=== PATIENT | male | born 1950 | race Caucasian/White ===

== ENCOUNTER 2017-01-23 09:40 | Inpatient (IN) | payer MEDICARE ==
[~2017-01-23] VITALS: Ht 182.9 cm; Wt 108.9 kg
--- NOTE | ~2017-01-23 | CN ---
PATIENT NAME:BENJAMIN KNOWLES MEDICAL RECORD: [id number] : 50 LOCATION:D.MS [id number] ADMIT DATE: 01/23/17 ACCOUNT: [id number] CONSULTING PHYSICIAN: SHERLYN PHILLIPS MD REFERRING PHYSICIAN: JONN GALLARDO MD DATE OF CONSULTATION: 01/24/2017 CONSULT REQUESTING PHYSICIAN: Jonn Gallardo MD REASON FOR CONSULTATION: Bilateral pneumonia, acute mental status changes. HISTORY OF PRESENT ILLNESS: Mr. Knowles is a 67-year-old gentleman, who is a lifelong smoker. According to the daughter, he is smoking almost a pack a day. He never gets out of the house because of his anxiety. He is sick for the last few days. He is coughing, wheezing and shortness of breath. He also has some mental status changes. REVIEW OF SYSTEMS: Mainly in the history of present illness. PAST MEDICAL HISTORY: 1. COPD. 2. History of small-bowel obstruction. 3. History of acute renal failure and that has been resolved. PAST SURGICAL HISTORY: Nonsignificant. ALLERGIES: There are no known drug allergies. MEDICATIONS: [employer] is reviewed. PERSONAL AND SOCIAL HISTORY: The patient is and lives with his . He is smoking 1 pack per day. He is a nondrinker. FAMILY HISTORY: Noncontributory. PHYSICAL EXAMINATION: GENERAL: The patient is now lying comfortably in bed. He is in mild distress. The patient is confused. VITAL SIGNS: The blood pressure is 124/78, pulse is 94, respirations 18, temperature 97.9, and SpO2 of 94% on 3 liters nasal cannula. HEENT: Conjunctivae is pink, sclerae nonicteric. NECK: Supple. No JVD. CHEST: The chest excursion is minimal on both sides, prolonged expiration with wheezing. There are crackles. HEART: Rhythm regular, normal sound, no murmur. ABDOMEN: Soft. Bowel sounds present. No hepatosplenomegaly. RECTAL: Deferred. EXTREMITIES: No cyanosis. No clubbing. No pedal edema. SKIN: Warm, normal turgor. CENTRAL NERVOUS SYSTEM: The patient is awake and alert, but the patient is confused. IMAGING: Chest radiograph, there is bilateral infiltrate, left greater than the right. There is a small left pleural effusion. CONSULT REPORT [id number] BENJAMIN KNOWLES OTHER LABORATORY DATA: CBC: WBC is 19.9, hemoglobin is 10.5, hematocrit is 33.5, and the platelet count is 416. Chemistry: Sodium 136, potassium 4.6, BUN is 12, and creatinine 0.9. The ammonia level is 74. The liver enzyme is within normal range. IMPRESSION: 1. Acute hypoxic respiratory failure. 2. Acute exacerbation of chronic obstructive pulmonary disease. 3. Bilateral pneumonia, most likely community-acquired pneumonia, doubt aspiration. 4. Acute mental status changes secondary to metabolic encephalopathy and secondary to hyperammonemia. 5. Tobacco dependence syndrome. RECOMMENDATION: Discontinue Zithromax. Continue Levaquin. I will add Rocephin. Start methylprednisolone IV, albuterol, ipratropium nebulizer, Brovana and budesonide nebulizer. Follow labs and chest radiograph in the morning. Dr. Gallardo, once again, thank you for involving me in the care of Mr. Knowles. TRANSINT:[id number] Voice Confirmation ID: [id number] DOCUMENT ID: [id number] SHERLYN PHILLIPS MD CC: JONN GALLARDO MD [id number] DICTATION DATE: 01/24/178 FLIGHT ATTENDANT RAMP: 01/25/17 0112 ADM IN [facility] [address] [id number]
[2017-01-23 10:59] LABS: BASOPHILS 0.8 % (0-2); EOSINOPHILS 1.7 % (0-7); HEMATOCRIT 33.4 % (42.0-54.0); HEMOGLOBIN 10.8 g/dL (13.5-17.5); IMMATURE GRANULOCYTES 6.6 % (0-5); LYMPHOCYTES 10.1 % (15-50); MCH 28.9 pg (26.0-34.0); MCHC 32.3 g/dL (31.0-37.0); MCV 89.3 fL (80.0-100.0); MEAN PLATELET VOLUME 10.1 fL (7.4-10.4); MONOCYTES 6.8 % (2-11); PLATELET COUNT 413 10x3/uL (130-400); RBC 3.74 10x6/uL (4.20-6.10); RDW 14.1 % (11.5-14.5); WBC 16.8 10x3/uL (4.8-10.8)
[2017-01-23 11:17] LABS: INR 1.17 (0.85-1.17); PROTIME 14.8 SECONDS (11.6-15.0)
[2017-01-23 11:18] LABS: APTT 27.6 SECONDS (22.8-39.4)
[2017-01-23 11:19] LABS: D-DIMER-QUANTITATIVE 3.31 ug/mLFEU (0.20-0.54)
[2017-01-23 11:22] LABS: ALBUMIN 2.4 g/dL (3.4-5.0); ALKALINE PHOSPHATASE 148 U/L (46-116); ALT (SGPT) 23 U/L (10-68); BILIRUBIN - TOTAL 0.43 mg/dL (0.2-1.3); CALC OSMOLALITY 275 mosm/kg (275-300); CALCIUM 8.8 mg/dL (8.5-10.1); CARBON DIOXIDE 32.9 mmol/L (21.0-32.0); CHLORIDE - SERUM 98 mmol/L (98-107); POTASSIUM - SERUM 4.2 mmol/L (3.5-5.1); PROTEIN - SERUM 6.7 g/dL (6.4-8.2); SODIUM 137 mmol/L (136-145); UREA NITROGEN 12 mg/dL (7-18); eGFR NON AFRICAN AMERICAN 79 mL/min (90-120)
[2017-01-23 11:28] LABS: GLUCOSE 142 mg/dL (74-106)
[2017-01-23 11:30] LABS: CREATINE KINASE 191 UL (21-232); PRO BNP 446 pg/mL (0-125); TROPONIN-I < 0.017 ng/mL (0.000-0.060)
--- NOTE | 2017-01-23 15:00 | NUR ---
RECEIVED TO ROOM 2216 VIA STRETCHER FROM ER. A/O X3. FAMILY AT BEDSIDE. PATIENT IS CONFUSED TO TIME AND PLACE. SKIN IS INTACT WITHOUT REDNESS. LUNCH TRAY IN ROOM. DENIES NEEDS. LUNGS HAVE CRACKLES THROUGHOUT LUNG PRESTON AND DIMINISHED SLIGHTLY. FAMILY REPORTS NO HOME MEDS AND THAT PATIENT HAS BEEN OUT ON THE [facility] FOR 15 YEARS AND NOT SEEN A DOCTOR.
[2017-01-23 15:02] VITALS: BP 123/70; BMI 32.6
--- NOTE | 2017-01-23 17:38 | NUR ---
CLEAR LIQUID TRAY SERVED IN ROOM.
--- NOTE | 2017-01-23 18:30 | NUR ---
REFUSED SUPPER TRAY. STATED HE WASN'T HUNGRY. NO CHANGES NOTED. VOIDED USING URINAL WITHOUT DIFFICULTY.
--- NOTE | 2017-01-23 19:35 | NUR ---
RECIEVED SHIFT REPORT. PT IS LYING IN BED. PT IS CONFUSED TO SITUATION AT THIS TIME. IV IS PATENT AND FLUIDS ARE RUNNING PER ORDER. PT IS AMBULATORY WITH ASSISTANCE. PT STATES PAIN IS 3/10. O2 @ 3 PER NASAL CANNULA. NO NEEDS ARE VERBALIZED AT THIS TIME. WILL CONTINUE TO MONITOR. SIDE RAILS ARE UP X 2. BED IS IN LOWEST POSITION. BED ALARM IS ON FOR SAFETY. CALL LIGHT IS WITHIN REACH.
[2017-01-23 20:00] VITALS: BP 124/69
--- NOTE | 2017-01-23 20:34 | NUR ---
SHIFT ASSESSMENT COMPLETED. NIGHT MEDS GIVEN WITH NO PROBLEMS. NO NEEDS ARE VOICED. WILL MONITOR. SIDE RAILS X 2. BED LOW. BED ALARM ON. CALL LIGHT IN REACH.
--- NOTE | 2017-01-24 03:41 | NUR ---
URINE SENT TO LAB AT THIS TIME FOR WARRENTED TESTS.
[2017-01-24 04:00] VITALS: BP 128/75
[2017-01-24 05:22] LABS: APPEARANCE CLEAR (CLEAR); BILIRUBIN NEGATIVE (NEGATIVE); COLOR YELLOW (YELLOW); GLUCOSE NEGATIVE (NEGATIVE); KETONE NEGATIVE (NEGATIVE); LEUKOCYTE ESTERASE NEGATIVE (NEGATIVE); NITRITE NEGATIVE (NEGATIVE); PROTEIN NEGATIVE (NEGATIVE); UROBILINOGEN NORMAL (NORMAL)
[2017-01-24 06:06] LABS: BASOPHILS 0.1 % (0-2); EOSINOPHILS 0 % (0-7); HEMATOCRIT 33.5 % (42.0-54.0); HEMOGLOBIN 10.5 g/dL (13.5-17.5); IMMATURE GRANULOCYTES 4.6 % (0-5); LYMPHOCYTES 6.3 % (15-50); MCH 28.2 pg (26.0-34.0); MCHC 31.3 g/dL (31.0-37.0); MCV 89.8 fL (80.0-100.0); MONOCYTES 2.8 % (2-11); NEUTROPHILS 86.2 % (40-80); PLATELET COUNT 416 10x3/uL (130-400); RBC 3.73 10x6/uL (4.20-6.10); WBC 19.9 10x3/uL (4.8-10.8)
[2017-01-24 06:53] LABS: CALC OSMOLALITY 276 mosm/kg (275-300); CALCIUM 8.8 mg/dL (8.5-10.1); CARBON DIOXIDE 32.7 mmol/L (21.0-32.0); CHLORIDE - SERUM 98 mmol/L (98-107); CREATININE - SERUM 0.9 mg/dL (0.6-1.3); POTASSIUM - SERUM 4.6 mmol/L (3.5-5.1); SODIUM 136 mmol/L (136-145); UREA NITROGEN 12 mg/dL (7-18); eGFR NON AFRICAN AMERICAN 89 mL/min (90-120)
[2017-01-24 06:54] LABS: GLUCOSE 190 mg/dL (74-106)
--- NOTE | 2017-01-24 07:52 | HP ---
PATIENT: BENJAMIN KNOWLES MEDICAL RECORD: [id number] ACCOUNT: [id number] LOCATION:D.MS [id number] : 50 ADMISSION DATE: 01/23/17 HISTORY AND PHYSICAL EXAMINATION REASON FOR ADMISSION: Shortness of breath. HISTORY OF PRESENT ILLNESS: A 67-year-old male with history of COPD with no local physician, presents with family members who stated that he has not been out of bed for 4 days due to cough. The cough has been productive. He denies fever. His family states that he has been confused. They stated he is pretty much a hermit, never gets out of the house. He ____ Proventil inhaler for a few days without improvement. He continues to smoke a pack a day of cigarettes for 50 years despite these symptoms. He also has not had a bowel movement in 4 days. PAST MEDICAL HISTORY: COPD, nicotine addiction, was hospitalized a year ago here by Dr. Peoples for small bowel obstruction and acute renal failure that resolved with hydration. PAST SURGICAL HISTORY: There is a negative surgical history. MEDICATIONS: No current medications except for occasional Proventil HFA inhaler. ALLERGIES: None known. FAMILY HISTORY: The patient does not know the history. SOCIAL HISTORY: One pack a day for 50+ years. No alcohol use. Denies recreational drug use. REVIEW OF SYSTEMS: GENERAL: He has been fatigued and weak and trouble breathing for the last 4 days. Denies fever. HEENT: Has had some pain in his left ear. No hearing difficulty, or visual problems. RESPIRATORY: As above, short of breath at rest and coughing, productive of yellow-green sputum. Denies hemoptysis. CARDIAC: Denies chest pain, palpitations, or edema. GASTROINTESTINAL: He has had no nausea. He has not had a bowel movement, had some vague abdominal discomfort. No bowel movement in 4 days. There is no melena. He has never had a colonoscopy or EGD. GENITOURINARY: Has nocturia once nightly. ENDOCRINE: Denies polyuria, polydipsia, heat or cold intolerance, or weight loss. PSYCHIATRIC: Denies depressed mood. NEUROLOGIC: Denies history of memory loss, although the family says he was not acting himself for last few days. PHYSICAL EXAMINATION: VITAL SIGNS: The patient is afebrile, blood pressure 160/80, sat initially was in the low 80s, has improved on 4 liters to 94%. Heart rate is 80 and regular. HEENT: Normocephalic. Eyes are clear. He is unshaven. He has cerumen in left ear canal, but no erythema. voice. Oropharynx, dry mucous membranes. HISTORY AND PHYSICAL [id number] BENJAMIN KNOWLES NECK: Supple, without bruits or masses. CHEST: Distant breath sounds with wheezes bilaterally. He is using accessory muscles to breathe currently. HEART: Regular rate without murmur or gallop. ABDOMEN: Mildly distended with hyperactive bowel sounds. It is nontender throughout. RECTAL: Shows no stool in the vault. EXTREMITIES: He has 1+ mild pedal edema. SKIN: Very dry. No cyanosis is appreciated. LABORATORY AND DIAGNOSTIC DATA: Chest x-ray reveals some bibasilar patchy infiltrates with small left pleural effusion. He has calcified aortic knob. White count is 16.8 thousand with normal differential, H&H is 10.8 and 33.4, platelets 413,000. MCV of 89.3. INR is normal. D-dimer is 3.31. BUN and creatinine are 12 and 1.0. Potassium is 4.2. Lactic acid is 1.1. Liver functions are normal except for alkaline phosphatase of 148. ProBNP of 446. Blood gas: pH 7.396, pCO2 of 49, pO2 of 78 on 4 liters. Single view chest x-ray shows bilateral basilar infiltrates, left greater than right with small left pleural effusion. Abdominal film shows increased abdominal bowel gas, but no free air. ASSESSMENT: Exacerbation of chronic obstructive pulmonary disease, constipation, hypoxemia, leukocytosis, elevated D-dimer of undetermined etiology. PLAN: The patient will be admitted for pulmonary toilet, IV antibiotics, pulmonary consult if indicated. TRANSINT:[id number] Voice Confirmation ID: [id number] DOCUMENT ID: [id number] HANNAH HOROWITZ MD at 0752 CC: [id number] DICTATION DATE: 01/23/17 1407 DIRECTOR CLINICAL DATA: 01/23/17 1718 [place] [address]
--- NOTE | 2017-01-24 07:56 | NUR ---
PATIENT IS AWAKE, AND ALERT. PATIENT ANSWERED ALL ORIENTATION QUESTIONS CORRECTLY, THEN STATED "WHEN CAN I EAT THAT OVER THERE" AND POINTED TO A SHEET OF PAPER HANGING UP ON THE WALL. REORIENTED PATIENT. BED ALARM ON. BED IN LOWEST POSITION, CALL LIGHT IN REACH. BED RAILS UP X'S 2.
[2017-01-24 07:58] VITALS: BP 135/73
[2017-01-24 11:54] VITALS: BP 122/68
--- NOTE | 2017-01-24 12:00 | NUR ---
PATIENT PULLED OUT IV. PATIENT HOLDING A WASH CLOTH TO ARM. I STATED "YOU PULLED YOUR IV OUT." PATIENT STATED "NO, I DID NOT. THIS HAPPENS ALL THE TIME." KEPT TRYING TO EXPLAIN AND REORIENT PATIENT. UNABLE TO REORIENT. PATIENT STATED "THERE ARE 2 MICE THAT ARE RUNNING AROUND IN THE FLOOR." I STATED "YOU ARE HAVING HALLUCINATIONS, THERE ARE NO MICE IN THE FLOOR."
--- NOTE | 2017-01-24 12:15 | NUR ---
ALARM MECHANISM ADJUSTER TRIED TO GET PATIENT TO GET IN THE SHOWER. PATIENT REFUSED. I WENT IN ROOM, TALKED TO PATIENT. EXPLAINED THAT HE NEEDS TO GET A SHOWER AND WE HAVE CLEAN CLOTHES FOR HIM AND THE ALARM MECHANISM ADJUSTER WILL ASSIST. PATIENT STATED "I AM NOT GETTING A SHOWER TODAY!" I STATED "THAT IS FINE. YOU DO NOT HAVE TO GET IN THE SHOWER. WE HAVE BATH WIPES." ALARM MECHANISM ADJUSTER GOT BATH WIPES TRIED TO BATH PATIENT, PATIENT REFUSED.
--- NOTE | 2017-01-24 12:18 | NUR ---
PATIENT'S BED ALARM GOING OFF. WENT IN ROOM. PATIENT STANDING UP WALKING TOWARD THE DOOR. NASAL CANNULA OFF. PATIENT STATED "I AM GETTING OUT OF THIS PLACE!" I STATED "SIR. PLEASE SIT BACK DOWN SO WE CAN TALK." PATIENT KEPT WALKING. KEPT TRYING TO GET PATIENT TO STOP AND GO BACK TO ROOM. PATIENT'S GAIT SLIGHTLY UNSTEADY. TRIED TO HOLD PATIENT'S HAND. PATIENT STATED "KEEP YOUR HANDS OFF OF ME!" AND PULLED HIS ARM AWAY. PATIENT HEADED TOWARD DOOR LEADING TO STAIR WELL. BLOCKED THE DOOR. PATIENT STATED "GET OUT OF MY WAY. I MEAN IT!" I STATED "PLEASE. LET'S GO TO YOUR ROOM AND CALL YOUR ." KEPT SAYING THAT. PATIENT FINALLY AGREED AND TURNED AROUND. PATIENT'S RESPIRATIONS INCREASED, LABORED. PATIENT STATED "I AM HAVING A HEART ATTACK." PATIENT PLACED HIS HAND OVER THE LEFT SIDE OF HIS CHEST. FINALLY GOT PATIENT BACK IN HIS BED. PATIENT SITTING ON THE SIDE OF THE BED. REFUSED TO LAY DOWN. ASKED PATIENT "WHERE ARE YOU HURTING?" PATIENT PLACED HAND OVER THE LEFT SIDE OF HIS CHEST. PATIENT STATED "IT FEELS LIKE A STING." PUT NASAL CANNULA ON PATIENT. CHECKED OXYGEN SATURATION WITH NASAL CANNULA ON 2L/MIN 95%. CALLED .
--- NOTE | 2017-01-24 12:30 | NUR ---
PATIENT TAKING OXGYEN OFF. WILL NOT LEAVE IT ON. TRIED TO PUT IT BACK ON. PATIENT RESISTS, AND STATES, "NO. LEAVE ME ALONE." CALLED PATIENT'S . EXPLAINED WHAT HAPPENED AND THAT PATIENT IS NOT COOPERATING AND WE NEED AN IV TO DO A CTA AND PATIENT NEEDS OXYGEN. STATED "I WILL CALL THE KIDS AND SEE HOW SOON UNTIL THEY ARE THERE." SPOKE WITH PATIENT. PATIENT TOLD , "I NEED YOU TO GET HERE RIGHT NOW. I CANNOT STAY THEY ARE TRYING TO KILL ME."
--- NOTE | 2017-01-24 12:50 | NUR ---
, MAILER APPRENTICE AND DEEPA FRENCH RN AT BEDSIDE TRYING TO TALK TO PATIENT TO CALM HIM DOWN.
--- NOTE | 2017-01-24 13:14 | NUR ---
PAGED TO ASK HIM ABOUT CHANGING THE ROUTE OF THE ATIVAN TO IM
--- NOTE | 2017-01-24 13:45 | NUR ---
PATIENT'S AND KIDS ARRIVED.
--- NOTE | 2017-01-24 13:50 | NUR ---
IV STARTED TO RIGHT HAND 20G, BY PHIL ARENAS VENOUS ACCESS NURSE.
[2017-01-24 13:59] VITALS: Ht 182.9 cm; Wt 108.9 kg
[2017-01-24] MEDS ORDERED: ATIVAN1 MG PO (14:53)
[2017-01-24 15:50] VITALS: BP 124/78
[2017-01-24 16:39] LABS: CKMB 4.1 U/L (0.0-3.6); CREATINE KINASE 196 UL (21-232)
[2017-01-24 16:40] LABS: TROPONIN-I < 0.017 ng/mL (0.000-0.060)
--- NOTE | 2017-01-24 18:24 | NUR ---
PATIENT STANDING UP TWISTING IV TUBING ABOVE THE IV PUMP CHANNEL. PATIENT REFUSING TO GET BACK IN BED. TAKING OFF OXGYEN, REFUSING TO ALLOW ME TO PUT NASAL CANNULA BACK ON. FINALLY GOT PATIENT TO SIT ON THE SIDE OF THE BED. BED ALARM ON. ADMINISTERED ATIVAN.
--- NOTE | 2017-01-24 19:00 | NUR ---
PATIENT SLEEPING ON LEFT SIDE. HOB 20 DEGREES. RR SHALLOW. O2 @ 3L VIA NC. IV TO RIGHT HAND PATENT WITH NO REDNESS OR SWELLING. B/A ON. SRX3. BED LOW. DOOR OPEN.
--- NOTE | 2017-01-24 19:00 | NUR ---
PATIENT RESTING QUIETLY WITH EYES CLOSED. NASAL CANNULA ON, 3L/MIN. BED IN LOWEST POSITION, CALL LIGHT IN REACH. BED RAILS UP X'S 2. BED ALARM ON.
[2017-01-24 19:30] LABS: CKMB 5.6 U/L (0.0-3.6); CREATINE KINASE 227 UL (21-232); TROPONIN-I < 0.017 ng/mL (0.000-0.060)
[2017-01-24 20:00] VITALS: BP 156/87
--- NOTE | 2017-01-24 23:00 | NUR ---
PATIENT CONFUSED BUT FOLLOWS COMMANDS. NIGHTTIME MEDS GIVEN. NO OTHER NEEDS AT THIS TIME.
[2017-01-24 23:10] LABS: UDS - AMPHET NEGATIVE QUAL (NEGATIVE); UDS - BARB NEGATIVE QUAL (NEGATIVE); UDS - BENZO NEGATIVE QUAL (NEGATIVE); UDS - COCAINE NEGATIVE QUAL (NEGATIVE); UDS - METH NEGATIVE QUAL (NEGATIVE); UDS - OPIATE POSITIVE QUAL (NEGATIVE); UDS - PCP NEGATIVE QUAL (NEGATIVE); UDS - THC NEGATIVE QUAL (NEGATIVE)
[2017-01-25] VITALS: BP 162/88
[2017-01-25 00:53] LABS: CKMB 8.1 U/L (0.0-3.6); CREATINE KINASE 240 UL (21-232); TROPONIN-I < 0.017 ng/mL (0.000-0.060)
--- NOTE | 2017-01-25 01:20 | NUR ---
PATIENT EXTREMELY AGITATED. KEEPS ATTEMPTING TO GET OUT OF BED. ATIVAN GIVEN PER ORDER.
--- NOTE | 2017-01-25 03:41 | NUR ---
PATIENT SLEEPING WITH NO DISTRESS NOTED.
[2017-01-25 06:02] LABS: CALC OSMOLALITY 281 mosm/kg (275-300); CALCIUM 9.1 mg/dL (8.5-10.1); CARBON DIOXIDE 34.7 mmol/L (21.0-32.0); CHLORIDE - SERUM 101 mmol/L (98-107); GLUCOSE 158 mg/dL (74-106); MAGNESIUM - SERUM 2.9 mg/dL (1.8-2.4); POTASSIUM - SERUM 4.8 mmol/L (3.5-5.1); SODIUM 139 mmol/L (136-145); UREA NITROGEN 14 mg/dL (7-18); eGFR NON AFRICAN AMERICAN 79 mL/min (90-120)
[2017-01-25 06:19] LABS: HEMATOCRIT 35.7 % (42.0-54.0); HEMOGLOBIN 11.1 g/dL (13.5-17.5); MCH 28.5 pg (26.0-34.0); MCHC 31.1 g/dL (31.0-37.0); MCV 91.5 fL (80.0-100.0); MEAN PLATELET VOLUME 10.1 fL (7.4-10.4); PLATELET COUNT 466 10x3/uL (130-400); RDW 14.2 % (11.5-14.5); WBC 20.4 10x3/uL (4.8-10.8)
--- NOTE | 2017-01-25 06:50 | NUR ---
2 UNITS HUMULIN GIVEN FOR BS OF 158.
[2017-01-25 07:07] LABS: ANISOCYTOSIS OCC; LYMPHOCYTES 10 % (15-50); MONOCYTES 4 % (2-11); NEUTROPHILS 74 % (40-80); PLATELET ESTIMATE INCREASED; ROULEAUX OCC
[2017-01-25 07:57] LABS: APTT 25.6 SECONDS (22.8-39.4); INR 1.15 (0.85-1.17); PROTIME 14.5 SECONDS (11.6-15.0)
[2017-01-25 08:25] VITALS: BP 117/61
--- NOTE | 2017-01-25 09:40 | NUR ---
PT ASSESSMENT COMPLETE THIS AM ON WALKING ROUNDS PT RESTING QUIETLY [place] NO ACUTE DISTRESS NOTED HAS ASCITES NOTD TO ABDOMEN. BSA X 4 QUADS PT NPO AT THIS TIME FOR ABDOMINAL ULTRASOUND. FAMILY HERE ASKING FOR UPDATES ON CARE WILL MONITOR PER ORDER
[2017-01-25 12:45] VITALS: BP 122/60
--- NOTE | 2017-01-25 14:03 | NUR ---
Patient Name: BENJAMIN KNOWLES Admission Status: ER Accout number: [id number] Admission Date: 01-23-2017 : 1950 Admission Diagnosis:ACUTE RESPIRATORY FAILURE WITH HYPOXIA Attending: JINNY Current LOS: 2 Anticipated DC Date: 01-28-2017 Planned Disposition: Home Primary Insurance: MEDICARE A & B Discharge Planning Comments: CM MET WITH PATIENT AND CALLED (RADHA) REGARDING D/C NEEDS AND PLANS. PATIENT LIVES WITH HIS AND THEY HAVE A RAMP TO ENTER HOME AND NO STAIRS INSIDE. PATIENT IS INDEPENDENT WITH HIS CARE AND HAS NO DME AT HOME. PATIENT HAS NO PCP AND USES [facility]. PATIENT STATED HE DOES NOT NEED HOME HEALTH AND AGREED. CM WILL CONTINUE TO FOLLOW PATIENT WITH D/C NEEDS AND PLANS. PCP NONE [facility]- [phone] RADHA VIGIL- [phone] Wet Mixer: Elaina Haq How many steps to enter\exit or inside your home? RAMP 0 * PCP NONE 0 * Pharmacy [facility] 0 * Preadmission Environment Home with Family 0 * ADLs Independent 0 * Equipment None 0 * List name and contact numbers for known caregivers / representatives who currently or will assist patient after discharge: RADHA VIGIL (LIVED TOGETHER 31 YRS) [phone] 0 * Community resources currently utilized None 0 * Additional services required to return to the preadmission environment? Yes 0 * Can the patient safely return to the preadmission environment? Yes 0 * Has this patient been hospitalized within the prior 30 days at any hospital? No 0 Grand Total: 0
--- NOTE | 2017-01-25 16:24 | NUR ---
PT CONFUSED AT TIMES. RESP EVEN AND NONLABORED IV TO RIGHT HAND PATENT AND INTACT. PT HERE FOR PNEUMONIA TO RECEIVE IV FLUIDS AND ANTIBIOTICS. SRX2 CALL LIGHT WITHIN REACH BED AT LOWEST SETTING WILL CONTINUE TO MONITOR
--- NOTE | 2017-01-25 16:40 | NUR ---
CM REASSESSMENT NOTE: PATIENT HAS AGREED TO HOME HEALTH-DAUGHTER (CHIDI) IN ROOM AND SIGNED THE PRISCILA FORM FOR HER DAD. CM WILL CONTINUE TO FOLLOE PATIENT WITH D/C NEEDS AND PLANS
[2017-01-25 16:41] VITALS: BP 140/70
--- NOTE | 2017-01-25 19:00 | NUR ---
PATIENT IN BED WATCHING TV. HOB 30 DEGREES. AAOX4. RR SHALLOW AND SLIGHTLY LABORED. O2 @ 3L VIA NC. 0 S/S OF DISTRESS. DENIES ANY PAIN. IV TO RIGHT HAND S/L WITH NO REDNESS OR SWELLING. B/A ON. SRX2. BED LOW. CALL LIGHT WITHIN REACH.
[2017-01-25 20:00] VITALS: BP 123/65
--- NOTE | 2017-01-25 22:45 | NUR ---
NIGHTTIME MEDS GIVEN. HUMULIN HELD FOR BS OF 107. CHRONULAC HELD FOR NORMAL AMMONIA LEVEL.
--- NOTE | 2017-01-25 22:50 | NUR ---
PATIENT STATED THAT HIS IV ZUÑIGA WHEN USED FOR MEDICATION. RESITED IV TO LEFT FA ON STICK WITH 22 GAUGE. REMOVED OLD IV CATHETER WITH TIP INTACT.
--- NOTE | 2017-01-26 00:45 | NUR ---
ASSISTED PATIENT TO BATHROOM TO HAVE BM. COLLECTED STOOL SAMPLE.
[2017-01-26 04:00] VITALS: BP 130/69
--- NOTE | 2017-01-26 04:00 | NUR ---
PATIENT WATCHING TV. DENIES NEEDS AT THIS TIME.
[2017-01-26 06:15] LABS: BASOPHILS 0.1 % (0-2); EOSINOPHILS 0 % (0-7); HEMATOCRIT 33.9 % (42.0-54.0); HEMOGLOBIN 10.7 g/dL (13.5-17.5); LYMPHOCYTES 7.1 % (15-50); MCH 28.4 pg (26.0-34.0); MCHC 31.6 g/dL (31.0-37.0); MCV 89.9 fL (80.0-100.0); MEAN PLATELET VOLUME 10.1 fL (7.4-10.4); MONOCYTES 4.1 % (2-11); NEUTROPHILS 85.7 % (40-80); PLATELET COUNT 487 10x3/uL (130-400); RBC 3.77 10x6/uL (4.20-6.10); RDW 14.2 % (11.5-14.5); WBC 15.8 10x3/uL (4.8-10.8)
--- NOTE | 2017-01-26 06:21 | NUR ---
PATIENT IN BED WATCHING TV. DENIES NEEDS AT THIS TIME.
[2017-01-26 06:56] LABS: ALBUMIN 2.3 g/dL (3.4-5.0); ALKALINE PHOSPHATASE 101 U/L (46-116); ALT (SGPT) 48 U/L (10-68); BILIRUBIN - TOTAL 0.16 mg/dL (0.2-1.3); CALC OSMOLALITY 278 mosm/kg (275-300); CALCIUM 8.6 mg/dL (8.5-10.1); CARBON DIOXIDE 30.9 mmol/L (21.0-32.0); CHLORIDE - SERUM 101 mmol/L (98-107); CREATININE - SERUM 0.9 mg/dL (0.6-1.3); GLUCOSE 153 mg/dL (74-106); MAGNESIUM - SERUM 2.6 mg/dL (1.8-2.4); POTASSIUM - SERUM 4.2 mmol/L (3.5-5.1); PROTEIN - SERUM 6.7 g/dL (6.4-8.2); SODIUM 137 mmol/L (136-145); UREA NITROGEN 17 mg/dL (7-18); eGFR NON AFRICAN AMERICAN 89 mL/min (90-120)
--- NOTE | 2017-01-26 07:00 | NUR ---
REPORT RECEIVED FROM GENERAL OPHTHALMOLOGIST NURSE. CALL LIGHT IN REACH.
[2017-01-26 08:04] VITALS: BP 142/69
--- NOTE | 2017-01-26 08:28 | NUR ---
SITTING UP AT BEDSIDE EATING BREAKFAST AT THIS TIME AND TALKING ON PHONE. RESPIRATIONS EVEN AND NON LABORED. CALL LIGHT IN REACH. WILL CONTINUE WITH PLAN OF CARE.
--- NOTE | 2017-01-26 09:12 | NUR ---
ASSESSMENT COMPLETED. ATIVAN IVP WITH AM MEDS ADMINISTERED. CALL LIGHT IN REACH. BED ALARM ON. WILL CONTINUE WITH PLAN OF CARE.
--- NOTE | 2017-01-26 09:31 | NUR ---
IV TUBING CHANGED PER HOSPITAL POLICY.
[2017-01-26 10:19] LABS: HEPATITIS C ANTIBODY <0.1 (0.0-0.9)
--- NOTE | 2017-01-26 11:08 | CN ---
PATIENT NAME:BENJAMIN KNOWLES MEDICAL RECORD: [id number] : 50 LOCATION:D.MS [facility] ADMIT DATE: 01/23/17 ACCOUNT: [id number] CONSULTING PHYSICIAN: OCTAVIO RUBIO III, MD REFERRING PHYSICIAN: HANNAH HOROWITZ MD DATE OF CONSULTATION: 01/25/2017 FINDINGS: This is a 67-year-old white male admitted to the hospital for COPD and community-acquired pneumonia. Subsequent hospitalization, the patient has exhibited clear-cut delirium with agitation, mild combativeness and apparent hallucinosis. The patient does have significant history of alcohol abuse, according to both the patient and current record, he has been abstinent for about a year. The patient has been receiving Ativan on a routine basis, evidently somehow supplied by his daughter. The patient has had a difficult course during hospitalization, but is showing some improvement. On exam, the patient is responsive to the examiner, but remains quite confused. His mood is slightly anxious. Affect is constricted. Speech is very terse. Content of thought is positive for recent visual hallucinosis according to the staff. The patient is oriented to person and the fact that he is in hospital, but he is not oriented as to time. DIAGNOSTIC IMPRESSION: AXIS I: Subacute delirium, based on history. I doubt that this is an actual delirium tremens. However, on multiple metabolic factors are obviously evolve and may have contributed primarily hypoxemia. RECOMMENDATIONS: 1. The patient does have an elevated serum ammonia. We will not prescribe routine neuroleptics but have ordered p.r.n. Haldol 1 mg up to every 4 hours as needed for severe agitation. The patient has course receiving Ativan on an ongoing basis, which serve as appropriate. 2. We will be glad to follow with you as needed. TRANSINT:[id number] Voice Confirmation ID: [id number] DOCUMENT ID: [id number] OCTAVIO RUBIO III, MD at 1108 CC: [id number] DICTATION DATE: 01/25/17 1221 LINE PATROLLER: 01/25/17 1240 ADM IN [id number] [place] [address]
--- NOTE | 2017-01-26 11:15 | NUR ---
SITTING IN CHAIR. DENIES NEEDS AT THIS TIME. CALL LIGHT IN REACH.
[2017-01-26 12:01] VITALS: BP 144/71
--- NOTE | 2017-01-26 13:24 | NUR ---
2 UNITS REGULAR INSULIN SUBQ TO RIGHT ARM FOR BLOOD SUGAR OF 175. NARESH PO. SAMIR IVPB. CALL LIGHT IN REACH.
--- NOTE | 2017-01-26 14:21 | NUR ---
BACK IN BED. DENIES NEEDS OR PAIN. BED ALARM TURNED ON. CALL LIGHT IN REACH.
[2017-01-26 15:35] VITALS: BP 146/86
--- NOTE | 2017-01-26 16:10 | NUR ---
ROCEPHIN IVPB AND SOLUMEDROL IVP. FSBS 116 SO NO COVERAGE REQUIRED. BED ALARM ON. CALL LIGHT IN REACH.
--- NOTE | 2017-01-26 18:24 | NUR ---
NO CHANGES IN INITIAL ASSESSMENT. CALL LIGHT IN REACH. BED ALARM ON. WILL CONTINUE WITH PLAN OF CARE.
--- NOTE | 2017-01-26 19:00 | NUR ---
PATIENT IN BED WATCHING TV. HOB 30 DEGREES. AWAKE AND ALERT BUT ONLY ORIENTED TO SELF. RR SLIGHTLY LABORED WITH PURSED LIP BREATHING. O2 @ 3L VIA NC. STATES PAIN IS A 3/10 IN HIS NECK "FROM THE BED." IV TO LEFT FA S/L WITH NO REDNESS OR SWELLING. B/A ON. SRX2. BED LOW. CALL LIGHT WITHIN REACH.
[2017-01-26 20:00] VITALS: BP 131/73
--- NOTE | 2017-01-26 22:45 | NUR ---
NIGHTTIME MEDS GIVEN. KYMBERLY HELD FOR BS OF 136. DENIES NEEDS AT THIS TIME.
--- NOTE | 2017-01-26 23:55 | NUR ---
ASSISTED PATIENT TO BATHROOM TO HAVE BM. NOW BACK IN BED WITH NO DISTRESS NOTED.
[2017-01-27] VITALS: BP 137/73
--- NOTE | 2017-01-27 02:22 | NUR ---
PATIENT GOT OUT OF BED VERY CONFUSED AND AGITATED. HALLUCINATING AND REFUSING TO GET BACK IN BED. ATIVAN GIVEN PER ORDER. WILL CONTINUE TO MONITOR.
[2017-01-27 04:00] VITALS: BP 139/76
[2017-01-27 05:32] LABS: BASOPHILS 0.1 % (0-2); EOSINOPHILS 0 % (0-7); HEMATOCRIT 33.7 % (42.0-54.0); HEMOGLOBIN 10.8 g/dL (13.5-17.5); IMMATURE GRANULOCYTES 2.4 % (0-5); LYMPHOCYTES 12.5 % (15-50); MCH 28.5 pg (26.0-34.0); MCV 88.9 fL (80.0-100.0); MONOCYTES 8.5 % (2-11); NEUTROPHILS 76.5 % (40-80); PLATELET COUNT 467 10x3/uL (130-400); RBC 3.79 10x6/uL (4.20-6.10); RDW 14.4 % (11.5-14.5); WBC 12.3 10x3/uL (4.8-10.8)
[2017-01-27 05:52] LABS: ANION GAP 9.5 mmol/L (8-16); CALCIUM 8.8 mg/dL (8.5-10.1); CARBON DIOXIDE 30.6 mmol/L (21.0-32.0); CREATININE - SERUM 1.1 mg/dL (0.6-1.3); MAGNESIUM - SERUM 2.6 mg/dL (1.8-2.4); POTASSIUM - SERUM 4.1 mmol/L (3.5-5.1)
--- NOTE | 2017-01-27 06:47 | NUR ---
SOLUMEDROL GIVEN. HUMULIN HELD FOR BS OF 124. AGITATION APPEARS TO BE BETTER. PATIENT RESTING WITH NO DISTRESS NOTED.
--- NOTE | 2017-01-27 07:45 | NUR ---
AWAKE, LESS CONFUSED TODAY, FAMILY AT BEDSIDE, BED LOWEST POSITION, CALL LIGHT IN REACH, WILL CONTINUE TO MONITOR
[2017-01-27 07:58] VITALS: BP 137/68
[2017-01-27 12:34] VITALS: BP 155/84
--- NOTE | 2017-01-27 12:40 | NUR ---
PATIENT UP AT BEDSIDE WITH ASSIST FROM PRIMARY NURSE SOMMER GALLO. NO SIGNS OF DITSRESS NOTED.
--- NOTE | 2017-01-27 14:14 | NUR ---
NUTRITION MONITORING & EVAL CHART REVIEWED. PT UP IN CHAIR SLEEPING. 50% INTAKE RECENT MEALS. WILL CONTINUE TO PROVIDE DIET, MONITOR PO INTAKE. RD FOLLOWING
[2017-01-27 16:03] VITALS: BP 145/78
[2017-01-27 20:00] VITALS: BP 154/76
--- NOTE | 2017-01-27 22:30 | NUR ---
PT REFUSED BEDTIME MEDS. EXPLAINED TO PT HE NEEDED TO TAKE MEDS TO GET WELL. HE STATED "EITHER I WILL OR I WON'T, BUT I'M NOT TAKING ANY MORE PILLS." ASKED PT IF HIS BLOOD SUGAR CAN BE CHECKED. HE SAID"ONLY IF YOU DO IT QUICK." FSBS WAS 107. HE THEN CALLED ME BACK AND ASKED IF I THOUGHT THE ATIVAN WOULD HELP HIM SLEEP AND DID TAKE THE ATIVAN BUT STILL REFUSED THE OTHER MEDS.
[2017-01-28] VITALS: BP 144/78
[2017-01-28 04:00] VITALS: BP 120/59
[2017-01-28 06:54] LABS: BASOPHILS 0.1 % (0-2); EOSINOPHILS 0.3 % (0-7); HEMATOCRIT 37.4 % (42.0-54.0); HEMOGLOBIN 11.9 g/dL (13.5-17.5); IMMATURE GRANULOCYTES 2.3 % (0-5); LYMPHOCYTES 23.6 % (15-50); MCH 28.5 pg (26.0-34.0); MCHC 31.8 g/dL (31.0-37.0); MCV 89.5 fL (80.0-100.0); MEAN PLATELET VOLUME 10.1 fL (7.4-10.4); MONOCYTES 7.6 % (2-11); NEUTROPHILS 66.1 % (40-80); PLATELET COUNT 510 10x3/uL (130-400); RBC 4.18 10x6/uL (4.20-6.10); RDW 14.8 % (11.5-14.5); WBC 10.6 10x3/uL (4.8-10.8)
[2017-01-28 07:07] LABS: CALC OSMOLALITY 275 mosm/kg (275-300); CALCIUM 8.5 mg/dL (8.5-10.1); CARBON DIOXIDE 28.6 mmol/L (21.0-32.0); CHLORIDE - SERUM 100 mmol/L (98-107); GLUCOSE 86 mg/dL (74-106); MAGNESIUM - SERUM 2.3 mg/dL (1.8-2.4); POTASSIUM - SERUM 3.9 mmol/L (3.5-5.1); SODIUM 138 mmol/L (136-145); UREA NITROGEN 16 mg/dL (7-18); eGFR NON AFRICAN AMERICAN 79 mL/min (90-120)
--- NOTE | 2017-01-28 07:40 | NUR ---
NO CONFUSION PRESENT AT THIS TIME, LUNG SOUNDS CLEAR, BED LOWEST POSITION, CALL LIGHT IN REACH, WILL CONTINUE TO MONITOR, ASSESSMENT COMPLETE
[2017-01-28 07:50] VITALS: BP 150/79
--- NOTE | 2017-01-28 08:00 | NUR ---
PATIENT ALERT IN HIGH PRATER POSITION. NO SIGNS OF DISTRESS NOTED. SIDE RAILS UP X2. BED IN LOW POSITION. CALL LIGHT IN REACH.
[2017-01-28 12:10] VITALS: BP 105/68
[2017-01-28] MEDS ORDERED: IPRAT-ALBUT 0.5-3 ML UPD (13:35)
[2017-01-28] MEDS ORDERED: MUCINEX600 MG PO (13:36)
[2017-01-28] MEDS ORDERED: PULMICORT0.5 MG/21 UPD (13:36)
[2017-01-28] MEDS ORDERED: MIRALAX17 GM PO (13:38)
[2017-01-28] MEDS ORDERED: LEVAQUIN750 MG PO (13:39)
[2017-01-28] MEDS ORDERED: STERAPRED 5MG 125 MG PO (13:39)
[2017-01-28] MEDS ORDERED: ATIVAN0.5 MG PO (13:41)
--- NOTE | 2017-01-28 15:39 | NUR ---
DISCHARGE PAPERS AND INSTRUCTIONS GIVEN TO PATIENT AND SON, QUESTIONS ANSWERED, IV REMOVED TIP INTACT, DISCHARGED WITH BELONGINGS PER WC
--- NOTE | 2017-01-28 15:55 | NUR ---
LATE ENTRY: PATIENT D/C HOME-FAMILY DRIVING. CM NOTIFIED [facility] OF D/C. [facility] IS DELIVERING NEBULIZER TO HIS HOME TODAY.
--- NOTE | 2017-01-31 08:12 | DS ---
PATIENT:BENJAMIN KNOWLES :50 MEDICAL RECORD: [id number] DISCHARGE SUMMARY ADMISSION DATE: 01/23/17 DISCHARGE DATE: 01/28/17 DISCHARGE DIAGNOSES: 1. Respiratory failure. 2. Hypoxemia. 3. Community-acquired pneumonia. 4. Chronic obstructive pulmonary disease. 5. Encephalopathy due to metabolic cause. 6. Anemia of gastrointestinal blood loss, iron deficiency type. 7. Hallucinosis. CONSULTANTS: Dr. Wall and Dr. Ortega. HOSPITAL COURSE: A 67-year-old male, who lives at home with family with longstanding nicotine addiction, increasing shortness of breath and confusion for several days. He presented to the ED due to unassigned call. Reportedly, his O2 sats were in the 60s, but responded to updraft therapy ____ in the low 90s. He was admitted. Chest x-ray showed left lower lobe pneumonia. The patient was quite confused with his hypoxemia, also had elevated ammonia level. This was treated with lactulose. The patient normalized his ammonia levels quickly and ultrasound of the liver was performed showing no evidence of cirrhosis, just fatty liver. The patient gradually improved, was able to become oriented, walk the halls with PT assistance within 2 days. He was placed on IV Levaquin and Rocephin, ____ and IV steroids, the patient has improved. The chest x-ray last night showed improving left lower lobe pneumonia. He is now well oriented and I had discussions with the family concerning his care. The CT of the head was done during his confusion episode that showed no evidence of CVA or hydrocephalus. The patient elects to go home today. Additionally, he had anemia and heme-positive stool, but no mariajose bright red blood per rectum. His hemoglobin was 11.1 on admission with MCV of 91.5; 11.9 at discharge without transfusion. Anemia studies showed iron deficiency. Stool was heme-positive on occult blood. GI was not consulted due to the patient's respiratory status; however, we will have an outpatient GI consultation for EGD and colonoscopy if indicated. His discharge H&H was 11.9 and 37.4, the white count 10.6 thousand, and platelet count of 510,000. His chemistry shows a sodium of 138, BUN and creatinine of 16 and 1.0, blood sugar 132 on IV Solu-Medrol. Ammonia level corrected to 17 without therapy now. Chest x-ray showed improving left lower lobe infiltrate and COPD changes. A CTA was performed on admission due to elevated D-dimer of 3.3 that showed no evidence of pulmonary embolism. The patient was discharged today in improving condition. I spoke with his and his son, who agreed to help him obtain his medications. We will have home health involved and make sure medication compliance and schedule outpatient GI consultation in 4 weeks. He will be continued on Pepcid in the interim until that time. DISCHARGE MEDICATIONS: DuoNeb updrafts 4 times daily by handheld nebulizer, Pulmicort 0.5 Respules b.i.d. per HHN, Mucinex 600 mg 2 tabs b.i.d.; Ativan 0.5 mg p.o. b.i.d. p.r.n. anxiety, #30, no refills; MiraLax 17 grams p.o. daily, prednisone dose pack 5 mg 12 day as directed, Levaquin 750 mg p.o. daily for 7 days and discontinue. DIET: Regular as tolerated. DISCHARGE SUMMARY REPORT [id number] BENJAMIN KNOWLES ACTIVITY: Progress as tolerated. FOLLOWUP: GI followup with Dr. Lezama in 1 month. TRANSINT:[id number] Voice Confirmation ID: [id number] DOCUMENT ID: [id number] HANNAH HOROWITZ MD at 0812 CC: [id number] DICTATION DATE: 01/28/17 1349 SHEET COMBINING OPERATOR: 01/29/17 1130 DIS IN 01/28/17 [id number] [place] [address]
== END 2017-01-28 15:36 | disposition home health service (06) | DRG 189 ==
LOC: D.ER 09:40 → D.MS 14:27 → D.SDCHOLD 01-24 13:46 → D.MS 01-24 13:46
PROVIDERS: Emergency Medicine; Internal Medicine Pulmonary Disease; ADMIT Family Medicine
DX: J96.01 Acute respiratory failure with hypoxia (principal); J18.9 Pneumonia, unspecified organism; G93.41 Metabolic encephalopathy; J44.1 Chronic obstructive pulmonary disease with (acute) exacerbation; J44.0 Chronic obstructive pulmonary disease with (acute) lower respiratory infection; J90 Pleural effusion, not elsewhere classified; F28 Other psychotic disorder not due to a substance or known physiological condition; K59.00 Constipation, unspecified; R41.0 Disorientation, unspecified; F17.200 Nicotine dependence, unspecified, uncomplicated

== ENCOUNTER → 2017-02-11 10:20 | Outpatient (CLI) | payer MEDICARE ==
[2017-01-24 13:59] VITALS: BMI 32.5
[~2017-02-11 10:20] MED LIST: ATIVAN0.5 MG PO; ATIVAN1 MG PO; IPRAT-ALBUT 0.5-3 ML UPD; LEVAQUIN750 MG PO; MIRALAX17 GM PO; MUCINEX600 MG PO; PULMICORT0.5 MG/21 UPD; STERAPRED 5MG 125 MG PO
== END | disposition home or self-care (01) ==
LOC: D.RAD 10:00
DX: J18.9 Pneumonia, unspecified organism (principal)

== ENCOUNTER → 2017-02-28 09:20 | Outpatient (CLI) | payer MEDICARE ==
[2017-01-24 13:59] VITALS: BMI 32.5
== END | disposition home or self-care (01) ==
LOC: D.RAD 09:20
DX: J18.9 Pneumonia, unspecified organism (principal)

== ENCOUNTER 2017-03-11 05:26 | Inpatient (IN) | payer MEDICARE ==
[~2017-03-11] VITALS: Ht 180.3 cm; Wt 113.6 kg
[2017-03-11 06:43] LABS: BASOPHILS 0.5 % (0-2); EOSINOPHILS 0.9 % (0-7); HEMATOCRIT 35.2 % (42.0-54.0); HEMOGLOBIN 11.3 g/dL (13.5-17.5); IMMATURE GRANULOCYTES 0.7 % (0-5); LYMPHOCYTES 9.5 % (15-50); MCH 27.2 pg (26.0-34.0); MCHC 32.1 g/dL (31.0-37.0); MCV 84.6 fL (80.0-100.0); MEAN PLATELET VOLUME 9.5 fL (7.4-10.4); MONOCYTES 4.8 % (2-11); NEUTROPHILS 83.6 % (40-80); RBC 4.16 10x6/uL (4.20-6.10); RDW 14.9 % (11.5-14.5)
[2017-03-11 06:44] LABS: PLATELET COUNT 346 10x3/uL (130-400)
[2017-03-11 07:00] LABS: ALBUMIN 3.4 g/dL (3.4-5.0); ALKALINE PHOSPHATASE 98 U/L (46-116); ALT (SGPT) 20 U/L (10-68); BILIRUBIN - TOTAL 0.67 mg/dL (0.2-1.3); CALCIUM 9.1 mg/dL (8.5-10.1); CARBON DIOXIDE 25.1 mmol/L (21.0-32.0); CHLORIDE - SERUM 95 mmol/L (98-107); CREATININE - SERUM 0.7 mg/dL (0.6-1.3); POTASSIUM - SERUM 3.4 mmol/L (3.5-5.1); PROTEIN - SERUM 7.5 g/dL (6.4-8.2); SODIUM 130 mmol/L (136-145); UREA NITROGEN 9 mg/dL (7-18); eGFR NON AFRICAN AMERICAN > 90 mL/min (90-120)
[2017-03-11 07:02] LABS: CREATINE KINASE 105 UL (21-232)
[2017-03-11 07:03] LABS: CALC OSMOLALITY 261 mosm/kg (275-300); GLUCOSE 134 mg/dL (74-106); TROPONIN-I < 0.017 ng/mL (0.000-0.060)
--- NOTE | 2017-03-11 08:50 | NUR ---
RECIEVED PT VIA STRETCHER FROM ER AT THIS TIME. REPORT GIVEN BY PHIL MACIAS. PT ORIENTED TO ROOM AT THIS TIME, ASSESSMENT DONE PER FLOWSHEET. BED IN LOW POSITION AND CALL LIGHT WITHIN REACH. WILL CONTINUE TO MONITOR.
--- NOTE | 2017-03-11 09:45 | NUR ---
CALLED DR. SARKAR AT THIS TIME DUE TO NOT BEING ABLE TO OBTAIN HISTORY AND HEARING CONCERNS FROM PTS DAUGHTER. RECIVEVED ORDERS AT THIS TIME. BED IN LOW POSITION AND CALL LIGHT WITHIN REACH, PT RESTING COMFORTABLY. WILL CONTINUE TO MONITOR.
[2017-03-11] MEDS ORDERED: IPRAT-ALBUT 0.5-3 ML UPD (10:23)
[2017-03-11 10:31] VITALS: BP 119/66; Ht 180.3 cm; Wt 113.6 kg
[2017-03-11 10:53] LABS: UDS - AMPHET NEGATIVE QUAL (NEGATIVE); UDS - BARB NEGATIVE QUAL (NEGATIVE); UDS - BENZO NEGATIVE QUAL (NEGATIVE); UDS - COCAINE NEGATIVE QUAL (NEGATIVE); UDS - METH NEGATIVE QUAL (NEGATIVE); UDS - OPIATE NEGATIVE QUAL (NEGATIVE); UDS - PCP NEGATIVE QUAL (NEGATIVE); UDS - THC NEGATIVE QUAL (NEGATIVE)
[2017-03-11 12:03] VITALS: BP 130/70
[2017-03-11 16:10] VITALS: BP 120/95
[2017-03-11 20:00] VITALS: BP 122/68
[2017-03-12] VITALS: BP 120/70
--- NOTE | 2017-03-12 01:35 | NUR ---
LYING IN BED WITH LIGHTS ON AWAKE AND TV GOING. URINAL AT THE BEDSIDE. EASY RESPIRATIONS AND NO DISTRESS NOTED. BED IS LOW, RAILS UP X'S 2 WITH THE CALL LIGHT AT HAND.
[2017-03-12 04:00] VITALS: BP 111/63
[2017-03-12 06:41] LABS: BASOPHILS 0.1 % (0-2); EOSINOPHILS 0 % (0-7); HEMATOCRIT 34.3 % (42.0-54.0); HEMOGLOBIN 10.8 g/dL (13.5-17.5); IMMATURE GRANULOCYTES 0.5 % (0-5); LYMPHOCYTES 12.3 % (15-50); MCH 27.1 pg (26.0-34.0); MCHC 31.5 g/dL (31.0-37.0); MCV 86.2 fL (80.0-100.0); MEAN PLATELET VOLUME 9.9 fL (7.4-10.4); MONOCYTES 10.6 % (2-11); NEUTROPHILS 76.5 % (40-80); PLATELET COUNT 356 10x3/uL (130-400); RBC 3.98 10x6/uL (4.20-6.10); WBC 13.1 10x3/uL (4.8-10.8)
[2017-03-12 06:56] LABS: CALC OSMOLALITY 273 mosm/kg (275-300); CALCIUM 9.1 mg/dL (8.5-10.1); CARBON DIOXIDE 26.2 mmol/L (21.0-32.0); CHLORIDE - SERUM 102 mmol/L (98-107); CREATININE - SERUM 0.8 mg/dL (0.6-1.3); GLUCOSE 110 mg/dL (74-106); POTASSIUM - SERUM 4.2 mmol/L (3.5-5.1); SODIUM 137 mmol/L (136-145); UREA NITROGEN 10 mg/dL (7-18); eGFR NON AFRICAN AMERICAN > 90 mL/min (90-120)
--- NOTE | 2017-03-12 07:07 | NUR ---
PT LYING ON LEFT SIDE USING URINAL, STATES DIZZY AND SHORT OF BREATH, REPLACED PT O2 AND INSTRUCTED HIM TO INHALE SLOWLY, PT STATED NC DRIED HIS FLARES OUT, RELAYED MESSAGE TO RT. BED IN LOW POSITION, CALL LIGHT WITHIN REACH. NO OTHER NEEDS AT THIS TIME
[2017-03-12 10:08] VITALS: BP 126/69
--- NOTE | 2017-03-12 11:13 | NUR ---
PATIENT SITTING UP ON THE SIDE OF THE BED. PATIENT STATED HE NEEDS SOMETHING BECAUSE HE THINKS HE IS GOING TO THROW UP. BROUGHT PATIENT AN EMESIS BASIN. SPOKE WITH , SEE ORDER FOR ZOFRAN.
--- NOTE | 2017-03-12 11:26 | NUR ---
PT IS SITTING UP IN BED/ COMPLAINS OF NAUSEA, RN WINNIE TO ADMIN ZOFRAN IV PUSH/ PT VERBALIZED NO OTHER NEEDS AT THIS TIME
[2017-03-12 13:13] VITALS: BP 124/72
--- NOTE | 2017-03-12 14:58 | NUR ---
PT SON INQUIRED ON PT CARE AND POSSIBLE D/C. NO DC ORDERS SEEN/ PT HAD CXR EARLIER. PT VERBALIZED NO COUGH OR CP. PT BED IN LOW POSITION AND CALL LIGHT IN REACH
[2017-03-12 17:37] VITALS: BP 140/78
[2017-03-12 20:00] VITALS: BP 129/70
[2017-03-13 00:35] VITALS: BP 123/77
[2017-03-13 04:00] VITALS: BP 160/89
--- NOTE | 2017-03-13 04:38 | NUR ---
PATIENT RESTING WITH EYES CLOSED AND NO VISIBLE SIGNS OF DISTRESS. BED IN LOWEST POSITION AND CALL LIGHT WITHIN REACH.
[2017-03-13 06:19] LABS: BASOPHILS 0.5 % (0-2); EOSINOPHILS 2.1 % (0-7); HEMATOCRIT 33.9 % (42.0-54.0); HEMOGLOBIN 10.7 g/dL (13.5-17.5); IMMATURE GRANULOCYTES 0.6 % (0-5); LYMPHOCYTES 15.4 % (15-50); MCH 27.4 pg (26.0-34.0); MCHC 31.6 g/dL (31.0-37.0); MCV 86.9 fL (80.0-100.0); MEAN PLATELET VOLUME 9.6 fL (7.4-10.4); MONOCYTES 10.1 % (2-11); NEUTROPHILS 71.3 % (40-80); PLATELET COUNT 319 10x3/uL (130-400); RDW 15.2 % (11.5-14.5); WBC 10.9 10x3/uL (4.8-10.8)
[2017-03-13 06:36] LABS: CALC OSMOLALITY 270 mosm/kg (275-300); CALCIUM 8.5 mg/dL (8.5-10.1); CARBON DIOXIDE 27.1 mmol/L (21.0-32.0); CHLORIDE - SERUM 102 mmol/L (98-107); CREATININE - SERUM 0.8 mg/dL (0.6-1.3); GLUCOSE 95 mg/dL (74-106); POTASSIUM - SERUM 4.3 mmol/L (3.5-5.1); SODIUM 136 mmol/L (136-145); UREA NITROGEN 11 mg/dL (7-18); eGFR NON AFRICAN AMERICAN > 90 mL/min (90-120)
--- NOTE | 2017-03-13 07:47 | NUR ---
PT COMPLAINS OF DIZZYNESS AND SHAKING ALL NIGHT, RN WINNIE TURNED AIR DOWN IN PATIENTS ROOM AND TOOK PT'S TEMP. PT TEMP 99.1, PT STATED FEET WERE NUMB AND TINGLING, APPLIED NON KID SOCKS TO PT'S FEET, PT ALSO STATED HE BELIEVES HIS MEDICATIONS ARE CAUSING HIM TO SHAKE AND WANTS TO SPEAK TO DR ABOUT POSSIBLE CHANGE IN DOSAGE, DR SARKAR HAS NOT MADE ROUNDS YET THIS MORNING, PT STATED WILL WAIT UNTIL HE SPEAKS TO DR BEFORE TAKING 9 O'CLOCK DOSE
[2017-03-13 08:42] VITALS: BP 124/70
--- NOTE | 2017-03-13 09:57 | NUR ---
PT DAUGHTER CALLED UPSET, VERBALIZED SPOKE TO HER DAD( MR. KNOWLES) AND HE HAS BEEN THROWING UP AND NO ONE HAS ASSISTED HIM. WENT AND CHECKED ON MR. KNOWLES, HE STATED HE WAS FEELING FINE NO TROUBLES JUST A LITTLE NAUSEAUS EVRY NOW AND THEN, CALLED DAUGHTER BACK AND ADVISED HER MR KNOWLES STATED FEELING WELL AND IS FINE TRANSFERRED KAREN INTO [facility] ROOM AND SPOKE TO HIS DAUGHTER WHILE IN THE ROOM WITH MR. KNOWLES TO REASSURE HER OF HIS WELL BEING.
[2017-03-13 11:36] VITALS: BP 122/75
--- NOTE | 2017-03-13 12:47 | NUR ---
SAT PT UP IN BED AND PREPPED LUNCH TRAY FOR PT/ VERBALIZED NO PAIN OR NAUSEA AT THIS TIMEBED IN LOW POSITION AND CALL LIGHT WITHIN REACH
--- NOTE | 2017-03-13 14:30 | NUR ---
SPOKE TO DR. LUCERO AT 1400 AND WAS ADVISED WHEN HE WENT TO TALK TO PT, MR KNOWLES STATED THAT HIS SHAKES WERE SO BAD HE WANTED TO KILL HIMSELF. WENT AND SPOKE TO MR. KNOWELS, HE CONFIRMED THAT HE DID TELL DR. LUCERO THAT BUT IT WAS ONLY TO GET THE POINT ACROSS ON HOW BAD THE SHAKES WERE, PT VERBALIZED HE DID NOT MEAN HE LITERALLY CONSIDERS THAT A CHOICE. ADVISED MR KNOWLES SERIOUS OF NATURE AND HE SAID HE UNDERSTOOD
--- NOTE | 2017-03-13 16:11 | NUR ---
PT LYING IN BED HOB ELEVATED TO 30 DEGREES, VERBALIZED HE FELT A LOT BETTER, NO OTHER NEEDS AT THIS TIME. BED IS IN LOW POSITION CALL LIGHT IN REACH
[2017-03-13 17:30] VITALS: BP 126/63
[2017-03-13 20:00] VITALS: BP 103/52
[2017-03-14 04:00] VITALS: BP 114/60
[2017-03-14 07:10] VITALS: BP 154/75
[2017-03-14] MEDS ORDERED: ATIVAN0.5 MG PO (07:12)
[2017-03-14] MEDS ORDERED: IPRAT-ALBUT 0.5-3 ML UPD (07:13)
--- NOTE | 2017-03-14 07:30 | NUR ---
ANXIOUS, DENIES NEEDS, WAITING FOR DISCHARGE, BED LOWEST POSITION, CALL LIGHT IN REACH, WILL CONTINUE TO MONITOR
--- NOTE | 2017-03-14 07:56 | NUR ---
PATIENT IS DISCHARGING HOME TODAY-[facility] IS DRIVING HIM. PATIENT DID NOT WANT HOME HEALTH AND HAD N0 OTHER NEEDS FOR DISCHARGE.
--- NOTE | 2017-03-14 09:05 | NUR ---
PATIENT ALERT IN HIGH PRATER POSITION. NO SIGNS OF DISTRESS NOTED. SIDE RAILS UP X2. BED IN LOW POSITION. CALL LIGHT IN REACH.
--- NOTE | 2017-03-14 09:20 | NUR ---
DISCHARGE PAPERS AND INSTRUCTIONS GIVEN TO PT AND SON, QUESTIONS ANSWERED, IV REMOVED TIP INTACT, DISCHARGED PER WC WITH BELONGINGS
== END 2017-03-14 09:37 | disposition home or self-care (01) | DRG 896 ==
LOC: D.ER 05:26 → D.MS 07:35
PROVIDERS: Emergency Medicine; ADMIT Family Medicine
DX: F15.23 Other stimulant dependence with withdrawal (principal); J18.9 Pneumonia, unspecified organism; E87.1 Hypo-osmolality and hyponatremia; J44.0 Chronic obstructive pulmonary disease with (acute) lower respiratory infection; F32.9 Major depressive disorder, single episode, unspecified; J44.9 Chronic obstructive pulmonary disease, unspecified; E87.6 Hypokalemia

== ENCOUNTER 2017-05-23 20:36 | Inpatient (IN) | payer MEDICARE ==
[~2017-05-23] VITALS: Ht 180.3 cm; Wt 103.4 kg
[2017-05-23 21:12] LABS: BASOPHILS 0.3 % (0-2); EOSINOPHILS 1.6 % (0-7); HEMATOCRIT 35.9 % (42.0-54.0); HEMOGLOBIN 10.8 g/dL (13.5-17.5); IMMATURE GRANULOCYTES 0.4 % (0-5); LYMPHOCYTES 9.8 % (15-50); MCH 26.5 pg (26.0-34.0); MCHC 30.1 g/dL (31.0-37.0); MEAN PLATELET VOLUME 9.6 fL (7.4-10.4); MONOCYTES 6.5 % (2-11); NEUTROPHILS 81.4 % (40-80); PLATELET COUNT 313 10x3/uL (130-400); RBC 4.08 10x6/uL (4.20-6.10); RDW 14.9 % (11.5-14.5); WBC 12.3 10x3/uL (4.8-10.8)
[2017-05-23 21:27] LABS: ALBUMIN 3.4 g/dL (3.4-5.0); ALKALINE PHOSPHATASE 108 U/L (46-116); ALT (SGPT) 26 U/L (10-68); CALC OSMOLALITY 287 mosm/kg (275-300); CALCIUM 8.7 mg/dL (8.5-10.1); CARBON DIOXIDE 29.2 mmol/L (21.0-32.0); CHLORIDE - SERUM 106 mmol/L (98-107); CREATININE - SERUM 0.7 mg/dL (0.6-1.3); GLUCOSE 111 mg/dL (74-106); POTASSIUM - SERUM 4.3 mmol/L (3.5-5.1); PROTEIN - SERUM 7.2 g/dL (6.4-8.2); SODIUM 144 mmol/L (136-145); UREA NITROGEN 13 mg/dL (7-18); eGFR NON AFRICAN AMERICAN > 90 mL/min (90-120)
[2017-05-23 21:36] LABS: CREATINE KINASE 201 UL (21-232); PRO BNP 357 pg/mL (0-125); TROPONIN-I < 0.017 ng/mL (0.000-0.060)
--- NOTE | 2017-05-24 00:48 | NUR ---
PT REMOVED IV WILL ATTEMPT TO RESITE
--- NOTE | 2017-05-24 01:51 | NUR ---
WENT IN TO PTs ROOM TO RESITE IV. I WAS EXPLAINING PROCEDURE TO PT HE STATED "FREAK OFF MAN, YOURE SCARING THE SHIT OUT OF ME." WHEN ASKED WHAT HIS PROBLEM WAS HE STATED "NOTHING MAN, NOW FREAK OFF" UNABLE TO RESITE IV.
[2017-05-24 02:36] VITALS: BMI 26.5
--- NOTE | 2017-05-24 07:00 | NUR ---
REPORT RECIEVED FROM OFF GOING NURSE. PT IN BED RESTING WITH EYES CLOSED. ONCE AWOKEN, PT HAD A GARBLE SPEECH THAT IMPROVED THE ASSESSMENT WENT ON. SEE ASSESMENT PER FLWO SHEET. NO IV AT THIS TIME. EXPLAINED I WILL BE BACK TO INSERT ANOTHER IV.CALL LIGHT IN REACH. BREATHING SHALLOW BUT UNLABORED. WILL CONT POC
[2017-05-24 08:00] VITALS: BP 132/73
--- NOTE | 2017-05-24 08:44 | NUR ---
PIV INSERTED X2 ATTEMPTS WITH SUCCESS TO L WRIST. NO SWELLING/REDDNESS/PAIN NOTED. CALL LIGHT IN REACH. WILL CONT POC
[2017-05-24] MEDS ORDERED: PAXIL20 MG PO (08:51)
[2017-05-24] MEDS ORDERED: ATIVAN0.5 MG PO (09:06)
--- NOTE | 2017-05-24 10:00 | NUR ---
FAMILY AT BED SIDE.
[2017-05-24 10:49] VITALS: Ht 180.3 cm; Wt 103.4 kg
[2017-05-24 12:00] VITALS: BP 137/75
--- NOTE | 2017-05-24 14:00 | NUR ---
PT DENIES PAIN/DISCOMFORT. SPEECH CLEAR AND NORMAL. NO NEEDS VOICED. CALL LIGHT IN REACH. WILL CONT POC
[2017-05-24 16:00] VITALS: BP 140/68
--- NOTE | 2017-05-24 16:31 | NUR ---
SCD'S ON BILATERAL LE
--- NOTE | 2017-05-24 18:45 | NUR ---
REPORT GIVEN TO ON COMING NURSE. PT BREATHING NORMAL AND UNLABORED. CALL LIGHT IN REACH. WILL CONT POC
[2017-05-24 19:00] VITALS: BP 133/79
[2017-05-25] VITALS: BP 111/65
[2017-05-25 04:00] VITALS: BP 149/73
[2017-05-25 05:05] LABS: BASOPHILS 0.1 % (0-2); EOSINOPHILS 0 % (0-7); HEMATOCRIT 33.4 % (42.0-54.0); HEMOGLOBIN 10.2 g/dL (13.5-17.5); IMMATURE GRANULOCYTES 0.3 % (0-5); LYMPHOCYTES 8.7 % (15-50); MCH 26.2 pg (26.0-34.0); MCHC 30.5 g/dL (31.0-37.0); MONOCYTES 7.4 % (2-11); NEUTROPHILS 83.5 % (40-80); PLATELET COUNT 317 10x3/uL (130-400); RBC 3.89 10x6/uL (4.20-6.10); RDW 14.8 % (11.5-14.5); WBC 9.6 10x3/uL (4.8-10.8)
[2017-05-25 05:07] LABS: MCV 85.9 fL (80.0-100.0)
[2017-05-25 05:13] LABS: CALC OSMOLALITY 287 mosm/kg (275-300); CARBON DIOXIDE 28.5 mmol/L (21.0-32.0); CHLORIDE - SERUM 104 mmol/L (98-107); CREATININE - SERUM 0.7 mg/dL (0.6-1.3); GLUCOSE 142 mg/dL (74-106); SODIUM 143 mmol/L (136-145); UREA NITROGEN 15 mg/dL (7-18); eGFR NON AFRICAN AMERICAN > 90 mL/min (90-120)
--- NOTE | 2017-05-25 07:00 | NUR ---
REPORT RECIEVED FROM OFF SUNDAY NURSE. SEE ASSESSMENT FLOW SHEET. PT BREATHING NORMAL AND UNLABORED. DENIES PAIN VERBALLY. CALL LIGHT IN REACH. WILL CONT POC.
[2017-05-25 08:18] VITALS: BP 112/56
[2017-05-25 11:34] VITALS: BP 142/65
--- NOTE | 2017-05-25 12:00 | NUR ---
NO CHANGES FROM THIS AM SHIFT ASSESSMENT. LUNG SOUNDS BILATERALLY WHEEZY. THIS IS NOT A CHANGE FROM PREVIOUS ASSESSMENT. BREATHING NORMAL AND UNLABORED. REMIANS ON O2 AT 4L VIA NC. CALL LIGHT IN REACH. WILL CONT POC
--- NOTE | 2017-05-25 15:18 | NUR ---
TALKED WITH PATIENT ABOUT GIVING INFORMATION TO RADHA VIGIL WHO HAS MADE NUMEROUS PHONE CALLS. PT IS OK FOR [facility] VIGIL TO RECIEVE INFORMATION. A CODE WORD OF CATS WAS SET UP.
[2017-05-25 15:50] VITALS: BP 126/63
--- NOTE | 2017-05-25 17:26 | NUR ---
Patient Name: BENJAMIN KNOWLES Admission Status: ER Accout number: [id number] Admission Date: 05-23-2017 : 1950 Admission Diagnosis:CHRONIC OBSTRUCTIVE PULMONARY DISEASE W (ACUTE) EXACERB Attending: NOE BERRY Current LOS: 2 Anticipated DC Date: Planned Disposition: Home WITH HOME HEALTH Primary Insurance: MEDICARE A & B PLANNED EXTERNAL PROVIDER: [facility] Discharge Planning Comments: * Is the patient Alert and Oriented? Yes 0 * How many steps to enter\exit or inside your home? RAMP 0 * PCP NONE 0 * [facility] 0 * Preadmission Environment Home with Family 0 * ADLs Independent 0 * Equipment Nebulizer 0 * Other Equipment [facility] - MEDICAL EQUIPMENT PROVIDER 0 * List name and contact numbers for known caregivers / representatives who currently or will assist patient after discharge: RADHA VIGIL, SIGNIFICANT OTHER, 0 * Community resources currently utilized Home Health 0 * Please name any agencies selected above. [facility] 0 * Additional services required to return to the preadmission environment? No 0 * Can the patient safely return to the preadmission environment? Yes 0 * Has this patient been hospitalized within the prior 30 days at any hospital? No 0 CM RECEIVED CALL FROM CHIDI KNOWLES, , WHO REPORTED TO BE PT'S DAUGHTER. CHIDI REPORTS CONCERN THAT PT HAS NOT BEEN BATHING AT HOME, LIVES WITH A 70 YEAR OLD GIRLFRIEND WHO DOES NOT COOK FOR PT AND IS NOT TAKING GOOD CARE OF PT AT HOME AND PT'S SON WHO LIVES IN THE HOME IS ON MANY MENTAL MEDICATIONS. PT HAS NO WALKER OR WHEELCHAIR AND NEEDS 24 HOUR HOME CARE. CM EXPLAINED THAT MEDICARE IS NOT GOING TO PAY FOR 24 HOUR HOME CARE AND PT WOULD HAVE TO PAY FOR THE SERVICE HIMSELF. CM EXPLAINED THAT THE PT WOULD HAVE TO AGREE TO MEDICAL EQUIPMENT AND WOULD HAVE 20% COPAY FOR ANY EQUIPMENT AND REQUIRES DOCTOR ORDER. CHIDI REPORTS PT MAKES HIS OWN DECISIONS AND WILL NOT GO TO REHAB OR MOVE OUT OF HIS HOME. 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 PT DOES HAVE A HOME HEALTH NURSE ONCE A WEEK BUT NEEDS MORE HELP. HCIDI REPORTS [place] 24 HOUR HOME CARE. CM AGAIN EXPLAINED THAT MEDICARE DOES NOT AND DISCUSSED PRIVATE PAY SERVICES PT HAS NO INSURANCE TO COVER THE SERVICES. CM INFORMED CHIDI THAT CM WOULD WORK WITH PT FOR A SAFE DISCHARGE PLAN WITH PT'S AGREEMENT. CM MET WITH PT IN ROOM TO DISCUSS DISCHARGE PLANNING AND NEEDS. PT REPORTS LIVING AT HOME INDEPENDENTLY WITH HIS SIGNIFICANT OTHER; ALSO IN THE HOME IS PT'S ADULT SON. PT HAS A NEBULIZER FROM [employer]. PT HAS HOME HEALTH NURSE FROM [facility]. CM DISCUSSED HIS DAUGHTER'S CONCERNS AND AVAILABILITY OF HOME HEALTH, REHAB SERVICES AND MEDICAL EQUIPMENT. PT DENIES DISCHARGE NEEDS, REPORTS PLAN TO RETURN HOME AND HIS FAMILY WILL PICK HIM UP FOR DISCHARGE HOME. IMPORTANT MESSAGE FROM MEDICARE PROVIDED AND EXPLAINED. PT REPORTS HE IS SAFE AT HOME, HAS ACCESS TO WATER AND BATHROOM IF HE WANTS TO BATHE. PT REPORTS HE IS EATING PLENTY AT HOME. PT REPORTS THAT HIS DAUGHTER HAS BEEN OVERLY CONCERNED SINCE THE OF HER MOTHER. PT DENIES NEED OF A WALKER, WILL ACCEPT HOME HEALTH RESUMPTION WITH [facility]. FOR RESUMPTION OF HOME HEALTH, NOTIFY [facility] AT [phone], FAX DISCHARGE INFORMATION TO [facility] AT [phone]. [employer] Tender: Boni Galvez
--- NOTE | 2017-05-25 18:45 | NUR ---
REPORT GIVEN TO ON COMING RN. BREATHING REMAINS THE SAME. NO S/SX OF DISTRESS/DISCOMFORT NOTED. WILL CONT PIOC
[2017-05-25 19:00] VITALS: BP 131/81
--- NOTE | 2017-05-25 19:50 | NUR ---
RESUMED CARE OF PT, UP IN CHAIR RESPIRATIONS EVEN AND UNLABORED ON 4LPM VIA NC. 89 SR ON TELEMETRY. LEFT WRIST INFUSING NS @ KVO. NO NEEDS VOICED AT THIS TIME, CALL LIGHT IN REACH. WILL CONTINUE TO MONTIOR. SEE NURSE ASSESSMENT.
[2017-05-26] VITALS: BP 144/73
--- NOTE | 2017-05-26 02:50 | NUR ---
IV ACCIDENTALLY PULLED OUT, 22 GAUGE X 2 STICKS TO LEFT HAND.
--- NOTE | 2017-05-26 02:51 | NUR ---
CALL LIGHT IN REACH. WILL CONTINUE WITH PLAN OF CARE. WILL CONTINUE TO MONITOR.
[2017-05-26 04:00] VITALS: BP 164/95
[2017-05-26 06:20] LABS: BASOPHILS 0 % (0-2); EOSINOPHILS 0 % (0-7); HEMATOCRIT 33.4 % (42.0-54.0); HEMOGLOBIN 10.4 g/dL (13.5-17.5); IMMATURE GRANULOCYTES 0.5 % (0-5); LYMPHOCYTES 5.2 % (15-50); MCH 26.2 pg (26.0-34.0); MCHC 31.1 g/dL (31.0-37.0); MCV 84.1 fL (80.0-100.0); MONOCYTES 6.4 % (2-11); NEUTROPHILS 87.9 % (40-80); PLATELET COUNT 308 10x3/uL (130-400); RBC 3.97 10x6/uL (4.20-6.10); RDW 14.9 % (11.5-14.5)
--- NOTE | 2017-05-26 06:31 | NUR ---
IV REMOVED BY PT FROM LEFT HAND. TIP INTACT. WILL CONTINUE TO MONITOR.
[2017-05-26 06:42] LABS: CALC OSMOLALITY 284 mosm/kg (275-300); CALCIUM 8.7 mg/dL (8.5-10.1); CARBON DIOXIDE 29.7 mmol/L (21.0-32.0); CHLORIDE - SERUM 104 mmol/L (98-107); GLUCOSE 113 mg/dL (74-106); SODIUM 142 mmol/L (136-145); UREA NITROGEN 16 mg/dL (7-18); eGFR NON AFRICAN AMERICAN 89 mL/min (90-120)
[2017-05-26 06:45] LABS: CREATININE - SERUM 0.9 mg/dL (0.6-1.3)
--- NOTE | 2017-05-26 07:45 | NUR ---
AM ROUNDING DONE WITH PATIENT WATCHING TV. O2 NC IS IN MOUTH, PLACED BACK IN NOSE. ON HEART MONITOR SHOWING SR, HR 74. NO IV ACCESS SEEN. ON 4L WITH HUM. INSTRUCTED PATIENT TO KEEP NC IN HIS NOSE. WILL CPOC.
--- NOTE | 2017-05-26 08:57 | NUR ---
PATIENT WILL NOT LEAVE HEART MONITOR ON, REMOVED PER KAT LONGO RN UNIT MANAGER.
[2017-05-26 09:12] VITALS: BP 169/51
[2017-05-26 11:33] VITALS: BP 140/74
[2017-05-26 12:15] LABS: IMMUNOGLOBULIN E 1138 IU/mL (0-100)
--- NOTE | 2017-05-26 12:37 | NUR ---
OXYGEN IS PLACED ON PATIENT AGAIN HE WILL NOT KEEP IT IN HIS NOSE. WILL CONTINUE TO MONITOR THIS.
--- NOTE | 2017-05-26 13:00 | NUR ---
Patient Name: BENJAMIN KNOWLES Encounter No: [id number] : 1950 Primary Insurance: MEDICARE A & B Anticipated DC Date: Planned Disposition: Home with Home Health External Planned Provider: [facility] DCP follow-up note: CM CALLED [facility], , SPOKE TO BALJINDER WHO VERIFIED PT IS ACTIVE WITH [facility] WITH DR. FRASER SIGNING HOME HEALTH ORDERS. PT DENIED NEED OF A WALKER, WILL ACCEPT HOME HEALTH RESUMPTION WITH [facility]. FOR RESUMPTION OF HOME HEALTH, NOTIFY [facility] AT [phone], FAX DISCHARGE INFORMATION TO [facility] AT [phone]. Relief Master: Boni Galvez
--- NOTE | 2017-05-26 13:38 | NUR ---
PATIENT TO BE FOUND IN THE HALLWAY WITH A SOAKING WET GOWN AND OFF HIS OXYGEN. PLACED IN ROLLING CHAIR, BROUGHT BACK TO THE ROOM, LINENS AND GOWN CLEANED UP. BED ALARM IS SET.
--- NOTE | 2017-05-26 15:08 | NUR ---
PATIENT TALKING TO HIMSELF AND THINKS HE IS TALKING TO HIS (NOT IN THE ROOM). WHEN QUESTIONED ABOUT HIS SURROUNDINGS, HE REPLIES THAT HE KNOWS ITS 2017, AND THAT HE IS IN THE HOSPITAL. BED ALARM STILL SET.
[2017-05-26 16:13] VITALS: BP 144/72
--- NOTE | 2017-05-26 16:26 | NUR ---
FAMILY AT BEDSIDE. BED ALARM STILL ON.
--- NOTE | 2017-05-26 16:34 | NUR ---
BED ALARM IS GOING OFF. PATIENT IS VERBAL ABUSIVE TO ME, CUSSING AND TELLING ME TO "GET THE FUCK OUT OF MY ROOM AND BACK TO THE BASE". I TRIED TO RE-ORIENT HIM THAT HE IS IN THE HOSPITAL AND HE TOLD ME TO "GET THE FUCK OUT".
[2017-05-26] MEDS ORDERED: FLORAJEN3 CAPS460 MG PO (16:45)
[2017-05-26] MEDS ORDERED: SINGULAIR10 MG PO (16:45)
[2017-05-26] MEDS ORDERED: MUCINEX600 MG PO (16:45)
[2017-05-26] MEDS ORDERED: PREDNISONE10 MG PO (16:46)
[2017-05-26] MEDS ORDERED: LEVAQUIN750 MG PO (16:46)
--- NOTE | 2017-05-26 17:29 | NUR ---
Patient Name: BENJAMIN KNOWLES Encounter No: [id number] : 1950 Primary Insurance: MEDICARE A & B Anticipated DC Date: 05-26-2017 Planned Disposition: Home with Home Health External Planned Provider: [facility] DCP follow-up note: CM RECEIVED DISCHARGE ORDER, SPOKE TO PT WHO IS IN AGREEMENT WITH DISCHARGE HOME TODAY, STILL DOES NOT WANT A WALKER AND WANTS HOME HEALTH RESUMPTION, SON TO PICK HIM UP TODAY. CM CALLED [facility], , SPOKE TO MORGAN WHO WILL ENSURE PT IS ON SCHEDULE FOR RESUMPTION ON TUESDAY OR TUESDAY OF THIS WEEK. PT'S SON WILL BRING OXYGEN FROM HOME, IF THERE IS NO OXYGEN IN THE TANK, CM INFORMED BEDSIDE NURSE TO CALL [facility] FOR A NEW PORTABLE. CM FAXED DISCHARGE INFORMATION TO [facility] AT [phone]. Mastercam Programmer: Boni Galvez
--- NOTE | 2017-05-26 17:53 | NUR ---
CALLED [facility] THE TANK THE FAMILY BROUGHT UP IS EMPTY. THE A AND P TECHNICIAN SAID THEY WILL CALL ME SHORTLY FOR DELIVER. [phone]
--- NOTE | 2017-05-26 18:04 | NUR ---
[facility] TO CALL BACK AND STATES THEY WILL BRING A TANK UP TONIGHT. FAMILY WENT HOME AGAIN TO GET CLOTHES.
--- NOTE | 2017-05-26 18:35 | NUR ---
VERBAL AND WRITTEN DISCHARGE INSTRUCTIONS GIVEN TO PATIENT AND FAMILY. O2 TANK IS FROM [facility]. THIS TANK DOES WORK AND SENT WITH PATIENT. [facility] TOOK THEIR TANK BACK WITH THEM. DISCHARGED HOME VIA WHEELCHAIR.
== END 2017-05-26 18:37 | disposition home health service (06) | DRG 189 ==
LOC: D.ER 20:36 → D.M2 22:31 → D.SDCHOLD 05-26 15:38 → D.M2 05-26 15:41
PROVIDERS: Emergency Medicine; Internal Medicine Pulmonary Disease; ADMIT Family Medicine
DX: J96.22 Acute and chronic respiratory failure with hypercapnia (principal); J44.0 Chronic obstructive pulmonary disease with (acute) lower respiratory infection; J44.1 Chronic obstructive pulmonary disease with (acute) exacerbation; J96.21 Acute and chronic respiratory failure with hypoxia; J20.9 Acute bronchitis, unspecified; Z99.81 Dependence on supplemental oxygen; F41.9 Anxiety disorder, unspecified; F32.9 Major depressive disorder, single episode, unspecified; K21.9 Gastro-esophageal reflux disease without esophagitis; J30.9 Allergic rhinitis, unspecified; D64.9 Anemia, unspecified; Z87.891 Personal history of nicotine dependence; Z77.090 Contact with and (suspected) exposure to asbestos; I10 Essential (primary) hypertension

== ENCOUNTER 2017-07-09 16:01 | Inpatient (IN) | payer MEDICARE ==
[~2017-07-09 16:01] MED LIST changes: +FLORAJEN3 CAPS460 MG PO; +PAXIL20 MG PO; +PREDNISONE10 MG PO; +SINGULAIR10 MG PO
[2017-07-09 16:42] LABS: HEMATOCRIT 30.7 % (42.0-54.0); HEMOGLOBIN 9.2 g/dL (13.5-17.5); MCH 25.6 pg (26.0-34.0); MCV 85.5 fL (80.0-100.0); MEAN PLATELET VOLUME 9.7 fL (7.4-10.4); PLATELET COUNT 342 10x3/uL (130-400); RBC 3.59 10x6/uL (4.20-6.10); RDW 15.8 % (11.5-14.5); WBC 23.4 10x3/uL (4.8-10.8)
[2017-07-09 16:58] LABS: ALBUMIN 3.3 g/dL (3.4-5.0); ALKALINE PHOSPHATASE 105 U/L (46-116); ALT (SGPT) 17 U/L (10-68); BILIRUBIN - TOTAL 0.83 mg/dL (0.2-1.3); CALC OSMOLALITY 287 mosm/kg (275-300); CARBON DIOXIDE 29.8 mmol/L (21.0-32.0); CHLORIDE - SERUM 103 mmol/L (98-107); CREATININE - SERUM 0.9 mg/dL (0.6-1.3); GLUCOSE 126 mg/dL (74-106); POTASSIUM - SERUM 3.7 mmol/L (3.5-5.1); PROTEIN - SERUM 7.7 g/dL (6.4-8.2); SODIUM 143 mmol/L (136-145); UREA NITROGEN 16 mg/dL (7-18); eGFR NON AFRICAN AMERICAN 89 mL/min (90-120)
[2017-07-09 17:09] LABS: CKMB 2.1 U/L (0.0-3.6); CREATINE KINASE 183 UL (21-232); PRO BNP 345 pg/mL (0-125)
[2017-07-09 17:10] LABS: TROPONIN-I < 0.017 ng/mL (0.000-0.060)
[2017-07-09 17:18] LABS: BASOPHILS 1 % (0-2); LYMPHOCYTES 10 % (15-50); NEUTROPHILS 78 % (40-80); PLATELET ESTIMATE INCREASED
[2017-07-09 17:20] LABS: TARGET CELLS OCC
[2017-07-09 19:30] VITALS: BP 134/63
--- NOTE | 2017-07-09 19:40 | NUR ---
RECEIVED PATIENT FROM ER VIA BED. INTUBATED WITH 8.0 ETT 24 @ THE LIP. RR EVEN AND NONLABORED. SAT 99% ON 100% O2. SEE ASSESSMENT FOR COMPLETE FINDINGS. ZAMAN PLACED, RETURN OF 700MLS OF DARK YELLOW URINE. B/L WRIST RESTRAINTS ON. NO FAMILY AT THIS TIME.
[2017-07-09 20:00] VITALS: BP 132/71
[2017-07-09 20:14] VITALS: BP 134/63; BMI 35.7
--- NOTE | 2017-07-09 20:30 | NUR ---
OGT PLACED, VERIFIED PLACEMENT WITH AIR BOLUS. SET TO LIWS, BILE FLUID SUCTIONED.
[2017-07-09 20:39] LABS: APPEARANCE CLEAR (CLEAR); COLOR AMBER (YELLOW); NITRITE NEGATIVE (NEGATIVE); SPECIFIC GRAVITY 1.025 (1.005-1.020)
[2017-07-09 20:40] LABS: BILIRUBIN NEGATIVE (NEGATIVE); GLUCOSE NEGATIVE (NEGATIVE); KETONE NEGATIVE (NEGATIVE); PROTEIN TRACE mg/dL (NEGATIVE); UROBILINOGEN NORMAL (NORMAL)
[2017-07-09 20:42] LABS: BACTERIA FEW /hpf (NONE SEEN); RED CELLS - URINE 0-5 /hpf (0-5); WHITE CELLS - URINE 0-5 /hpf (0-5)
[2017-07-09 21:00] VITALS: BP 127/67
--- NOTE | 2017-07-09 21:00 | NUR ---
RESTING ON VENT, NO ACUTE DISTRESS. VSS.
--- NOTE | 2017-07-09 21:30 | NUR ---
ABG RESULTS REVIEWED, O2 DECREASED TO 50% PER RT.
[2017-07-09 22:00] VITALS: BP 133/70
--- NOTE | 2017-07-09 22:10 | NUR ---
DR SOMMER CONSULTED, ORDERS RECEIVED.
[2017-07-09 23:00] VITALS: BP 128/68
--- NOTE | 2017-07-09 23:00 | NUR ---
REASSESSMENT COMPLETE, NO ACUTE CHANGES. SEE FLOWSHEET FOR DETAILS. RR EVEN AND NON-LABORED. WILL MONITOR.
[2017-07-10] VITALS (24 sets, daily range): BP systolic 108–139; BP diastolic 56–96
--- NOTE | 2017-07-10 01:00 | NUR ---
RESTING WELL, PATIENT TURNED, ORAL CARE AND SUCTIONING PROVIDED BY RT. VSS.
--- NOTE | 2017-07-10 03:00 | NUR ---
REASSESSMENT COMPLETE, SEE FLOWSHEET
[2017-07-10 04:30] LABS: BASOPHILS 0 % (0-2); EOSINOPHILS 0 % (0-7); HEMATOCRIT 30.5 % (42.0-54.0); HEMOGLOBIN 9.1 g/dL (13.5-17.5); IMMATURE GRANULOCYTES 0.6 % (0-5); LYMPHOCYTES 3.5 % (15-50); MCH 25.6 pg (26.0-34.0); MCHC 29.8 g/dL (31.0-37.0); MCV 85.9 fL (80.0-100.0); MEAN PLATELET VOLUME 9.9 fL (7.4-10.4); MONOCYTES 3.7 % (2-11); NEUTROPHILS 92.2 % (40-80); PLATELET COUNT 308 10x3/uL (130-400); RBC 3.55 10x6/uL (4.20-6.10); WBC 25.4 10x3/uL (4.8-10.8)
[2017-07-10 04:48] LABS: ALBUMIN 2.7 g/dL (3.4-5.0); ALKALINE PHOSPHATASE 89 U/L (46-116); ALT (SGPT) 16 U/L (10-68); BILIRUBIN - TOTAL 0.41 mg/dL (0.2-1.3); CALC OSMOLALITY 286 mosm/kg (275-300); CALCIUM 8.8 mg/dL (8.5-10.1); CARBON DIOXIDE 29.6 mmol/L (21.0-32.0); CHLORIDE - SERUM 104 mmol/L (98-107); CREATININE - SERUM 0.7 mg/dL (0.6-1.3); GLUCOSE 184 mg/dL (74-106); POTASSIUM - SERUM 3.8 mmol/L (3.5-5.1); PROTEIN - SERUM 7.2 g/dL (6.4-8.2); SODIUM 141 mmol/L (136-145); UREA NITROGEN 14 mg/dL (7-18); eGFR NON AFRICAN AMERICAN > 90 mL/min (90-120)
--- NOTE | 2017-07-10 05:00 | NUR ---
ORAL CARE PROVIDED, PATIENT REPOSISTIONED. VSS.
--- NOTE | 2017-07-10 08:08 | NUR ---
UP IN BED AT THIS TIME. NO ACUTE DISTRESS NOTED. RESPIRATIONS STEADY AND UNLABORED. WILL CONTINUE PLAN OF CARE.
--- NOTE | 2017-07-10 10:50 | NUR ---
NO ACUTE DISTRESS NOTED.NO CHANGE PT TURNED Q2H. SUCTIOING PROVIDED, SECRETION THIN AND CLEAR. WILL CONTINUE PLAN OF CARE.
[2017-07-10 12:00] LABS: APPEARANCE HAZY (CLEAR); BILIRUBIN NEGATIVE (NEGATIVE); COLOR YELLOW (YELLOW); GLUCOSE NEGATIVE (NEGATIVE); KETONE MODERATE mg/dL (NEGATIVE); NITRITE NEGATIVE (NEGATIVE); PROTEIN 2+ mg/dL (NEGATIVE); UROBILINOGEN NORMAL (NORMAL)
[2017-07-10 12:01] LABS: WHITE CELLS - URINE 0-5 /hpf (0-5)
--- NOTE | 2017-07-10 12:04 | NUR ---
SPOKE WITH PTS DAUGHTER, CHIDI KNOWLES, AT [phone], WHO STATES PT IS NOT BUT HAS A GIRLFRIEND AND THE SIBLINGS WILL BE THE ONES MAKING DECISONS FOR PT. UPDATE GIVEN. NO ACUTE DISTRESS NOTED. WILL CONTINUE PLAN OF CARE.
[2017-07-10 12:14] LABS: BACTERIA MODERATE /hpf (NONE SEEN); EPITHELIAL CELLS 0-5 /hpf (0-5)
--- NOTE | 2017-07-10 14:48 | NUR ---
PT SON VISITING PT. UPDATE GIVEN. NO ACUTE DISTRESS NOTED. PT TURNED Q2H. DIPROVAN TITRATED TO PT COMFORT PER SEDATION PARAMETERS. WILL CONTINUE PLAN OF CARE.
--- NOTE | 2017-07-10 17:36 | NUR ---
NOTED ZAMAN APPEARED TO BE LEAKING AT THIS TIME. BULB ASSESSED AND NOTED TO ONLY HAVE 9ML OF FLUID, 1ML FLUID ADDED TO BULB TO HELP DECREASE INCIDENCE OF LEAKING TO ZAMAN. ALSO AT THIS TIME BED CHANGE PROVIDED VIA TOTAL ASSIST. PT TURNED Q2H. NO ACUTE DISTRESS NOTED. WILL CONTINUE PLAN OF CARE.
--- NOTE | 2017-07-10 19:00 | NUR ---
REPORT RECEIVED. SHIFT ASSESSMENT COMPLETED PER FLOW SHEET. PT SEDATED ON VENT. OPENS EYES BUT DOES NOT FOLLOW COMMANDS, HE DOES PURPOSEFULLY MOVES EXTREMITIES. PUPILS 3 MM BRISK REACTION. ETT TUBE AT 25 CM LT LIP LINE. OGT TO LIWS, PLACEMENT VERIFIED VIA AUSCULATION, BROWN EMESIS IN CANISTER. S1S2 PRESENT. RADIAL AND PEDAL PULSES PALP. TELEMETRY MONITORING HR OF 83. BS HYPOACTIVE X4. ZAMAN CATHETER TO GRAVITY, SECURED, DRAINING CONCENTRATED URINE. MUCOUS MEMBRANES MOIST. SKIN WARM AND DRY. SCD'S ON. LT FOREARM PIV INFUSING DIPRIVAN. RT FOREARM PIV INFUSING NS AT KVO. SEE FLOW SHEET FOR COMPLETE ASSESSMENT. BED IN LOWEST POSITION. WILL CONTINUE TO MONITOR.
--- NOTE | 2017-07-10 20:03 | NUR ---
PT AWAKE, MOVING UPPER AND LOWER EXTREMITIES. ATTEMPTING TO REACH ETT. DIPRIVAN INCREASED, SEE FLOW SHEET FOR DETIALS. WILL CONTINUE TO MONITOR. BED IN LOWEST POSITION.
--- NOTE | 2017-07-10 21:15 | NUR ---
PT STILL AWAKE, MOVING AROUND, TITRATING DIPRIVAN. SEE FLOW SHEET FOR DETAILS. NO OTHER DISTRESS NOTED. WILL CONTINUE TO MONITOR.
--- NOTE | 2017-07-10 22:26 | NUR ---
PT STILL AWAKE, MOVING AROUND, RESTLESS. BITING ETT. DR. KEMAL HERRERA.
--- NOTE | 2017-07-10 22:33 | NUR ---
DR. SOMMER CALLED BACK, NEW ORDERS RECEIVED. SEE EMAR FOR DETAILS.
--- NOTE | 2017-07-10 23:00 | NUR ---
REASSESSMENT COMPLETED PER FLOW SHEET. BS ACTIVE X4. NO OTHER ACUTE CHANGES NOTED. SEE FLOW SHEET FOR DETAILS. BED IN LOWEST POSITION. WILL CONTINUE TO MONITOR.
--- NOTE | 2017-07-10 23:30 | NUR ---
PT NOW RESTING, EYES CLOSED. NO BITING OR MOVING AROUND. BED IN LOWEST POSITION. WILL CONTINUE TO MONITOR.
[2017-07-11] VITALS (24 sets, daily range): BP systolic 105–148; BP diastolic 54–77; BMI 33.9
--- NOTE | 2017-07-11 01:00 | NUR ---
PT SEDATED ON VENT. RESTING, NO DISTRESS NOTED. ORAL CARE PROVIDED. WILL CONTINUE TO MONITOR. BED IN LOWEST POSITION.
--- NOTE | 2017-07-11 03:50 | NUR ---
REASSESSMENT COMPLETED PER FLOW SHEET. NO ACUTE CHANGES NOTED. SEE FLOW SHEET FOR DETAILS. ORAL CARE PROVIDED. REPOSITIONED FOR COMFORT. WILL CONTINUE TO MONITOR.
[2017-07-11 04:20] LABS: BASOPHILS 0 % (0-2); EOSINOPHILS 0 % (0-7); HEMATOCRIT 28.6 % (42.0-54.0); HEMOGLOBIN 8.6 g/dL (13.5-17.5); IMMATURE GRANULOCYTES 0.4 % (0-5); LYMPHOCYTES 4.5 % (15-50); MCH 25.6 pg (26.0-34.0); MCHC 30.1 g/dL (31.0-37.0); MCV 85.1 fL (80.0-100.0); MEAN PLATELET VOLUME 10.3 fL (7.4-10.4); MONOCYTES 6.2 % (2-11); NEUTROPHILS 88.9 % (40-80); PLATELET COUNT 303 10x3/uL (130-400); RBC 3.36 10x6/uL (4.20-6.10); RDW 16.2 % (11.5-14.5)
[2017-07-11 04:40] LABS: CALC OSMOLALITY 291 mosm/kg (275-300); CALCIUM 8.5 mg/dL (8.5-10.1); CARBON DIOXIDE 31.1 mmol/L (21.0-32.0); CHLORIDE - SERUM 105 mmol/L (98-107); CREATININE - SERUM 0.8 mg/dL (0.6-1.3); GLUCOSE 159 mg/dL (74-106); MAGNESIUM - SERUM 2.6 mg/dL (1.8-2.4); PHOSPHOROUS 2.8 mg/dL (2.5-4.9); POTASSIUM - SERUM 3.7 mmol/L (3.5-5.1); SODIUM 144 mmol/L (136-145); UREA NITROGEN 17 mg/dL (7-18); eGFR NON AFRICAN AMERICAN > 90 mL/min (90-120)
--- NOTE | 2017-07-11 06:00 | NUR ---
COMPLETE BED BATH GIVEN. COMPLETE BED LINENS CHANGED. CLEAN GOWN PROVIDED. ORAL CARE PROVIDED. REPOSITIONED FOR COMFORT. NO DISTRESS NOTED AT THIS TIME. WILL CONTINUE TO MONITOR.
--- NOTE | 2017-07-11 07:00 | NUR ---
PT REPORT REC'D, PT CARE ASSUMED. PT SEDATED ON THE VENT, AROUSES TO DEEP STIMULI. SHIFT ASSESSMENT COMPLETED, SEE FLOW SHEET. RIGHT FOREARM PIV WITH FLUIDS INFUSING, SEE FLOW SHEET. LEFT FOREARM PIV WITH FLUIDS INFUSING, SEE FLOW SHEET. NO REDDNESS OR WARMTH NOTED AT IV SITES. ZAMAN CATHETER FREE OF KINKS TO GRAVITY WITH URINE RETURN. VSS, WILL CONTINUE TO MONITOR PT.
--- NOTE | 2017-07-11 09:00 | NUR ---
NO FAMILY PRESENT AT THIS TIME, REPOSITIONED PT, PROPPED WITH PILLOWS, VSS, WILL CONTINUE TO MONITOR PT.
--- NOTE | 2017-07-11 11:00 | NUR ---
REPOSITIONED PT, PROPPED WITH PILLOWS, VSS. REASSESSMENT COMPLETED, SEE FLOW SHEET. ROOM FREE OF CLUTTER, CALL LIGHT IN REACH, WILL CONTINUE TO MONITOR PT.
--- NOTE | 2017-07-11 13:28 | NUR ---
PT RESTING WITH EYES CLOSED, VSS, WILL CONTINUE TO MONITOR PT.
--- NOTE | 2017-07-11 15:00 | NUR ---
REPOSITIONED PT, PROPPED WITH PILLOWS, VSS, REASSESSMENT COMPLETED, SEE FLOW SHEET. ROOM FREE OF CLUTTER, CALL LIGHT IN REACH, WILL CONTINUE TO MONITOR PT.
--- NOTE | 2017-07-11 19:30 | NUR ---
REPORT RECEIVED. SHIFT ASSESSMENT COMPLETED PER FLOW SHEET. 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 MOVES LOWER EXTREMITIES. PUPILS 3MM BRISK REACTION. OGT TUBE IN PLACE, PLACEMENT VERIFIED VIA AUSCULTATION. OGT INFUSING PULMOCARE AT 15 MLS/HR. S1S2 PRESENT. RADIAL AND PEDAL PULSES PALP. TELEMETRY MONITORING HR OF 69. BS HYPOACTIVE X4. O MLS RESIDUAL FROM OGT. ZAMAN CATHETER TO GRAVITY, SECURED DRAINING CONCENTRATED URINE. MUCOUS MEMBREANES MOIST. SKIN WARM AND DRY. BRUISES NOTED BILAT HANDS. SCD'S ON. LT FOREARM PIV PATENT. RT FOREARM PIV PATENT. LT&RT SOFT WRIST RESTRAINTS. ETT AT 25 CM RT LIP LINE. FIO2 40%. RATE 14. TV 600. PEEP 7. SEE FLOW SHEET FOR COMPLETE ASSESSMENT. BED IN LOWEST POSITION. WILL CONTINUE TO MONITOR.
--- NOTE | 2017-07-11 20:45 | NUR ---
LT FOREARM PIV INFILTRATED. PIV DISCONTINUED, CATHETER REMOVED AND INTACT, ICE APPLIED TO SITE. NEW PIV STARTED ON RT CHEST. WILL CONTINUE TO MONITOR SITE.
--- NOTE | 2017-07-11 23:00 | NUR ---
REASSESSMENT COMPLETED PER FLOW SHEET. BS ACTIVE X4. TOLERATING TUBE FEEDINGS. NO ACUTE CHANGES NOTED AT THIS TIME. BED IN LOWEST POSITION. WILL CONTINUE TO MONITOR.
[2017-07-12] VITALS (25 sets, daily range): BP systolic 126–157; BP diastolic 64–85
--- NOTE | 2017-07-12 01:00 | NUR ---
PT RESTING IN BED. NO DISTRESS NOTED AT THIS TIME. ORAL CARE PROVIDED. BED IN LOWEST POSITION. WILL CONTINUE TO MONITOR.
[2017-07-12 04:15] LABS: BASOPHILS 0 % (0-2); EOSINOPHILS 0 % (0-7); HEMOGLOBIN 9.1 g/dL (13.5-17.5); IMMATURE GRANULOCYTES 0.6 % (0-5); LYMPHOCYTES 9.8 % (15-50); MCH 25.7 pg (26.0-34.0); MCHC 30.3 g/dL (31.0-37.0); MCV 84.7 fL (80.0-100.0); MEAN PLATELET VOLUME 10.2 fL (7.4-10.4); NEUTROPHILS 80.6 % (40-80); PLATELET COUNT 317 10x3/uL (130-400); RBC 3.54 10x6/uL (4.20-6.10); RDW 15.9 % (11.5-14.5); WBC 15.5 10x3/uL (4.8-10.8)
[2017-07-12 04:26] LABS: CALC OSMOLALITY 289 mosm/kg (275-300); CALCIUM 8.2 mg/dL (8.5-10.1); CHLORIDE - SERUM 105 mmol/L (98-107); CREATININE - SERUM 0.7 mg/dL (0.6-1.3); GLUCOSE 132 mg/dL (74-106); MAGNESIUM - SERUM 2.8 mg/dL (1.8-2.4); POTASSIUM - SERUM 3.5 mmol/L (3.5-5.1); SODIUM 143 mmol/L (136-145); UREA NITROGEN 20 mg/dL (7-18); eGFR NON AFRICAN AMERICAN > 90 mL/min (90-120)
--- NOTE | 2017-07-12 05:06 | NUR ---
MEDS ADMINISTERED PER EMAR, SEE EMAR FOR DETAILS. NO DISTRESS NOTED AT THIS TIME. WILL CONTINUE TO MONITOR.
--- NOTE | 2017-07-12 06:00 | NUR ---
SEDATED ON VENT. NO DISTRESS NOTED AT THIS TIME. BED IN LOWEST POSITION. NO DISTRESS NOTED. WILL CONTINUE TO MONITOR.
--- NOTE | 2017-07-12 07:00 | NUR ---
PT REPORT REC'D, PT CARE ASSUMED. PT SEDATED ON VENT. RIGHT FOREARM PIV WITH FLUIDS INFUSING, SEE FLOW SHEET. RIGHT CHEST PIV WITH DIPRIVAN INFUSING. BRUISES NOTED TO BILAT HANDS. ZAMAN CATHETER FREE OF KINKS TO GRAVITY WITH CONCENTRATED URINE RETURN. BILAT WRIST RESTRAINTS NOTED. SHIFT ASSESSMENT COMPELTED, SEE FLOW SHEET. ROOM FREE OF CLUTTER, CALL LIGHT IN REACH, BED ALARM ACTIVE. WILL CONTINUE TO MONITOR PT.
--- NOTE | 2017-07-12 10:00 | NUR ---
PT RESTING WITH EYES CLOSED, NO C/O PAIN, NO SIGNS OF DISTRESS OR DISCOMFORT. VSS, WILL CONTINUE TO MONITOR PT.
--- NOTE | 2017-07-12 11:00 | NUR ---
PT CHANGED TO SIMV ON VENT, SEDATION DECREASED, REASSESSMENT COMPLETED, SEE FLOW SHEET. ROOM FREE OF CLUTTER, CALL LIGHT IN REACH, VSS, WILL CONTINUE TO MONITOR PT.
--- NOTE | 2017-07-12 13:07 | NUR ---
JAYLON RT SWITCHING PT FROM SIMV MODE TO CPAP, VSS, WILL CONTINUE TO MONITOR PT.
--- NOTE | 2017-07-12 15:00 | NUR ---
PT CPAP ON VENT, TOLERATING WELL. REASSESSMENT COMPLETED, SEE FLOW SHEET. ROOM FREE OF CLUTTER, CALL LIGHT IN REACH, BED ALARM ACTIVE, WILL CONTINUE TO MONITOR PT.
--- NOTE | 2017-07-12 17:25 | NUR ---
PT RESTING WITH EYES CLOSED, REPOSITIONED PT, PROPPED WITH PILLOWS, VSS, WILL CONTINUE TO MONITOR PT.
--- NOTE | 2017-07-12 17:45 | NUR ---
PT FAMILY AT THE BEDSIDE, ALL QUESITONS ANSWERED, PLANS FOR PTS GIRLFRIEND TO TRY TO COME UP TOMORROW AND SPEAK WITH CASE MANAGEMENT. VSS, WILL CONTINUE TO MONITOR PT.
--- NOTE | 2017-07-12 19:30 | NUR ---
PT SEDATED ON VENT. AROUSES TO DEEP STIMULI. INTUBATED ON VENT. PUPILS 3MM BRISK REACTION. OGT PLACEMENT VERIFIED VIA AUSCULTATION. PULMOCARE OGT FEEDINGS AT 40 MLS/HR, 0 RESIDUALS OBTAINED, FEEDINGS INCREASED TO 45 MLS GOAL RATE. S1 S2 PRESENT. RADIAL AND PEDAL PULSES PALP. TELEMETRY MONITORING HR OF 63. RUL,RML, AND ROBERT BREATH SOUNDS CLEAR. RLL AND LLL BREATH SOUNDS DIMINISHED. BS HYPOACTIVE X4. ABDOMEN SOFT AND ROUND. ZAMAN CATHETER TO GRAVITY SECURED DRAINING CLEAR YELLOW URINE. MUCOUS MEMBRANES MOIST. SKIN WARM AND DRY. BRUISES NOTED TO HANDS. SCD'S ON. RT FOREARM PIV, PATENT, INFUSING NS AT 50 MLS/HR. RT CHEST PIV PATENT INFUSING DIPRIVAN AT 45 MCG/KG/MIN. ETT TUBE AT 25 CM RT LIP LINE. SIMV. FI02 AT 35%. RATE 14. TV 600. PEEP 7. PRESSURE SUPPORT 10. SEE FLOW SHEET FOR COMPLETE ASSESSMENT. BED IN LOWEST POSITION. WILL CONTINUE TO MONITOR.
--- NOTE | 2017-07-12 20:22 | NUR ---
PT SEDATED ON VENT. MEDS ADMINISTERED PER EMAR. NO DISTRESS AT THIS TIME. WILL CONTINUE TO MONITOR.
--- NOTE | 2017-07-12 21:40 | NUR ---
PT SEDATED ON VENT, OPENS EYES, MOVES EXTREMITIES. CALM, NO DISTRESS AT THIS TIME. WILL CONTINUE TO MONITOR. BED IN LOWEST POSITION.
--- NOTE | 2017-07-12 23:00 | NUR ---
REASSESSMENT COMPLETED PER FLOW SHEET. PT SEDATED OPENS EYES SPONTANEOUSLY. ETT AT 25 CM MID LIP LINE. SEE FLOW SHEET FOR COMPLETE ASSESSMENT. BED IN LOWEST POSITION. WILL CONTINUE TO MONITOR.
[2017-07-13] VITALS (21 sets, daily range): BP systolic 117–159; BP diastolic 45–88
--- NOTE | 2017-07-13 01:00 | NUR ---
PT LAYING IN BED SEDATED ON VENT. OPENS EYES AND MOVES EXTREMITIES. CALM AT THIS MOMENT. WILL CONTINUE TO MONITOR.
--- NOTE | 2017-07-13 02:45 | NUR ---
COMPLETE BED BATH GIVEN WITH SOAP AND WARM WATER. HAIR WASHED AND TOWEL DRIED. LOTION APPLIED. COMPLETE BED LINEN CHANGE. CLEAN HOSPITAL GOWN PROVIDED. TOLERATED WELL. REPOSITIONED FOR COMFORT. BED IN LOWEST POSITION. WILL CONTINUE TO MONITOR.
--- NOTE | 2017-07-13 03:00 | NUR ---
REASSESSMENT COMPLETED PER FLOW SHEET NO ACUTE CHANGES NOTED. SEE FLOW SHEET FOR DETAILS. BED IN LOWEST POSITION. WILL CONTINUE TO MONITOR.
[2017-07-13 03:54] LABS: BASOPHILS 0.1 % (0-2); EOSINOPHILS 0 % (0-7); HEMATOCRIT 30.9 % (42.0-54.0); HEMOGLOBIN 9.4 g/dL (13.5-17.5); IMMATURE GRANULOCYTES 2.8 % (0-5); LYMPHOCYTES 9.7 % (15-50); MCH 25.5 pg (26.0-34.0); MCHC 30.4 g/dL (31.0-37.0); MEAN PLATELET VOLUME 10.5 fL (7.4-10.4); MONOCYTES 9.8 % (2-11); NEUTROPHILS 77.6 % (40-80); PLATELET COUNT 308 10x3/uL (130-400); RBC 3.68 10x6/uL (4.20-6.10); RDW 15.8 % (11.5-14.5)
[2017-07-13 04:00] LABS: WBC 7.8 10x3/uL (4.8-10.8)
[2017-07-13 04:12] LABS: CALC OSMOLALITY 290 mosm/kg (275-300); CALCIUM 8.3 mg/dL (8.5-10.1); CARBON DIOXIDE 29.2 mmol/L (21.0-32.0); CHLORIDE - SERUM 105 mmol/L (98-107); CREATININE - SERUM 0.7 mg/dL (0.6-1.3); GLUCOSE 142 mg/dL (74-106); MAGNESIUM - SERUM 2.8 mg/dL (1.8-2.4); POTASSIUM - SERUM 4.3 mmol/L (3.5-5.1); SODIUM 144 mmol/L (136-145); UREA NITROGEN 19 mg/dL (7-18); eGFR NON AFRICAN AMERICAN > 90 mL/min (90-120)
--- NOTE | 2017-07-13 05:00 | NUR ---
PT LAYING IN BED, SEDATED ON VENT. EYES CLOSED, RESTING. WILL CONTINUE TO MONITOR.
--- NOTE | 2017-07-13 07:00 | NUR ---
PT REPORT REC'D, PT CARE ASSUMED, PT SEDATED ON VENT, OPENS EYES TO VOICE. VSS, NO SIGNS OF DISCOMFORT OR DISTRESS. RIGHT CHEST PIV WITH DIPRIVAN INFUSING, NO SIGNS OF INFILTRATION OR REDNESS NOTED. RIGHT FOREARM PIV WITH FLUIDS INFUSING, SEE FLOW SHEET, NO SIGNS OF INFILTRATION OR REDNESS NOTED. ZAMAN CATHETER FREE OF KINKS TO GRAVITY. SHIFT ASSESSMENT COMPLETED, SEE FLOW SHEET. ROOM FREE OF CLUTTER, CALL LIGHT IN REACH, WILL CONTINUE TO MONITOR PT.
--- NOTE | 2017-07-13 07:15 | NUR ---
ORDERS TO CPAP PT, DECREASED SEDATION, WILL CONTINUE TO MONITOR PT.
--- NOTE | 2017-07-13 10:05 | NUR ---
DR. PHILLIPS AT THE BEDSIDE, PT EXTUBATED, NASAL CANNULA PLACED ON 2LITERS, PT 02 SAT 98%, VSS, WILL CONTINUE TO MONITOR PT.
--- NOTE | 2017-07-13 10:54 | NUR ---
* Is the patient Alert and Oriented? Yes 0 * How many steps to enter\exit or inside your home? Ramp 0 * PCP Hailey Tipton APN 0 * Pharmacy [facility] 0 * Preadmission Environment Home with Family 0 * ADLs Partial Dependent 0 * Partial ADLs (Assistance needed) Bathing Dressing 0 * Equipment Nebulizer None Ostomy Supplies Other Oxygen 0 * Other Equipment Cane, Shower Chair, O2, Nebulizer 0 * List name and contact numbers for known caregivers / representatives who currently or will assist patient after discharge: Significant other of 35+ years - Salome Arambula [phone] 0 * Community resources currently utilized Home Health 0 * Please name any agencies selected above. [email or web address] 0 * Additional services required to return to the preadmission environment? Yes 0 * Can the patient safely return to the preadmission environment? Yes 0 * Has this patient been hospitalized within the prior 30 days at any hospital? No Patient Name: BENJAMIN KNOWLES Admission Status: ER Accout number: [id number] Admission Date: 07-09-2017 : 1950 Admission Diagnosis:SHORTNESS OF BREATH Attending: MILTON BALDERRAMA Current LOS: 4 Planned Disposition: Inpatient Rehab Facility Primary Insurance: MEDICARE A & B Discharge Planning Comments: Patient now Extubated - Alert, answers some simple questions but is very weak. Attempted to call significant other yesterday afternoon - voice message left. Rec'd call back this morning from Salome Ralf ([place]). Salome reports they have been living together for 35+ years, but are not legally . She reports they live together in a single level home with a ramp to enter the home. She reports patient requires assistance with bathing & dressing, but is very stubborn and doesn't bathe often. She reports he uses a cane at times but not consistently. She states he his currently on service with [employer] & would like to resume their services at discharge. Answered her questions regarding rehab options as well as home hospice questions. She would like for patient to go to inpatient rehab prior to discharging home if he qualifies. CM will follow and assist as needed. Note Specialist: Norma Jeff
--- NOTE | 2017-07-13 11:00 | NUR ---
PT SITTING UP IN BED, TOLERATING OXYGEN WELL. REASSESSMENT COMPLETED, SEE FLOW SHEET. ROOM FREE OF CLUTTER, CALL LIGHT IN REACH, WILL CONTINUE TO MONITOR PT.
--- NOTE | 2017-07-13 12:07 | NUR ---
PT FAMILY AT THE BEDSIDE, ALL QUESTIONS ANSWERED, VSS, WILL CONTINUE TO MONITOR PT.
--- NOTE | 2017-07-13 13:56 | NUR ---
DARVIN WITH SPEECH THERAPY AT THE BEDSIDE
--- NOTE | 2017-07-13 14:16 | NUR ---
WAYNE met with daughter, Joe Renteria, @ bedside. She states she is visiting from [place]. She is hopeful patient can go to inpatient rehab prior to discharging from the hospital. She states patient suffers from agoraphobia, and almost never leaves his home. Answered her questions regarding discharge options including home health, SNF, & rehab.
--- NOTE | 2017-07-13 14:30 | NUR ---
NUTRITION F/U CHART REVIEWED. PT EXTUBATED, NO CURRENT DIET ORDER. WILL PROVIDE DIET WHEN ORDERED, MONITOR PO INTAKE. RD FOLLOWING
--- NOTE | 2017-07-13 15:00 | NUR ---
PT SITTING UP IN BED, NO C/O PAIN, VSS, REASSESSMENT COMPLETED, SEE FLOW SHEET. ROOM FREE OF CLUTTER CALL LIGHT IN REACH. BED ALARM ACTIVE. WILL CONTINUE TO MONITOR PT.
--- NOTE | 2017-07-13 16:13 | NUR ---
PT SITTING UP IN BED ASKING ABOUT A PHONE. TRIED TO PLUG PTS PHONE IN, PHONE MELODY HAS SOMETHING IN IT, WORK ORDER SENT TO ENGINEERING.
--- NOTE | 2017-07-13 19:10 | NUR ---
ASSESSMENT COMPLETE. S1S2. NSR SHOWING ON MONITOR. RR UNLABORED; CLEAR BILATERALLY IN UPPER LOBES; DIMINISHED BILATERALLY IN LOWER LOBES. PERRLA; 3MM BRISK. PT CONFUSED. BEHAVIOR CALM. SPEECH GARBLED. 3L VIA NC; O2 SAT 97%. MUCOUS MEMBRANES DRY; OFFERED ORAL CARE; PT REFUSED. RADIAL AND PEDAL PULSES PALPATED. BRUSING NOTED TO R/L ARMS AND UPPER PART OF RIGHT FOOT.
--- NOTE | 2017-07-13 20:45 | NUR ---
PT TRANSFERED TO [facility]; 2134.
[2017-07-14] VITALS: BP 161/76
[2017-07-14 04:00] VITALS: BP 148/80
[2017-07-14 06:16] LABS: BASOPHILS 0 % (0-2); EOSINOPHILS 0 % (0-7); HEMATOCRIT 32.1 % (42.0-54.0); HEMOGLOBIN 9.9 g/dL (13.5-17.5); IMMATURE GRANULOCYTES 1.8 % (0-5); LYMPHOCYTES 14.6 % (15-50); MCH 25.6 pg (26.0-34.0); MCHC 30.8 g/dL (31.0-37.0); MCV 83.2 fL (80.0-100.0); MEAN PLATELET VOLUME 10.5 fL (7.4-10.4); MONOCYTES 10.8 % (2-11); NEUTROPHILS 72.8 % (40-80); PLATELET COUNT 315 10x3/uL (130-400); RBC 3.86 10x6/uL (4.20-6.10); RDW 15.6 % (11.5-14.5); WBC 8.3 10x3/uL (4.8-10.8)
[2017-07-14 06:40] LABS: CALC OSMOLALITY 281 mosm/kg (275-300); CALCIUM 8.4 mg/dL (8.5-10.1); CARBON DIOXIDE 31.8 mmol/L (21.0-32.0); CHLORIDE - SERUM 103 mmol/L (98-107); CREATININE - SERUM 0.7 mg/dL (0.6-1.3); GLUCOSE 113 mg/dL (74-106); MAGNESIUM - SERUM 2.5 mg/dL (1.8-2.4); POTASSIUM - SERUM 4.1 mmol/L (3.5-5.1); SODIUM 140 mmol/L (136-145); UREA NITROGEN 19 mg/dL (7-18); eGFR NON AFRICAN AMERICAN > 90 mL/min (90-120)
--- NOTE | 2017-07-14 06:43 | NUR ---
NO CHANGES FROM PREVIOUS ASSESSMENT, CALL LIGHT IN REACH.
[2017-07-14 08:00] VITALS: BP 178/94
--- NOTE | 2017-07-14 09:04 | NUR ---
MORNING MEDICATIONS GIVEN. PT ALERT BUT SLIGHTLY CONFUSED SITTING UP IN BED WATCHING TV. PT KNOWS WHERE HE IS BUT CANT REMEMBER WHY OR SITUATION AND HE IGNORES A LOT OF QUESTIONS AND JUST STARES AT ME. RR NONLABORED WITH NC @3L IN PLACE, PT REQUESTED AND WAS PROVIDED WITH NEW O2 TUBING AND STATES HIS WAS OLD AND BOTHERING HIM. PT HAS ZAMAN IN PLACE DRAINING TO GRAVITY OFF R.SIDE OF BED, NO STAT LOCK IN PLACE, PLACED ONE TO R.INNER THIGH AND SECURED ZAMAN. NO NOTED REASON FOR ZAMAN IN PLACE, WILL OBTAIN ORDER TO D/C IT. PT DENIES ANY CURRENT PAIN OR NEEDS AT THIS TIME. CL IN REACH, BED IN LOWEST, SIDE RAILS X2 AND BUILT IN BED ALARM ON. SCDS IN PLACE. WILL CPOC.
--- NOTE | 2017-07-14 09:38 | NUR ---
PT HAD SMALL HARDENED BOWEL MOVEMENT IN BED. CHILLER TENDER CLEANSED PT AND BED BATH GIVEN. REPOSITIONED PT UP IN BED FOR COMFORT. PT RESTING QUIETLY AND DENIES ANY CURRENT PAIN OR NEEDS. WILL CPOC.
--- NOTE | 2017-07-14 11:57 | NUR ---
PT C/O NOT HAVING HIS HOME MEDICATIONS BUT HE IS UNSURE OF CORRECT NAMES AND DOSAGES. WILL TALK WITH PRIMARY CARE AND SEE ABOUT RESTARTING IF NEEDED. PT RESTING IN BED AND DENIES ANY CURRENT PAIN OR NEEDS. CL IN REACH, BED IN LOWEST, SIDE RAILS X2 AND BUILT IN BED ALARM ON. WILL CPOC.
[2017-07-14 12:00] VITALS: BP 142/71
[2017-07-14 16:00] VITALS: BP 140/77
[2017-07-14 21:38] VITALS: BP 120/59
[2017-07-15 01:53] VITALS: BP 157/70
--- NOTE | 2017-07-15 02:02 | NUR ---
PT LYING IN BED, RESTING COMFORTABLY AT THIS TIME. PT DEMONSTRATES MILD CONFUSION ABOUT HIS ORDERED MEDICATIONS AND IV FLUIDS, BUT IS EASILY ORIENTED. PT DENIES ANY NEEDS. WILL CONTINUE TO MONITOR CLOSELY. BED LOW, CALL LIGHT IN REACH, SIDE RAILS X 2, HOB 35-40 DEGREES.
[2017-07-15 04:16] VITALS: BP 138/68
[2017-07-15 06:09] LABS: BASOPHILS 0.1 % (0-2); EOSINOPHILS 0 % (0-7); HEMATOCRIT 32.7 % (42.0-54.0); IMMATURE GRANULOCYTES 2.8 % (0-5); MCH 25.3 pg (26.0-34.0); MCHC 30.6 g/dL (31.0-37.0); MCV 82.8 fL (80.0-100.0); MEAN PLATELET VOLUME 10.3 fL (7.4-10.4); MONOCYTES 5.4 % (2-11); NEUTROPHILS 82.7 % (40-80); PLATELET COUNT 320 10x3/uL (130-400); RBC 3.95 10x6/uL (4.20-6.10); RDW 15.4 % (11.5-14.5); WBC 9.6 10x3/uL (4.8-10.8)
[2017-07-15 06:23] LABS: CALC OSMOLALITY 279 mosm/kg (275-300); CALCIUM 8.2 mg/dL (8.5-10.1); CARBON DIOXIDE 29.7 mmol/L (21.0-32.0); CHLORIDE - SERUM 102 mmol/L (98-107); CREATININE - SERUM 0.8 mg/dL (0.6-1.3); GLUCOSE 160 mg/dL (74-106); MAGNESIUM - SERUM 2.4 mg/dL (1.8-2.4); POTASSIUM - SERUM 4.4 mmol/L (3.5-5.1); SODIUM 137 mmol/L (136-145); UREA NITROGEN 22 mg/dL (7-18); eGFR NON AFRICAN AMERICAN > 90 mL/min (90-120)
--- NOTE | 2017-07-15 06:43 | NUR ---
PT RESTING COMFORTABLY, LOOKING AT TELEVISION, DENIES ANY NEEDS. CONTINUE TO MONITOR.
--- NOTE | 2017-07-15 07:31 | NUR ---
AM ROUNDS - PT IS IN BED AND AWAKE AT THIS TIME. YELLOW BAND ON. O2 AT 3L VIA NC. NON SKID SOCKS ON. ZAMAN DRAINING CLEAR YELLOW. RIGHT CHEST IV, SL. RIGHT FA IV, NS AT KVO. BED AT LOWEST POSITION. CALL VAUGHN IN USE/REACH. SIDE RAILS UP X2. PT HAS NO NEEDS AT THIS TIME. WILL CONTINUE TO MONITOR
[2017-07-15 08:46] VITALS: BP 151/84
--- NOTE | 2017-07-15 10:22 | NUR ---
Nutrition Follow Up: Pt is eating 67% meal avg on a regular [facility] soft diet. Wt loss noted. +BM 07/14/17. Labs reviewed - glucose elevated. Meds noted including Solu-Medrol. Rec continue current diet. RD following.
[2017-07-15 11:59] VITALS: BP 153/70
[2017-07-15 16:20] VITALS: BP 148/60
--- NOTE | 2017-07-15 16:43 | NUR ---
PT IN BED WITH NO NEEDS AT THIS TIME. BED AT LOWEST POSITION. CALLBELL IN USE/REACH. SIDE RAILS UP X2. WILL CONTINUE TO MONITOR
--- NOTE | 2017-07-15 16:52 | NUR ---
Rehab Note- Acute Rehab Prescreen order received. Transferred out from ICU and recent extubation. Will follow at this time to ensure the patient will participte in the required 3hrs of therapy per day. Thank you for this referral! Nadia Love RN Clinical Liaison, [facility] Rehab
[2017-07-15 19:00] VITALS: BP 124/59
--- NOTE | 2017-07-15 19:39 | NUR ---
RECEIVING UPDRAFT TX, TALKING ON PHONE. DENIES ANY NEEDS OR DISCOMFORTS. HAS CALL LIGHT AND BEDSIDE TABLE WITH PERSONAL ITEMS IN REACH.
[2017-07-16] VITALS: BP 193/93
[2017-07-16 03:26] VITALS: BP 140/73
--- NOTE | 2017-07-16 03:33 | NUR ---
AREA REPRESENTATIVE REPORTED B/P 193/93. RECHECKED AT 140/73.
[2017-07-16 04:00] VITALS: BP 145/71
[2017-07-16 05:47] LABS: BASOPHILS 0.1 % (0-2); EOSINOPHILS 0 % (0-7); HEMOGLOBIN 9.7 g/dL (13.5-17.5); LYMPHOCYTES 10.6 % (15-50); MCH 25.7 pg (26.0-34.0); MCHC 31.3 g/dL (31.0-37.0); MEAN PLATELET VOLUME 10.5 fL (7.4-10.4); NEUTROPHILS 78.3 % (40-80); PLATELET COUNT 342 10x3/uL (130-400); RBC 3.78 10x6/uL (4.20-6.10); RDW 15.6 % (11.5-14.5); WBC 12.5 10x3/uL (4.8-10.8)
[2017-07-16 06:01] LABS: CALC OSMOLALITY 285 mosm/kg (275-300); CALCIUM 8.1 mg/dL (8.5-10.1); CARBON DIOXIDE 27.6 mmol/L (21.0-32.0); CHLORIDE - SERUM 105 mmol/L (98-107); CREATININE - SERUM 0.7 mg/dL (0.6-1.3); GLUCOSE 140 mg/dL (74-106); MAGNESIUM - SERUM 2.4 mg/dL (1.8-2.4); POTASSIUM - SERUM 4.2 mmol/L (3.5-5.1); SODIUM 141 mmol/L (136-145); UREA NITROGEN 20 mg/dL (7-18); eGFR NON AFRICAN AMERICAN > 90 mL/min (90-120)
--- NOTE | 2017-07-16 07:54 | NUR ---
PT SITTING UP IN BED WATHCING TV DENIES NEEDS WILL CONT TO MONITOR
[2017-07-16 08:00] VITALS: BP 131/77
[2017-07-16 12:20] VITALS: BP 124/62
--- NOTE | 2017-07-16 17:40 | NUR ---
PT SITTING UP IN BED FAMILY AT BEDSIDE. DENIES NEEDS WILL CONT TO MONITOR
--- NOTE | 2017-07-16 19:43 | NUR ---
PT SITTING ON SIDE OF BED. BED ALARM IS ON. PT HAS ZAMAN WITH CLEAR YELLOW URINE. PT IS AAOX2. KNOWS NAME AND YEAR BUT WANDERS OFF FROM REALITY QUICKLY. PT TOOK OFF TELEMETRY WILL PUT BACK ON WHEN POSSIBLE. PT HAS 3L OF O2 NC. PT DENIES ANY NEEDS. NO S/S OF DISTRESS. TALKING ABOUT THINGS THAT MIGHT HAVE BEEN GOING ON AT HOME? UNSURE. BED ALARM ON AND ACTIVE. WILL CPOC.
--- NOTE | 2017-07-16 22:00 | NUR ---
EVERY NOISE PT HEARS IS A POSSIBLE ANIMAL. HE IS SAYING THERE ARE CATS IN HIS ROOM..NOW HE HEARD A SQUEAK AND SAYS THERE IS A RAT IN HIS ROOM. PT OVERALL IS CALM. NO S/S OF DISTRESS. WILL CPOC
[2017-07-16 23:07] VITALS: BP 144/83
--- NOTE | 2017-07-17 00:28 | NUR ---
PULLED PT UP IN BED AND REPOSITIONED. NEW STAT LOCK FOR ZAMAN PUT ON LEFT LEG. TELEMETRY PUT BACK ON. PT DENIES ANY NEEDS. NO S/S OF DISTRESS. BED LOW AND CALL LIGHT IN REACH. BED ALARM ON AND ACTIVE. WILL CPOC
--- NOTE | 2017-07-17 00:41 | NUR ---
PT SITTING ON SIDE OF BED. PT IS AAO X2. STATES HE IS NOT CONFUSED BUT IS RAMBLING ABUNCH OF WORDS ABOUT SITUATIONS NOT HAPPENING AT THIS MOMENT BUT HE BELIVES IT IS. PT HAS NO S/S OF DISTRESS. WILL CPOC
--- NOTE | 2017-07-17 01:00 | NUR ---
RIGHT CHEST IV REMOVED CATH INTACT. PT SITTING ON SIDE OF BED. STILL CONFUSED. ALARM ON AND ACTIVE.
[2017-07-17 01:45] VITALS: BP 148/52
[2017-07-17 06:02] LABS: MAGNESIUM - SERUM 2.4 mg/dL (1.8-2.4); PHOSPHOROUS 3.2 mg/dL (2.5-4.9); POTASSIUM - SERUM 3.8 mmol/L (3.5-5.1)
--- NOTE | 2017-07-17 06:20 | NUR ---
PT SITTING ON SIDE OF BED. STILL CONFUSED. AAOX2. PT STAYING IN BED. DOESNT TRY AND GET UP. PT ALARM ON AND ACTIVE. PT SITTING AND EATING A SNACK. AND DRINKING JUICE. PT DENIES ANY NEEDS. PT HAS NO S/S OF DISTRESS. WILL CPOC
--- NOTE | 2017-07-17 07:20 | NUR ---
PT WOULD NOT KEEP TELEMETRY ON. REAPPLIED MORE THAN 3 TIMES. PT REFUSING. RETURNING TELEMETRY TO FIXTURE MAKER. PT DENIES ANY NEEDS. NO S/S OF DISTRESS. WILL CPOC
[2017-07-17 08:00] VITALS: BP 149/80
--- NOTE | 2017-07-17 08:07 | NUR ---
AM ROUNDS - PT SITTING ON SIDE OF BED AT THIS TIME. YELLOW BAND ON. BED ALARM ON. NON SKID SOCKS ON. BED AT LOWEST POSITION. CALL VAUGHN IN USE/REACH. SIDE RAILS UP X2. IV TO RIGHT FA, SL. O2 AT 3L VIA NC. AUSTYN, DRAINING CLEAR YELLOW. PT IS CONFUSED. WILL CONTINUE TO MONITOR
[2017-07-17 12:00] VITALS: BP 184/86
[2017-07-17] MEDS ORDERED: BROVANA15 MCG/2 M INH (13:40)
[2017-07-17] MEDS ORDERED: PULMICORT0.5 MG/21 UPD (13:41)
[2017-07-17] MEDS ORDERED: PROTONIX40 MG PO (13:42)
[2017-07-17] MEDS ORDERED: ATIVAN0.5 MG PO (14:38)
[2017-07-17] MEDS ORDERED: PAXIL20 MG PO (14:38)
--- NOTE | 2017-07-17 14:38 | NUR ---
D/C - WRITTEN AND VERBAL D/C INTRUCTIONS GIVEN TO PT. REPORT CALLED TO [facility] IN INPT REHAB. PT WILL BE GOING TO ROOM 1115. IV AND AUSTYN LEFT IN. WILL D/C
--- NOTE | 2017-07-17 15:11 | NUR ---
PT LEFT FLOOR VIA WHEELCHAIR TO REHAB.
--- NOTE | 2017-07-17 16:11 | NUR ---
LATE ENTRY 1300 RECEIVED REQUEST 07/16/17 REGARDING STATUS OF ACUTE REHAB. CM TELEPHONED [facility]ELTER REHAB SCREENER, TAJ, SHE STATED SHE WOULD RE-EVAL THE PATIENT AND LIKELY TRANSFER Tuesday07/17/17. TC TO REHAB TODAY. CM SPOKE WITH KAVITA ON REHAB. THE PATIENT HAD BEEN ACCEPTED AND ASSIGNED TO A ROOM. TC TO ADVISE [facility]IRGEN.
--- NOTE | 2017-07-22 16:56 | EC ---
PATIENT:BENJAMIN KNOWLES DATE OF SERVICE: 07/09/17 SEX: M MEDICAL RECORD: [id number] DATE OF : 50 LOCATION:D.M2 D.213 AGE OF PATIENT: 67 ADMISSION DATE: 07/09/17 REFERRING PHYSICIAN: INTERPRETING PHYSICIAN: LEXY BARRAZA MD ECHOCARDIOGRAM REPORT ECHO CHARGES 5 ECHO LIMITED CLINICAL DIAGNOSIS: SOB PATIENT ON VENT ECHOCARDIOGRAPHIC MEASUREMENTS (adult normal given) AC root (d.<3.7cm) 4.6 cm LV Septum d (<1.2 cm> 1.4 cm Valve Excursion 2.4 cm LV Septum (systole) 1.9 cm Left Atria (s.<4.0cm> 4.0 cm LVPW d(<1.2cm) 1.4 cm RV (d.<2.3cm) 3.8 cm LVPW (sytole) 1.8 cm LV diastole(<5.6CM) 5.9 cm MV E-F(>70mm/sec) cm LV systole 3.8 cm LVOT Diameter cm MV exc.(>10mm) 1.4 cm Est.ejection fraction (50-75%) % Pericardial Effusion N DOPPLER: LVIT cm/sec A cm/sec E cm/sec LA cm/sec RVSP 16 mmHg LVOT cm/sec AOP1/2T m/s Asc. Ao cm/sec RVOT cm/sec RA cm/sec PA cm/sec AV Gradient Peak mmHg AV Mean mmHg AV Area cm MV Gradient Peak mmHg MV Mean mmHg MV Area cm COMMENTS: Power Marketer: Yuri CURRY Go Go Dancer: Seth Barraza TAPE# PACS DATE OF SERVICE: 07/10/2017 Echocardiogram FINDINGS: 1. Left ventricular chamber size is within normal limits. Left ventricular systolic function is normal. Overall ejection fraction estimated at 60%. 2. Left atrium is within normal limits at 4.0 cm. Right atrium and right ventricular chamber sizes are mildly dilated. 3. Valvular structures have normal structure and motion. ECHOCARDIOGRAM REPORT [id number] BENJAMIN KNOWLES 4. Doppler interrogation reveals no significant valvular insufficiency or stenosis. Pulmonary systolic pressure is normal estimated at 60 mmHg. 5. No evidence of pericardial effusion or left ventricular thrombus. TRANSINT:[id number] Voice Confirmation ID: [id number] DOCUMENT ID: [id number] LEXY BARRAZA MD at 1656 CC: [id number] DICTATION DATE: 07/11/17 0906 BUSINESS PROCESS REPRESENTATIVE: 07/11/17 1128 DIS IN 07/17/17 [address] [place] [address]
== END 2017-07-17 15:12 | DRG 207 ==
LOC: D.ER 16:01 → D.ICU 18:18 → D.M2 07-13 20:44
PROVIDERS: Emergency Medicine; Family Medicine; Internal Medicine Pulmonary Disease; ADMIT Family Medicine
PROC: 0T9B70Z Drainage of Bladder with Drainage Device, Via Natural or Artificial Opening (ICD-10-PCS; principal; 2017-07-09)
PROC: 5A1955Z Respiratory Ventilation, Greater than 96 Consecutive Hours (ICD-10-PCS; 2017-07-09)
PROC: 0BH17EZ Insertion of Endotracheal Airway into Trachea, Via Natural or Artificial Opening (ICD-10-PCS; 2017-07-09)
DX: J96.22 Acute and chronic respiratory failure with hypercapnia (principal); J15.6 Pneumonia due to other Gram-negative bacteria; J13 Pneumonia due to Streptococcus pneumoniae; J44.1 Chronic obstructive pulmonary disease with (acute) exacerbation; J44.0 Chronic obstructive pulmonary disease with (acute) lower respiratory infection; J96.21 Acute and chronic respiratory failure with hypoxia; I10 Essential (primary) hypertension; D64.9 Anemia, unspecified; K29.70 Gastritis, unspecified, without bleeding; K21.9 Gastro-esophageal reflux disease without esophagitis; Z99.81 Dependence on supplemental oxygen; J30.9 Allergic rhinitis, unspecified; Z77.090 Contact with and (suspected) exposure to asbestos; I11.0 Hypertensive heart disease with heart failure; I50.9 Heart failure, unspecified

== ENCOUNTER 2017-07-17 15:30 | Inpatient (IN) | payer MEDICARE ==
[~2017-07-17 15:30] MED LIST changes: +BROVANA15 MCG/2 M INH; +PROTONIX40 MG PO
--- NOTE | 2017-07-17 15:35 | NUR ---
PT ARRIVED TO UNIT VIA WHEELCHAIR ACCOMPANIED BY HOSPITAL STAFF AND FAMILY. PT TALKING NONSENSE AND ASKS "WHEN DID HE GET HERE?" WHILE POINTING TO THE CORNER OF THE ROOM. TOLD PT THAT THERE WAS NO ONE IN THE CORNER AND PT STATED "I DONT LIKE THIS AT ALL." PT PULLED OFF STAT LOCK AND WOULD NOT STOP PULLING ON ZAMAN. ZAMAN REMOVED, TIP INTACT. URINAL EDUCATION GIVEN. PT GROIN AREA REDDENED, WILL START PT ON CALMOSEPTINE. PT HAS A RT FA ELIGIO, PATENT. 1460-WHEN WALKING BY PATIENT ROOM PT WAS POINTING TO THE CORNER AND TALKING TO SOMEONE. TRIED TO RE-ORIENT PT TO ROOM TELLING PT NO ONE WAS IN THERE.
[2017-07-17 16:46] VITALS: BP 144/65; BMI 36.3
--- NOTE | 2017-07-17 18:04 | NUR ---
WHEN ENTERING PT'S ROOM PT HAS HIS LEGS PROPPED UP ON THE TABLE, TORRES COBBLER AND HAMBURGER ALL OVER THE BED AND HIS LEGS, WATER IN THE FLOOR. BED CHNAGED, PT CLEANED AND WATER DRIED. PT STATES "YOU ARE OUT TO GET ME." PT REMINDED HE IS IN THE HOSPITAL FOR PHYSICAL THERAPY AND THAT WE ARE HERE TO HELP HIM GET BETTER. PT BACK IN BED RESTING, UNABLE TO SIGN ADMISSION PAPERS DUE TO CONFUSION. WCTM.
--- NOTE | 2017-07-17 18:13 | NUR ---
PT SET OFF BED ALARM. PT HAD HIS LEGS BETWEEN THE RAILS TRYING TO GET UP OUT OF BED, GOWN OFF. REPLACED PT'S GOWN AND ASSISTED PT TO LIE BACK DOWN IN BED. BATSHEVA.
--- NOTE | 2017-07-17 18:54 | NUR ---
PT SET OFF BED ALARM. UPON ENTERING THE ROOM PT WAS SITTING ON EDGE OF THE BED TALKING TO "THE OTHER BASEBALL PLAYERS." ASKED PT WHERE WAS HE GOING. PT STATED HE WAS "PLAYING BASEBALL." REMINDED PT HE WAS IN THE HOSPITAL ON THE REHAB UNIT FOR STRENGTHENING. I ASKED PT TO LIE BACK DOWN IN THE BED. PT STATED HE WAS "GONNA WHOOP MY ASS." TOLD PT NOT TO USE THAT LANGUAGE AND I NEEDED HIM TO LAY DOWN SO HE WOULD NOT FALL AND GET HURT. PT STATED "I WILL LAY DOWN AFTER I WHOOP YOUR ASS." TOLD PT THAT HE WOULD NOT TALK TO ME LIKE THAT AND THAT I NEEDED TO ASSIST HIM TO LAY BACK DOWN. PT THEN ALLOWED ME TO HELP HIM LAY DOWN.
--- NOTE | 2017-07-17 19:25 | NUR ---
PT BECAME COMBATIVE WHEN I ENTERED ROOM TO DO VS. HE STATED: " COME HERE BIG BOY, IM GOING TO BEAT YOU DOWN. HE BEGAN THROWING PUNCHES IN MY DIRECTION WITH BOTH FISTS AND KICKED AT ME WITH HIS LEFT FOOT, BUT ONLY BRUSHING AGAINST ME I WASNT CLOSE ENOUGH TO KICK. I INFORMED PT I WAS THERE TO CHECK HIS VS AND LUNGS 4 TIMES, AND THEN HE SETTLED DOWN AND COOPERATED WHILE I WAS DOING THEM. THE ENTIRE TIME I WAS IN ROOM HE CARRIED ON A CONVERSATION WITH THE "FAT WOMAN ON THE OTHER SIDE OF HIS BED". NO OTHER PERSON WAS IN THE ROOM AT THIS TIME. VSS. CALL LIGHT AND BEDSIDE TABLE ARE WITHIN EASY REACH. BED ALARM IS ON.
[2017-07-17 19:30] VITALS: BP 147/74
--- NOTE | 2017-07-17 20:04 | NUR ---
PT TOLERATED PM MEDS WITHOUT DIFFICULTY. NO SWALLOW PROBLEMS NOTED. THE ENTIRE TIME I WAS IN THE ROOM HE TALKED ABOUT PEOPLE WHO LOOK AT NAKED BABY PICTURES, AND LOOK FOR 12 YR OLD MALE PROSTITUTES.
--- NOTE | 2017-07-17 20:21 | NUR ---
PT. IN BED WITH HOB UP FOR COMFORT. PT. TALKING OUT LOUD IF THERE IS SOMEONE IN THE ROOM, AND THERE ISN'T. CALL LIGHT WITHIN REACH.
--- NOTE | 2017-07-17 20:55 | NUR ---
PT IS RESTING IN BED MUMBLING SOMETHING , BUT QUIET ENOUGH I CANNOT HEAR THE WORDS. NO ACUTE DISTRESS NOTED.
--- NOTE | 2017-07-17 21:14 | NUR ---
I RECIEVED A PHONE CALL FROM A WOMAN WHO SAID SHE WAS PTS FIANCE OF 35 YRS. SHE STATED SHE JUST FOUND OUT HE WAS IN REHAB, AND WANTED TO KNOW HOW HE WAS DOING, AND IF HE WAS GETTING BETTER. PT HAS NO PASSWORD SET UP IN HIS CHART, SO I WAS UNABLE TO SPEAK TO HER OVER THE PHONE. SHE STATED THOSE WERE STUPID RULES, BUT THANKED ME, AND STATED SHE WOULD SPEAK TO SOMEONE ELSE TOMORROW.
--- NOTE | 2017-07-18 00:01 | NUR ---
PT NOTED SITTING UP ON SIDE OF BED WITH BED ALARM GOING OFF. PT ENCOURAGED TO LAY DOWN AND GO TO SLEEP SO HE WILL BE WELL RESTED FOR THERAPY IN AM. PT STATED, I DONT HAVE ANY THERAPY. I EXPLAINED TO HIM HE WAS IN REHAB FOR THERAPY. HE THEN LAYED DOWN IN BED.
--- NOTE | 2017-07-18 02:51 | NUR ---
RESTING QUIETLY IN BED WITH EYES CLOSED. RESPS ARE EVEN AND UNLABORED. NO ACUTE DISTRESS NOTED.
--- NOTE | 2017-07-18 06:09 | NUR ---
PT RESTING IN BED WITH EYES CLOSED. AWOKE EASILY TO VERBAL STIMULI. TOLERATED AM MED WITHOUT DIFFICULTY. NO NEEDS VOICED. NO DISRUPTIVE BEHAVIOR NOTED THIS AM.
--- NOTE | 2017-07-18 07:58 | NUR ---
SITTING UP EATING BREAKFAST. BED IN LOWEST POSITION. CALL LIGHT IN REACH.
[2017-07-18 09:13] VITALS: BP 124/72
--- NOTE | 2017-07-18 10:10 | NUR ---
PATIENT INCONT OF URINE. NURSE ASST. HELPED PATIENT WITH SHOWER. SET UP DONE. PATIENT ABLE TO WASH REST OF HIMSELF.
--- NOTE | 2017-07-18 11:35 | NUR ---
PATIENT IS A STANDBY ASST FROM WHEELCHAIR ONTO TOILET
--- NOTE | 2017-07-18 14:14 | NUR ---
PATIENTS GIRLFRIEND INTO SEE PATIENT. PATIENT IS CONFUSED. RECONIZED GIRLFRIEND STATED IT WAS OK IF THIS NURSE GIVEN HIS GIRLFRIEND INFORMATION IN REGARDS TO TO HIM. PASSWORD SET UP.
--- NOTE | 2017-07-18 14:22 | RHP ---
PATIENT: BENJAMIN KNOWLES MEDICAL RECORD: [id number] ACCOUNT: [id number] LOCATION:[facility]15 : 50 ADMISSION DATE: 07/17/17 REHABILITATION HISTORY AND PHYSICAL EXAMINATION POST ADMISSION PHYSICIAN EXAMINATION DATE OF ADMISSION: 07/17/2017. ADMITTING DIAGNOSES: COPD induced myopathy. HISTORY OF PRESENT ILLNESS: The patient is a 67-year-old gentleman who is admitted to the rehab with a working diagnosis of COPD and myopathy. He has got a history of COPD, he required intubation, was admitted to the ICU when he presented. He was extubated on 07/13/2017 and was transferred out of the ICU on 07/15/2017. He has had a history of COPD, O2 dependent, depression, anxiety, reflux, pneumonia, hypertension. He had a CTA on 01/24/2017, which showed no signs of embolus, atelectasis. He did have a slight pneumonia, some chronic scarring. On chest x-ray, it showed prominent cardiac silhouette, interstitial infiltrates with a small left pleural effusion. His alpha 1 antitrypsin level was 149 and FMLA and elevated IgE of 11 and 38. His BNP was 345 with a negative troponin. His lactic acid was normal and his ammonia was normal. He has proximal weakness noted with difficulty getting up from bed to chair and has some noted confusion. He is being seen by speech therapy for oropharyngeal dysphagia. He lives with his significant other of 35 years, was independent with his ADLs and his mobility prior to hospitalization. He is set up for moderate to max assist with ADLs and moderate assist to max assist for mobility. He and his family plan for him to return home with his prior level of functioning or better if possible. COMORBIDITIES: In this patient include oropharyngeal dysphagia, hypertension, COPD, allergic rhinitis, hypertension, ex-smoker, leukocytosis, anemia, asbestos exposure, depression, and agoraphobia. PAST MEDICAL HISTORY: Significant for COPD, pneumonia, O2 dependence, depression, tobacco use, and agoraphobia. ALLERGIES: No known drug allergies. CURRENT MEDICATIONS: Include Lovenox 40 mg subcutaneous daily, Ativan 0.5 mg daily, prednisone 40 mg daily, Protonix 40 mg daily, Floranex 460 mg daily. He is on Diflucan 200 mg q.24 hours, Calmoseptine as needed, Paxil 20 mg q.h.s., Singulair 10 mg q.h.s., DuoNeb updrafts q.i.d., Mucinex 600 mg b.i.d., Pulmicort 0.5 mg b.i.d., and Brovana 15 mcg b.i.d. HABITS: He does have a history of tobacco use. FAMILY HISTORY: Noncontributory. SOCIAL HISTORY: The patient hopes to return back home. REVIEW OF SYSTEMS: GENERAL: He does complain of weakness. HEENT: He does complain of cold, cough, and congestion. CARDIOVASCULAR: Denies any chest pain. LUNGS: He does complain of shortness of breath. HISTORY AND PHYSICAL [id number] BENJAMIN KNOWLES PHYSICAL EXAMINATION: VITAL SIGNS: Stable, afebrile. GENERAL: A morbidly obese gentleman in no acute distress, alert upon exam. HEENT: Normocephalic and atraumatic. Mucosa moist. NECK: Supple. No lymphadenopathy. LUNGS: Have coarse breath sounds bilaterally. CARDIOVASCULAR: Regular rate and rhythm. ABDOMEN: Benign. EXTREMITIES: No clubbing, cyanosis or edema. NEUROLOGIC: He does seem slow to mentate and inappropriate at times. ASSESSMENT: This is a 67-year-old gentleman admitted to the rehab with a working diagnosis of chronic obstructive pulmonary disease induced myopathy. The patient has potential to make improvement. We instituted the following multidisciplinary therapies including to, but not limited to physical, occupational, respiratory, speech, nutritional services, prosthetics and orthotics. Given his complex condition and risk for more complications, rehabilitation services cannot be provided at a lower level of care such as a half-way facility. PLAN: 1. Admit to [facility] rehab for intensive inpatient therapy to include the following disciplines: A. Physical therapy to improve gait, all transfer skills and bed mobility to a modified independent level. B. Occupational therapy to improve activities of daily living to a modified independent level. C. Case management to assist with discharge planning and placement options. D. Nutrition to assist with nutritional needs. E. Rehabilitation nursing to assist in monitoring the patient's underlying medical conditions and to assist with any type of bowel or bladder management. 2. The patient's current medication and medical care will be continued. 3. Placed on standard fall precautions. 4. We will watch him closely. He may need to be assessed by [facility] secondary to some comments he has made recently. 5. We will discuss this patient during care team staff meeting this week. TRANSINT:[id number] Voice Confirmation ID: [id number] DOCUMENT ID: [id number] AUNG notes whether there has been none or any medical/functional change since admission: - AUNG attests patient continues to be appropriate for IRF: - HISTORY AND PHYSICAL [id number] BENJAMIN KNOWLES SCOTT MD at 1422 CC: [id number] DICTATION DATE: 07/18/17900 MENTAL HEALTH DIRECTOR: 07/18/17 1048 ADM IN [facility] [address] [place] [address]
[2017-07-18 14:29] VITALS: BMI 36.2
--- NOTE | 2017-07-18 19:32 | NUR ---
PT IS RESTING IN BED WITH EYES CLOSED. RESPS ARE EVEN AND UNLABORED. NO ACUTE DISTRESS NOTED. O2 IS ON @ 3LPM PER NC. NO SOB NOTED. SR'S ARE UP X 3 IN BED. CALL LIGHT AND BEDSIDE TABLE ARE WITHIN EASY REACH.
[2017-07-18 20:00] VITALS: BP 133/69
--- NOTE | 2017-07-18 22:06 | NUR ---
PT IS RESTING IN BED WATCHING TV. USING URINAL PRN. NO NEEDS VOICED.
--- NOTE | 2017-07-18 23:54 | NUR ---
PT RESTING IN BED WITH EYES OPEN. NO NEEDS VOICED. USING URINAL PRN.
--- NOTE | 2017-07-19 03:07 | NUR ---
RESTING IN BED WITH EYES CLOSED.
--- NOTE | 2017-07-19 05:42 | NUR ---
RESTING IN BED WITH EYES CLOSED. NO S/S OF DISTRESS OBSERVED. 02@3 LITERS PER NASAL CANNULA. RESP. EVEN AND UNLABORED. IV TO LEFT FOREARM PATENT WITH DRESSING INTACT. CALL LIGHT AND OVERBED TABLE IN REACH.
--- NOTE | 2017-07-19 07:36 | NUR ---
LYING IN BED EYES CLOSED RESTING. APPROPRIATE RISE AND FALL OF CHEST. NO S/SX OF ACUTE DISTRESS. CALL LIGHT WITHIN REACH, BED LOW AND ALARM ON. WILL CONTINUE TO MONITOR
[2017-07-19 08:36] VITALS: BP 105/54
--- NOTE | 2017-07-19 10:37 | NUR ---
PATIENT ADMITTED TO REHAB FROM ACUTE FLOOR. PCP IS NICOLLE CALHOUN APN. HE USES [facility] . DME AT HOME: Kami REYES, CANE, SHOWER CHAIR. HE IS CLIENT OF [facility]. PLANS ARE FOR PATIENT TO RETURN HOME WITH HIS GIRLFRIEND. WILL CONTINUE TO FOLLOW WITH PATIENT.
--- NOTE | 2017-07-19 11:18 | NUR ---
WALKING IN [place]IS WITH ALEC PT. NO S/SX OF RESPIRATORY DISTRESS. DENIES PAIN
--- NOTE | 2017-07-19 14:00 | NUR ---
D/C RIGHT FOREARM SL IV CATHETER INTACT. APPLIED 2X2 PRESSURE DRESSING.
--- NOTE | 2017-07-19 14:25 | NUR ---
LYING IN BED WATCHING TV. DENIES ANY NEEDS OR PAIN. CALL LIGHT WITHIN REACH, BED ALARM ON, BED LOW. WILL CONTINUE TO MONITOR
[2017-07-19 20:00] VITALS: BP 124/65
--- NOTE | 2017-07-19 20:00 | NUR ---
PT NOTED SITTING ON THE SIDE OF HIS BED. ASSISTED TO THE BATHROOM BY RN. PT REFUSED TO USE WC. HE AMBULATED WITH UNSTEADY GAIT BOTH WAYS. O2 IS ON @ 3LPM PER NC. PT IS ALERT, BUT CONFUSED TO TIME, PLACE AND SITUATION. ASSISTED BACK TO BED. CALL LIGHT AND BEDSIDE TABLE ARE WITHIN EASY REACH. BED ALARM IS ON.
--- NOTE | 2017-07-19 22:33 | NUR ---
PT'S BED ALARM NOTED RINGING. PT NOTED AMBULATING UP THE WILLIS WITH UNSTEADY GAIT. O2 OFF. PT ASKED WHERE HE WAS GOING , AND HE STATED: "TO THE BATHROOM." I INFORMED HIM THAT HIS BATHROOM WAS IN HIS ROOM. HE BECAME ANGRY AND STATED: "THATS A LIE, I KNOW WHERE IM GOING." I INFORMED PT THAT HIS BATHROOM WAS IN HIS ROOM, AND HE HAD TO GO BACK TO THE SAFETY OF HIS ROOM, AND NOT BE AMBULATING WITHOUT ASSIST. I TOUCHED HIS SHOULDER, AND HE THREW 3 PUNCHES AT ME, NOT CONNECTING WITH ANY. I INFORMED PT THAT THAT WAS ENOUGH OF THAT AND HE NEEDED TO RETURN TO HIS ROOM NOW IN A MONTANO VOICE. HE THEN RETURNED TO HIS ROOM AND SAT ON THE SIDE OF HIS BED. HE REFUSED TO GO INTO THE BATHROOM OR USE A URINAL AT THIS TIME. WILL MONITOR CLOSELY.
--- NOTE | 2017-07-19 23:59 | NUR ---
PT RESTING IN BED WITH EYES OPEN. PT STATED HE WAS COLD. PT COVERED UP HE DIDNT HAVE ANY BLANKETS. HE ASKED IF HE WAS EVER GOING TO FIND OUT WHAT WAS GOING ON. I ASKED WHAT HE WAS TALKING ABOUT. HE SAID, WELL I WANT TO KNOW WHEN I CAN GET OUT OF HERE AND STUFF. PT INFORMED OF THE WEEKLY TEAM MEETING TOMORROW AT NOON, AND THAT HE WAS WELCOME TO ATTEND. HE STATED HE WANTED TO DO THIS, AND THEN HE SAID "IS THIS A CULT OR SOMETHING" I INFORMED HIM THAT HE WAS IN THE REHAB UNIT OF THE HOSPITAL. HE VOICED UNDERSTANDING.
--- NOTE | 2017-07-20 02:20 | NUR ---
LYING IN BED WITH EYES OPEN AND TALKING OUTLOUD. NOONE ELSE IN THE ROOM. GOT OUT OF BED EARLIER AND WANDERED INTO THE HALLWAY LOOKING FOR THE B/R. WHEN NURSE TRIED TO REORIENT HIM TO HIS ROOM HE BECAME PHYSICAL SWINGING HIS FIST AT THE NURSE ATTEMPTING TO HIT HIM. NO CONTACT MADE. REORIENTED TO HIS ROOM AMD HIS B/R. NO OTHER BEHAVIORS REPORTED OR OBSERVED, CALL LIGHT AND OVERBED TABLE IN REACH.
--- NOTE | 2017-07-20 04:40 | NUR ---
RESTING IN BED WITH EYES CLOSED.
[2017-07-20 07:05] LABS: BASOPHILS 0 % (0-2); HEMATOCRIT 29.1 % (42.0-54.0); IMMATURE GRANULOCYTES 1.2 % (0-5); LYMPHOCYTES 24.3 % (15-50); MCH 25.8 pg (26.0-34.0); MCHC 30.9 g/dL (31.0-37.0); MCV 83.4 fL (80.0-100.0); MEAN PLATELET VOLUME 11.1 fL (7.4-10.4); MONOCYTES 11.3 % (2-11); NEUTROPHILS 62.2 % (40-80); PLATELET COUNT 295 10x3/uL (130-400); RBC 3.49 10x6/uL (4.20-6.10); RDW 16.2 % (11.5-14.5); WBC 9.6 10x3/uL (4.8-10.8)
[2017-07-20 07:21] LABS: CALC OSMOLALITY 276 mosm/kg (275-300); CALCIUM 8.3 mg/dL (8.5-10.1); CARBON DIOXIDE 28.4 mmol/L (21.0-32.0); CHLORIDE - SERUM 105 mmol/L (98-107); CREATININE - SERUM 0.7 mg/dL (0.6-1.3); POTASSIUM - SERUM 3.7 mmol/L (3.5-5.1); SODIUM 139 mmol/L (136-145); UREA NITROGEN 13 mg/dL (7-18); eGFR NON AFRICAN AMERICAN > 90 mL/min (90-120)
[2017-07-20 07:25] LABS: GLUCOSE 84 mg/dL (74-106)
[2017-07-20 08:15] VITALS: BP 127/70
--- NOTE | 2017-07-20 09:20 | NUR ---
PT AM MEDS ADMINISTERED. PT DENIES NEEDS AT THIS TIME.
--- NOTE | 2017-07-20 12:15 | NUR ---
PT EATING LUNCH, DENIES NEEDS. WCTM.
--- NOTE | 2017-07-20 17:34 | NUR ---
PATIENT DISCHARGING FROM REHAB AND ADMITTED TO [facility].
[2017-07-20] MEDS ORDERED: LOVENOX40 MG/0.4 SC (17:44)
--- NOTE | 2017-07-20 19:40 | NUR ---
PT DAUGHTER NOTIFIED AT 1824 OF PT'S ADMIT NEXT DOOR TO [facility]. PT TAKEN OVER VIA WHEELCHAIR AT THIS TIME.
--- NOTE | 2017-09-25 16:26 | DS ---
PATIENT:BENJAMIN KNOWLES :50 MEDICAL RECORD: [id number] DISCHARGE SUMMARY ADMISSION DATE: 07/17/17 DISCHARGE DATE: 07/20/17 This is a discharge dated 07/20/2017 from inpatient rehab. PRIMARY DIAGNOSIS: Decreased functional mobility and ability to provide activities of daily living secondary to chronic obstructive pulmonary disease myopathy. SECONDARY DIAGNOSES: 1. Pneumonia. 2. Chronic hypoxic respiratory failure. 3. Oropharyngeal dysphagia. 4. Agoraphobia. 5. Anemia. 6. Hypertension. 7. Gastroesophageal reflux disease. 8. Depression/anxiety. CONSULTS THIS HOSPITALIZATION: Psychiatry with Dr. Suh. HOSPITAL COURSE: Full H&P is located elsewhere on the chart on this 67-year-old male who was admitted to inpatient rehab for physical therapy and occupational therapy to improve gait, transfer skills, bed mobility, and activities of daily living to a modified independent level. He was evaluated by PT and OT and their plans of care were followed. He required long-term care for observation and assessment and medication administration. He was on Brovana and Pulmicort and DuoNeb nebulized for respiratory support and Diflucan for antibiotic coverage. He was minimally cooperative with therapies with some progress towards goals. Dr. Suh was consulted from psychiatry due to inappropriate behavior with staff and aggressive behaviors. He was evaluated for admission to [facility] psychiatric facility for further management. He was accepted for admission on 07/20/2017. DISCHARGE MEDICATIONS: As per discharge medication reconciliation. DISCHARGE DISPOSITION: The patient is discharged to [facility] at [facility]. He will continue his current diet and level of activity and will follow with primary care and specialist upon discharge from that facility. At least 30 minutes was spent in this discharge activity. TRANSINT:[id number] Voice Confirmation ID: [id number] DOCUMENT ID: [id number] Dictated By: SERGE ARRIAGA I have interviewed/examined the above patient and agree with these documented findings. DISCHARGE SUMMARY REPORT [id number] BENJAMIN KNOWLES, ROBERTO MCWILLIAMS at 1626 at 1628 CC: [id number] DICTATION DATE: 09/24/17 1129 HEALTH SERVICES DIRECTOR: 09/24/17 1340 DIS IN 07/20/17 [id number] [place] [address]
== END 2017-07-20 19:50 | DRG 91 ==
LOC: D.REHAB 15:30
PROVIDERS: ADMIT Emergency Medicine
DX: G72.89 Other specified myopathies (principal); J96.21 Acute and chronic respiratory failure with hypoxia; J96.22 Acute and chronic respiratory failure with hypercapnia; J44.1 Chronic obstructive pulmonary disease with (acute) exacerbation; R13.12 Dysphagia, oropharyngeal phase; I10 Essential (primary) hypertension; J30.9 Allergic rhinitis, unspecified; D72.829 Elevated white blood cell count, unspecified; D64.9 Anemia, unspecified; Z77.090 Contact with and (suspected) exposure to asbestos; F32.9 Major depressive disorder, single episode, unspecified; F40.00 Agoraphobia, unspecified; Z87.891 Personal history of nicotine dependence

== ENCOUNTER 2017-07-20 20:19 | Inpatient (IN) | payer MEDICARE ==
[~2017-07-20 20:19] MED LIST changes: +LOVENOX40 MG/0.4 SC
[2017-07-21 01:13] LABS: APPEARANCE CLEAR (CLEAR); COLOR YELLOW (YELLOW); NITRITE NEGATIVE (NEGATIVE); SPECIFIC GRAVITY 1.015 (1.005-1.020)
[2017-07-21 01:14] LABS: BACTERIA FEW /hpf (NONE SEEN); BILIRUBIN NEGATIVE (NEGATIVE); EPITHELIAL CELLS 0-5 /hpf (0-5); GLUCOSE NEGATIVE (NEGATIVE); KETONE NEGATIVE (NEGATIVE); PROTEIN TRACE mg/dL (NEGATIVE); UROBILINOGEN NORMAL (NORMAL); WHITE CELLS - URINE 0-5 /hpf (0-5)
--- NOTE | 2017-07-21 01:15 | NUR ---
NEW ADMIT TO DOCTOR RUBIO FROM [facility]. PATIENT HAS BEEN COMBATIVE WT STAFF ON REHAB UNIT. HAVING VISUAL AND AUDITORY HALLUCINATIONS. IN REHAV FOR HIP FRAXURE. PATIENT RECEIVED TO USP VIA WHEELCHAIRM [facility] STAFF AT SIDE. O2 RUNNING AT 3 L VIA NASAL CANULA. PATIENT IS RESISTIVE TO CARE. VERY CONFUSED. UNCOOPERATIVE THE [facility] ADMIT ASSESSMENT. REDIRECT AND REOREINT NEEDED. RESTING IN BED THE [facility] EYES CLOSED AT THI9S TIME. CONTINUE PLAN OF CARE.
--- NOTE | 2017-07-21 06:47 | NUR ---
ATTEMPTED TO REACH CHIDI KNOWLES (DAUGHTER) TO RECEIVE CONSENT TO TREAT. NO ANSWER AT NUMBER. LEFT VOICEMAIL FOR HER TO CONTACT US BACK.
[2017-07-21 08:01] LABS: HEMOGLOBIN A1C 6.8 % (4.8-6.0)
[2017-07-21 08:07] LABS: CHOL - HDL RATIO 4.2 ratio (2.3-4.9); LDL-HDL RATIO 2.8 ratio (1.5-3.5); THYROID STIMULATING HORMONE 2.34 uIU/mL (0.36-3.74)
[2017-07-21 08:30] VITALS: BP 111/68
--- NOTE | 2017-07-21 11:49 | NUR ---
Received patient this morning in dayroom, patient drowsy. No s/s aggression. Pt cont confused. Awaiting physician orders for meds. Commonlaw and daughter phoned to check on patient condition. Daughter stated that no advanced directive exits. Daughter gave verbal consent for treatment.
[2017-07-21 15:09] VITALS: BP 111/68; BMI 34.5
[2017-07-21 19:30] VITALS: BP 131/76
--- NOTE | 2017-07-22 03:05 | NUR ---
B) patient alert and oriented, calm and cooperative, on O2 at 3 liter via NC, no aggression or hallucinations noted, I) Admistered scheduled medications, monitored for safety, assisted with transfers, R) Medication compliant, ambulates self in wheelchair, P) Continue plan of care.
[2017-07-22 06:15] LABS: RAPID PLASMA REAGIN Non Reactive (Non Reactive)
[2017-07-22 07:28] LABS: VITAMIN D 25 HYDROXY 17.6 ng/mL (30.0-100.0)
[2017-07-22 07:36] VITALS: BMI 34.5
[2017-07-22 08:17] LABS: FOLATE (FOLIC ACID) - SERUM 11.7 ng/mL (>3.0)
[2017-07-22 08:30] VITALS: BP 109/59
--- NOTE | 2017-07-22 14:17 | NUR ---
COOPERATIVE WITH CARE. NO AGGRESSION NOTED. PT IS VERY GUARDED AND FLAT AFFECT. PT DOES NOT REMEMBER THE REASON FOR HIS ADMISSION TO [facility]. WHEN TOLD OF HIS COMBATIVE BEHAVIOR ON REHAB HE APOLIGIZED TO THIS STAFF MEMBER. ENCOURAGE PT TO EXPRESS HIS FEELINGS AND CONCERNS WITH STAFF. PT IS WITHDRAWN AND DOES NOT SOCIALIZE WITH OTHER PTS. MEDICATIONS GIVEN ORDERED. FALL PRECAUTIONS MAINTAINED. PT ON O2 ON 3L NC. WILL CONTINUE TO MONITOR AND CONTINUE WITH PLAN OF CARE.
[2017-07-22 19:30] VITALS: BP 128/68
--- NOTE | 2017-07-22 20:50 | NUR ---
PT CONTINUES TO BE GUARDED AND WITHDRAWN. HE DOES ANSWER QUESTIONS AND SPEAKS TO STAFF, BUT HE DOES NOT SOCIALIZE WITH OTHER PTS. PT IS ON 3L NC. FLAT AFFECT NOTED. PT DENIES SI OR DEPRESSION. NO AGGRESSION NOTED. FALL PRECAUTIONS MAINTAINED. MEDICATIONS GIVEN ORDERED. WILL CONTINUE TO MONITOR AND CONTINUE WITH PLAN OF CARE.
--- NOTE | 2017-07-23 05:45 | PN ---
PATIENT:BENJAMIN KNOWLES MEDICAL RECORD: [id number] LOCATION:[facility] ADMISSION DATE: 07/20/17 PROGRESS NOTE DATE OF SERVICE: 07/22/2017 SUBJECTIVE: No new complaint noted. OBJECTIVE: Staff reports the patient has not been aggressive. He is oriented in all spheres. He does require oxygen supplement. Activities of daily living are still somewhat poor. The patient is getting tested by Dr. Adams today. On exam, mood is euthymic. Affect is bland. Speech fairly fluent. Content of thought is negative for overt psychosis. Sensorium is unchanged. ASSESSMENT: No change in diagnosis. PLAN: 1. Maintain current medication. 2. Continue supportive therapy. TRANSINT:[id number] Voice Confirmation ID: [id number] DOCUMENT ID: [id number] OCTAVIO RUBIO III, MD at 0545 CC: [id number] DICTATION DATE: 07/22/17 1151 COOK STARCH: 07/22/17 1202 ADM IN [address] [id number] [place] [address]
[2017-07-23 08:00] VITALS: BP 144/54
--- NOTE | 2017-07-23 10:00 | NUR ---
B) PATIENT IS ALERT AND AWAKE, HE IS SOMEWHAT CONFUSED AND MISUNDERSTANDS WHAT IS BEING SAID TO HIM AT TIMES.HE CAN STAND AND TRANSFER. HE HAS TAKEN HIS OXYGEN OFF TODAY AND HAS HAD AN O2 SAT AT 92% ON R/A. I) PROVIDE PRESCRIBED MEDS. R) PATIENT IS COMPLIANT WITH MEDS AND MOSTLY STAYS AWAY FROM STAFF AND PEERS. P) CONTINUE POC.
--- NOTE | 2017-07-23 16:00 | NUR ---
PATIENT'S COMMON CAME TO VISIT AND SHE DOES SAY SHE ENABLES HIM, SHE SAID SHE GETS HIM HIS FOOD, HIS DRINKS, HE DOES NOT WALK EXCEPT A COUPLE STEPS.
[2017-07-23 19:30] VITALS: BP 154/82
--- NOTE | 2017-07-24 04:22 | NUR ---
B) Patient is alert and oriented, worried about his test results showing his Dementia I) Administered scheduled medications, monitored for safety, R) Medication compliant, resting quietly in bed now P) Continue plan of care.
[2017-07-24 08:00] VITALS: BP 127/59
--- NOTE | 2017-07-24 19:29 | NUR ---
IS ORIENTED X 3.VERY QUITE AND KEEPS TO SELF.COMPLIANT WITH MEDS.PROPELLS SELF IN WHEELCHAIR.ENJOYS FOOTBALL GAME ON TV TODAY.WILL CONTINUE WITH PLAN OF CARE,MONITOR FOR CHANGES AND SAFETY.
[2017-07-24 19:30] VITALS: BP 152/89
--- NOTE | 2017-07-24 21:08 | NUR ---
RECEIVED IN DINING AREA. SITTING QUIETLY AT TABLE WATCHING TV. NOT SOCIALIZING WITH PEERS. CALM AND COOPERATIVE WITH CARE AND ASSESSMENTS. NO SIGNS OF AGGRESSION AT THIS TIME. CONTINUES TO REST QUIETLY IN DINING AREA. CONTINUE PLAN OF CARE
[2017-07-25 09:41] VITALS: BP 141/79
--- NOTE | 2017-07-25 10:12 | PN ---
PATIENT:BENJAMIN KNOWLES MEDICAL RECORD: [id number] LOCATION:[facility] ADMISSION DATE: 07/20/17 PROGRESS NOTE DATE OF SERVICE: 07/24/2017 SUBJECTIVE: No new complaint offered. OBJECTIVE: The patient continues to be cooperative with staff. According to staff, there has been no aggressiveness. He continues to exhibit some pulmonary problems. He remains rather withdrawn. On exam, mood is rather dysphoric. Affect is constricted. Speech is quite terse. Content of thought is negative for overt psychosis. Sensorium shows no changes. ASSESSMENT: No change in diagnosis. PLAN: 1. Continue current medications. 2. Continue supportive therapy. TRANSINT:[id number] Voice Confirmation ID: [id number] DOCUMENT ID: [id number] OCTAVIO RUBIO III, MD at 1012 CC: [id number] DICTATION DATE: 07/24/17 1635 PHYSICIAN ALLERGIST IMMUNOLOGIST: 07/24/17 2204 ADM IN [id number] [place] [address]
--- NOTE | 2017-07-25 14:04 | PSY ---
PATIENT NAME:BENJAMIN KNOWLES MEDICAL RECORD: [id number] : 50 LOCATION:[facility] ADMISSION DATE: 07/20/17 ACCOUNT: [id number] PSYCHIATRIC EVALUATION DATE OF EVALUATION: 07/21/17 IDENTIFYING DATA: The patient is 67-year-old and he is admitted to the hospital on a voluntary basis. CHIEF COMPLAINT: Aggression. HISTORY OF PRESENT ILLNESS: The patient had recently been admitted to the rehab unit. He was very combative with staff resistive to their instructions and was having active visual and auditory hallucinations. He has no recollection of this. He speaks to me calmly today. He was initially admitted to this hospital about 2 weeks ago in acute respiratory failure. At that time, he was hypoxic and had pneumonia and was intubated. He does not have a long psychiatric history. 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 PAST MEDICAL HISTORY: Significant for hyperlipidemia, recent episode of pneumonia with respiratory failure, long history of COPD and he is oxygen dependent, secondary to tobacco abuse. PAST PSYCHIATRIC HISTORY: Significant for some depression, but no suicidal thoughts. He certainly drank too much of beers through much of his adult working life, but he did manage to consistently work and other than 1 DWI did not have extensive problems with the law. FAMILY HISTORY: Unknown. ALLERGIES: None. CURRENT MEDICATIONS: Include Singulair, prednisone, Boniva, Pulmicort, Levaquin, Protonix and Lovenox. SOCIAL HISTORY: The patient is . He has a girlfriend who used to live with him for 30 years and functions as a spouse of equivalent. He has 3 adult children. 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 He functioned at a below average level socially and occupationally. MENTAL STATUS EXAMINATION: The patient is awake, alert and oriented to person, place, time and situation. His mood is flat. His affect is appropriate. Thought processes are circumstantial. Memory, concentration and abstraction abilities are mildly impaired, but he denies any intent to harm himself or others as well as overt psychotic symptoms. ASSETS: Supportive family members. LIABILITIES: Limited insight. DIAGNOSTIC IMPRESSION: AXIS I: Delirium secondary to multiple factors. Rule out major depression. Rule out dementia. AXIS II: None. AXIS III: Chronic obstructive pulmonary disease, hypertension, cardiomyopathy, anemia. AXIS IV: Moderate stressors. AXIS V: Global assessment of functioning is 40. PLAN: At this time, the patient is better. He clearly was having a delirium, what is unclear is whether or not he has an alcohol related dementia or perhaps a dementia related to a global hypoxic injury associated with the recent events. At this point, I am going to maintain him on current medications. We will give him a low dose of an antidepressant medication and observe him for overt psychotic symptoms. TRANSINT:[id number] Voice Confirmation ID: [id number] DOCUMENT ID: [id number] JEFF THORNE MD at 1404 CC: [id number] DICTATION DATE: 07/21/17 1501 PLACEMENT INTERVIEWER: 07/21/17 1525 [facility] IN [address] [place] [address]
--- NOTE | 2017-07-25 14:07 | NUR ---
PT ANXIOUS ABOUT DISCHARGING SOON. ENCOURAGED PT TO EXPRESS NEEDS AND FEELINGS. REVIEWED DIFFERENT COPING SKILLS WITH PT TO USE AT HOME. VERBALIZED APPRECIATION TO STAFF FOR ALL OF THEIR HELP. MEDICATIONS GIVEN ORDERED. FALL PRECAUTIONS MAINTAINED. WILL CONTINUE TO MONITOR AND CONTINUE WITH PLAN OF CARE.
[2017-07-25] MEDS ORDERED: ZOLOFT50 MG PO (14:19)
--- NOTE | 2017-07-25 22:07 | NUR ---
RECEIVED IN BEDROO. LAYING IN BED WITH EYES CLOSED. RESPONDS TO VOICE. CALM AND COOPERATIVE WITH CARE AND ASSESSMENTS. NO SIGNS OF AGGRESSION. ENCOURAGE TO EXPRESS NEEDS. RESTING IN BED EYES CLOSED AT THIS TIME. CONTINUE PLAN OF CARE
[2017-07-26 06:57] VITALS: BP 125/55
[2017-07-26 08:30] VITALS: BP 125/55
[2017-07-26 10:43] VITALS: BMI 34.4
--- NOTE | 2017-07-26 14:14 | NUR ---
MARIAM CALLED PT'S DTR, CHIDI, TO STATE PT WAS READY FOR DISCHARGE AND ASKING TO GO HOME. MARIAM LEFT VM. AT PT'S REQUEST, MARIAM CONTACTED PT'S LONG-TERM LIVE IN GIRLFRIEND, RADHA. SHE STATED SHE WOULD BOOSTER ASSEMBLER PATIENT AT 4PM AND GAVE THE PCP AND PHARMACY INFORMATION.
--- NOTE | 2017-07-26 14:20 | PN ---
PATIENT:BENJAMIN KNOWLES MEDICAL RECORD: [id number] [facility] ADMISSION DATE: 07/20/17 PROGRESS NOTE DATE OF SERVICE: 07/25/2017 SUBJECTIVE: The patient's case was discussed with staff. He has no new complaint. OBJECTIVE: The patient is in good behavioral control with limited insight about his condition. He tolerates his medicines well. ASSESSMENT: No change in diagnoses. PLAN: The patient is impaired cognitively. He does have family at home, who can assist him and he will be transitioned out of the hospital tomorrow. TRANSINT:[id number] Voice Confirmation ID: [id number] DOCUMENT ID: [id number] JEFF THORNE MD at 1420 CC: [id number] DICTATION DATE: 07/25/17 1447 MACROECONOMICS PROFESSOR: 07/25/17 1505 ADM IN [place] [place] [address]
--- NOTE | 2017-07-26 14:27 | NUR ---
ALERT, CALM, PLEASANT MOOD, COOPERATIVE WITH MEDS AND STAFF REQUESTS, ISOLATES SELF IN DINING ROOM AWAY FROM GROUP, DENIES PAIN, NO S/S DISTRESS. EXPRESS INTEREST IN DISCHARGING HOME WITH FAMILY. NO S/S ADVERSE REACTION TO MEDS. APPETITE GOOD, FEEDS SELF WITHOUT DIFFICULTY. AMBULATES SHORT DISTANCES UNASSISTED WITH REMAINER OF AMBULATION DONE VIA W/C. CONT. POC UNTIL DISCHARGE HOME.
--- NOTE | 2017-07-26 16:00 | NUR ---
Pt alert, calm, pleasant mood, happy to be discharging home. Personal belongings returned to patient. Patient assisted to private vehicle, accompanied by family members for transport home. Pt denies pain, no s/s distress, jubilant about discharge.
--- NOTE | 2017-07-27 15:06 | PN ---
PATIENT:BENJAMIN KNOWLES MEDICAL RECORD: [id number] LOCATION:[facility] ADMISSION DATE: 07/20/17 PROGRESS NOTE DATE OF SERVICE: 07/26/2017 SUBJECTIVE: The patient's case was discussed with staff. He has no new complaint. OBJECTIVE: The patient denies intent to harm himself or others. He is in good behavioral control and has no psychotic symptoms. ASSESSMENT: No change in diagnoses. PLAN: Supportive and educational interventions were made. Long-Term prognosis is guarded. TRANSINT:[id number] Voice Confirmation ID: [id number] DOCUMENT ID: [id number] JEFF THORNE MD at 1506 CC: [id number] DICTATION DATE: 07/26/17 1445 SURVEY RESEARCH CENTER DIRECTOR: 07/26/17 1502 DIS IN 07/26/[address] [facility] [address] [place] [address]
--- NOTE | 2017-08-09 13:05 | DS ---
PATIENT:BENJAMIN KNOWLES :50 MEDICAL RECORD: [id number] DISCHARGE SUMMARY ADMISSION DATE: 07/20/17 DISCHARGE DATE: 07/26/17 IDENTIFYING DATA: The patient is 67 years old and he was admitted to the hospital on a voluntary basis secondary to aggression. The patient had recently been to the rehabilitation unit where he had been combative with staff and resistive to care. He was having some active visual and auditory hallucinations, but had little recognition of this. He initially was admitted to the hospital a couple of weeks ago because of respiratory failure. At that time, he was hypoxic and had a pneumonia, and he actually ended up on a ventilator for a while. He does not have a psychiatric history, although he probably was an alcoholic through much of his adult life. HOSPITAL COURSE: The patient was admitted to the hospital and fully evaluated from both medical, psychological, and social standpoint. It was believed that the primary presenting symptoms were related to a delirium. He was also found to be depressed and was given antidepressant medication. He did show improvement through the course of his hospitalization. He did have some mild cognitive impairment. He subsequently was transitioned to home at his request. DISCHARGE DIAGNOSES: AXIS I: Delirium secondary to multiple factors; major depression, moderate severity without psychotic features. AXIS II: None. AXIS III: Chronic obstructive pulmonary disease, hypertension, cardiomyopathy, anemia. AXIS IV: Moderate stressors. AXIS V: Global assessment of functioning is 45. PLAN: At the time of discharge, the patient was not acutely dangerous to himself or others. He was generally tolerating his medications well. His long-term prognosis is guarded. TRANSINT:[id number] Voice Confirmation ID: [id number] DOCUMENT ID: [id number] JEFF THORNE MD at 1305 CC: [id number] DICTATION DATE: 07/28/17 1356 INSPECTOR BALANCE BRIDGE: 07/28/17 1500 DIS IN 07/26/17 [id number] [place] [id number]
== END 2017-07-26 16:00 | disposition home or self-care (01) | DRG 880 ==
LOC: D.PSYCH 20:19
PROVIDERS: ADMIT Psychiatry & Neurology Psychiatry
DX: F05 Delirium due to known physiological condition (principal); I42.9 Cardiomyopathy, unspecified; R44.0 Auditory hallucinations; E78.5 Hyperlipidemia, unspecified; J44.9 Chronic obstructive pulmonary disease, unspecified; I10 Essential (primary) hypertension; D64.9 Anemia, unspecified; F32.9 Major depressive disorder, single episode, unspecified; Z74.09 Other reduced mobility; R44.1 Visual hallucinations

== ENCOUNTER 2018-12-13 09:39 | Inpatient (IN) | payer MEDICARE ==
[2018-12-13] VITALS (14 sets, daily range): BP systolic 104–133; BP diastolic 56–90; BMI 28.8
[~2018-12-13] VITALS: Ht 180.3 cm; Wt 93.4 kg
[~2018-12-13 09:39] MED LIST changes: +ZOLOFT50 MG PO
[2018-12-13 10:22] LABS: WBC 21.8 10x3/uL (4.8-10.8)
[2018-12-13 10:24] LABS: MCH 22.6 pg (26.0-34.0); MCHC 29.2 g/dL (31.0-37.0); MCV 77.4 fL (80.0-100.0); MEAN PLATELET VOLUME 10.3 fL (7.4-10.4); PLATELET COUNT 403 10x3/uL (130-400); RDW 16.5 % (11.5-14.5)
[2018-12-13 10:30] LABS: APTT 27.2 SECONDS (22.8-39.4); INR 1.34 (0.85-1.17)
[2018-12-13 10:34] LABS: ALBUMIN 2.6 g/dL (3.4-5.0); ALKALINE PHOSPHATASE 115 U/L (46-116); ALT (SGPT) 197 U/L (10-68); BILIRUBIN - TOTAL 0.48 mg/dL (0.2-1.3); CALC OSMOLALITY 300 mosm/kg (275-300); CALCIUM 8.6 mg/dL (8.5-10.1); CARBON DIOXIDE 26.3 mmol/L (21.0-32.0); CHLORIDE - SERUM 102 mmol/L (98-107); POTASSIUM - SERUM 4.7 mmol/L (3.5-5.1); PROTEIN - SERUM 7.8 g/dL (6.4-8.2); SODIUM 139 mmol/L (136-145); UREA NITROGEN 67 mg/dL (7-18); eGFR NON AFRICAN AMERICAN 35 mL/min (90-120)
[2018-12-13 10:38] LABS: GLUCOSE 163 mg/dL (74-106); LYMPHOCYTES 5 % (15-50); MONOCYTES 8 % (2-11); NEUTROPHILS 66 % (40-80)
[2018-12-13 10:42] LABS: PLATELET ESTIMATE NORMAL
[2018-12-13 10:43] LABS: TOXIC GRANULATION 1+
[2018-12-13 10:44] LABS: HYPOCHROMASIA 1+
[2018-12-13 11:00] LABS: CKMB 5.7 U/L (0.0-3.6); CREATINE KINASE 252 UL (21-232)
[2018-12-13 11:03] LABS: TROPONIN-I 0.782 ng/mL (0.000-0.060)
[2018-12-13 11:12] LABS: APPEARANCE CLEAR (CLEAR); BILIRUBIN NEGATIVE (NEGATIVE); COLOR YELLOW (YELLOW); GLUCOSE NEGATIVE (NEGATIVE); KETONE NEGATIVE (NEGATIVE); NITRITE NEGATIVE (NEGATIVE); PROTEIN NEGATIVE (NEGATIVE); SPECIFIC GRAVITY 1.015 (1.005-1.020); UROBILINOGEN NORMAL (NORMAL)
--- NOTE | 2018-12-13 13:30 | NUR ---
PT REPORT GIVEN AT THIS TIME TO PHIL FUENTES. PT ADMITTED TO ROOM 2304. CONTACTED OMAR IN BLOOD BANK AND SHE IS CURRENTLY WORKING ON ORDER. PT STABLE AT THIS TIME.
--- NOTE | 2018-12-13 14:32 | NUR ---
PT ARRIVED TO UNIT 1355 LETHARGIC, PLACED ON BIPAP, HR 80-90S NSR, VSS, DOES NOT RESPOND TO COMMAND BUT OPENS EYES, TRACKS MOVEMENT, MOANS WITH REPOSITIONING, SKIN DRY AND FLAKY WITH SCABS TO ABD, LFA PIV WITH BICARB INFUSING, PIV TO RFA X1 ATTEMPT AND PRBCS INITATED AFTER RECIEVING CONSENT FROM AND VERIFIED X2 NURSES, SPOKE WITH PHARMACY FOR CLINDAMYCIN, SPOKE WITH DR RESENDEZ, DR SALOMON OFFICE AND DR CHAMORRO, WILL CONTINUE TO MONITOR
--- NOTE | 2018-12-13 15:13 | NUR ---
DR RESENDEZ IN UNIT AND NOTIFIED OF D DIMER WITH NO NEW ORDERS
[2018-12-13 15:16] LABS: UDS - AMPHET NEGATIVE QUAL (NEGATIVE); UDS - BARB NEGATIVE QUAL (NEGATIVE); UDS - BENZO NEGATIVE QUAL (NEGATIVE); UDS - COCAINE NEGATIVE QUAL (NEGATIVE); UDS - OPIATE NEGATIVE QUAL (NEGATIVE); UDS - PCP NEGATIVE QUAL (NEGATIVE); UDS - THC NEGATIVE QUAL (NEGATIVE)
--- NOTE | 2018-12-13 15:33 | MORECARE ---
CASE MANAGEMENT DISCHARGE SUMMARY PATIENT: BENJAMIN KNOWLES UNIT: [id number] ADM DATE: 12/13/18 AGE: 68 : 50 SEX: M ROOM/BED: D.2304 AUTHOR: AMBROSE LAMBERT PHYSICIAN: REFERRING PHYSICIAN: MANDI CHAMORRO MD DATE OF SERVICE: 12/13/18 Discharge Plan Patient Name: BENJAMIN KNOWLES [facility] [facility] 1950 Planned Disposition: Anticipated Discharge Date: Discharge Date: Expected LOS: Initial Reviewer: [email or web address] Initial Review Date: 12/13/2018 Generated: 12/13/18 4:33 pm Comments DCP- Discharge Planning Updated by [email or web address]: Buffy Castillo on 12/13/18 2:[address] CM attempted to visit with patient regarding discharge planning / needs. Patient is currently on BIPAP and unable to answer questions. No family currently available. CM will continue to follow and assist as needed with discharge planning / needs. Patient Name: BENJAMIN KNOWLES Page [id number] at 1533 All edits/amendments must be made on the electronic document DICTATION DATE: 12/13/18 153 LABEL PASTER: FREDO 12/13/18 153 RPT#: [id number] DC DATE: STATUS: ADM IN [facility] [address] [place] [address] END OF REPORT
--- NOTE | 2018-12-13 16:49 | NUR ---
CHARGE NURSE SPOKE WITH PT DAUGHTER CHIDI, WHO STATED THAT THE WOMAN CLAIMING TO BE PT IS ONLY HIS GF AND THAT SHE SHOULD BE THE IN CASE OF EMERGENCY NUMBER. PT DAUGHTER CHIDI AND SON SHOAIB WERE ORIGINALLY CALLED BEFORE PTS GF CAME TO UNIT CLAIMING TO BE . VERIFIED PHONE NUMBER WITH CHIDI, DAUGHTER AND ORIGINAL NUMBERS WERE CORRECT. DAUGHTER OKAY WITH CONTIUED BLOOD
--- NOTE | 2018-12-13 17:52 | NUR ---
[address], [address]
--- NOTE | 2018-12-13 19:00 | NUR ---
REC'D TO CARE, ON BIPAP VIA MASK AT 35%. NO SIGN OF DISTRESS. VSS. PRBCS UNIT 2 OF 3 FINISHING UP. NO SIGN OF ADVERSE RXN. ZAMAN CATH PATENT AND DRAINING CLEAR, YELLOW URINE. ALARMS ON AND C/L IN REACH.
--- NOTE | 2018-12-13 19:15 | NUR ---
DR. RESENDEZ IN TO SEE PT, ON BIPAP, VSS. NEW ORDERS REC'D - IPAP TO 18.
--- NOTE | 2018-12-13 19:50 | NUR ---
BEGIN UNIT #3 OF 3 PER HOSPITAL PROTOCOL. ALARMS ON.
--- NOTE | 2018-12-13 20:00 | NUR ---
BREAK FROM BIPAP. VSS. POX 97% ON 4L NC. PT ANSWERING QUESTIONS APPROP. REORIENTED TO TIME OF DAY AND SITUATION BY NURSE. PRBC INFUSING, NO SIGN OF ADVERSE RXN.
--- NOTE | 2018-12-13 20:01 | NUR ---
DR. RESENDEZ IN TO SEE PT. NEW ORDERS REC'D. PT ON BIPAP - IPAP CHANGED TO 18 PER .
--- NOTE | 2018-12-13 20:24 | NUR ---
I.S. TO 750, STRONG PC. THICK YELLOW SPUTUM, SPECIMEN OBTAINED.
--- NOTE | 2018-12-13 20:50 | NUR ---
DR. RESENDEZ UPDATED ON PT STATUS, ORDERED BIPAP PRN.
--- NOTE | 2018-12-13 22:06 | NUR ---
NEURO WNL, NO SIGN OF DISTRESS.
--- NOTE | 2018-12-13 22:30 | NUR ---
UNIT #3 PRBC COMPLETE, NO SIGN OF ADVERSE RXN. VSS. LINE FLUSHED AND PIV SL'D.
[2018-12-14] VITALS (14 sets, daily range): BP systolic 98–133; BP diastolic 54–95; BMI 28.7
--- NOTE | 2018-12-14 01:09 | NUR ---
PARTIAL LINEN CHANGE AND ZAMAN-CARE DONE. PT REPOSITIONED UP IN BED TO R SIDE. REPORTS SOME SOB, WHEEZING NOTED.. RT NOTIFIED AND PT BACK ON BIPAP. PT COOPERATIVE. C/L IN REACH.
--- NOTE | 2018-12-14 03:02 | NUR ---
REASSESSMENT PER FLOWSHEET, NO ACUTE CHANGES. BREAK FROM BIPAP FOR ORAL CARE AND PT TAKING SIPS OF WATER. NEURO WNL. VSS. PT DENIES NEEDS. C/L IN REACH.
[2018-12-14 04:23] LABS: BASOPHILS 0.2 % (0-2); EOSINOPHILS 0.1 % (0-7); HEMATOCRIT 27.4 % (42.0-54.0); HEMOGLOBIN 8.3 g/dL (13.5-17.5); LYMPHOCYTES 6.7 % (15-50); MCH 23.9 pg (26.0-34.0); MCHC 30.3 g/dL (31.0-37.0); MCV 78.7 fL (80.0-100.0); MEAN PLATELET VOLUME 10.6 fL (7.4-10.4); MONOCYTES 7.4 % (2-11); NEUTROPHILS 83.6 % (40-80); RBC 3.48 10x6/uL (4.20-6.10); RDW 16.4 % (11.5-14.5)
[2018-12-14 04:25] LABS: PLATELET COUNT 308 10x3/uL (130-400)
[2018-12-14 04:36] LABS: ALBUMIN 2.2 g/dL (3.4-5.0); ANION GAP 11.4 mmol/L (8-16); BILIRUBIN - TOTAL 0.67 mg/dL (0.2-1.3); CALCIUM 8.3 mg/dL (8.5-10.1); CARBON DIOXIDE 30.6 mmol/L (21.0-32.0); PROTEIN - SERUM 7.1 g/dL (6.4-8.2)
[2018-12-14 04:37] LABS: CREATININE - SERUM 1.4 mg/dL (0.6-1.3)
--- NOTE | 2018-12-14 05:06 | NUR ---
PT RESTING QUIETLY, ABGS WNL. C/L IN REACH.
--- NOTE | 2018-12-14 07:00 | NUR ---
SHIFT ASSESSMENT COMPLETED. PT CARE ASSUMED. MONITORS ON AND WORKING, VITALS STABLE. NO SIGNS/SYMPTOMS OF PAIN OR DISCOMFORT NOTED. CALL LIGHT WITHIN REACH, WILL CONTINUE TO OBSERVE.
--- NOTE | 2018-12-14 09:00 | NUR ---
PT SITTING UP IN BED, AWAKE AND ALERT, NO SIGNS/SYMPTOMS OF PAIN OR DISCOMFORT NOTED AT THIS TIME, WILL CONTINUE TO OBSERVE.
--- NOTE | 2018-12-14 11:00 | NUR ---
TRANSFER ORDERS REC'D TO TRANSFER PT TO FLOOR WHEN ROOM BECOMES AVAILABLE, MONITORS ON AND WORKING, VITALS STABLE. WILL CONTINUE TO OBSERVE.
--- NOTE | 2018-12-14 15:37 | MORECARE ---
CASE MANAGEMENT DISCHARGE SUMMARY PATIENT: BENJAMIN KNOWLES UNIT: [id number] ADM DATE: 12/13/18 AGE: 68 : 50 SEX: M ROOM/BED: D.2304 AUTHOR: AMBROSE LAMBERT PHYSICIAN: REFERRING PHYSICIAN: MANDI CHAMORRO MD DATE OF SERVICE: 12/14/18 Discharge Plan Patient Name: BENJAMIN KNOWLES [facility] [facility] 1950 Planned Disposition: Home Anticipated Discharge Date: Discharge Date: Expected LOS: Initial Reviewer: [email or web address] Initial Review Date: 12/13/2018 Generated: 12/14/18 4:37 pm Comments DCP- Discharge Planning Updated by [email or web address]: Buffy Castillo on 12/13/18 2:[address] CM attempted to visit with patient regarding discharge planning / needs. Patient is currently on BIPAP and unable to answer questions. No family currently available. CM will continue to follow and assist as needed with discharge planning / needs. Last DP export: 12/13/18 2:33 p Patient Name: BENJAMIN KNOWLES Page [id number] at 1537 All edits/amendments must be made on the electronic document DICTATION DATE: 12/14/181535 MEAL COOKER: FREDO 12/14/181535 RPT#: [id number] DC DATE: STATUS: ADM IN [facility] [address] [place] [address] END OF REPORT
--- NOTE | 2018-12-14 15:46 | MORECARE ---
CASE MANAGEMENT DISCHARGE SUMMARY PATIENT: BENJAMIN KNOWLES UNIT: [id number] ADM DATE: 12/13/18 AGE: 68 : 50 SEX: M ROOM/BED: D.2304 AUTHOR: AMBROSE LAMBERT PHYSICIAN: REFERRING PHYSICIAN: MANDI CHAMORRO MD DATE OF SERVICE: 12/14/18 Discharge Plan Patient Name: BENJAMIN KNOWLES Facility: [facility]:[place] : 1950 Planned Disposition: Home Anticipated Discharge Date: Discharge Date: Expected LOS: Initial Reviewer: [email or web address] Initial Review Date: 12/13/2018 Generated: 12/14/18 4:46 pm Comments DCP- Discharge Planning Updated by [email or web address]: Buffy Castillo on 12/13/18 2:[address] CM attempted to visit with patient regarding discharge planning / needs. Patient is currently on BIPAP and unable to answer questions. No family currently available. CM will continue to follow and assist as needed with discharge planning / needs. DCPIA - Discharge Planning Initial Assessment Updated by [email or web address]: Buffy Castillo on 12/14/18 3:39 pm * Is the patient Alert and Oriented? Yes * How many steps to enter\exit or inside your home? RAMP * PCP DANIELLE * Pharmacy [facility] * Preadmission Environment Home with Family * ADLs Independent * Other Equipment WALKER, CANE * List name and contact numbers for known caregivers / representatives who currently or will assist patient after discharge: CHIDI KNOWLES - DAUGHTER- [phone] * Verbal permission to speak to the caregivers and representatives has been obtained from the patient. N/A * Community resources currently utilized None * Additional services required to return to the preadmission environment? No * Can the patient safely return to the preadmission environment? Yes * Has this patient been hospitalized within the prior 30 days at any hospital? No Last DP export: 12/14/18 2:37 p Patient Name: BENJAMIN KNOWLES Page [phone] at 1546 All edits/amendments must be made on the electronic document DICTATION DATE: 12/14/18 1549 DEBIT AGENT: FREDO 12/14/18 1547 RPT#: [id number] RI DATE: STATUS: ADM IN [facility] [address] [place] [address] END OF REPORT
--- NOTE | 2018-12-14 15:56 | MORECARE ---
CASE MANAGEMENT DISCHARGE SUMMARY PATIENT: BENJAMIN KNOWLES UNIT: [id number] ADM DATE: 12/13/18 AGE: 68 : 50 SEX: M ROOM/BED: D.2304 AUTHOR: PETRA,DOC PHYSICIAN: REFERRING PHYSICIAN: MANDI CHAMORRO MD DATE OF SERVICE: 12/14/18 Discharge Plan Patient Name: BENJAMIN KNOWLES [facility]:[place] : 1950 Planned Disposition: Home Anticipated Discharge Date: Discharge Date: Expected LOS: Initial Reviewer: [email or web address] Initial Review Date: 12/13/2018 Generated: 12/14/18 4:55 pm Comments DCP- Discharge Planning Updated by [email or web address]: Buffy Castillo on 12/14/18 2:[address] Patient Name: BENJAMIN KNOWLES Admission Status: ER Accout number: [id number] Admission Date: 12-13-2018 : 1950 Admission Diagnosis: Attending: MANDI CHAMORRO Current LOS: 1 Anticipated DC Date: Planned Disposition: Home Primary Insurance: MEDICARE A & B Discharge Planning Comments: CM met with patient at bedside. Patient states he lives at home with his girlfriend (Salome). He states he plans to return there upon discharge. Patient states that he has a walker and cane at home. He states he might need 02 @ home. Patient denies any use of Home health services prior to admission. Patient states he feels safe at his home. CM gave patient information on alcohol treatment centers. CM will continue follow and assist as needed with discharge planning / needs. Pre K Teacher: Buffy Castillo DCP- Discharge Planning Updated by [email or web address]: Buffy Castillo on 12/13/18 2:[address] CM attempted to visit with patient regarding discharge planning / needs. Patient is currently on BIPAP and unable to answer questions. No family currently available. CM will continue to follow and assist as needed with discharge planning / needs. DCPIA - Discharge Planning Initial Assessment Updated by [email or web address]: Buffy Castillo on 12/14/18 3:39 pm * Is the patient Alert and Oriented? Yes * How many steps to enter\exit or inside your home? RAMP * PCP DANIELLE * Pharmacy [facility] * Preadmission Environment Home with Family * ADLs Independent * Other Equipment WALKER, CANE * List name and contact numbers for known caregivers / representatives who currently or will assist patient after discharge: CHIDI KNOWLES - DAUGHTER- [phone] * Verbal permission to speak to the caregivers and representatives has been obtained from the patient. N/A * Community resources currently utilized None * Additional services required to return to the preadmission environment? No * Can the patient safely return to the preadmission environment? Yes * Has this patient been hospitalized within the prior 30 days at any hospital? No Last DP export: 12/14/18 2:46 p Patient Name: BENJAMIN KNOWLES Page [id number] at 1556 All edits/amendments must be made on the electronic document DICTATION DATE: 12/14/181554 TELEPHONE APPOINTMENT CLERK: FREDO 12/14/181554 RPT#: [id number] DC DATE: STATUS: ADM IN [facility] [address] [place] [address] END OF REPORT
--- NOTE | 2018-12-14 16:45 | NUR ---
RECIEVED FROM ICU VIA BED TRANSFERED TO UNIT BED O2 NASAL CANULA AT 4 LPM TOLERATING WELL HAS BILATERAL UPPER INSPIRATORY AD EXPIRATORY WHEEZES NOTED S WELL CRACKLES NOTED BILAT. BSA X 4 QUADS MOVES ALL EXTREMITIES. RFA SL LAC SL. ORINETED TO ROOM AND STAFF
--- NOTE | 2018-12-14 20:10 | NUR ---
PT RESTING IN BED. ALERT AND ORIENTED. NO SIGNS OF DISTRESS. BREATHING EVEN AND UNLABORED. PT STATES NO PROBLEMS AT THIS TIME. 4 LO2 NASAL CANNULA. ABD SKIN SCABS. BOWEL SOUNDS ACITVE. NO LOWER LEG SWELLING PRESENT. WILL CONTINUE PLAN OF CARE. CALL LIGHT IN REACH. BED LOWERED AND LOCKED. BED RAILS UP X2.
[2018-12-15 00:55] VITALS: BP 110/68
[2018-12-15 05:33] VITALS: BP 90/54
[2018-12-15 05:33] LABS: HEMATOCRIT 29.1 % (42.0-54.0); HEMOGLOBIN 8.9 g/dL (13.5-17.5); MCH 23.9 pg (26.0-34.0); MCHC 30.6 g/dL (31.0-37.0); MCV 78.2 fL (80.0-100.0); MEAN PLATELET VOLUME 10.6 fL (7.4-10.4); PLATELET COUNT 347 10x3/uL (130-400); RBC 3.72 10x6/uL (4.20-6.10); RDW 17.3 % (11.5-14.5); WBC 20.5 10x3/uL (4.8-10.8)
[2018-12-15 05:49] LABS: ALBUMIN 1.9 g/dL (3.4-5.0); ALKALINE PHOSPHATASE 110 U/L (46-116); ALT (SGPT) 193 U/L (10-68); BILIRUBIN - TOTAL 0.42 mg/dL (0.2-1.3); CALCIUM 7.8 mg/dL (8.5-10.1); CARBON DIOXIDE 31.9 mmol/L (21.0-32.0); CHLORIDE - SERUM 106 mmol/L (98-107); GLUCOSE 106 mg/dL (74-106); POTASSIUM - SERUM 3.6 mmol/L (3.5-5.1); PROTEIN - SERUM 6.4 g/dL (6.4-8.2); SODIUM 144 mmol/L (136-145)
[2018-12-15 05:51] LABS: CALC OSMOLALITY 290 mosm/kg (275-300); CREATININE - SERUM 0.9 mg/dL (0.6-1.3); UREA NITROGEN 23 mg/dL (7-18); eGFR NON AFRICAN AMERICAN 89 mL/min (90-120)
[2018-12-15 05:53] LABS: EOSINOPHILS 1 % (0-7); LYMPHOCYTES 9 % (15-50); MONOCYTES 5 % (2-11); NEUTROPHILS 73 % (40-80); PLATELET ESTIMATE NORMAL
--- NOTE | 2018-12-15 08:30 | NUR ---
PATIENT IN BED WITH EYES CLOSED RESTING QUIETLY. IV INTACT. NO COMPLAINTS. CALL LIGHT WITHIN REACH.
[2018-12-15 08:54] VITALS: BP 130/64
[2018-12-15 09:40] VITALS: Ht 180.3 cm; Wt 93.4 kg
[2018-12-15 12:11] VITALS: BP 144/70
--- NOTE | 2018-12-15 15:40 | NUR ---
PATIENT FAMILY AT BEDSIDE STATED THAT THE LADY THAT IS SAYING SHE IS HIS IS NOT HIS FAMILY. WANTS TO SPEAK WITH CM ABOUT HOME HEALTH. ALSO STATES THAT SHE IS THE DAUGHTER AND HER BROTHER LIVES IN [place] AND THEY SHOULD BE CONTACTED FOR ISSUES WITH HER FATHER BECAUSE THE GIRLFRIEND THAT HE IS LIVING WITH DOES NOT TAKE CARE OF HIM. SPOKE WITH SMILEY MORAN TO SPEAK WITH FAMILY. VERBALIZED UNDERSTANDING.
--- NOTE | 2018-12-15 16:31 | MORECARE ---
CASE MANAGEMENT DISCHARGE SUMMARY PATIENT: BENJAMIN KNOWLES UNIT: [id number] ADM DATE: 12/13/18 AGE: 68 : 50 SEX: M ROOM/BED: D.2215 AUTHOR: PETRA,DOC PHYSICIAN: REFERRING PHYSICIAN: MANDI CHAMORRO MD DATE OF SERVICE: 12/15/18 Discharge Plan Patient Name: BENJAMIN KNOWLES Facility: [facility]:[place] : 1950 Planned Disposition: Home Anticipated Discharge Date: Discharge Date: Expected LOS: Initial Reviewer: [email or web address] Initial Review Date: 12/13/2018 Generated: 12/15/18 5:31 pm Comments DCP- Discharge Planning Updated by [email or web address]: Jannie Kirkland on 12/15/18 3:[address] I was asked to meet with patient's family concerning his safety. I spoke with Chidi (daughter) [phone] and his daughter in law Jose [phone]. They state that he lives with his girlfriend and her son in HIS home. She is NOT his . He does not drive at all and has agoraphobia. He does leave his home. He did have home O2, but it was taken away from him because he did not make it to the Dr's appointment to get an order for it to be renewed (this is coming from his daughter) she does not think that he is safe in that home with his girlfriend and her son. I explained to them that if they were concerned with his safety that they could call APS and file a report. I also explained to him that when he was more coherent that I would visit with him and ask about his safety. He did have home health with [facility] but is not current at this time. PRISCILA with [facility] He does have a nebulizer and Chidi has just purchased new tubing for him. She would like him to go to inpatient rehab when he is stable to be DC. He was on Bipap when I was in the room sleeping. He was confused per his daughter and the RT. He will need to be qualified for more home O2 when he is closer to DC. CM will continue to follow and assist with DC planning. Matthieu (son) [phone] Jose (daughter in law) [phone] Chidi (daughter) [phone] DCP- Discharge Planning Updated by [email or web address]: Buffy Castillo on 12/14/18 2:[address] Patient Name: BENJAMIN KNOWLES Admission Status: ER Accout number: [id number] Admission Date: 12-13-2018 : 1950 Admission Diagnosis: Attending: MANDI CHAMORRO Current LOS: 1 Anticipated DC Date: Planned Disposition: Home Primary Insurance: MEDICARE A & B Discharge Planning Comments: CM met with patient at bedside. Patient states he lives at home with his girlfriend (Salome). He states he plans to return there upon discharge. Patient states that he has a walker and cane at home. He states he might need 02 @ home. Patient denies any use of Home health services prior to admission. Patient states he feels safe at his home. CM gave patient information on alcohol treatment centers. CM will continue follow and assist as needed with discharge planning / needs. Producer: Buffy Casitllo DCP- Discharge Planning Updated by [email or web address]: Buffy Castillo on 12/13/18 2:[address] CM attempted to visit with patient regarding discharge planning / needs. Patient is currently on BIPAP and unable to answer questions. No family currently available. CM will continue to follow and assist as needed with discharge planning / needs. DCPIA - Discharge Planning Initial Assessment Updated by [email or web address]: Buffy Castillo on 12/14/18 3:39 pm * Is the patient Alert and Oriented? Yes * How many steps to enter\exit or inside your home? RAMP * PCP DANIELLE * Pharmacy [facility] * Preadmission Environment Home with Family * ADLs Independent * Other Equipment WALKER, CANE * List name and contact numbers for known caregivers / representatives who currently or will assist patient after discharge: CHIDI KNOWLES - DAUGHTER- [phone] * Verbal permission to speak to the caregivers and representatives has been obtained from the patient. N/A * Community resources currently utilized None * Additional services required to return to the preadmission environment? No * Can the patient safely return to the preadmission environment? Yes * Has this patient been hospitalized within the prior 30 days at any hospital? No Last DP export: 3/21/19 2:55 p Patient Name: BENJAMIN KNOWLES Page [id number] at 1631 All edits/amendments must be made on the electronic document DICTATION DATE: 12/15/181630 PUBLIC POLICY MEDIATOR: FREDO 12/15/18 163 RPT#: [id number] DC DATE: STATUS: ADM IN [facility] [address] [place] [address] END OF REPORT
[2018-12-15 16:58] VITALS: BP 131/62
--- NOTE | 2018-12-15 18:55 | NUR ---
PATIENT IN BED DRINKING [place] AT THIS TIME. NO [id number] OR SIGNS OF DISTRESS. CALL LIGHT WITHIN REACH.
[2018-12-15 20:00] VITALS: BP 97/43; BP 97/53
--- NOTE | 2018-12-15 20:30 | NUR ---
PT RESTING IN BED. ALERT AND ORIENTED. NO SIGNS OF DISTRESS. BREATHING EVEN AND UNLABORED. PT STATES NO PROBLEMS AT THIS TIME. IV SITE RT FA DRESSING CLEAN DRY AND INTACT. NO SIGNS OF INFECTION. 4LO2 NASAL CANNULA. BOWEL SOUNDS ACTIVE. ABD SCABS AND SORES. NO LOWER LEG SWELLING PRESENT. SCD ON. BED LOWERED AND LOCKED. WILL CONTINUE PLAN OF CARE. CALL LIGHT IN REACH. BED RAILS UP X2.
[2018-12-16] VITALS: BP 168/68
[2018-12-16 03:00] VITALS: BP 159/61
--- NOTE | 2018-12-16 05:41 | NUR ---
PT RESTING IN BED. EYES CLOSED. NO SIGNS OF DISTRESS. BREATHING EVEN AND UNLABORED. BED LOWERED AND LOCKED. CALL LIGHT IN REACH. WILL CONTINUE PLAN OF CARE.
[2018-12-16 05:59] LABS: ALBUMIN 1.9 g/dL (3.4-5.0); ALKALINE PHOSPHATASE 104 U/L (46-116); ALT (SGPT) 155 U/L (10-68); BILIRUBIN - TOTAL 0.32 mg/dL (0.2-1.3); CALC OSMOLALITY 291 mosm/kg (275-300); CALCIUM 8.3 mg/dL (8.5-10.1); CARBON DIOXIDE 33.6 mmol/L (21.0-32.0); CHLORIDE - SERUM 105 mmol/L (98-107); CREATININE - SERUM 0.9 mg/dL (0.6-1.3); GLUCOSE 116 mg/dL (74-106); POTASSIUM - SERUM 3.5 mmol/L (3.5-5.1); PROTEIN - SERUM 6.5 g/dL (6.4-8.2); SODIUM 145 mmol/L (136-145); UREA NITROGEN 18 mg/dL (7-18); eGFR NON AFRICAN AMERICAN 89 mL/min (90-120)
--- NOTE | 2018-12-16 06:08 | NUR ---
I have reviewed this patient and I concur with the Shift Assessment completed by the Licensed Practical Nurse today this shift.
[2018-12-16 06:20] LABS: BASOPHILS 1.7 % (0-2); EOSINOPHILS 1.3 % (0-7); HEMATOCRIT 30.1 % (42.0-54.0); HEMOGLOBIN 9.2 g/dL (13.5-17.5); IMMATURE GRANULOCYTES 16.4 % (0-5); LYMPHOCYTES 9.6 % (15-50); MCHC 30.6 g/dL (31.0-37.0); MCV 78.6 fL (80.0-100.0); MEAN PLATELET VOLUME 10.7 fL (7.4-10.4); MONOCYTES 6.3 % (2-11); NEUTROPHILS 64.7 % (40-80); PLATELET COUNT 373 10x3/uL (130-400); RBC 3.83 10x6/uL (4.20-6.10); RDW 17.9 % (11.5-14.5)
--- NOTE | 2018-12-16 08:00 | NUR ---
MORNING ASSESSMENT COMPLETE. SEE ASSESSMENT FLOWSHEET FOR FURTHER DETAILS. PT LYING IN BED AAO X4 TO PERSON, PLACE, TIME, AND SITUATION. PULLING OFF BIPAP- TOLD HIM HE NEEDS TO KEEP IT ON WHILE HE IS ASLEEP- PT REFUSES SO PUT HIM ON 4L O2 PER NC. DENIES NEEDS AT THIS TIME. CL IN REACH.
[2018-12-16 09:57] VITALS: BP 118/49
[2018-12-16 12:47] VITALS: BP 141/76
[2018-12-16 18:14] VITALS: BP 125/68
--- NOTE | 2018-12-16 19:15 | NUR ---
RECEIVED REPORT, ASSUMED CARE, CALL LIGHT IN REACH, SLEEPING, NO S/S OF DISTRESS NOTED, CALLED TO CHECK ON HIM, AROUSED EASILY TO VOICE, BED LOWEST POSITION, ZAMAN TO GRAVITY, WILL CONTINUE POC
[2018-12-16 21:18] VITALS: BP 120/67
--- NOTE | 2018-12-16 23:19 | NUR ---
UP TO BEDSIDE COMMODE WITH 1 PERSON ASSIST
[2018-12-17 00:48] VITALS: BP 124/66
--- NOTE | 2018-12-17 03:00 | NUR ---
I have reviewed this patient and I concur with the Shift Assessment completed by the Licensed Practical Nurse today this shift.
--- NOTE | 2018-12-17 03:00 | NUR ---
I have reviewed this patient and I concur with the Shift Assessment completed by the Licensed Practical Nurse today this shift.
[2018-12-17 04:50] VITALS: BP 128/80
[2018-12-17 06:58] LABS: HEMATOCRIT 31.8 % (42.0-54.0); HEMOGLOBIN 9.5 g/dL (13.5-17.5); MCH 23.9 pg (26.0-34.0); MCHC 29.9 g/dL (31.0-37.0); MCV 79.9 fL (80.0-100.0); MEAN PLATELET VOLUME 10.3 fL (7.4-10.4); PLATELET COUNT 385 10x3/uL (130-400); RBC 3.98 10x6/uL (4.20-6.10); RDW 18.5 % (11.5-14.5); WBC 21.4 10x3/uL (4.8-10.8)
[2018-12-17 07:23] LABS: ALBUMIN 1.9 g/dL (3.4-5.0); ALKALINE PHOSPHATASE 92 U/L (46-116); BILIRUBIN - TOTAL 0.29 mg/dL (0.2-1.3); CALC OSMOLALITY 283 mosm/kg (275-300); CALCIUM 8.2 mg/dL (8.5-10.1); CARBON DIOXIDE 32.7 mmol/L (21.0-32.0); CHLORIDE - SERUM 104 mmol/L (98-107); CREATININE - SERUM 0.9 mg/dL (0.6-1.3); GLUCOSE 102 mg/dL (74-106); POTASSIUM - SERUM 3.6 mmol/L (3.5-5.1); PROTEIN - SERUM 6.4 g/dL (6.4-8.2); SODIUM 142 mmol/L (136-145); UREA NITROGEN 15 mg/dL (7-18); eGFR NON AFRICAN AMERICAN 89 mL/min (90-120)
[2018-12-17 07:24] LABS: ALT (SGPT) 103 U/L (10-68)
[2018-12-17 07:37] LABS: ANISOCYTOSIS 3+; BASOPHILS 1 % (0-2); LYMPHOCYTES 6 % (15-50); MONOCYTES 4 % (2-11); NEUTROPHILS 79 % (40-80); PLATELET ESTIMATE NORMAL
[2018-12-17 07:38] LABS: HYPOCHROMASIA 1+; POIKILOCYTOSIS 2+
--- NOTE | 2018-12-17 08:30 | NUR ---
MORNING ASSESSMENT COMPLETE. SEE ASSESSMENT FLOWSHEET FOR FURTHER DETAILS. PT LYING IN BED AAO X4 TO PERSON, PLACE, TIME, AND SITUATION. DENIES NEEDS AT THIS TIME. CL IN REACH.
[2018-12-17 09:45] VITALS: BP 108/54
--- NOTE | 2018-12-17 10:39 | EC ---
PATIENT:BENJAMIN KNOWLES DATE OF SERVICE: 12/13/18 SEX: M MEDICAL RECORD: [id number] DATE OF : 50 LOCATION:[facility] AGE OF PATIENT: 68 ADMISSION DATE: 12/13/18 REFERRING PHYSICIAN: INTERPRETING PHYSICIAN: BENJAMIN ALVAREZ MD ECHOCARDIOGRAM REPORT ECHO CHARGES 4 ECHO COMPLETE Date: 12/14/18 CLINICAL DIAGNOSIS: CHF ECHOCARDIOGRAPHIC MEASUREMENTS (adult normal given) AC root (d.<3.7cm) 4.2 cm LV Septum d (<1.2 cm> 1.4 cm Valve Excursion 1.6 cm LV Septum (systole) 1.6 cm Left Atria (s.<4.0cm> 3.6 cm LVPW d(<1.2cm) 1.3 cm RV (d.<2.3cm) 4.0 cm LVPW (sytole) 1.9 cm LV diastole(<5.6CM) 6.3 cm MV E-F(>70mm/sec) cm LV systole 4.0 cm LVOT Diameter 2.3 cm MV exc.(>10mm) cm Est.ejection fraction (50-75%) % DOPPLER: LVIT cm/sec A 72.0 cm/sec E 51.0 cm/sec LA cm/sec RVSP 35.0 mmHg LVOT 98.0 cm/sec AOP1/2T m/s Asc. Ao 144 cm/sec RVOT 48.0 cm/sec RA cm/sec PA 69.0 cm/sec AV Gradient Peak 8.3 mmHg AV Mean 4.8 mmHg AV Area 2.2 cm MV Gradient Peak 3.2 mmHg MV Mean 1.2 mmHg MV Area cm COMMENTS: [employer] Lieutenant: 1 INDRA LLANOSOE Tactical Debriefer Officer: 3 Dr. Combs TAPE# PACS Pericardial Effusion N DATE OF SERVICE: Adequate 2-D, color-flow and spectral Doppler, and M-mode. Borderline LVH. LV internal dimensions are normal. 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 Estimated EF is 30% to 35%. Aortic valve is tricuspid. No evidence of stenosis by Doppler interrogation. Left atrium is normal at 3.6 cm. Mitral valve shows no prolapse. Mild MR. Right-sided chambers are grossly normal. Trace TR. ECHOCARDIOGRAM REPORT [id number] BENJAMIN KNOWLES TRANSINT:[id number] Voice Confirmation ID: [id number] DOCUMENT ID: [id number] BENJAMIN ALVAREZ MD at 1039 CC: [id number] DICTATION DATE: 12/14/18 144 LATEX THREAD MACHINE OPERATOR: 12/14/18 192 ADM IN [facility] [address] [place] [address]
[2018-12-17 13:24] VITALS: BP 109/73
--- NOTE | 2018-12-17 13:40 | NUR ---
PT LYING IN BED ASLEEP. NO SIGNS OF DISTRESS NOTED. CL IN REACH
[2018-12-17 18:08] VITALS: BP 119/63
--- NOTE | 2018-12-17 19:15 | NUR ---
RECEIVED REPORT, ASSUMED CARE, SLEEPING, BREATHING EVEN UNLBAORED, AROUSED EASILY TO VOICE, DENIES NEEDS, CALL LIGHT IN REACH, KEVIN ALARM ON, IV TO RFA PATENT, ZAMAN TO GRAVITY, WILL CONTINUE POC
[2018-12-17 20:00] VITALS: BP 113/54
[2018-12-18] VITALS: BP 138/71
--- NOTE | 2018-12-18 01:02 | NUR ---
PT BREATHING 24 BPM, NC 5L SATING 92%, TOLD PT TO PUT BIPAP ON TO HELP BREATHING PT STATED NOT THE MASK, I GET ANXIOUS WITH IT ON. RESPIRATORY AWARE
[2018-12-18 03:00] VITALS: BP 131/69
--- NOTE | 2018-12-18 04:32 | NUR ---
I have reviewed this patient and I concur with the Shift Assessment completed by the Licensed Practical Nurse today this shift.
[2018-12-18 06:11] LABS: BASOPHILS 0.5 % (0-2); EOSINOPHILS 4.2 % (0-7); HEMATOCRIT 30.9 % (42.0-54.0); HEMOGLOBIN 9.3 g/dL (13.5-17.5); IMMATURE GRANULOCYTES 12.6 % (0-5); LYMPHOCYTES 9.5 % (15-50); MCHC 30.1 g/dL (31.0-37.0); MCV 79.6 fL (80.0-100.0); MEAN PLATELET VOLUME 10.4 fL (7.4-10.4); MONOCYTES 5.9 % (2-11); NEUTROPHILS 67.3 % (40-80); PLATELET COUNT 381 10x3/uL (130-400); RBC 3.88 10x6/uL (4.20-6.10); RDW 19.4 % (11.5-14.5); WBC 16.6 10x3/uL (4.8-10.8)
[2018-12-18 06:47] LABS: ALBUMIN 1.8 g/dL (3.4-5.0); ALKALINE PHOSPHATASE 92 U/L (46-116); BILIRUBIN - TOTAL 0.19 mg/dL (0.2-1.3); CALC OSMOLALITY 279 mosm/kg (275-300); CALCIUM 7.7 mg/dL (8.5-10.1); CARBON DIOXIDE 32.7 mmol/L (21.0-32.0); CHLORIDE - SERUM 101 mmol/L (98-107); CREATININE - SERUM 0.8 mg/dL (0.6-1.3); GLUCOSE 94 mg/dL (74-106); POTASSIUM - SERUM 4.1 mmol/L (3.5-5.1); PROTEIN - SERUM 5.7 g/dL (6.4-8.2); SODIUM 140 mmol/L (136-145); UREA NITROGEN 15 mg/dL (7-18); eGFR NON AFRICAN AMERICAN > 90 mL/min (90-120)
[2018-12-18 06:48] LABS: ALT (SGPT) 75 U/L (10-68)
[2018-12-18 08:00] VITALS: BP 148/51
--- NOTE | 2018-12-18 08:22 | NUR ---
PT RESTING IN BED WITH EYES CLOSED. OPENS SPONTANEOUSLY WHEN NAME CALLED. O2 @ 5L NC IN PLACE. IV TO RIGHT FOREARM WITH NS @ 20ML/HR INFUSING VIA PUMP. SITE WITHOUT REDNESS OR EDEMA. DENIES PAIN AT THIS TIME. CL WITHIN REACH. ENCOURAGED TO CALL WITH NEEDS. CONTINUE POC
--- NOTE | 2018-12-18 11:00 | NUR ---
NUTRITION F/U PT TOLERATING AHA DIET WITH 75% INTAKE RECENT MEALS. WILL CONTINUE TO PROVIDE DIET, MONITOR PO INTAKE. RD FOLLOWING
--- NOTE | 2018-12-18 11:01 | NUR ---
PT REFUSES TO WEAR BIPAP. TOLD PT THE RISKS OF NOT WEARING THE BIPAP AND IT WILL HELP WITH THE SHORTNESS OF BREATH, BUT PT KEEPS SAYING HE WILL NOT WEAR THE MASK ON HIS FACE.
[2018-12-18 12:00] VITALS: BP 112/65
--- NOTE | 2018-12-18 14:38 | NUR ---
PT AGREED TO PUT BIPAP ON AT 1185
[2018-12-18 17:00] VITALS: BP 105/84
--- NOTE | 2018-12-18 20:20 | NUR ---
PT RESTING IN BED. ALERT WITH SOME CONFUSION BUT REORINETED PT. BREATHING SHALLOW. WHEEZING THROUGHOUT LUNGS. 5LO2 NASAL CANNULA. IV SITE RT FA DRESSING CLEAN DRY AND INTACT. NO SIGNS OF INFECTION. ABD SORES AND SCABS. ZAMAN IN PLACE CLEAN DRY AND IT PLACE. NO LOWER LEG SWELLING PRESENT. SCDS ON. KEVIN ALARM ON. BED LOWERED AND LOCKED. BED RAILS UP X3. CALL LIGHT IN REACH. WILL CONTIUE PLAN OF CARE.
[2018-12-18 21:16] VITALS: BP 133/67
[2018-12-19 01:16] VITALS: BP 122/61
[2018-12-19 05:12] VITALS: BP 136/67
[2018-12-19 07:11] LABS: CALC OSMOLALITY 283 mosm/kg (275-300); CARBON DIOXIDE 33.1 mmol/L (21.0-32.0); CHLORIDE - SERUM 103 mmol/L (98-107); CREATININE - SERUM 0.8 mg/dL (0.6-1.3); GLUCOSE 90 mg/dL (74-106); POTASSIUM - SERUM 3.8 mmol/L (3.5-5.1); SODIUM 143 mmol/L (136-145); eGFR NON AFRICAN AMERICAN > 90 mL/min (90-120)
[2018-12-19 07:14] LABS: UREA NITROGEN 11 mg/dL (7-18)
[2018-12-19 07:56] LABS: BASOPHILS 0.7 % (0-2); EOSINOPHILS 4.9 % (0-7); HEMATOCRIT 32.8 % (42.0-54.0); HEMOGLOBIN 9.8 g/dL (13.5-17.5); LYMPHOCYTES 11.3 % (15-50); MCH 24.3 pg (26.0-34.0); MCHC 29.9 g/dL (31.0-37.0); MCV 81.2 fL (80.0-100.0); MEAN PLATELET VOLUME 10.9 fL (7.4-10.4); MONOCYTES 5.4 % (2-11); NEUTROPHILS 67.7 % (40-80); PLATELET COUNT 421 10x3/uL (130-400); RBC 4.04 10x6/uL (4.20-6.10); RDW 19.7 % (11.5-14.5); WBC 12.7 10x3/uL (4.8-10.8)
--- NOTE | 2018-12-19 09:22 | NUR ---
DAUGHTER, CHIDI, CALLED TO CHECK ON PATIENT. WOULD LIKE TO KNOW PROGNOSIS IN ORDER TO MAKE ARRANGEMENTS. LIVES IN [place]. DR. PLEASE CALL TO DISCUSS. [phone].
[2018-12-19 09:38] VITALS: BP 104/70
--- NOTE | 2018-12-19 11:05 | NUR ---
RIGHT FOREARM PIV INFILTRATED. RESITED 22G TO RIGHT FOREARM DIFFERENT VEIN. 2 ATTEMPTS.
[2018-12-19 14:22] VITALS: BP 127/60
[2018-12-19 16:46] VITALS: BP 113/69
--- NOTE | 2018-12-19 20:10 | NUR ---
PT RESTING IN BED. EYES CLOSE. AROUSES TO VERBAL STIMULI. NO SIGNS OF DISTRESS. BREATHING EVEN AND SOMEWHAT SHALLOW. IV SITE RT FA DRESSING CLEAN DRY AND INTACT. NO SIGNS OF INFECTION. 5LO2 NASAL CANNULA. TELE MONITOR 73 SINUS BUNDLE BRANCH. BOWEL SOUNDS ACTIVE. PT GOT UP TO BEDSIDE HAD A LARGE BOWEL MOVEMENT. PT REFUSED BEDPAN. PT GAIT VERY UNSTEADY ASSISTED X2. ZAMAN IN PLACE NO SIGNS OF INFECTION CLEAN DRY AND INTACT. NO LOWER LEG SWELLING PRESENT. SCD ON. WILL CONTINUE PLAN OF CARE. CALL LIGHT IN REACH. BED RAILS X2.
[2018-12-19 20:54] VITALS: BP 108/53
[2018-12-20 00:54] VITALS: BP 122/74
[2018-12-20 05:01] VITALS: BP 114/60
--- NOTE | 2018-12-20 05:27 | NUR ---
PT IN BED IN LOW FOWLERS POSIITON. RESPIRATIONS EVEN AND UNLABORED NO VISUAL CUES OF DISTRESS NOTED. DENIES ANY OTHER NEEDS AT THIS TIME. BED LOW, SIDE RAILS UP X2. CALL LIGHTI IN [facility]. WILL CONTINUE TO MONITOR.
--- NOTE | 2018-12-20 05:28 | NUR ---
PT IN BED IN LOW FOWLERS POSIITON. RESPIRATIONS EVEN AND UNLABORED NO VISUAL CUES OF DISTRESS NOTED. DENIES ANY OTHER NEEDS AT THIS TIME. BED LOW, SIDE RAILS UP X2. CALL LIGHTI IN [facility]. WILL CONTINUE TO MONITOR.
[2018-12-20 07:01] LABS: BASOPHILS 1.3 % (0-2); EOSINOPHILS 5.8 % (0-7); HEMATOCRIT 31.2 % (42.0-54.0); HEMOGLOBIN 9.2 g/dL (13.5-17.5); IMMATURE GRANULOCYTES 6.1 % (0-5); LYMPHOCYTES 15.3 % (15-50); MCH 23.7 pg (26.0-34.0); MCHC 29.5 g/dL (31.0-37.0); MCV 80.4 fL (80.0-100.0); MEAN PLATELET VOLUME 10.4 fL (7.4-10.4); MONOCYTES 6.4 % (2-11); NEUTROPHILS 65.1 % (40-80); PLATELET COUNT 419 10x3/uL (130-400); RBC 3.88 10x6/uL (4.20-6.10); RDW 19.5 % (11.5-14.5); WBC 10.9 10x3/uL (4.8-10.8)
[2018-12-20 07:03] LABS: CALC OSMOLALITY 282 mosm/kg (275-300); CALCIUM 7.9 mg/dL (8.5-10.1); CARBON DIOXIDE 33.3 mmol/L (21.0-32.0); CHLORIDE - SERUM 104 mmol/L (98-107); CREATININE - SERUM 0.8 mg/dL (0.6-1.3); GLUCOSE 92 mg/dL (74-106); POTASSIUM - SERUM 3.7 mmol/L (3.5-5.1); SODIUM 142 mmol/L (136-145); UREA NITROGEN 12 mg/dL (7-18); eGFR NON AFRICAN AMERICAN > 90 mL/min (90-120)
[2018-12-20 08:18] VITALS: BP 114/50
--- NOTE | 2018-12-20 09:30 | NUR ---
PATIENT'S , RADHA KNOWLES, CALLED REQUESTING A CALL FROM THE DOCTOR. [phone]
--- NOTE | 2018-12-20 11:11 | NUR ---
PATIENT'S DAUGHTER, CHIDI KINNEY CALLED FROM [place]. SHE REQUESTS A CALL FROM THE DOCTOR TO DISCUSS PROGNOSIS AND POSSIBLE NEED FOR HOSPICE. I ASKED IF SHE HAD POA, SHE STATED, "NO BUT I AM HIS NEXT OF KIN." I ASKED ABOUT PATIENT'S ; TOLU STATED, "THAT IS NOT HIS . THEY HAVE NEVER BEEN . HER LAST NAME ISN'T BENSON. SHE DOESN'T EVEN HAVE AN [place] DRIVERS LIC." DAUGHTER'S NUMBER IS [phone]
--- NOTE | 2018-12-20 12:05 | NUR ---
ZAMAN CATHETER CLAMPED AT 0830. PATIENT DID NOT FEEL THE URGE TO VOID DURING THE TIME FROM THEN UNTIL NOW. SPOKE TO DR. RESENDEZ RELAYING MESSAGE FROM PATIENT'S DAUGHTER. HE SAID THAT HOSPICE MAY BE A GOOD IDEA AND REPORT IT TO ATTENDING PHYSICIAN. UNCLAMPED ZAMAN TO AWAIT DC UNTIL FURTHER DISCUSSION ABOUT HOSPICE.
[2018-12-20 12:19] VITALS: BP 125/53
--- NOTE | 2018-12-20 12:24 | NUR ---
Rehab Note- Acute Inpatient Rehab prescreen order received. The patient has a pending PT & OT Eval at this time. Will follow at this time to see the patient's functional mobility. Thank you for this referral! Nadia Love RN CLinical Liaison, [facility] Rehab
--- NOTE | 2018-12-20 12:36 | NUR ---
PATIENT LAYING IN FOWLERS POSITION. SLEEPING. BIPAP ON.
--- NOTE | 2018-12-20 15:08 | NUR ---
ZAMAN CATHETER CLAMPED AGAIN FOR BLADDER TRAINING TO REMOVE UNTIL DECISION IS MADE WHETHER OR NOT PATIENT WILL BE ON HOSPICE.
--- NOTE | 2018-12-20 16:10 | NUR ---
SPOKE WITH SISTER ON THE PHONE ABOUT PATIENT STATUS. SHE STATED SHE HAS BEEN TRYING TO GET A DOCTOR TO CALL HER FOR A PROGNOSIS ON HER BROTHER FOR 5 DAYS AND HAS YET TO RECIEVE A CALL. EXPLAINED TO HER THAT I WOULD TALK TO STEVE AND LET HER KNOW THAT SHE WOULD LIKE TO TALK TO HER. SISTER VERBALIZED UNDERSTANDING. CALLED STEEV ABOUT ISSUE. STATED SHE WAS WITH A PATIENT AND SHE WOULD GET BACK WITH ME LATER.
--- NOTE | 2018-12-20 16:26 | NUR ---
OT NOTE: PT COMPLETED BED MOB WITH SIDE ROLLING AND SUPINE TO SIT WITH MIN/MOD ASISSTANCE. PT REQUIRED MOD/MAX A WITH LB HYGIENE. PT WAS CONFUSED AND REQUIRED EXTENSIVE CUES. PT EDUCATED ON IMPORTANCE OF NOT REMOVING O2 TUBE FROM NOSE. THANK YOU, ARIK GODINEZ
[2018-12-20 17:09] VITALS: BP 101/62
--- NOTE | 2018-12-20 17:36 | NUR ---
SAW DR. LARA ON UNIT AND ASKED HIM TO CALL PATIENT'S SISTER CHIDI. STATED HE WOULD CALL HER. NUMBER GIVEN TO PHYSICIAN.
--- NOTE | 2018-12-20 18:45 | NUR ---
BIPAP REMOVED FOR DINNER. PLACED BACK ON. PATIENT IS BEING VERY COOPERATIVE.
--- NOTE | 2018-12-20 19:49 | NUR ---
PATIENT STILL NOT FEELING URGE TO URINATE. UNCLAMPED ZAMAN WITH 400 ML IMMEDIATE OUTPUT. NOT DISCONTINUING ZAMAN UNTIL FURTHER ORDERS.
[2018-12-20 20:10] VITALS: BP 111/56
[2018-12-21 01:01] VITALS: BP 124/60
--- NOTE | 2018-12-21 03:13 | NUR ---
Resting in bed with bipap in place no needs noted at this time
[2018-12-21 04:45] VITALS: BP 138/74
[2018-12-21 05:08] LABS: BASOPHILS 0.5 % (0-2); EOSINOPHILS 4.8 % (0-7); HEMATOCRIT 31.6 % (42.0-54.0); HEMOGLOBIN 9.4 g/dL (13.5-17.5); LYMPHOCYTES 19.4 % (15-50); MCH 23.9 pg (26.0-34.0); MCHC 29.7 g/dL (31.0-37.0); MCV 80.2 fL (80.0-100.0); MEAN PLATELET VOLUME 10.4 fL (7.4-10.4); MONOCYTES 5.9 % (2-11); NEUTROPHILS 65.4 % (40-80); PLATELET COUNT 418 10x3/uL (130-400); RBC 3.94 10x6/uL (4.20-6.10); RDW 19.5 % (11.5-14.5); WBC 8.8 10x3/uL (4.8-10.8)
[2018-12-21 05:19] LABS: CALC OSMOLALITY 278 mosm/kg (275-300); CARBON DIOXIDE 32.6 mmol/L (21.0-32.0); CHLORIDE - SERUM 102 mmol/L (98-107); CREATININE - SERUM 0.7 mg/dL (0.6-1.3); GLUCOSE 91 mg/dL (74-106); SODIUM 139 mmol/L (136-145); UREA NITROGEN 14 mg/dL (7-18); eGFR NON AFRICAN AMERICAN > 90 mL/min (90-120)
[2018-12-21 05:23] LABS: POTASSIUM - SERUM 4.3 mmol/L (3.5-5.1)
--- NOTE | 2018-12-21 07:15 | NUR ---
PT RESTING IN BED. PT HAS ZAMAN. PT ALERT AND ORIENTED. PT WEARING BIPAP. PT ON 5L O2, NC. PT ON TELEMETRY 70 SR. ON ELECTROLYTE PROTOCOL. PT UP WITH PHYSICAL THERAPY. SCDS ON. PT ON FALL PRECAUTIONS, KEVIN ALARM ON AND WORKING. IV TO RIGHT FOREARM, NS INFUSING @ KVO. SITE PATENT WITHOUT REDNESS OR SWELLING. NO C/O PAIN. NO S/S OF ACUTE DISTRESS NOTED. PT DENIES ANYTHING FURTHER AT THIS TIME. CALL LIGHT IN REACH. WILL CONTINUE TO MONITOR.
[2018-12-21 09:23] VITALS: BP 126/66
--- NOTE | 2018-12-21 14:16 | NUR ---
Nutrition Follow Up: Chart reviewed Diet: AHA PO Intake: 47% meal avg BM: 12/17/18 Lab reviewed Meds noted including Lasix Rec consider changing diet to regular diet to encourage po intake. Will continue to honor food preferences. RD following.
--- NOTE | 2018-12-21 14:42 | NUR ---
OT NOTE; LESS LETHARGIC TODAY, HOWEVER, STILL SLIGHTLY SLOW TO RESPOND TO COMMANDS. CONT TO ASK FOR ASSIST WHEN NOT NEEDED AND REQUIRES EXT ENCOURAGEMENT TO PERFORM TASKS. BED MOB WITH MIN ASSIST; SIT TO STAND WITH MOD ASSIST LIONEL GALVAN, OTR/L
--- NOTE | 2018-12-21 15:13 | NUR ---
OT NOTE: PT LESS CONFUSED TODAY. PT COMPLETED BED MOB WITH MIN A . PT COMPLETED EOB SITTING BALANCE WITH CGA/MIN A. PT COMPLETED GROOMING TASKS AT EOB WITH MODERATE VERBAL CUES. THANK YOU, ARIK GODINEZ
[2018-12-21 17:53] VITALS: BP 120/64
--- NOTE | 2018-12-21 18:26 | NUR ---
PT RESTING IN BED, WATCHING TV. NO C/O PAIN. NO S/S OF ACUTE DISTRESS NOTED. CALL LIGHT IN REACH. FALL PRECAUTIONS IN PLACE. PT DENIES ANYTHING FURTHER. WILL CONTINUE TO MONITOR.
--- NOTE | 2018-12-21 18:36 | NUR ---
I have reviewed this patient and I concur with the Shift Assessment completed by the Licensed Practical Nurse today this shift.
[2018-12-21 21:57] VITALS: BP 117/55
[2018-12-22 01:29] VITALS: BP 122/70
[2018-12-22 05:05] VITALS: BP 112/57
[2018-12-22 05:23] LABS: CALC OSMOLALITY 277 mosm/kg (275-300); CALCIUM 8.2 mg/dL (8.5-10.1); CARBON DIOXIDE 34.3 mmol/L (21.0-32.0); CHLORIDE - SERUM 103 mmol/L (98-107); GLUCOSE 96 mg/dL (74-106); POTASSIUM - SERUM 4.2 mmol/L (3.5-5.1); SODIUM 140 mmol/L (136-145); UREA NITROGEN 11 mg/dL (7-18); eGFR NON AFRICAN AMERICAN 79 mL/min (90-120)
[2018-12-22 05:34] LABS: BASOPHILS 0.3 % (0-2); EOSINOPHILS 4.8 % (0-7); HEMATOCRIT 32.4 % (42.0-54.0); HEMOGLOBIN 9.7 g/dL (13.5-17.5); IMMATURE GRANULOCYTES 1.8 % (0-5); LYMPHOCYTES 20.1 % (15-50); MCHC 29.9 g/dL (31.0-37.0); MCV 80.2 fL (80.0-100.0); MEAN PLATELET VOLUME 10.7 fL (7.4-10.4); MONOCYTES 6.3 % (2-11); NEUTROPHILS 66.7 % (40-80); PLATELET COUNT 469 10x3/uL (130-400); RBC 4.04 10x6/uL (4.20-6.10); RDW 19.7 % (11.5-14.5); WBC 8.8 10x3/uL (4.8-10.8)
--- NOTE | 2018-12-22 07:31 | NUR ---
PT LYING IN BED, O2 ON. PT LAUGHING AT ME TRYING TO NOT WAKE HIM UP. NO CONCENRS/COMPLAINTS VOICED AT THIS TIME. CL INREACH. SRX2.
[2018-12-22 09:30] VITALS: BP 146/76
[2018-12-22 13:31] VITALS: BP 146/76
--- NOTE | 2018-12-22 14:50 | NUR ---
GRADUALLY DECREASED PT 02 TO 2LPM, PT SATURATION 93-95% ON 2L NASAL CANNULA
--- NOTE | 2018-12-22 15:45 | NUR ---
Reviewed patient's chart re the ARU eval. The OT notes indicate he is intermittently confused and he is also non compliant with his bipap. He is to low level for the ARU at this time. Hanh Jordan RN Clinical Liaison, Rehab
--- NOTE | 2018-12-22 16:02 | NUR ---
OT NOTE: PT COMPLETED BED MOB WITH CGA/MIN A. PT COMPLETED ADL MOB WITH MIN A. PT COMPLETED UE AROM AXS. PT COMPLETED HYGIENE TASK WITH MIN A. THANK YOU, ARIK GODINEZ
--- NOTE | 2018-12-22 17:13 | MORECARE ---
CASE MANAGEMENT DISCHARGE SUMMARY PATIENT: BENJAMIN KNOWLES UNIT: [id number] ADM DATE: 12/13/18 AGE: 68 : 50 SEX: M ROOM/BED: D.2215 AUTHOR: PETRA,DOC PHYSICIAN: REFERRING PHYSICIAN: MANDI CHAMORRO MD DATE OF SERVICE: 12/22/18 Discharge Plan Patient Name: BENJAMIN KNOWLES Facility: [facility]:[place] : 1950 Planned Disposition: Home Anticipated Discharge Date: Discharge Date: Expected LOS: Initial Reviewer: [email or web address] Initial Review Date: 12/13/2018 Generated: 12/22/18 6:13 pm Comments DCP- Discharge Planning Updated by [email or web address]: Ariana Theodore on 12/22/18 4:[address] Received a call from Hanh in inpatient rehab that patient is too low level for inpatient rehab at this time and they will continue to follow. CM will continue to follow and assist with discharge planning/needs. DCP- Discharge Planning Updated by [id number]: Jannie Kirkland on 12/15/18 3:[address] I was asked to meet with patient's family concerning his safety. I spoke with Chidi (daughter) [phone] and his daughter in law Jose [phone]. They state that he lives with his girlfriend and her son in HIS home. She is NOT his . He does not drive at all and has agoraphobia. He does leave his home. He did have home O2, but it was taken away from him because he did not make it to the Dr's appointment to get an order for it to be renewed (this is coming from his daughter) she does not think that he is safe in that home with his girlfriend and her son. I explained to them that if they were concerned with his safety that they could call APS and file a report. I also explained to him that when he was more coherent that I would visit with him and ask about his safety. He did have home health with [facility] but is not current at this time. PRISCILA with [facility]. He does have a nebulizer and Chidi has just purchased new tubing for him. She would like him to go to inpatient rehab when he is stable to be DC. He was on Bipap when I was in the room sleeping. He was confused per his daughter and the RT. He will need to be qualified for more home O2 when he is closer to DC. CM will continue to follow and assist with DC planning. Matthieu (son) [phone] Jose (daughter in law) [phone] Chidi (daughter) [phone] DCP- Discharge Planning Updated by [id number]: Buffy Castillo on 12/14/18 2:[address] Patient Name: BENJAMIN KNOWLES Admission Status: ER Accout number: [id number] Admission Date: 12-13-2018 : 1950 Admission Diagnosis: Attending: MANDI CHAMORRO Current LOS: 1 Anticipated DC Date: Planned Disposition: Home Primary Insurance: MEDICARE A & B Discharge Planning Comments: CM met with patient at bedside. Patient states he lives at home with his girlfriend (Salome). He states he plans to return there upon discharge. Patient states that he has a walker and cane at home. He states he might need 02 @ home. Patient denies any use of Home health services prior to admission. Patient states he feels safe at his home. CM gave patient information on alcohol treatment centers. CM will continue follow and assist as needed with discharge planning / needs. Shrimp Cleaner: Buffy Castillo DCP- Discharge Planning Updated by [id number]: Buffy Castillo on 12/13/18 2:[address] CM attempted to visit with patient regarding discharge planning / needs. Patient is currently on BIPAP and unable to answer questions. No family currently available. CM will continue to follow and assist as needed with discharge planning / needs. DCPIA - Discharge Planning Initial Assessment Updated by [id number]: Buffy Castillo on 12/14/18 3:39 pm * Is the patient Alert and Oriented? Yes * How many steps to enter\exit or inside your home? RAMP * PCP DANIELLE * [facility]acy [facility] * Preadmission Environment Home with Family * ADLs Independent * Other Equipment WALKER, CANE * List name and contact numbers for known caregivers / representatives who currently or will assist patient after discharge: CHIDI KNOWLES - DAUGHTER- [phone] * Verbal permission to speak to the caregivers and representatives has been obtained from the patient. N/A * Community resources currently utilized None * Additional services required to return to the preadmission environment? No * Can the patient safely return to the preadmission environment? Yes * Has this patient been hospitalized within the prior 30 days at any hospital? No Last DP export: 12/15/18 3:31 p Patient Name: BENJAMIN KNOWLES Page [id number] at 1713 All edits/amendments must be made on the electronic document DICTATION DATE: 12/22/181711 CUSHION COVER INSPECTOR: FREDO 12/22/181711 RPT#: [id number] DC DATE: STATUS: ADM IN [facility] [address] [place] [address] END OF REPORT
--- NOTE | 2018-12-22 18:44 | NUR ---
PT LING IN BED. REPOSITIONED. CL IN REACH. SRX2 NO COMPLAINTS CONCERNS VOICED AT THIS TIME.
[2018-12-22 20:00] VITALS: BP 114/59
[2018-12-22 23:59] VITALS: BP 114/75
[2018-12-23 04:00] VITALS: BP 114/72
[2018-12-23 06:22] LABS: BASOPHILS 0.5 % (0-2); EOSINOPHILS 3.8 % (0-7); HEMATOCRIT 32.1 % (42.0-54.0); HEMOGLOBIN 9.6 g/dL (13.5-17.5); IMMATURE GRANULOCYTES 1.2 % (0-5); LYMPHOCYTES 21.9 % (15-50); MCHC 29.9 g/dL (31.0-37.0); MCV 80.3 fL (80.0-100.0); MEAN PLATELET VOLUME 10.5 fL (7.4-10.4); MONOCYTES 8.1 % (2-11); NEUTROPHILS 64.5 % (40-80); PLATELET COUNT 500 10x3/uL (130-400); RDW 19.9 % (11.5-14.5); WBC 8.1 10x3/uL (4.8-10.8)
[2018-12-23 06:44] LABS: CALC OSMOLALITY 275 mosm/kg (275-300); CALCIUM 8.1 mg/dL (8.5-10.1); CARBON DIOXIDE 33.7 mmol/L (21.0-32.0); CHLORIDE - SERUM 101 mmol/L (98-107); CREATININE - SERUM 0.8 mg/dL (0.6-1.3); GLUCOSE 93 mg/dL (74-106); POTASSIUM - SERUM 4.3 mmol/L (3.5-5.1); SODIUM 138 mmol/L (136-145); UREA NITROGEN 12 mg/dL (7-18); eGFR NON AFRICAN AMERICAN > 90 mL/min (90-120)
--- NOTE | 2018-12-23 07:29 | NUR ---
PT IS RESTING IN BED WITH EYES OPEN. RESPIRATIONS ARE EVEN AND UNLABORED. O2 VIA NC @ 2.5L HUMIDIFIED. PT IS AAO X4. BIPAP MACHINE IS IN ROOM. PT IS REFUSING AT THIS TIME. SCDS ARE IN ROOM. PT IS REFUSING AT THIS TIME. BED ALARM IS ON AND WORKING. BED IS IN THE LOWEST POSITION. CALL LIGHT AND BEDSIDE TABLE ARE WITHIN REACH. WILL CONT TO MONITOR.
[2018-12-23 07:56] VITALS: BP 107/56
--- NOTE | 2018-12-23 10:31 | NUR ---
AT BEDSIDE WITH RESPIRATORY THERAPIST. PT IS CONFUSED TO SITUATION AND PLACE. PT REORIENTED TO SITUATION AND PLACE. PT AGREES TO BIPAP AT THIS TIME. BIPAP PLACED. WILL CONT TO MONITOR.
[2018-12-23 12:49] VITALS: BP 121/72
[2018-12-23 16:17] VITALS: BP 117/60
--- NOTE | 2018-12-23 18:35 | NUR ---
PIV TO RIGHT FOREARM WITH REDNESS AND TENDERNESS. PIV REMOVED WITH CATHETER TIP INTACT. DRESSING APPLIED. PT IS REFUSING PIV RE-SITE AT THIS TIME.
--- NOTE | 2018-12-23 18:42 | NUR ---
PT IN AGREEMENT FOR PIV RE-SITE. 22G TO RIGHT FA X 1 ATTEMPT.
[2018-12-23 20:00] VITALS: BP 154/52
[2018-12-24] VITALS: BP 122/77
--- NOTE | 2018-12-24 02:39 | NUR ---
RESTING IN BED, CONFUSED ASKING ABOUT PIGS IN CORNER OF ROOM, RESP UNLABORED O2 IN USE VIA N/C, ZAMAN CATH TO BEDSIDE DRAINAGE, NO APPARENT DISTRESS CALL LIGHT IN REACH
[2018-12-24 03:00] VITALS: BP 132/69
[2018-12-24 06:40] LABS: BASOPHILS 0.7 % (0-2); EOSINOPHILS 3.6 % (0-7); IMMATURE GRANULOCYTES 0.6 % (0-5); LYMPHOCYTES 18.3 % (15-50); MCH 24.3 pg (26.0-34.0); MCHC 30.3 g/dL (31.0-37.0); MCV 80.3 fL (80.0-100.0); MEAN PLATELET VOLUME 10.5 fL (7.4-10.4); MONOCYTES 7.9 % (2-11); NEUTROPHILS 68.9 % (40-80); PLATELET COUNT 545 10x3/uL (130-400); RBC 4.11 10x6/uL (4.20-6.10); RDW 20.4 % (11.5-14.5); WBC 8.7 10x3/uL (4.8-10.8)
[2018-12-24 07:17] LABS: CALC OSMOLALITY 274 mosm/kg (275-300); CALCIUM 8.6 mg/dL (8.5-10.1); CARBON DIOXIDE 32.3 mmol/L (21.0-32.0); CHLORIDE - SERUM 101 mmol/L (98-107); CREATININE - SERUM 0.8 mg/dL (0.6-1.3); GLUCOSE 86 mg/dL (74-106); SODIUM 138 mmol/L (136-145); UREA NITROGEN 13 mg/dL (7-18); eGFR NON AFRICAN AMERICAN > 90 mL/min (90-120)
--- NOTE | 2018-12-24 07:20 | NUR ---
PT IS RESTING IN BED WITH EYES OPEN. RESPIRATIONS ARE EVEN AND UNLABORED AND SHALLOW. O2 VIA NC @ 3L NC HUMIDIFIED. PT IS ORIENTED TO SELF AND PLACE. PT REORIENTED TO TIME/DATE AND SITUATION. PT REFUSES SCDS. ALL FALL PRECAUTIONS ARE IN PLACE. BED ALARM IS ON AND WORKING. BED IS IN THE LOWEST POSITION. CALL LIGHT AND BEDSIDE TABLE ARE WITHIN REACH. WILL CONT TO MONITOR.
--- NOTE | 2018-12-24 07:21 | NUR ---
ZAMAN CATHETER NOTED AND DRAINING FREELY. CLEAR YELLOW URINE TO COLLECTION BAG. STAT LOCK IS APPLIED.
[2018-12-24 08:38] VITALS: BP 114/63
[2018-12-24 12:25] VITALS: BP 118/70
[2018-12-24 15:57] LABS: APPEARANCE CLEAR (CLEAR); BILIRUBIN NEGATIVE (NEGATIVE); COLOR YELLOW (YELLOW); GLUCOSE NEGATIVE (NEGATIVE); KETONE NEGATIVE (NEGATIVE); NITRITE NEGATIVE (NEGATIVE); PROTEIN 1+ mg/dL (NEGATIVE); SPECIFIC GRAVITY 1.015 (1.005-1.020); UROBILINOGEN NORMAL (NORMAL)
[2018-12-24 15:58] LABS: BACTERIA FEW /hpf (NONE SEEN); RED CELLS - URINE 0-5 /hpf (0-5); WHITE CELLS - URINE OCC /hpf (0-5)
[2018-12-24 17:10] VITALS: BP 122/60
[2018-12-24 19:55] VITALS: BP 109/44
--- NOTE | 2018-12-24 20:00 | NUR ---
RESTING IN BED EYES CLOSED, AROUED EASILY, SEE SHIFT ASSESSMNET, IV INFUSING WITHOUT DIFFICULTY,O2 IN USE NASAL CANNULA CALL LIGHT IN REACH
[2018-12-25 00:01] VITALS: BP 149/76
[2018-12-25 05:11] VITALS: BP 124/69
[2018-12-25 06:46] LABS: CALC OSMOLALITY 274 mosm/kg (275-300); CALCIUM 8.7 mg/dL (8.5-10.1); CARBON DIOXIDE 30.3 mmol/L (21.0-32.0); CHLORIDE - SERUM 101 mmol/L (98-107); CREATININE - SERUM 0.9 mg/dL (0.6-1.3); GLUCOSE 99 mg/dL (74-106); POTASSIUM - SERUM 4.5 mmol/L (3.5-5.1); SODIUM 137 mmol/L (136-145); UREA NITROGEN 16 mg/dL (7-18); eGFR NON AFRICAN AMERICAN 89 mL/min (90-120)
[2018-12-25 07:29] LABS: BASOPHILS 1.1 % (0-2); EOSINOPHILS 3.7 % (0-7); HEMATOCRIT 31.8 % (42.0-54.0); HEMOGLOBIN 9.6 g/dL (13.5-17.5); IMMATURE GRANULOCYTES 0.6 % (0-5); LYMPHOCYTES 20.8 % (15-50); MCH 24.1 pg (26.0-34.0); MCHC 30.2 g/dL (31.0-37.0); MCV 79.7 fL (80.0-100.0); MEAN PLATELET VOLUME 10.2 fL (7.4-10.4); MONOCYTES 9.8 % (2-11); PLATELET COUNT 536 10x3/uL (130-400); RBC 3.99 10x6/uL (4.20-6.10); RDW 19.8 % (11.5-14.5)
--- NOTE | 2018-12-25 08:01 | NUR ---
PATIENT SLEEPING IN BED. EASILY AROUSED. LUNGS CLEAR BILATERALLY IN ALL PRESTON. BOWEL SOUNDS ACTIVE X4. ZAMAN DRAINING YELLOW URINE. IV TO RFA PATENT WITHOUT REDNESS. O2 ON AT 3L. CALL LIGHT AND PERSONAL BELONGINGS IN REACH. BED LOW. FALL PRECAUTIONS IN PLACE. WILL CONTINUE TO MONITOR.
[2018-12-25 08:44] VITALS: BP 93/60
--- NOTE | 2018-12-25 09:26 | NUR ---
PATIENT RESTING IN BED. EASILY AROUSED. DENIES PAIN. DENIES NEEDS AT THIS TIME. SCDS ON AND FUNCTIONING. WILL CONTINUE TO MONITOR.
--- NOTE | 2018-12-25 10:00 | NUR ---
ZAMAN CLAMPED FOR BLADDER TRAINING. PATIENT EDUCATION PROVIDED. VERBALIZED UNDERSTANDING. WILL CONTINUE TO MONITOR
--- NOTE | 2018-12-25 11:57 | NUR ---
SLEEPING. WILL CONTINUE TO MONITOR.
--- NOTE | 2018-12-25 12:04 | NUR ---
Rehab Note- Medial record reviewed. The patient did only ROM with PT on 12/24/18, the is still too low level fr acute inpatient rehab at this time. Will continue to follow at this time. THank you for this referral! Nadia Love RN Clinical Liaison, [facility] Rehab
--- NOTE | 2018-12-25 12:17 | MORECARE ---
CASE MANAGEMENT DISCHARGE SUMMARY PATIENT: BENJAMIN KNOWLES UNIT: [id number] ADM DATE: 12/13/18 AGE: 68 : 50 SEX: M ROOM/BED: D.2215 AUTHOR: PETRA,DOC PHYSICIAN: REFERRING PHYSICIAN: MANDI CHAMORRO MD DATE OF SERVICE: 12/25/18 Discharge Plan Patient Name: BENJAMIN KNOWLES Facility: [facility]:[place] : 1950 Planned Disposition: Home Anticipated Discharge Date: Discharge Date: Expected LOS: Initial Reviewer: [email or web address] Initial Review Date: 12/13/2018 Generated: 12/25/18 1:17 pm Comments DCP- Discharge Planning Updated by [email or web address]: Jannie Kirkland on 12/25/18 11:[address] REFERRAL SENT TO [facility] IN PATIENT REHAB DCP- Discharge Planning Updated by [email or web address]: Ariana Theodore on 12/22/18 4:[address] Received a call from Hanh in inpatient rehab that patient is too low level for inpatient rehab at this time and they will continue to follow. CM will continue to follow and assist with discharge planning/needs. DCP- Discharge Planning Updated by [id number]: Jannie Kirkland on 12/15/18 3:[address] I was asked to meet with patient's family concerning his safety. I spoke with Chidi (daughter) [phone] and his daughter in law Jose [phone]. They state that he lives with his girlfriend and her son in HIS home. She is NOT his . He does not drive at all and has agoraphobia. He does leave his home. He did have home O2, but it was taken away from him because he did not make it to the Dr's appointment to get an order for it to be renewed (this is coming from his daughter) she does not think that he is safe in that home with his girlfriend and her son. I explained to them that if they were concerned with his safety that they could call APS and file a report. I also explained to him that when he was more coherent that I would visit with him and ask about his safety. He did have home health with [facility] but is not current at this time. PRISCILA with [facility]. He does have a nebulizer and Chidi has just purchased new tubing for him. She would like him to go to inpatient rehab when he is stable to be DC. He was on Bipap when I was in the room sleeping. He was confused per his daughter and the RT. He will need to be qualified for more home O2 when he is closer to DC. CM will continue to follow and assist with DC planning. Matthieu (son) [phone] Jose (daughter in law) [phone] Chidi (daughter) [phone] DCP- Discharge Planning Updated by [id number]: Buffy Castillo on 12/14/18 2:[address] Patient Name: BENJAMIN KNOWLES Admission Status: ER Accout number: [id number] Admission Date: 12-13-2018 : 1950 Admission Diagnosis: Attending: MANDI CHAMORRO Current LOS: 1 Anticipated DC Date: Planned Disposition: Home Primary Insurance: MEDICARE A & B Discharge Planning Comments: CM met with patient at bedside. Patient states he lives at home with his girlfriend (Salome). He states he plans to return there upon discharge. Patient states that he has a walker and cane at home. He states he might need 02 @ home. Patient denies any use of Home health services prior to admission. Patient states he feels safe at his home. CM gave patient information on alcohol treatment centers. CM will continue follow and assist as needed with discharge planning / needs. Single Stroke Preformer: Buffy Castillo DCP- Discharge Planning Updated by [email or web address]: Buffy Castillo on 12/13/18 2:[address] CM attempted to visit with patient regarding discharge planning / needs. Patient is currently on BIPAP and unable to answer questions. No family currently available. CM will continue to follow and assist as needed with discharge planning / needs. DCPIA - Discharge Planning Initial Assessment Updated by [email or web address]: Buffy Castillo on 12/14/18 3:39 pm * Is the patient Alert and Oriented? Yes * How many steps to enter\exit or inside your home? RAMP * PCP DANIELLE * Pharmacy [facility] * Preadmission Environment Home with Family * ADLs Independent * Other Equipment WALKER, CANE * List name and contact numbers for known caregivers / representatives who currently or will assist patient after discharge: CHIDI KNOWLES - DAUGHTER- [phone] * Verbal permission to speak to the caregivers and representatives has been obtained from the patient. N/A * Community resources currently utilized None * Additional services required to return to the preadmission environment? No * Can the patient safely return to the preadmission environment? Yes * Has this patient been hospitalized within the prior 30 days at any hospital? No External Providers External Provider: [facility] Contact Date: Service Request Date: Service Type: Resolution: Reviewer: Comments: Last DP export: 12/22/18 4:13 p Patient Name: BENJAMIN KNOWLES Page [id number] at 1217 All edits/amendments must be made on the electronic document DICTATION DATE: 12/25/18 1216 [place] ATTENDANT: FREDO 12/25/18 1216 RPT#: [id number] DC DATE: STATUS: ADM IN [facility] [address] [place] [address] END OF REPORT
[2018-12-25 13:15] VITALS: BP 141/65
--- NOTE | 2018-12-25 13:35 | NUR ---
ZAMAN REMOVED WITH TIP INTACT. NO COMPLICATIONS. PATIENT EDUCATION PROVIDED TO USE URINAL. PATIENT CONCERNED WITH ABILITY TO DO PHYSICAL THERAPY. PATIENT EDUCATION PROVIDED TO WORK WITH PHYSICAL THERAPY. STATES HE WILL TRY HIS BEST. DENIES FURTHER NEEDS. DENIES PAIN. WILL CONTINUE TO MONITOR.
--- NOTE | 2018-12-25 14:24 | NUR ---
OKAY FROM PT FOR PATIENT TO AMBULATE TO BATHROOM WITH ASSIST. PATIENT EDUCATION PROVIDED TO CALL FOR HELP TO BATHROOM OR GETTING OUT OF BED. VERBALIZED UNDERSTANDING. WILL CONTINUE TO MONITOR. DENIES PAIN. DENIES FURTHER NEEDS
--- NOTE | 2018-12-25 15:51 | NUR ---
PATIENT RESTING IN BED. DENIES PAIN. DENIES NEEDS. WILL CONTINUE TO MONITOR.
[2018-12-25 16:30] VITALS: BP 115/70
--- NOTE | 2018-12-25 17:45 | NUR ---
OT NOTE: PT COMPLETED BED MOB WITH SPV. PT COMPLETED EOB SITTING BALANCE WITH SPV. PT COMPLETED SIT TO STAND WITH CGA. PT COMPLETED HAIR GROOMING AT EOB WITH SET UP. THANK YOU, ARIK GODINEZ
--- NOTE | 2018-12-25 18:23 | NUR ---
PATIENT RESTING IN BED. DENIES PAIN. DENIES NEEDS AT THIS TIME.
--- NOTE | 2018-12-25 19:59 | MORECARE ---
CASE MANAGEMENT DISCHARGE SUMMARY PATIENT: BENJAMIN KNOWLES UNIT: [id number] ADM DATE: 12/13/18 AGE: 68 : 50 SEX: M ROOM/BED: D.2215 AUTHOR: PETRA,DOC PHYSICIAN: REFERRING PHYSICIAN: MANDI CHAMORRO MD DATE OF SERVICE: 12/25/18 Discharge Plan Patient Name: BENJAMIN KNOWLES Facility: [facility]:[place] : 1950 Planned Disposition: Home Anticipated Discharge Date: Discharge Date: Expected LOS: Initial Reviewer: [email or web address] Initial Review Date: 12/13/2018 Generated: 12/25/18 8:59 pm DCP- Discharge Planning Updated by [email or web address]: Jannie Kirkland on 12/25/18 6:[address] spoke with patient at length about his plan B because inpatient rehab at [facility] did not think he could do 3 hours of therapy a day and his confusion. He is very alert and oriented tonight. He does not want to go to [facility] inpatient rehab he is scared of new things and it stresses him out. He said he would just go home. I explained to him that at this point I did not think that would be a safe discharge. He asked if I would call inpatient rehab again and see if he could come. I will call them again in the AM. IMM served and explained DCP- Discharge Planning Updated by [id number]: Jannie Kirkland on 12/25/18 11:[address] REFERRAL SENT TO [facility] IN PATIENT REHAB DCP- Discharge Planning Updated by [id number]: Ariana Theodore on 12/22/18 4:[address] Received a call from [facility] in inpatient rehab that patient is too low level for inpatient rehab at this time and they will continue to follow. CM will continue to follow and assist with discharge planning/needs. DCP- Discharge Planning Updated by [email or web address]: Jannie Kirkland on 12/15/18 3:[address] I was asked to meet with patient's family concerning his safety. I spoke with Joe (daughter) [phone] and his daughter in law Jose [phone]. They state that he lives with his girlfriend and her son in HIS home. She is NOT his . He does not drive at all and has agoraphobia. He does leave his home. He did have home O2, but it was taken away from him because he did not make it to the Dr's appointment to get an order for it to be renewed (this is coming from his daughter) she does not think that he is safe in that home with his girlfriend and her son. I explained to them that if they were concerned with his safety that they could call APS and file a report. I also explained to him that when he was more coherent that I would visit with him and ask about his safety. He did have home health with [facility] but is not current at this time. PRISCILA with [facility]. He does have a nebulizer and Joe has just purchased new tubing for him. She would like him to go to inpatient rehab when he is stable to be DC. He was on Bipap when I was in the room sleeping. He was confused per his daughter and the RT. He will need to be qualified for more home O2 when he is closer to DC. CM will continue to follow and assist with DC planning. Matthieu (son) [phone] Jose (daughter in law) [phone] Joe (daughter) [phone] DCP- Discharge Planning Updated by [email or web address]: Buffy Castillo on 12/14/18 2:[address] Patient Name: BENJAMIN KNOWLES Admission Status: ER Accout number: [id number] Admission Date: 12-13-2018 : 1950 Admission Diagnosis: Attending: MANDI CHAMORRO Current LOS: 1 Anticipated DC Date: Planned Disposition: Home Primary Insurance: MEDICARE A & B Discharge Planning Comments: CM met with patient at bedside. Patient states he lives at home with his girlfriend (Salome). He states he plans to return there upon discharge. Patient states that he has a walker and cane at home. He states he might need 02 @ home. Patient denies any use of Home health services prior to admission. Patient states he feels safe at his home. CM gave patient information on alcohol treatment centers. CM will continue follow and assist as needed with discharge planning / needs. Cryptozoologist: Buffy Castillo DCP- Discharge Planning Updated by [email or web address]: Buffy Castillo on 12/13/18 2:[address] CM attempted to visit with patient regarding discharge planning / needs. Patient is currently on BIPAP and unable to answer questions. No family currently available. CM will continue to follow and assist as needed with discharge planning / needs. DCPIA - Discharge Planning Initial Assessment Updated by [id number]: Buffy Castillo on 12/14/18 3:39 pm * Is the patient Alert and Oriented? Yes * How many steps to enter\exit or inside your home? RAMP * PCP DANIELLE * Pharmacy [facility] * Preadmission Environment Home with Family * ADLs Independent * Other Equipment WALKER, CANE * List name and contact numbers for known caregivers / representatives who currently or will assist patient after discharge: JOE KNOWLES - DAUGHTER- [phone] * Verbal permission to speak to the caregivers and representatives has been obtained from the patient. N/A * Community resources currently utilized None * Additional services required to return to the preadmission environment? No * Can the patient safely return to the preadmission environment? Yes * Has this patient been hospitalized within the prior 30 days at any hospital? No Coverage Notice Reviewer: [id number] Rlaph Kirkland Notice Issued Date-Time: 12/25/2018 19:50 Notice Type: IM Discharge Notice Notice Delivered To: Patient Relationship to Patient: Block Out Machine Operator Name: Delivery Method: HAND - Hand Delivered Ashely Days: Prior Verbal Notification: Recipient Understood Notice: Yes Recipient Signature: Yes Med Rec Note Co-signed by Attending: Coverage Notice Comment: Last DP export: 12/25/18 11:17 am Patient Name: BENJAMIN KNOWLES Page 17514 at 1958 All edits/amendments must be made on the electronic document DICTATION DATE: 12/25/181958 ADMINISTRATIVE SUPPORT SPECIALIST: FREDO 12/25/181958 RPT#: [id number] DC DATE: STATUS: ADM IN [facility] [address] [place] [address] END OF REPORT
[2018-12-25 21:35] VITALS: BP 100/50
[2018-12-26 01:14] VITALS: BP 116/69
--- NOTE | 2018-12-26 02:15 | NUR ---
ALERT AND ORIENTED X 4. ASSISTED TO BEDSIDE COMMODE. COPIOUS AMOUNT OF SOFT, SEMI-FORMED STOOL. BED LINENS CHANGED. DENIES FURTHER NEEDES.
--- NOTE | 2018-12-26 03:26 | NUR ---
I have reviewed this patient and I concur with the Shift Assessment completed by the Licensed Practical Nurse today this shift.
[2018-12-26 04:47] VITALS: BP 124/67
[2018-12-26 05:18] LABS: BASOPHILS 0.3 % (0-2); EOSINOPHILS 0.1 % (0-7); HEMATOCRIT 33.1 % (42.0-54.0); IMMATURE GRANULOCYTES 0.4 % (0-5); LYMPHOCYTES 9.1 % (15-50); MCH 24.3 pg (26.0-34.0); MCHC 30.2 g/dL (31.0-37.0); MCV 80.5 fL (80.0-100.0); MEAN PLATELET VOLUME 10.4 fL (7.4-10.4); MONOCYTES 0.9 % (2-11); NEUTROPHILS 89.2 % (40-80); PLATELET COUNT 536 10x3/uL (130-400); RBC 4.11 10x6/uL (4.20-6.10); RDW 20.3 % (11.5-14.5); WBC 9.8 10x3/uL (4.8-10.8)
[2018-12-26 05:38] LABS: CALC OSMOLALITY 274 mosm/kg (275-300); CALCIUM 8.4 mg/dL (8.5-10.1); CHLORIDE - SERUM 99 mmol/L (98-107); GLUCOSE 144 mg/dL (74-106); MAGNESIUM - SERUM 2.3 mg/dL (1.8-2.4); PHOSPHOROUS 3.4 mg/dL (2.5-4.9); POTASSIUM - SERUM 4.9 mmol/L (3.5-5.1); SODIUM 135 mmol/L (136-145); UREA NITROGEN 18 mg/dL (7-18); eGFR NON AFRICAN AMERICAN 79 mL/min (90-120)
--- NOTE | 2018-12-26 07:47 | NUR ---
PT SITTING UP IN BED. STATED HE HAD A GOOD NIGHT ONCE HE GOT TO SLEEP, NO S/S OF DISTRERSS, NO NEEDS VOICED, PT ASKED IF HE WAS GOING TO BE FED BEFORE GETTING KICKED OUT. ADVISED PT WE ARE NOT "KICKING" HIM OUT AND THAT BREAKFAST IS SERVED BETWEEN 8-8:30. BED IN LOWEST POSITION, CL IN REACH CONTINUE WITH PLAN OF CARE
--- NOTE | 2018-12-26 08:00 | NUR ---
RESTING,WITHOUT SIGNS OF DISRTESS.CALL LIGHT IN REACH
[2018-12-26 08:22] VITALS: BP 125/62
[2018-12-26] MEDS ORDERED: IPRAT-ALBUT 0.5-3 ML UPD (09:44)
[2018-12-26] MEDS ORDERED: LOVENOX40 MG/0.4 SC (09:44)
[2018-12-26] MEDS ORDERED: ACETAMINOPHEN325 MG PO (09:44)
[2018-12-26] MEDS ORDERED: BROVANA15 MCG/2 M INH (09:44)
[2018-12-26] MEDS ORDERED: MIRALAX17 GM PO (09:45)
[2018-12-26] MEDS ORDERED: PULMICORT0.5 MG/21 UPD (09:45)
[2018-12-26] MEDS ORDERED: MUCINEX DM ER1 EAC1 PO (09:45)
[2018-12-26] MEDS ORDERED: COLACE100 MG PO (09:45)
[2018-12-26] MEDS ORDERED: Tessalon Perle PO (09:45)
[2018-12-26] MEDS ORDERED: PREDNISONE10 MG PO (09:46)
--- NOTE | 2018-12-26 09:57 | MORECARE ---
CASE MANAGEMENT DISCHARGE SUMMARY PATIENT: BENJAMIN KNOWLES UNIT: [id number] ADM DATE: 12/13/18 AGE: 68 : 50 SEX: M ROOM/BED: D.2215 AUTHOR: PETRA,DOC PHYSICIAN: REFERRING PHYSICIAN: MANDI CHAMORRO MD DATE OF SERVICE: 12/26/18 Discharge Plan Patient Name: BENJAMIN KNOWLES Facility: [facility]:[place] : 1950 Planned Disposition: Home Anticipated Discharge Date: Discharge Date: Expected LOS: Initial Reviewer: [email or web address] Initial Review Date: 12/13/2018 Generated: 12/26/18 10:56 am Comments DCP- Discharge Planning Updated by [email or web address]: Jannie Kirkland on 12/26/18 8:[address] PATIENT HAS BEEN ACCEPTED TO INPATIENT REHAB AT [facility], WILL BE DISCHARING TODAY DCP- Discharge Planning Updated by [email or web address]: Jannie Kirkland on 12/25/18 6:[address] spoke with patient at length about his plan B because inpatient rehab at [facility] did not think he could do 3 hours of therapy a day and his confusion. He is very alert and oriented tonight. He does not want to go to [facility] inpatient rehab he is scared of new things and it stresses him out. He said he would just go home. I explained to him that at this point I did not think that would be a safe discharge. He asked if I would call inpatient rehab again and see if he could come. I will call them again in the AM. IMM served and explained DCP- Discharge Planning Updated by [email or web address]: Jannie Kirkland on 12/25/18 11:[address] REFERRAL SENT TO [facility] IN PATIENT REHAB DCP- Discharge Planning Updated by [email or web address]: Ariana Theodore on 12/22/18 4:[address] Received a call from [facility] in inpatient rehab that patient is too low level for inpatient rehab at this time and they will continue to follow. CM will continue to follow and assist with discharge planning/needs. DCP- Discharge Planning Updated by [id number]: Jannie Kirkland on 12/15/18 3:[address] I was asked to meet with patient's family concerning his safety. I spoke with Joe (daughter) [phone] and his daughter in law Jose [phone]. They state that he lives with his girlfriend and her son in HIS home. She is NOT his . He does not drive at all and has agoraphobia. He does leave his home. He did have home O2, but it was taken away from him because he did not make it to the Dr's appointment to get an order for it to be renewed (this is coming from his daughter) she does not think that he is safe in that home with his girlfriend and her son. I explained to them that if they were concerned with his safety that they could call APS and file a report. I also explained to him that when he was more coherent that I would visit with him and ask about his safety. He did have home health with [facility] but is not current at this time. PRISCILA with [facility]. He does have a nebulizer and Joe has just purchased new tubing for him. She would like him to go to inpatient rehab when he is stable to be DC. He was on Bipap when I was in the room sleeping. He was confused per his daughter and the RT. He will need to be qualified for more home O2 when he is closer to DC. CM will continue to follow and assist with DC planning. Matthieu (son) [phone] Jose (daughter in law) [phone] Joe (daughter) [phone] DCP- Discharge Planning Updated by [email or web address]: Buffy Castillo on 12/14/18 2:[address] Patient Name: BENJAMIN KNOWLES Admission Status: ER Accout number: [id number] Admission Date: 12-13-2018 : 1950 Admission Diagnosis: Attending: MANDI CHAMORRO Current LOS: 1 Anticipated DC Date: Planned Disposition: Home Primary Insurance: MEDICARE A & B Discharge Planning Comments: CM met with patient at bedside. Patient states he lives at home with his girlfriend (Salome). He states he plans to return there upon discharge. Patient states that he has a walker and cane at home. He states he might need 02 @ home. Patient denies any use of Home health services prior to admission. Patient states he feels safe at his home. CM gave patient information on alcohol treatment centers. CM will continue follow and assist as needed with discharge planning / needs. Clay Processing Labourer: Buffy Castillo DCP- Discharge Planning Updated by [email or web address]: Buffy Castillo on 12/13/18 2:[address] CM attempted to visit with patient regarding discharge planning / needs. Patient is currently on BIPAP and unable to answer questions. No family currently available. CM will continue to follow and assist as needed with discharge planning / needs. DCPIA - Discharge Planning Initial Assessment Updated by [email or web address]: Buffy Castillo on 12/14/18 3:39 pm * Is the patient Alert and Oriented? Yes * How many steps to enter\exit or inside your home? RAMP * PCP DANIELLE * Pharmacy [facility] * Preadmission Environment Home with Family * ADLs Independent * Other Equipment WALKER, CANE * List name and contact numbers for known caregivers / representatives who currently or will assist patient after discharge: JOE KNOWLES - DAUGHTER- [phone] * Verbal permission to speak to the caregivers and representatives has been obtained from the patient. N/A * Community resources currently utilized None * Additional services required to return to the preadmission environment? No * Can the patient safely return to the preadmission environment? Yes * Has this patient been hospitalized within the prior 30 days at any hospital? No Coverage Notice Reviewer: [email or web address] Ralph Kirkland Notice Issued Date-Time: 12/25/2018 19:50 Notice Type: IM Discharge Notice Notice Delivered To: Patient Relationship to Patient: Solution Architect Name: Delivery Method: HAND - Hand Delivered Ashely Days: Prior Verbal Notification: Recipient Understood Notice: Yes Recipient Signature: Yes Med Rec Note Co-signed by Attending: Coverage Notice Comment: Last DP export: 12/25/18 6:59 pm Patient Name: BENJAMIN KNOWLES Page 42460 at 0957 All edits/amendments must be made on the electronic document DICTATION DATE: 12/26/18955 CONTINUITY CLERK: FREDO 12/26/18955 RPT#: [id number] DC DATE: STATUS: ADM IN [facility] [address] [place] [address] END OF REPORT
--- NOTE | 2018-12-26 11:48 | NUR ---
WENT OVER PAPERWORK AND INSTRUCTIONS WITH PT. ANSWERED ALL QUESTIONS. NO NEEDS VOICED, ADVISED PT WILL BE TRANSFERRED ONCE ROOM IS AVAILABLE. CONTINUE WITH PLAN OF CARE
--- NOTE | 2018-12-26 11:48 | NUR ---
Rehab Note- Visited with the patient, he is willing to come to [facility] Acute Inpatient Rehab & participate in the required therapy. WIll accept when medically stable & ready for discharge from the acute hospital. Spoke with WAYNE Denny. Thank you for this referral! Nadia Love RN Clinical Liaison, [facility] Rehab
[2018-12-26 12:50] VITALS: BP 144/78
--- NOTE | 2018-12-26 15:47 | MORECARE ---
CASE MANAGEMENT DISCHARGE SUMMARY PATIENT: BENJAMIN KNOWLES UNIT: [id number] ADM DATE: 12/13/18 AGE: 68 : 50 SEX: M ROOM/BED: D.2215 AUTHOR: PETRA,DOC PHYSICIAN: REFERRING PHYSICIAN: MANDI CHAMORRO MD DATE OF SERVICE: 12/26/18 Discharge Plan Patient Name: BENJAMIN KNOWLES Facility: [facility]:[place] : 1950 Planned Disposition: Home Anticipated Discharge Date: Discharge Date: 12/26/2018 Expected LOS: 0 Initial Reviewer: [email or web address] Initial Review Date: 12/13/2018 Generated: 12/26/18 4:47 pm Comments DCP- Discharge Planning Updated by [id number]: Jannie Kirkland on 12/26/18 8:[address] PATIENT HAS BEEN ACCEPTED TO INPATIENT REHAB AT [facility], WILL BE DISCHARING TODAY DCP- Discharge Planning Updated by [id number]: Jannie Kirkland on 12/25/18 6:[address] spoke with patient at length about his plan B because inpatient rehab at [facility] did not think he could do 3 hours of therapy a day and his confusion. He is very alert and oriented tonight. He does not want to go to [facility] inpatient rehab he is scared of new things and it stresses him out. He said he would just go home. I explained to him that at this point I did not think that would be a safe discharge. He asked if I would call inpatient rehab again and see if he could come. I will call them again in the AM. IMM served and explained DCP- Discharge Planning Updated by [email or web address]: Jannie Kirkland on 12/25/18 11:[address] REFERRAL SENT TO [facility] IN PATIENT REHAB DCP- Discharge Planning Updated by [email or web address]: Ariana Theodore on 12/22/18 4:[address] Received a call from [facility] in inpatient rehab that patient is too low level for inpatient rehab at this time and they will continue to follow. CM will continue to follow and assist with discharge planning/needs. DCP- Discharge Planning Updated by [email or web address]: Jannie Kirkland on 12/15/18 3:[address] I was asked to meet with patient's family concerning his safety. I spoke with Joe (daughter) [phone] and his daughter in law Jose [phone]. They state that he lives with his girlfriend and her son in HIS home. She is NOT his . He does not drive at all and has agoraphobia. He does leave his home. He did have home O2, but it was taken away from him because he did not make it to the Dr's appointment to get an order for it to be renewed (this is coming from his daughter) she does not think that he is safe in that home with his girlfriend and her son. I explained to them that if they were concerned with his safety that they could call APS and file a report. I also explained to him that when he was more coherent that I would visit with him and ask about his safety. He did have home health with [facility] but is not current at this time. PRISCILA with [facility]. He does have a nebulizer and Joe has just purchased new tubing for him. She would like him to go to inpatient rehab when he is stable to be DC. He was on Bipap when I was in the room sleeping. He was confused per his daughter and the RT. He will need to be qualified for more home O2 when he is closer to DC. CM will continue to follow and assist with DC planning. Matthieu (son) [phone] Jose (daughter in law) [phone] Joe (daughter) [phone] DCP- Discharge Planning Updated by [id number]: Buffy Castillo on 12/14/18 2:[address] Patient Name: BENJAMIN KNOWLES Admission Status: ER Accout number: [id number] Admission Date: 12-13-2018 : 1950 Admission Diagnosis: Attending: MANDI CHAMORRO Current LOS: 1 Anticipated DC Date: Planned Disposition: Home Primary Insurance: MEDICARE A & B Discharge Planning Comments: CM met with patient at bedside. Patient states he lives at home with his girlfriend (Salome). He states he plans to return there upon discharge. Patient states that he has a walker and cane at home. He states he might need 02 @ home. Patient denies any use of Home health services prior to admission. Patient states he feels safe at his home. CM gave patient information on alcohol treatment centers. CM will continue follow and assist as needed with discharge planning / needs. Scientific Software Engineer: Buffy Castillo DCP- Discharge Planning Updated by [email or web address]: Buffy Castillo on 12/13/18 2:[address] CM attempted to visit with patient regarding discharge planning / needs. Patient is currently on BIPAP and unable to answer questions. No family currently available. CM will continue to follow and assist as needed with discharge planning / needs. DCPIA - Discharge Planning Initial Assessment Updated by [email or web address]: Buffy Castillo on 12/14/18 3:39 pm * Is the patient Alert and Oriented? Yes * How many steps to enter\exit or inside your home? RAMP * PCP DANIELLE * Pharmacy [facility] * Preadmission Environment Home with Family * ADLs Independent * Other Equipment WALKER, CANE * List name and contact numbers for known caregivers / representatives who currently or will assist patient after discharge: JOE KNOWLES - DAUGHTER- [phone] * Verbal permission to speak to the caregivers and representatives has been obtained from the patient. N/A * Community resources currently utilized None * Additional services required to return to the preadmission environment? No * Can the patient safely return to the preadmission environment? Yes * Has this patient been hospitalized within the prior 30 days at any hospital? No Coverage Notice Reviewer: [id number] Ralph Kirkland Notice Issued Date-Time: 12/25/2018 19:50 Notice Type: IM Discharge Notice Notice Delivered To: Patient Relationship to Patient: Branch Lending Officer Name: Delivery Method: HAND - Hand Delivered Ashely Days: Prior Verbal Notification: Recipient Understood Notice: Yes Recipient Signature: Yes Med Rec Note Co-signed by Attending: Coverage Notice Comment: Last DP export: 12/26/18 8:57 am Patient Name: BENJAMIN KNOWLES Page 12063 at 1546 All edits/amendments must be made on the electronic document DICTATION DATE: 12/26/188 HAND STONER: FREDO 12/26/18 1547 RPT#: [id number] DC DATE:12/26/18 STATUS: DIS IN [facility] [address] [place] [address] END OF REPORT
--- NOTE | 2018-12-26 20:05 | NUR ---
OT NOTE: PT COMPLETED BED MOB WITH SPV.PT COMPLETED SIT TO STAND WITH SBA. PT COMPLETED ADL MOB WITH CGA. PT COMPLETED BUE AROM EXS AT EOB . PT COMPLETED GROOMING TECHNIQUES AT EOB WITH SET UP. THANK YOU, ARIK GODINEZ
== END 2018-12-26 15:40 | DRG 871 ==
LOC: D.ER 09:39 → D.MS 12:38 → D.ICU 12:38 → D.MS 12-14 16:41
PROVIDERS: Emergency Medicine; Internal Medicine Nephrology; ADMIT Emergency Medicine; ATTEND Emergency Medicine
PROC: 5A09457 Assistance with Respiratory Ventilation, 24-96 Consecutive Hours, Continuous Positive Airway Pressure (ICD-10-PCS; principal; 2018-12-13)
DX: A41.9 Sepsis, unspecified organism (principal); J96.02 Acute respiratory failure with hypercapnia; G93.41 Metabolic encephalopathy; N17.0 Acute kidney failure with tubular necrosis; J18.9 Pneumonia, unspecified organism; N17.9 Acute kidney failure, unspecified; J81.1 Chronic pulmonary edema; J44.1 Chronic obstructive pulmonary disease with (acute) exacerbation; I50.20 Unspecified systolic (congestive) heart failure; J96.11 Chronic respiratory failure with hypoxia; J44.9 Chronic obstructive pulmonary disease, unspecified; E78.5 Hyperlipidemia, unspecified; F32.9 Major depressive disorder, single episode, unspecified

== ENCOUNTER 2018-12-26 15:40 | Inpatient (IN) | payer MEDICARE ==
[~2018-12-26] VITALS: Ht 180.3 cm; Wt 90.3 kg
[~2018-12-26 15:40] MED LIST changes: +ACETAMINOPHEN325 MG PO; +COLACE100 MG PO; +MUCINEX DM ER1 EAC1 PO; +Tessalon Perle PO
[2018-12-26 16:21] VITALS: BP 117/70; BMI 27.8
--- NOTE | 2018-12-26 17:01 | NUR ---
PT ARRIVED TO UNIT VIA WHEELCHAIR ACCOMPANIED BY HOSPITAL STAFF. PT IS A MIN ASSIST FROM BED TO WHEELCHAIR. PT HAS MULTIPLE SORES TO ABD. PT HAS A RASH ON HIS FACE AND BACK. PT HAS BRUISING TO BUE FROM BLOOD DRAWS AND IV'S. PT IS ALERT AND ORIENTED X3 WITH SOME CONFUSION AT TIMES. PT ORIENTED TO ROOM AND REHAB SCHEDULE. PT DENIES NEEDS. WCTM.
[2018-12-26 21:29] VITALS: BP 117/70
--- NOTE | 2018-12-26 22:20 | NUR ---
PATIENT RECEIVED SITTING UP IN BED WATCHING TV. ASSESSMENT & VITAL SIGNS. ALARM ON. BED LOW. CALL LIGHT WITHIN REACH. WILL CONTINUE TO MONITOR.
--- NOTE | 2018-12-27 04:18 | NUR ---
PT IN BED LOW POS, EYES CLOSED, AROUSES EASILY TO VOICE, FLUIDS AND CALL LIGHT WITHIN REACH, NO NEEDS NOTED
[2018-12-27 07:58] VITALS: BP 124/63
--- NOTE | 2018-12-27 08:00 | NUR ---
PATIENT IS ALERT/CONFUSED. BED ALARM ON. CALL LIGTH WITHIN REACH. VOICES NO NEEDS AT THIS TIME. WILL CONTINUE WITH PLAN OF CARE
[2018-12-27 08:31] LABS: BASOPHILS 0.4 % (0-2); EOSINOPHILS 0.3 % (0-7); HEMATOCRIT 32.6 % (42.0-54.0); HEMOGLOBIN 9.8 g/dL (13.5-17.5); IMMATURE GRANULOCYTES 0.3 % (0-5); LYMPHOCYTES 20.4 % (15-50); MCH 23.9 pg (26.0-34.0); MCHC 30.1 g/dL (31.0-37.0); MCV 79.5 fL (80.0-100.0); MEAN PLATELET VOLUME 10.4 fL (7.4-10.4); MONOCYTES 10.8 % (2-11); NEUTROPHILS 67.8 % (40-80); PLATELET COUNT 554 10x3/uL (130-400); RDW 20.2 % (11.5-14.5)
[2018-12-27 08:41] LABS: CALC OSMOLALITY 278 mosm/kg (275-300); CALCIUM 8.5 mg/dL (8.5-10.1); CARBON DIOXIDE 27.9 mmol/L (21.0-32.0); CHLORIDE - SERUM 101 mmol/L (98-107); CREATININE - SERUM 0.9 mg/dL (0.6-1.3); GLUCOSE 106 mg/dL (74-106); SODIUM 138 mmol/L (136-145); UREA NITROGEN 21 mg/dL (7-18); eGFR NON AFRICAN AMERICAN 89 mL/min (90-120)
--- NOTE | 2018-12-27 10:23 | NUR ---
PATIENT UP IN WHEELCHAIR WITH HELP FROM PHYSICAL THERAPIST
--- NOTE | 2018-12-27 12:33 | NUR ---
PATIENT SITTING UP IN WHEELCHAIR TO EAT LUNCH. CHAIR ALARM ON. CALL LIGHT WITHIN REACH
[2018-12-27 13:13] VITALS: Ht 180.3 cm; Wt 90.3 kg
--- NOTE | 2018-12-27 19:25 | NUR ---
GREETED PATIENT AND INTRODUCED MYSELF. PATIENT IS LAYING IN BED WATCHING TV AND DENIES ANY NEEDS AT THIS TIME. CALL LIGHT IN REACH.
[2018-12-27 20:02] VITALS: BP 130/69
--- NOTE | 2018-12-27 23:14 | NUR ---
PT ON BIPAP 16/, 10, 40%
--- NOTE | 2018-12-27 23:32 | NUR ---
PATIENT KEEPS REMOVING BIPAP MACHINE. PATIENT STATES THAT IS FREEZING HIS SINUSES.
--- NOTE | 2018-12-28 00:06 | NUR ---
PATIENT SHELL MAKER LOCKSTITCH LIGHT AND DEMANDING TO HAVE BIPAP TAKEN OFF.
--- NOTE | 2018-12-28 03:41 | NUR ---
PATIENT ASLEEP LAYING IN SUPINE POSITION. HOB AT 30 DEGREES. O2 AT 2L VIA NC IN USE. RESPIRATIONS EVEN. NO S/S OF DISTRESS. CALL LIGHT IN REACH.
--- NOTE | 2018-12-28 07:46 | NUR ---
RESTING QUIETLY IN BED. EYES CLOSED. NO S/S DISTRESS. CALL LIGHT IN REACH
[2018-12-28 08:01] VITALS: BP 130/67
--- NOTE | 2018-12-28 11:01 | NUR ---
PATIENT ADMITTED TO REHAB FROM ACUTE FLOOR. DR. SANTOS IS HIS PCP. DME AT HOME IS A CANE, A ROLLING WALKER AND A NEBULIZER. DISCHARGE PLANS ARE FOR HIM TO RETURN HOME WITH HIS GIRLFRIEND. WILL CONTINUE TO FOLLOW WITH PATIENT.
--- NOTE | 2018-12-28 12:48 | NUR ---
SITTING UP IN BED EATING LUNCH. MAKES STATESMENTS THAT DO NOT MAKE SENSE. IS COMPLIANT AND COOPERATIVE. CALL LIGHT IN REACH
--- NOTE | 2018-12-28 18:41 | NUR ---
SITTING IN WC IN ROOM WATCHING TV. DENIES NEEDS OR C/O. CALL LIGHT IN REACH
[2018-12-28 19:00] VITALS: BP 122/59
--- NOTE | 2018-12-28 19:25 | NUR ---
PT RESTING QUIETLY EYES CLOSED. BED IN LOW. SIDE RAILS X2. RESP EVEN AND UNLABORED. CAN BE CONFUSED AT TIMES. CONT OF BOWEL AND BLADDER. BED ALARM ON. MIN ASSIST TO BATHROOM. NO SIGNS OF DISTRESS OR PAIN. O2 ON VIA NC AT 2L. WILL CONTINUE TO MONITOR.
--- NOTE | 2018-12-29 01:00 | NUR ---
RESTING IN BED WITH RESPIRATIONS UNLABORED AND NO DISTRESS NOTED. CALL LIGHT IN REACH.
--- NOTE | 2018-12-29 04:53 | NUR ---
PT RESTING QUIETLY. CALL LIGHT IN REACH. NO SIGNS OF DISTRESS OR PAIN. BED IN LOW. BED ALARM ON. WCTM
[2018-12-29 07:20] LABS: BASOPHILS 0.6 % (0-2); EOSINOPHILS 0.3 % (0-7); HEMATOCRIT 31.1 % (42.0-54.0); HEMOGLOBIN 9.5 g/dL (13.5-17.5); IMMATURE GRANULOCYTES 0.2 % (0-5); LYMPHOCYTES 21.8 % (15-50); MCH 24.2 pg (26.0-34.0); MCHC 30.5 g/dL (31.0-37.0); MCV 79.3 fL (80.0-100.0); MEAN PLATELET VOLUME 9.8 fL (7.4-10.4); MONOCYTES 13.1 % (2-11); PLATELET COUNT 485 10x3/uL (130-400); RBC 3.92 10x6/uL (4.20-6.10); RDW 20.4 % (11.5-14.5); WBC 8.9 10x3/uL (4.8-10.8)
[2018-12-29 07:27] LABS: CALC OSMOLALITY 276 mosm/kg (275-300); CALCIUM 8.5 mg/dL (8.5-10.1); CARBON DIOXIDE 27.4 mmol/L (21.0-32.0); CHLORIDE - SERUM 102 mmol/L (98-107); GLUCOSE 83 mg/dL (74-106); POTASSIUM - SERUM 4.1 mmol/L (3.5-5.1); SODIUM 137 mmol/L (136-145); UREA NITROGEN 24 mg/dL (7-18); eGFR NON AFRICAN AMERICAN 79 mL/min (90-120)
[2018-12-29 08:00] VITALS: BP 111/65
--- NOTE | 2018-12-29 12:12 | NUR ---
SITTING IN WC IN ROOM COMBING HAIR. DENIES NEEDS.
--- NOTE | 2018-12-29 15:00 | NUR ---
NUTRITION F//U PT TOLERATING AHA DIET WITH 50 TO 75% INTAKE RECENT MEALS. LAST BM RECORDED ON 12/26/18. WILL CONTINUE TO PROVIDE DIET, MONITOR PT PROGRESS. RD FOLLOWING
--- NOTE | 2018-12-29 15:57 | NUR ---
SITTING IN WC IN ROOM WATCHING TV. COOPERATIVE WITH REQUESTS BUT STILL MAKES BIZARRE STATEMENTS AT TIMES. CALL LIGHT IN REACH
--- NOTE | 2018-12-29 17:44 | NUR ---
SITTING ON SIDE OF BED EATING SUPPER. DENIES NEEDS STILL HAS JORDI BOOTS ON. SPOKE WITH MONSE WOUND NURSE AND WILL NEED TO LEAVE JORDI BOOTS ON TILL 01/01/[address] ZEPEDA. PT DENIES NEEDS.
--- NOTE | 2018-12-29 17:49 | NUR ---
SITTING IN WC IN ROOM EATING SUPPER. DENIES NEEDS. CALL LIGHT IN REACH
--- NOTE | 2018-12-29 19:10 | NUR ---
PATIENT IS IN HIS BED BEING ASSESSED BY HIS NURSE. BED IS DOWN LOW WITH SIDE RAILS UP X2. CALL LIGHT IS IN REACH.
[2018-12-29 20:00] VITALS: BP 129/65
--- NOTE | 2018-12-29 20:00 | NUR ---
PATIENT RECEIVED SITTING UP IN BED WATCHING TV. PATIENT ASSESSMENT & VITAL SIGNS DONE. PATIENT HAD NO C/O PAIN OR DISTRESS. PATIENT REMINDED TO USE CALL LIGHT WITHIN REACH FOR ASSIST. PATIENT BED LOW. ALARM ON. WILL CONTINUE TO MONITOR.
--- NOTE | 2018-12-30 01:47 | NUR ---
PATIENT EYES CLOSED. RESPIRATIONS 18 & EVEN. BED LOW. CALL LIGHT WITHIN REACH. WILL CONTINUE TO MONITOR.
[2018-12-30 08:00] VITALS: BP 135/67
--- NOTE | 2018-12-30 08:00 | NUR ---
SHIFT ASSMT COMPLETED.CL IN REACH.BREAKFAST GIVEN.SITTING UP IN WC.
--- NOTE | 2018-12-30 12:00 | NUR ---
SITTING UP IN WC FOR LUNCH.DENIES NEEDS.
--- NOTE | 2018-12-30 16:00 | NUR ---
IN THERAPY KENA WELL.
--- NOTE | 2018-12-30 19:03 | NUR ---
PATIENT APPEARS TO BE SLEEPING. NO SIGNS OF DISTRESS. BED IS DOWN LOW WITH SIDE RAILS UP X2. CALL LIGHT IS IN REACH.
[2018-12-30 19:34] VITALS: BP 121/65
--- NOTE | 2018-12-30 21:00 | NUR ---
PATIENT RECEIVED SITTING UP IN BED. ASSESSMENT & VITAL SIGNS DONE. PATIENT HAD NO C/O PAIN OR DISTRESS. BED LOW. CALL LIGHT WITHIN REACH. WILL CONTINUE TO MONITOR.
--- NOTE | 2018-12-31 05:13 | NUR ---
PATIENT EYES CLOSED. RESPIRATIONS 18 & EVEN. O2@2LNC. BED LOW. CALL LIGHT WITHIN REACH. WILL CONTINUE TO MONITOR.
[2018-12-31 08:00] VITALS: BP 101/54
--- NOTE | 2018-12-31 08:00 | NUR ---
SHIFT ASSMT COMPLETED.BREAKFAST TRAY GIVEN.CL IN REACH.ASSISTED WITH OPENING JUICE CONTAINER.
--- NOTE | 2018-12-31 11:22 | NUR ---
PT WAS SCANNED AT 942 BY SWAPNIL PRIOR TO GOING TO ER TX WAS GIVEN AT 1122 BY CARLA
--- NOTE | 2018-12-31 12:00 | NUR ---
SITTING UP EATING LUNCH.
--- NOTE | 2018-12-31 16:00 | NUR ---
REMAINS UP IN WC.CL IN REACH.COMPLETED SHOWER AND KENA WELL.
--- NOTE | 2018-12-31 20:52 | NUR ---
THE PATIENT WAS LYING IN BED AND WATCHING TELEVISION WHEN STAFF ENTERED HIS AREA. BED IS IN THE LOW POSITION WITH SIDERAILS X2 AND CALLL LIGHT WITHIN REACH. THE PATIENT DEMONSTRATES APPROPRIATE USE OF A CALL LIGHT. THE PATIENT APPEARS COMFORTABLE WITH NO QUESTIONS OR CONCERNS AT THIS TIME.
[2018-12-31 22:38] VITALS: BP 151/74
--- NOTE | 2019-01-01 02:47 | NUR ---
THE PATIENT IS AWAKE AND TALKING TO STAFF. HE HAS NO QUESTIONS OR CONCERNS AT THIS TIME.
[2019-01-01 08:00] VITALS: BP 101/54
[2019-01-01 08:34] LABS: BASOPHILS 0.2 % (0-2); EOSINOPHILS 0.7 % (0-7); HEMATOCRIT 32.5 % (42.0-54.0); HEMOGLOBIN 10.1 g/dL (13.5-17.5); IMMATURE GRANULOCYTES 0.3 % (0-5); LYMPHOCYTES 22.4 % (15-50); MCH 24.7 pg (26.0-34.0); MCHC 31.1 g/dL (31.0-37.0); MCV 79.5 fL (80.0-100.0); MEAN PLATELET VOLUME 9.4 fL (7.4-10.4); MONOCYTES 8.5 % (2-11); NEUTROPHILS 67.9 % (40-80); RBC 4.09 10x6/uL (4.20-6.10); RDW 20.1 % (11.5-14.5)
[2019-01-01 08:38] LABS: PLATELET COUNT 377 10x3/uL (130-400)
[2019-01-01 08:48] LABS: CALC OSMOLALITY 281 mosm/kg (275-300); CALCIUM 8.7 mg/dL (8.5-10.1); CARBON DIOXIDE 29.1 mmol/L (21.0-32.0); CHLORIDE - SERUM 102 mmol/L (98-107); GLUCOSE 119 mg/dL (74-106); POTASSIUM - SERUM 3.9 mmol/L (3.5-5.1); SODIUM 139 mmol/L (136-145); UREA NITROGEN 21 mg/dL (7-18); eGFR NON AFRICAN AMERICAN 79 mL/min (90-120)
--- NOTE | 2019-01-01 09:58 | RHP ---
PATIENT: BENJAMIN KNOWLES MEDICAL RECORD: [id number] ACCOUNT: [id number] LOCATION:[facility]1115 : 50 ADMISSION DATE: 12/26/18 REHABILITATION HISTORY AND PHYSICAL EXAMINATION POST ADMISSION PHYSICIAN EXAMINATION POST ADMISSION PHYSICAL EXAMINATION AND HISTORY AND PHYSICAL DATE OF ADMISSION: 12/26/2018 ADMITTING DIAGNOSIS: Acute metabolic encephalopathy. HISTORY OF PRESENT ILLNESS: The patient admitted to the inpatient rehabilitation for acute metabolic encephalopathy. He is 68-year-old gentleman, who presented to the ED on 12/13 with AMS, originally for blood pressure problems and was found to be in respiratory distress. He was placed on 100% nonrebreather with of sats 96%. He has got a history of hyperlipidemia, hypertension, COPD, depression, anxiety, previous tobacco use, and alcohol use. His respiratory status continue to deteriorate. He was placed on BiPAP. Chest x-ray was consistent with pulmonary edema, possibly pneumonia, and small left pleural effusion. He has a quill reamer, who was following him during his stay and weaned him down to 2-3 liters of O2 via nasal cannula. He has been profoundly anemic with an H&H of 7 and 24 and was transfused 3 units. He has no history of cardiac or CHF prior to this. Cardiology was consulted during his stay and saw him. He is currently on telemetry with supplemental O2. He continues to be in shortness of breath. He is on IV Solu-Medrol. Has acute confusion, deconditioning, debility, impaired mobility, high fall risk, and self-care deficits. These are all barriers to discharge. The patient lives with his significant other and her son. He was moderately independent for mobility and independent with his ADLs. Currently set up for mod assist for his ADLs and mod assist to total assist for mobility. He and his girlfriend plan for him to return home at his prior level of functioning after his inpatient stay here. He has been here before and done pretty well. He is a pretty nice gentleman. Comorbidities in this patient include multifocal pneumonia, mjrbv-td-gnihtat hypoxic/hypercapnic respiratory failure, respiratory acidosis, acute metabolic encephalopathy, microcytic anemia, acute kidney injury, thrombocytosis. He has got COPD, previous tobacco use, depression, cough, history of chronic ETOH use, profound anemia, gastritis, deconditioning, debility, impaired mobility, and confusion. PAST MEDICAL HISTORY: In this gentleman is consistent for hyperlipidemia, hypertension, COPD, pneumonia, O2 dependence, depression, tobacco use, alcohol use, and tremor. PAST SURGICAL HISTORY: None. ALLERGIES: No known drug allergies. CURRENT MEDICATIONS: Include Zoloft 50 mg daily, prednisone 40 mg on a taper. He is on Protonix 40 mg daily, Floranex 460 daily. He is on Lovenox 40 mg subcutaneous daily. He is on electrolyte protocol for replacement of his potassium and also his mag. He is on Tessalon Perles 200 mg t.i.d., MiraLax 17 grams in 8 ounces of water b.i.d., Singulair 10 mg at bedtime, Mucinex 1 tab b.i.d. p.r.n., Colace 100 mg b.i.d., budesonide 0.5 mg b.i.d., Brovana 15 mcg b.i.d., and Tylenol 650 mg every 6 hours p.r.n. HISTORY AND PHYSICAL [id number] BENJAMIN KNOWLES HABITS: Does have a history of alcohol and tobacco use. FAMILY HISTORY: Noncontributory. SOCIAL HISTORY: The patient would like to return home with his girlfriend and get back to his prior level of function. REVIEW OF SYSTEMS: GENERAL: Does complain of weakness and fatigue. HEENT: Denies cold, cough, or congestion. CARDIOVASCULAR: Denies any chest pain. PHYSICAL EXAMINATION: VITAL SIGNS: Stable, afebrile. GENERAL: A well-developed gentleman, in no acute distress upon exam. HEENT: Normocephalic and atraumatic. Mucosa moist. NECK: Supple. No lymphadenopathy. LUNGS: Clear. HEART: Regular rate and rhythm. ABDOMEN: Benign. EXTREMITIES: No clubbing, cyanosis or edema. NEUROLOGIC: He does have noted weakness. LABORATORY DATA: His white count is 10.0, H&H of 9.8 and 32.7, and platelet count is 554. His sodium is 138, potassium 4.0, BUN and creatinine of 21 and 0.9, blood sugar is noted to be 106. ASSESSMENT: This is a 68-year-old gentleman admitted to the rehab with a working diagnosis of metabolic encephalopathy. The patient has potential to make improvement. We will institute the following multidisciplinary therapies including, but not limited to, physical, occupational, respiratory, speech, nutritional services, prosthetics, and orthotics. Given his complex medical condition and risk for more complications, rehabilitation services cannot be provided at a lower level of care such as a skilled nurse facility. PLAN: 1. Admit to [facility] for inpatient therapy to include the following disciplines; A. Physical therapy to improve gait, all transfer skills, and bed mobility to modified independent level. B. Occupational therapy to improve activities of daily living to a modified independent level. C. Case management to assist with discharge planning and placement options. D. Nutrition to assist with nutritional needs. E. Rehabilitation nursing to assist in monitoring the patient's underlying medical conditions and to assist with any type of bowel or bladder management. 2. The patient's current medications and medical care will be continued. 3. The patient will be placed on standard fall precautions. 4. The patient's estimated length of stay is approximately 7-10 days. 5. We will watch for any signs of DTs during his stay. We will work on strength. I will discuss with care team. TRANSINT:[id number] Voice Confirmation ID: [id number] DOCUMENT ID: [id number] HISTORY AND PHYSICAL [id number] BENJAMIN KNOWLES notes whether there has been none or any medical/functional change since admission: - No change since preadmission screen. AUNG attests patient continues to be appropriate for IRF: - Continues to be appropriate. JAYA SANTOS MD at 0958 CC: [id number] DICTATION DATE: 12/27/18 0845 DEPARTMENT CLERK: 12/27/[address] [facility] [address] [id number]
--- NOTE | 2019-01-01 10:37 | NUR ---
PATIENT UP SITTING IN WHEELCHAIR THIS MORNING WAITING FOR BREAKFAST. ALERT AND ORIENTED. ATE 100% OF BREAKFAST. NO COMPLAINTS OF PAIN OR DISCOMFORT THIS MORNING. WATCHING TV IN HIS ROOM AT THIS TIME. CALL LIGHT WITHIN REACH. WILL CONTINUE TO MONITOR.
--- NOTE | 2019-01-01 13:06 | NUR ---
DENIES ANY PAIN OR DISCOMFORT. ATE 100% OF LUNCH. WILL CONTINUE TO MONITOR. CALL LIGHT WITHIN REACH.
--- NOTE | 2019-01-01 15:50 | NUR ---
PATIENT SITTING UP IN WHEELCHAIR IN ROOM. NO COMPLAINTS AT THIS TIME. WILL CONTINUE TO MONITOR. IS ANXIOUS TO GO HOME.
[2019-01-01 19:00] VITALS: BP 107/63
--- NOTE | 2019-01-01 21:00 | NUR ---
PT IS SITTING IN HIS WC IN HIS ROOM WATCHING TV. NO NEEDS OR COMPLAINTS VOICED. CALL LIGHT AND BEDSIDE TABLE ARE WITHIN EASY REACH.
--- NOTE | 2019-01-02 00:09 | NUR ---
RESTING QUIETLY IN BED WITH EYES CLOSED. NO DISTRESS NOTED.
[2019-01-02 08:00] VITALS: BP 122/67
--- NOTE | 2019-01-02 13:30 | NUR ---
Nutrition Follow Up: Pt stated that his appetite was great. RD encouraged pt to continue with good po intake and to make staff aware of food preferences. Diet: AHA PO Intake: 92% meal avg BM: 01/01/19 Meds and labs reviewed Rec continue current diet. RD following.
--- NOTE | 2019-01-02 17:57 | NUR ---
PT RESTING IN BED WITH EYES OPEN CALL LIGHT IN REACH WILL MONITER
[2019-01-02 19:00] VITALS: BP 119/68
--- NOTE | 2019-01-02 19:45 | NUR ---
PATIENT RECEIVED SITTING UP IN WHEELCHAIR. PATIENT VITAL SIGNS & ASSESSMENT DONE. PATIENT HAD NO C/O PAIN OR DISTRESS. CALL LIGHT WITHIN REACH. WILL CONTINUE TO MONITOR.
--- NOTE | 2019-01-03 01:41 | NUR ---
RESTING IN BED WITH NO DISTRESS NOTED. CALL LIGHT IN REACH.
--- NOTE | 2019-01-03 03:59 | NUR ---
PATIENT EYES CLOSED. RESPIRATIONS 18 & EVEN. ZAMAN PATENT WITH YELLOW COLORED URINE. BED LOW. CALL LIGHT WITHIN REACH. WILL CONTINUE TO MONITOR.
--- NOTE | 2019-01-03 04:02 | NUR ---
PATIENT AWAKE SITTING IN CHAIR WATCHING TV. PATIENT CALL LIGHT WITHIN REACH. WILL CONTINUE TO MONITOR.
--- NOTE | 2019-01-03 08:00 | NUR ---
PT UP IN WHEELCHAIR IN ROOM EATING BREAKFAST TOLERATING WELL WILL MONITER
[2019-01-03 08:06] LABS: BASOPHILS 0.2 % (0-2); EOSINOPHILS 1.6 % (0-7); HEMATOCRIT 29.9 % (42.0-54.0); IMMATURE GRANULOCYTES 0.3 % (0-5); LYMPHOCYTES 20.7 % (15-50); MCH 24.1 pg (26.0-34.0); MCHC 30.1 g/dL (31.0-37.0); MCV 80.2 fL (80.0-100.0); MEAN PLATELET VOLUME 10.1 fL (7.4-10.4); MONOCYTES 10.4 % (2-11); NEUTROPHILS 66.8 % (40-80); PLATELET COUNT 321 10x3/uL (130-400); RBC 3.73 10x6/uL (4.20-6.10); RDW 20.2 % (11.5-14.5); WBC 9.5 10x3/uL (4.8-10.8)
[2019-01-03 08:08] LABS: CALC OSMOLALITY 280 mosm/kg (275-300); CALCIUM 8.5 mg/dL (8.5-10.1); CARBON DIOXIDE 28.7 mmol/L (21.0-32.0); CHLORIDE - SERUM 104 mmol/L (98-107); CREATININE - SERUM 0.8 mg/dL (0.6-1.3); GLUCOSE 81 mg/dL (74-106); POTASSIUM - SERUM 4.1 mmol/L (3.5-5.1); SODIUM 140 mmol/L (136-145); UREA NITROGEN 22 mg/dL (7-18); eGFR NON AFRICAN AMERICAN > 90 mL/min (90-120)
--- NOTE | 2019-01-03 10:36 | NUR ---
PATIENT DISCHARGING HOME TODAY WITH FAMILY. [facility] WILL RESUME CARE AT HOME. [facility] WILL FOLLOW WITH PATIENT AT HOME. [facility] WILL DELIVER O2 TO PATIENT. PATIENT WILL SEE DR. SANTOS NEEDED. DR. RESENDEZ 01/18/19 @ 3:30. PATIENT CHOICE FORM AND [facility] FORMS SIGNED, COPY GIVEN TO PATIENT AND FILED IN CHART. DISCHARGE INSTRUCTIONS WITH [facility] DATA FAXED TO PCP, HOME HEALTH AND REVIEWED WITH PATIENT.
--- NOTE | 2019-01-03 13:30 | NUR ---
PT DISCHARGED TO HOME VIA WHEELCHAIR WITH FAMILYY [facility] CALLED INTO [facility] DISCHARGE SUMMARY AND MEDS REVIEWED WITH PT NO QUESTIONS OR CONCERNS
[2019-01-03 14:00] VITALS: BP 107/57
== END 2019-01-03 16:03 | disposition home health service (06) | DRG 70 ==
LOC: D.REHAB 15:40
PROVIDERS: ADMIT Emergency Medicine; ATTEND Emergency Medicine
DX: G93.41 Metabolic encephalopathy (principal); J18.9 Pneumonia, unspecified organism; J96.21 Acute and chronic respiratory failure with hypoxia; J96.22 Acute and chronic respiratory failure with hypercapnia; I50.23 Acute on chronic systolic (congestive) heart failure; E87.2 Acidosis; N17.9 Acute kidney failure, unspecified; J44.1 Chronic obstructive pulmonary disease with (acute) exacerbation; D50.9 Iron deficiency anemia, unspecified; R53.81 Other malaise; I11.0 Hypertensive heart disease with heart failure; R41.0 Disorientation, unspecified; F32.9 Major depressive disorder, single episode, unspecified; E78.5 Hyperlipidemia, unspecified; D69.6 Thrombocytopenia, unspecified; Z72.89 Other problems related to lifestyle

== ENCOUNTER 2019-02-06 14:07 | Inpatient (IN) | payer MEDICARE ==
[~2019-02-06] VITALS: Ht 180.3 cm; Wt 68.0 kg
--- NOTE | 2019-02-06 15:15 | NUR ---
RECEIVED PT FROM ER VIA STRETCHER ACCOMPANIED BY HOSPITAL STAFF. ALERT AND ORIENTED. NO C/O PAIN. NO S/S OF ACUTE DISTRESS NOTED. IV TO LEFT AC, SL. SITE PATENT WITHOUT REDNESS OR SWELLING. PT DENIES ANYTHING FURTHER AT THIS TIME. CALL LIGHT IN REACH. WILL CONTINUE TO MONITOR.
[2019-02-06 15:25] LABS: ALBUMIN 2.2 g/dL (3.4-5.0); ALKALINE PHOSPHATASE 128 U/L (46-116); ALT (SGPT) 18 U/L (10-68); BILIRUBIN - TOTAL 0.47 mg/dL (0.2-1.3); CALC OSMOLALITY 285 mosm/kg (275-300); CALCIUM 8.4 mg/dL (8.5-10.1); CARBON DIOXIDE 23.1 mmol/L (21.0-32.0); CHLORIDE - SERUM 105 mmol/L (98-107); GLUCOSE 100 mg/dL (74-106); POTASSIUM - SERUM 4.6 mmol/L (3.5-5.1); PROTEIN - SERUM 7.2 g/dL (6.4-8.2); SODIUM 138 mmol/L (136-145); UREA NITROGEN 40 mg/dL (7-18); eGFR NON AFRICAN AMERICAN 35 mL/min (90-120)
[2019-02-06 15:31] LABS: APTT 29.5 SECONDS (22.8-39.4)
[2019-02-06 15:34] LABS: INR 1.35 (0.85-1.17); PROTIME 16.1 SECONDS (11.6-15.0)
[2019-02-06 15:37] LABS: CKMB 0.5 U/L (0.0-3.6); CREATINE KINASE 27 UL (21-232); MAGNESIUM - SERUM 1.8 mg/dL (1.8-2.4); THYROID STIMULATING HORMONE 2.01 uIU/mL (0.36-3.74)
[2019-02-06 15:38] LABS: TROPONIN-I < 0.017 ng/mL (0.000-0.060)
[2019-02-06 15:44] LABS: HEMATOCRIT 21.5 % (42.0-54.0); HEMOGLOBIN 6.7 g/dL (13.5-17.5); MCH 24.9 pg (26.0-34.0); MCHC 31.2 g/dL (31.0-37.0); MCV 79.9 fL (80.0-100.0); RBC 2.69 10x6/uL (4.20-6.10); RDW 22.1 % (11.5-14.5); WBC 20.2 10x3/uL (4.8-10.8)
[2019-02-06 15:45] LABS: MEAN PLATELET VOLUME 9.6 fL (7.4-10.4); PLATELET COUNT 717 10x3/uL (130-400)
[2019-02-06 15:47] LABS: UDS - AMPHET NEGATIVE QUAL (NEGATIVE); UDS - BARB NEGATIVE QUAL (NEGATIVE); UDS - BENZO NEGATIVE QUAL (NEGATIVE); UDS - COCAINE NEGATIVE QUAL (NEGATIVE); UDS - OPIATE NEGATIVE QUAL (NEGATIVE); UDS - PCP NEGATIVE QUAL (NEGATIVE); UDS - THC NEGATIVE QUAL (NEGATIVE)
--- NOTE | 2019-02-06 16:05 | NUR ---
OCCULT BLOOD STOOL SAMPLE POSITIVE, TREATING PROVIDER NOTIFIED.
[2019-02-06 16:06] LABS: APPEARANCE HAZY (CLEAR); BILIRUBIN NEGATIVE (NEGATIVE); COLOR YELLOW (YELLOW); GLUCOSE NEGATIVE (NEGATIVE); KETONE NEGATIVE (NEGATIVE); NITRITE POSITIVE (NEGATIVE); PROTEIN 1+ mg/dL (NEGATIVE); SPECIFIC GRAVITY 1.015 (1.005-1.020); UROBILINOGEN NORMAL (NORMAL)
[2019-02-06 16:07] LABS: BACTERIA MANY /hpf (NONE SEEN); RED CELLS - URINE OCC /hpf (0-5); WHITE CELLS - URINE >50 /hpf (0-5)
[2019-02-06 17:06] VITALS: BP 142/84
[2019-02-06 17:16] LABS: EOSINOPHILS 2 % (0-7); LYMPHOCYTES 14 % (15-50); MONOCYTES 1 % (2-11); NEUTROPHILS 83 % (40-80)
[2019-02-06 17:17] LABS: PLATELET ESTIMATE INCREASED
--- NOTE | 2019-02-06 18:34 | NUR ---
I have reviewed this patient and I concur with the Shift Assessment completed by the Licensed Practical Nurse today this shift.
[2019-02-06 19:34] LABS: % SATURATION 3 % (15-55); IRON 10 ug/dl (35-150); TOTAL IRON BIND CAPACITY 267 ug/dl (260-445); UNSAT IRON BIND CAPACITY 257 ug/dl (150-375)
[2019-02-06 20:00] VITALS: BP 140/70
[2019-02-07] VITALS: BP 131/63
[2019-02-07 07:08] VITALS: BMI 20.9
[2019-02-07 07:36] LABS: BASOPHILS 0.2 % (0-2); EOSINOPHILS 0.3 % (0-7); IMMATURE GRANULOCYTES 1.6 % (0-5); LYMPHOCYTES 8.8 % (15-50); MCH 25.7 pg (26.0-34.0); MCHC 31.3 g/dL (31.0-37.0); MEAN PLATELET VOLUME 9.7 fL (7.4-10.4); MONOCYTES 6.3 % (2-11); NEUTROPHILS 82.8 % (40-80); PLATELET COUNT 624 10x3/uL (130-400); RDW 20.2 % (11.5-14.5); WBC 19.9 10x3/uL (4.8-10.8)
[2019-02-07 07:40] LABS: HEMATOCRIT 27.5 % (42.0-54.0); HEMOGLOBIN 8.6 g/dL (13.5-17.5); MCV 82.3 fL (80.0-100.0); RBC 3.34 10x6/uL (4.20-6.10)
[2019-02-07 07:53] VITALS: BP 130/61
[2019-02-07 07:56] LABS: ALBUMIN 2.3 g/dL (3.4-5.0); ANION GAP 13.4 mmol/L (8-16); BILIRUBIN - TOTAL 0.38 mg/dL (0.2-1.3); CARBON DIOXIDE 23.3 mmol/L (21.0-32.0); CREATININE - SERUM 2.2 mg/dL (0.6-1.3); MAGNESIUM - SERUM 2.1 mg/dL (1.8-2.4); POTASSIUM - SERUM 4.7 mmol/L (3.5-5.1); PROTEIN - SERUM 7.3 g/dL (6.4-8.2)
--- NOTE | 2019-02-07 10:06 | NUR ---
LUDWIG FROM LAB CALLED TO REPORT THAT PREVIOUS MICRO RESULT OF GRAM + RODS WAS ERRONIOUS; RESULT WAS ACTUALLY GRAM - RODS.
[2019-02-07 11:58] VITALS: BP 136/58
[2019-02-07 14:26] VITALS: BMI 20.9
[2019-02-07 14:55] VITALS: Ht 180.3 cm; Wt 68.0 kg
--- NOTE | 2019-02-07 15:57 | NUR ---
I have reviewed this patient and I concur with the Shift Assessment completed by the Licensed Practical Nurse today this shift.
[2019-02-07 16:42] VITALS: BP 132/64
--- NOTE | 2019-02-07 17:50 | NUR ---
PATIENT RESTING COMFORTABLY. TWITCHING WHILE ASLEEP. NO SIGNS OF DISTRESS. ALL NEEDS MET AT THIS TIME.
[2019-02-08 06:55] LABS: HEMOGLOBIN 7.8 g/dL (13.5-17.5); MCH 25.4 pg (26.0-34.0); MCHC 31.2 g/dL (31.0-37.0); MCV 81.4 fL (80.0-100.0); MEAN PLATELET VOLUME 9.5 fL (7.4-10.4); PLATELET COUNT 540 10x3/uL (130-400); RBC 3.07 10x6/uL (4.20-6.10); RDW 20.3 % (11.5-14.5)
[2019-02-08 07:06] LABS: WBC 12.9 10x3/uL (4.8-10.8)
[2019-02-08 07:21] LABS: ANION GAP 13.4 mmol/L (8-16); BILIRUBIN - TOTAL 0.26 mg/dL (0.2-1.3); CALCIUM 8.7 mg/dL (8.5-10.1); CARBON DIOXIDE 24.5 mmol/L (21.0-32.0); CREATININE - SERUM 1.9 mg/dL (0.6-1.3); MAGNESIUM - SERUM 2.1 mg/dL (1.8-2.4); PROTEIN - SERUM 6.6 g/dL (6.4-8.2)
--- NOTE | 2019-02-08 07:24 | NUR ---
i agree with assistant strength coach assessment.
[2019-02-08 07:30] LABS: POTASSIUM - SERUM 3.9 mmol/L (3.5-5.1)
[2019-02-08 08:03] VITALS: BP 146/68
[2019-02-08 08:35] LABS: EOSINOPHILS 4 % (0-7); LYMPHOCYTES 19 % (15-50); MONOCYTES 9 % (2-11); NEUTROPHILS 64 % (40-80)
[2019-02-08 08:39] LABS: ANISOCYTOSIS OCC; HYPOCHROMASIA OCC; POIKILOCYTOSIS OCC; ROULEAUX OCC
[2019-02-08 09:03] LABS: PLATELET ESTIMATE INCREASED
[2019-02-08 10:00] LABS: PATH REVIEW PERIPHERAL SMEAR REVIEWED
[2019-02-08 12:26] VITALS: BP 116/56
--- NOTE | 2019-02-08 12:52 | NUR ---
REPORT RECEIVED FROM JOE [facility] IN [facility]. 1.5 HR DONE. 10,000 UNITS HEPARIN USED. REPORTED LINES ARE WORKING FINE BUT PPATIENT HAVING CLOTTING ISSUES, CLOGGING DIALIZER. 800ML NS TOTASL FLUSH. 0ML FLUID OFF. BP DROPPED TO 93/52 SO CLARIBEL STOPPED PULLING FLUID. WILL GET DIALYSIS AGAIN TOMORROW SCHEDULED.
--- NOTE | 2019-02-08 12:55 | NUR ---
AFTER REPORT RECEIVED FROM PHIL SANFORD IN [facility]. IMAGING CALLED TO LET THEM KNOW PATIENT READY FOR THEM TO GET FROM DIALYSIS FOR ABD ULTRASOUND.
--- NOTE | 2019-02-08 12:56 | MORECARE ---
CASE MANAGEMENT DISCHARGE SUMMARY PATIENT: BENJAMIN KNOWLES UNIT: [id number] ADM DATE: 02/06/19 AGE: 69 : 50 SEX: M ROOM/BED: D.1208 AUTHOR: AMBROSE LAMBERT PHYSICIAN: REFERRING PHYSICIAN: MILTON RAMIREZ MD DATE OF SERVICE: 02/08/19 Discharge Plan Patient Name: BENJAMIN KNOWLES [facility] [facility] 1950 Planned Disposition: Anticipated Discharge Date: Discharge Date: Expected LOS: Initial Reviewer: [email or web address] Initial Review Date: 02/08/2019 Generated: 02/08/19 1:55 pm Patient Name: BENJAMIN KNOWLES Page 04504 at 1256 All edits/amendments must be made on the electronic document DICTATION DATE: 02/08/19 1255 OTOLARYNGOLOGY NURSE: FREDO 02/08/19 1255 RPT#: [id number] DC DATE: STATUS: ADM IN [facility] [address] [place] [address] END OF REPORT
--- NOTE | 2019-02-08 13:05 | MORECARE ---
CASE MANAGEMENT DISCHARGE SUMMARY PATIENT: BENJAMIN KNOWLES UNIT: [id number] ADM DATE: 02/06/19 AGE: 69 : 50 SEX: M ROOM/BED: D.1208 AUTHOR: AMBROSE LAMBERT PHYSICIAN: REFERRING PHYSICIAN: MILTON RAMIREZ MD DATE OF SERVICE: 02/08/19 Discharge Plan Patient Name: BENJAMIN KNOWLES Facility: [facility]:[place] : 1950 Planned Disposition: Anticipated Discharge Date: Discharge Date: Expected LOS: Initial Reviewer: [email or web address] Initial Review Date: 02/08/2019 Generated: 02/08/19 2:05 pm Comments DCP- Discharge Planning Updated by [email or web address]: Norma Jaimes on 02/08/19 11:[address] Patient Name: BENJAMIN KNOWLES Admission Status: ER Accout number: [id number] Admission Date: 02-06-2019 : 1950 Admission Diagnosis:ANEMIA, UNSPECIFIED Attending: MILTON BALDERRAMA Current LOS: 2 Anticipated DC Date: Planned Disposition: Primary Insurance: MEDICARE A & B Discharge Planning Comments: CM MET WITH PATIENT ABOUT DC PLANNING/NEEDS. PATIENT STATES PLANS TO DC TO HOME WHERE HE LIVES WITH HIS GIRLFRIEND. DENIES ANY NEEDS, STATES HAS PLENTY OF FRIENDS AND FAMILY TO HELP HIM. SOMEONE CAN ROVING CHANGER AT TIME OF DISCHARGE. CM TO FOLLOW. President [employer]: Norma Jaimes DCPIA - Discharge Planning Initial Assessment Updated by [email or web address]: Norma Jaimes on 02/08/19 12:56 pm * Is the patient Alert and Oriented? Yes * PCP NONE * Pharmacy [facility] * Preadmission Environment Home with Family * ADLs Independent * Equipment Cane Nebulizer Oxygen * Community resources currently utilized None * Additional services required to return to the preadmission environment? No * Can the patient safely return to the preadmission environment? Yes * Has this patient been hospitalized within the prior 30 days at any hospital? No Last DP export: 02/08/19 11:56 a Patient Name: BENJAMIN KNOWLES Page [phone] at 1305 All edits/amendments must be made on the electronic document DICTATION DATE: 02/08/19 1305 CANE FLUME WATCHMAN: FREDO 02/08/19 1305 RPT#: [id number] DC DATE: STATUS: ADM IN [facility] [address] [place] [address] END OF REPORT
--- NOTE | 2019-02-08 13:26 | NUR ---
I have reviewed this patient and I concur with the Shift Assessment completed by the Licensed Practical Nurse today this shift.
--- NOTE | 2019-02-08 16:07 | MORECARE ---
CASE MANAGEMENT DISCHARGE SUMMARY PATIENT: BENJAMIN KNOWLES UNIT: [id number] ADM DATE: 02/06/19 AGE: 69 : 50 SEX: M ROOM/BED: D.1208 AUTHOR: PETRADOC PHYSICIAN: REFERRING PHYSICIAN: MILTON RAMIREZ MD DATE OF SERVICE: 02/08/19 Discharge Plan Patient Name: BENJAMIN KNOWLES Facility: [facility]:[place] : 1950 Planned Disposition: Anticipated Discharge Date: Discharge Date: Expected LOS: Initial Reviewer: [email or web address] Initial Review Date: 02/08/2019 Generated: 02/08/19 5:07 pm Comments DCP- Discharge Planning Updated by [email or web address]: Nomra Jaimes on 02/08/19 3:[address] Patient Name: BENJAMIN KNOWLES Admission Status: ER Accout number: [id number] Admission Date: 02-06-2019 : 1950 Admission Diagnosis:ANEMIA, UNSPECIFIED Attending: MILTON BALDERRAMA Current LOS: 2 Anticipated DC Date: Planned Disposition: Primary Insurance: MEDICARE A & B Discharge Planning Comments: HEBER FROM [facility] CALLED ME TODAY AND STATES PATIENT IS CURRENT WITH THEM. CM WILL NOTIFY [facility] WHEN HE IS READY FOR DISCHARGE. Temporary Staff Accountant: Norma Jaimes DCP- Discharge Planning Updated by [email or web address]: Norma Jaimes on 02/08/19 11:[address] Patient Name: BENJAMIN KNOWLES Admission Status: ER Accout number: [id number] Admission Date: 02-06-2019 : 1950 Admission Diagnosis:ANEMIA, UNSPECIFIED Attending: MILTON BALDERRAMA Current LOS: 2 Anticipated DC Date: Planned Disposition: Primary Insurance: MEDICARE A & B Discharge Planning Comments: CM MET WITH PATIENT ABOUT DC PLANNING/NEEDS. PATIENT STATES PLANS TO DC TO HOME WHERE HE LIVES WITH HIS GIRLFRIEND. DENIES ANY NEEDS, STATES HAS PLENTY OF FRIENDS AND FAMILY TO HELP HIM. SOMEONE CAN PREPPER AT TIME OF DISCHARGE. CM TO FOLLOW. Temporary Staff Accountant: Norma Jaimes DCPIA - Discharge Planning Initial Assessment Updated by [email or web address]: Norma Jaimes on 02/08/19 12:56 pm * Is the patient Alert and Oriented? Yes * PCP NONE * Pharmacy [facility] * Preadmission Environment Home with Family * ADLs Independent * Equipment Cane Nebulizer Oxygen * Community resources currently utilized None * Additional services required to return to the preadmission environment? No * Can the patient safely return to the preadmission environment? Yes * Has this patient been hospitalized within the prior 30 days at any hospital? No Last DP export: 02/08/19 12:05 p Patient Name: BENJAMIN KNOWLES Page [phone] at 1607 All edits/amendments must be made on the electronic document DICTATION DATE: 02/08/191606 WINE BLENDER: DM 02/08/191606 RPT#: [id number] DC DATE: STATUS: ADM IN [facility] [address] [place] [address] END OF REPORT
--- NOTE | 2019-02-08 17:00 | NUR ---
PATIENT'S IV HAD COME OUT. UNABLE TO RESITE AFTER 3 ATTEMPTS. NO IV ACCESS.
[2019-02-08 17:08] LABS: FOLATE (FOLIC ACID) - SERUM 16.5 ng/mL (>3.0)
[2019-02-08 17:21] VITALS: BP 110/63
[2019-02-08 21:00] VITALS: BP 138/68
--- NOTE | 2019-02-08 23:07 | NUR ---
1930 REPORT RECIEVED, SHIFT ASSESSMENT COMPLETE, PLEASE SEE FLOW SHEETS FOR DETAILS. ATTEMPTED PIV X2 UNSUCCESSFUL. CALLED ER, NO IV NURSE STAFFED THIS EVENING. CALLED ICU, THEY WILL SEND SOMEONE DOWN WHEN THEY CAN. PATIENT AMBULATES SELF WELL. UP TO CHAIR AND TO BED, BACK AND FORTH. TOLERATES ACTIVTY WELL.
--- NOTE | 2019-02-09 07:00 | NUR ---
RESTING QUIETLY IN BED, EYES CLOSED, AROUSES TO VERBAL STIMULI, DENIES NEEDS AT THIS TIME, O2 AT 2 LPM, NO S/S DISTRESS.
[2019-02-09 07:57] LABS: BASOPHILS 0.2 % (0-2); EOSINOPHILS 0.8 % (0-7); HEMATOCRIT 24.7 % (42.0-54.0); HEMOGLOBIN 7.8 g/dL (13.5-17.5); IMMATURE GRANULOCYTES 0.7 % (0-5); LYMPHOCYTES 8.4 % (15-50); MCH 25.9 pg (26.0-34.0); MCHC 31.6 g/dL (31.0-37.0); MCV 82.1 fL (80.0-100.0); MEAN PLATELET VOLUME 9.5 fL (7.4-10.4); NEUTROPHILS 81.9 % (40-80); PLATELET COUNT 529 10x3/uL (130-400); RBC 3.01 10x6/uL (4.20-6.10); RDW 20.2 % (11.5-14.5); WBC 12.7 10x3/uL (4.8-10.8)
[2019-02-09 08:04] VITALS: BP 137/73
[2019-02-09 08:16] LABS: HAPTOGLOBIN 522 mg/dL (34-200)
[2019-02-09 08:22] LABS: ANION GAP 16.1 mmol/L (8-16); BILIRUBIN - TOTAL 0.25 mg/dL (0.2-1.3); CALCIUM 8.5 mg/dL (8.5-10.1); CARBON DIOXIDE 22.9 mmol/L (21.0-32.0); PROTEIN - SERUM 6.8 g/dL (6.4-8.2)
--- NOTE | 2019-02-09 11:43 | NUR ---
PATIENT REFUSED ALL PO MEDS DESPITE MULTIPLE ATTEMPTS.
[2019-02-09 13:00] VITALS: BP 141/71
--- NOTE | 2019-02-09 13:52 | NUR ---
Nutrition Follow Up: Chart reviewed Diet: Regular BM: 02/06/19 Meds and labs reviewed Rec continue current diet. RD following.
--- NOTE | 2019-02-09 17:03 | MORECARE ---
CASE MANAGEMENT DISCHARGE SUMMARY PATIENT: BENJAMIN KNOWLES UNIT: [id number] ADM DATE: 02/06/19 AGE: 69 : 50 SEX: M ROOM/BED: D.1208 AUTHOR: AMBROSE LAMBERT PHYSICIAN: REFERRING PHYSICIAN: MILTON RAMIREZ MD DATE OF SERVICE: 02/09/19 Discharge Plan Patient Name: BENJAMIN KNOWLES Facility: [facility]:[place] : 1950 Planned Disposition: Home Hlth Svc w Plan Readm Anticipated Discharge Date: 02/10/19 Discharge Date: Expected LOS: 4 Initial Reviewer: [email or web address] Initial Review Date: 02/08/2019 Generated: 02/09/19 6:03 pm Comments DCP- Discharge Planning Updated by [email or web address]: Norma Jaimes on 02/09/19 4:[address] Patient Name: BENJAMIN KNOWLES Admission Status: ER Accout number: [id number] Admission Date: 02-06-2019 : 1950 Admission Diagnosis:ANEMIA, UNSPECIFIED Attending: MILTON BALDERRAMA Current LOS: 3 Anticipated DC Date: 02-10-2019 Planned Disposition: Home Hlth Svc w Plan Readm Primary Insurance: MEDICARE A & B Discharge Planning Comments: CM SPOKE WITH PATIENT'S NURSE LIANET TODAY, AND HE STATES PATIENT HAS BEEN REFUSING MEDS ALL DAY. RESPIRATORY ALSO STATES HE IS REFUSING TREATMENTS. PATIENT IS CURRENT WITH [facility], CM OR NURSE TO NOTIFY THEM WHEN HE IS DISCHARGED. CM WILL FOLLOW AND ASSIST NEEDED. Planner/Scheduler: Norma Jaimes DCP- Discharge Planning Updated by [email or web address]: Norma Jaimes on 02/08/19 3:[address] Patient Name: BENJAMIN KNOWLES Admission Status: ER Accout number: [id number] Admission Date: 02-06-2019 : 1950 Admission Diagnosis:ANEMIA, UNSPECIFIED Attending: MILTON BALDERRAMA Current LOS: 2 Anticipated DC Date: Planned Disposition: Primary Insurance: MEDICARE A & B Discharge Planning Comments: HEBER FROM [facility] CALLED ME TODAY AND STATES PATIENT IS CURRENT WITH THEM. CM WILL NOTIFY [facility] WHEN HE IS READY FOR DISCHARGE. Planner/Scheduler: Norma Jaimes DCP- Discharge Planning Updated by [email or web address]: Norma Jaimes on 02/08/19 11:[address] Patient Name: BENJAMIN KNOWLES Admission Status: ER Accout number: [id number] Admission Date: 02-06-2019 : 1950 Admission Diagnosis:ANEMIA, UNSPECIFIED Attending: MILTON BALDERRAMA Current LOS: 2 Anticipated DC Date: Planned Disposition: Primary Insurance: MEDICARE A & B Discharge Planning Comments: CM MET WITH PATIENT ABOUT DC PLANNING/NEEDS. PATIENT STATES PLANS TO DC TO HOME WHERE HE LIVES WITH HIS GIRLFRIEND. DENIES ANY NEEDS, STATES HAS PLENTY OF FRIENDS AND FAMILY TO HELP HIM. SOMEONE CAN CORPORATE STAFF ACCOUNTANT AT TIME OF DISCHARGE. CM TO FOLLOW. Planner/Scheduler: Norma Fiona DCPIA - Discharge Planning Initial Assessment Updated by [email or web address]: Norma Jaimes on 02/08/19 12:56 pm * Is the patient Alert and Oriented? Yes * PCP NONE * Pharmacy [facility] * Preadmission Environment Home with Family * ADLs Independent * Equipment Cane Nebulizer Oxygen * Community resources currently utilized None * Additional services required to return to the preadmission environment? No * Can the patient safely return to the preadmission environment? Yes * Has this patient been hospitalized within the prior 30 days at any hospital? No Last DP export: 02/08/19 3:07 p Patient Name: BENJAMIN KNOWLES Page [id number] at 1703 All edits/amendments must be made on the electronic document DICTATION DATE: 02/09/191702 WEDDING COORDINATOR: FREDO 02/09/191702 RPT#: [id number] DC DATE: STATUS: ADM IN [facility] [address] [place] [address] END OF REPORT
[2019-02-09 19:46] VITALS: BP 113/80; BP 142/69
--- NOTE | 2019-02-09 19:52 | NUR ---
EVENING ROUNDS COMPLETED. REPORT RECEIVED. PT SITTING UP IN BED WITH EYES OPEN, RR EVEN AND UNLABORED. OXYGEN AT 2 LITERS BY NASAL CANNULA. 1/2 NS INFUSING ORDERED THROUGH RIGHT FOREARM PIV. NO S/S OF DISTRESS NOTED. INTRODUCED SELF TO PT. PT DENIES FURTHER NEEDS AT THIS TIME. BED IN LOW POSITION. CALL LIGHT IN REACH. WILL CTM.
[2019-02-10 00:50] VITALS: BP 120/56
--- NOTE | 2019-02-10 04:51 | NUR ---
I have reviewed this patient and I concur with the Shift Assessment completed by the Licensed Practical Nurse today this shift.
[2019-02-10 05:07] VITALS: BP 143/69
--- NOTE | 2019-02-10 05:34 | NUR ---
PT SITTING UP IN BED WITH EYES OPEN, RR EVEN AND UNLABORED. BED IN LOW POSITION. 1/2 NS INFUSING ORDERED THROUGH RIGHT FOREARM PIV. PT DENIES FURTHER NEEDS AT THIS TIME. MORNING MEDICATIONS ADMINISTERED. CALL LIGHT IN REACH. WILL CTM.
[2019-02-10 07:13] LABS: ALBUMIN 2.1 g/dL (3.4-5.0); ANION GAP 14.9 mmol/L (8-16); BILIRUBIN - TOTAL 0.21 mg/dL (0.2-1.3); CALCIUM 8.6 mg/dL (8.5-10.1); CARBON DIOXIDE 24.4 mmol/L (21.0-32.0); CREATININE - SERUM 1.8 mg/dL (0.6-1.3); MAGNESIUM - SERUM 1.9 mg/dL (1.8-2.4); POTASSIUM - SERUM 4.3 mmol/L (3.5-5.1); PROTEIN - SERUM 6.8 g/dL (6.4-8.2)
[2019-02-10 07:38] LABS: BASOPHILS 0.5 % (0-2); EOSINOPHILS 1.1 % (0-7); HEMATOCRIT 24.3 % (42.0-54.0); HEMOGLOBIN 7.6 g/dL (13.5-17.5); IMMATURE GRANULOCYTES 0.7 % (0-5); LYMPHOCYTES 10.2 % (15-50); MCH 25.9 pg (26.0-34.0); MCHC 31.3 g/dL (31.0-37.0); MCV 82.9 fL (80.0-100.0); MEAN PLATELET VOLUME 9.5 fL (7.4-10.4); MONOCYTES 9.4 % (2-11); NEUTROPHILS 78.1 % (40-80); PLATELET COUNT 488 10x3/uL (130-400); RBC 2.93 10x6/uL (4.20-6.10); RDW 19.9 % (11.5-14.5); WBC 10.3 10x3/uL (4.8-10.8)
[2019-02-10 08:02] VITALS: BP 140/72
--- NOTE | 2019-02-10 09:15 | NUR ---
MORNING ASSESSMENT COMPLETE. SEE ASSESSMENT FLOWSHEET FOR FURTHER DETAILS. PT LYING IN BED AAO X4 TO PERSON, PLACE, TIME, AND SITUATION. DENEIS NEEDS AT THIS TIME. CL IN REACH. SIDE RAILS UP X3 FOR PT SAEFTY. BED IN LOWEST POSITION.
[2019-02-10 12:57] VITALS: BP 142/73
--- NOTE | 2019-02-10 13:22 | NUR ---
R FA PIV INFILTRATED. RESITED TO R WRIST- 22G. FLUSHES WELL. SITE C/D/I. PT TOLERATED WELL
[2019-02-10 16:19] VITALS: BP 154/69
--- NOTE | 2019-02-10 17:28 | NUR ---
PT LYING IN BED ASLEEP. NO SIGNS OF DISTRESS NOTED. WILL CONTINUE TO MONITOR PT.
[2019-02-10 18:06] LABS: ADAMTS13 ACTIVITY 58.7 % (>66.8)
--- NOTE | 2019-02-10 19:00 | NUR ---
PT ALERT AND ORIENTED WITH HOB ELEVATED TO A 45 DEGREE ANGLE. WEARING NASAL CANNULA WITH 2 L O2. SHORT OF BREATH UPON EXERTION AND WHEN SPEAKING. DENIES PAIN. RIGHT WRIST IV INFUSING 1/2 NS @ 50. CALL LIGHT IN REACH.
[2019-02-10 20:00] VITALS: BP 114/51
[2019-02-11] VITALS: BP 134/62
--- NOTE | 2019-02-11 01:38 | NUR ---
I have reviewed this patient and I concur with the Shift Assessment completed by the Licensed Practical Nurse today this shift.
[2019-02-11 06:04] LABS: BASOPHILS 0.7 % (0-2); EOSINOPHILS 1.2 % (0-7); HEMATOCRIT 24.3 % (42.0-54.0); IMMATURE GRANULOCYTES 0.9 % (0-5); LYMPHOCYTES 11.5 % (15-50); MCH 25.6 pg (26.0-34.0); MCHC 30.9 g/dL (31.0-37.0); MCV 82.9 fL (80.0-100.0); MEAN PLATELET VOLUME 9.3 fL (7.4-10.4); MONOCYTES 9.6 % (2-11); NEUTROPHILS 76.1 % (40-80); PLATELET COUNT 423 10x3/uL (130-400); RBC 2.93 10x6/uL (4.20-6.10); WBC 10.5 10x3/uL (4.8-10.8)
[2019-02-11 06:24] LABS: HEMOGLOBIN 7.5 g/dL (13.5-17.5)
[2019-02-11 06:51] LABS: ALBUMIN 2.1 g/dL (3.4-5.0); ANION GAP 17.1 mmol/L (8-16); BILIRUBIN - TOTAL 0.18 mg/dL (0.2-1.3); CALCIUM 8.9 mg/dL (8.5-10.1); CARBON DIOXIDE 23.7 mmol/L (21.0-32.0); CREATININE - SERUM 2.1 mg/dL (0.6-1.3); MAGNESIUM - SERUM 2.1 mg/dL (1.8-2.4); POTASSIUM - SERUM 4.8 mmol/L (3.5-5.1); PROTEIN - SERUM 6.9 g/dL (6.4-8.2)
--- NOTE | 2019-02-11 07:37 | NUR ---
MORNING ASSESSMENT COMPLETE. PT LYING IN BED ASLEEP. NO SIGNS OF DISTRESS NOTED. CL IN REACH. SIDE RAILS UP X3 FOR PT SAEFTY. BED IN LOWEST POSITION.
[2019-02-11 07:56] VITALS: BP 135/69
--- NOTE | 2019-02-11 10:18 | NUR ---
PT PULLED OUT PIV TO R WRIST. RESITED 22G TO R INNER FA. FLUSHES WELL. SITE C/D/I,
[2019-02-11 12:06] VITALS: BP 110/51
[2019-02-11 15:56] VITALS: BP 132/65
--- NOTE | 2019-02-11 19:15 | NUR ---
PATIENT REFUSED VITALS FOR 2000
--- NOTE | 2019-02-11 19:18 | NUR ---
PATIENT RESTING IN BED WITH NO S/S OF DISTRESS AND DENIES NEEDS AT THIS TIME. BED IN LOWEST POSITION AND CALL LIGHT WITHIN REACH. ENCOURAGED THE PATIENT TO CALL IF HE HAS NEEDS. WILL CONTINUE TO MONITOR.
[2019-02-11 21:20] LABS: APPEARANCE CLEAR (CLEAR); BILIRUBIN NEGATIVE (NEGATIVE); COLOR STRAW (YELLOW); GLUCOSE NEGATIVE (NEGATIVE); KETONE NEGATIVE (NEGATIVE); NITRITE NEGATIVE (NEGATIVE); PROTEIN NEGATIVE (NEGATIVE); UROBILINOGEN NORMAL (NORMAL)
[2019-02-11 21:21] LABS: BACTERIA FEW /hpf (NONE SEEN); RED CELLS - URINE 0-5 /hpf (0-5); WHITE CELLS - URINE 25-50 /hpf (0-5)
--- NOTE | 2019-02-11 22:25 | NUR ---
PAGED DR. SANTOS, MUD BOSS FOR DR. RAMIREZ, IN REGARDS TO THE PATIENT'S KIDNEY U/S. U/S SHOWED 1607 IN BLADDER. POST VOID U/S SHOED 1526 IN THE BLADDER. THE PATIENT HAS VOIDED ONE ADDITIONAL TIME, 200ML. GAVE PATIENT A URINAL AND INSTRUCTED HIM TO USE IT FOR EACH VOID. PATIENT VERBALIZED UNDERSTANDING
--- NOTE | 2019-02-11 23:25 | NUR ---
PAGED DR. SANTOS IN REGARDS TO PATIENT
--- NOTE | 2019-02-11 23:28 | NUR ---
SPOKE WITH DR. LARA IN REGARDS TO PATIENT'S URINARY RETENTION. DR. LARA STATED TO PLACE A ZAMAN.
--- NOTE | 2019-02-11 23:50 | NUR ---
PLACED 16F ZAMAN CATH IN PATIENT PER ORDERS.
[2019-02-12] VITALS: BP 126/53
[2019-02-12 04:59] VITALS: BP 132/58
[2019-02-12 05:46] LABS: BASOPHILS 0.4 % (0-2); EOSINOPHILS 1.1 % (0-7); HEMATOCRIT 24.1 % (42.0-54.0); IMMATURE GRANULOCYTES 0.8 % (0-5); LYMPHOCYTES 13.6 % (15-50); MCH 25.1 pg (26.0-34.0); MCHC 30.3 g/dL (31.0-37.0); MCV 82.8 fL (80.0-100.0); MEAN PLATELET VOLUME 9.4 fL (7.4-10.4); MONOCYTES 8.8 % (2-11); NEUTROPHILS 75.3 % (40-80); PLATELET COUNT 409 10x3/uL (130-400); RBC 2.91 10x6/uL (4.20-6.10); WBC 10.7 10x3/uL (4.8-10.8)
[2019-02-12 05:49] LABS: HEMOGLOBIN 7.3 g/dL (13.5-17.5)
[2019-02-12 05:59] LABS: ALBUMIN 2.2 g/dL (3.4-5.0); ANION GAP 12.5 mmol/L (8-16); BILIRUBIN - TOTAL 0.13 mg/dL (0.2-1.3); CALCIUM 8.7 mg/dL (8.5-10.1); CARBON DIOXIDE 25.2 mmol/L (21.0-32.0); CREATININE - SERUM 1.8 mg/dL (0.6-1.3); POTASSIUM - SERUM 4.7 mmol/L (3.5-5.1); PROTEIN - SERUM 6.7 g/dL (6.4-8.2)
[2019-02-12 07:26] VITALS: BP 125/54
--- NOTE | 2019-02-12 07:45 | NUR ---
AM ROUNDS COMPLETED. INTRODUCED MYSELF TO PT PRIMARY RN FOR TODAYS SHIFT. PT IS A&O SITTING UP IN BED WAITING ON BREAKFAST. PT STATES HE HAD A GOOD NIGHT OVERALL AND IS FEELING BETTER NOW THAT HE HAS A ZAMAN CATHETER IN PLACE HE HAD A LOT OF RETENTION. PTS HGB STILL LOW, DISCUSSED PLAN OF CARE AND POSSIBLE TRANSFUSION NEED, PT VERBALIZED UNDERSTANDING AND DENIES ANY CURRENT PAIN OR NEEDS AT THIS TIME. CL IN REACH, BED IN LOWEST, SIDE RAILS X2. WILL CTM.
--- NOTE | 2019-02-12 10:15 | NUR ---
EMPTIED ZAMAN CATH OF 650 CLEAR YELLOW URINE. ZAMAN DRAINING OFF L.SIDE OF BED TO GRAVITY. NO CURRENT NEEDS. WILL CTM.
--- NOTE | 2019-02-12 12:31 | NUR ---
PT SITTING UP IN BED EATING LUNCH. DENIES ANY CURRENT PAIN OR NEEDS. PT STATES HE IS FEELING GOOD OVERALL. STILL WAITING TO HEAR ABOUT GETTING A BLOOD TRANSFUSION OR NOT. WILL CPOC.
[2019-02-12 12:39] VITALS: BP 129/57
--- NOTE | 2019-02-12 13:16 | NUR ---
PT VERY DOWN IN THE BED AND DOESNT APPEAR COMFORTABLE. I TRIED TO ASSIST HIM UP IN BED BUT HE STATES HE IS FINE AND DOESNT WANT TOUCHED. PT APPEARS CONFUSED AT TIMES HOWEVER CAN STATE HIS NAME, PLACE, TIME AND SITUATION. JUST STATES RANDOM THINGS AND HAS ALL HIS THINGS IN HIS ROOM DISORGANIZED AND DOESNT LIKE TO BE HELPED. NO CURRENT NEEDS AT THIS TIME, BED A MESS BUT HE WONT LET ME CHANGE IT. WILL CTM.
--- NOTE | 2019-02-12 16:16 | NUR ---
HERE VISITING WITH PT AND REVIEWING LABS AND PLAN OF CARE. PT WILL RECIEVE 2 UNITS OF PRBCS AND VERBALIZED UNDERSTANDING. PT SITTING UP IN BED RESTING QUIETLY. DENIES ANY CURRENT PAIN OR NEEDS AT THIS TIME. CL IN REACH. WILL CTM.
[2019-02-12 16:33] VITALS: BP 136/68
--- NOTE | 2019-02-12 16:39 | NUR ---
PT ONLY HAS A 22 GUAGE AND WILL NEED A NEW PIV 20 GUAGE FOR BLOOD TRANSFUSION. 20 GUAGE INSERTED TO L.FA X1 STICK. EMPTIED PTS ZAMAN BAG OF 1100ML CLEAR YELLOW URINE. PT SITTING UP IN BED RESTING QUIETLY. RR NONLABORED ON RA. NO CURRENT NEEDS. WILL CTM.
--- NOTE | 2019-02-12 18:10 | NUR ---
PT DISCUSSED WITH HIS AND MYSELF AND HAS AGREED TO HAVE THE NEEDED COLONOSCOPY. WILL DISCUSS WITH GI AND FIND OUT ABOUT PLANNING IT. PT VOICED THANKS. IRON TRANSFUSING THEN PT WILL RECIEVE HIS BLOOD TRANSFUSION. NO CURRENT NEEDS. WILL CTM.
--- NOTE | 2019-02-12 19:08 | NUR ---
GREETED PATIENT AND INTRODUCED MYSELF. PATIENT IS LAYING IN BED IN SUPINE POSITION TALKING ON THE PHONE. PATIENT HAD O2 OFF. PUT O2 BACK ON PATIENT TO HELP WITH BREATHING. DENIES ANY PAIN OR OTHER NEEDS AT THIS TIME. CALL LIGHT IN REACH.
[2019-02-12 20:00] VITALS: BP 128/65
--- NOTE | 2019-02-12 20:18 | NUR ---
PATIENT IS VERY RUDE AND DEMANDING. PATIENT CALLED 911 FROM ROOM AND TOLD THE OFFICERS THAT WE WERE HOLDING HIM HOSTAGE. TOLD FILM VAULT SUPERVISOR THAT HE WANTED SOMETHING FOR PAIN. I PULLED TYLENOL 325 AND OFFERED TO ADMINISTER. PATIENT REFUSES TO TAKE MEDICATION.
--- NOTE | 2019-02-12 21:03 | NUR ---
BEGIN TRANSFUSING FIRST UNIT OF PRBC.
--- NOTE | 2019-02-12 23:23 | NUR ---
FIRST TRANSFUSION OF PRBC COMPLETE. POST VITALS. T-98.1, P-86,RR-17, BP 144/75. PATIENT SHOWING NO SIGNS OF REACTION. 1
[2019-02-13] VITALS: BP 144/75
--- NOTE | 2019-02-13 00:42 | NUR ---
STARTING TRANSFUSION OF SECOND BAG OF PRBC. STARTING VITALS T-98.3, P-84, RR-17, BP 125/71, SPO2-96%.
--- NOTE | 2019-02-13 00:59 | NUR ---
PATIENT HAD ROCEPHIN IV DUE AT 2100. WAS UNABLE TO GIVE AT THIS TIME DUE TO ADMINISTRATION OF BLOOD PRODUCTS.
--- NOTE | 2019-02-13 02:16 | NUR ---
PATIENT RESTING QUIETLY WITH EYES CLOSED WHILE 2ND UNIT OF PRBC IS INFUSING. NO S/S OF DISTRESS. SR UP X2. BED IN LOWEST POSITION. CALL LIGHT IN REACH
--- NOTE | 2019-02-13 02:48 | NUR ---
SECOND PRBC TRANSFUSION COMPLETE.
--- NOTE | 2019-02-13 02:53 | NUR ---
PATIENTS POST TRANSFUSION VITALS T-98.3, P-74, RR-18, BP 129/79, SPO2 - 98%.
--- NOTE | 2019-02-13 03:08 | NUR ---
CONTACTED PHOTONICS ENGINEERING TECHNICIAN CONCERNING ROCEPHIN MEDICATION. MEDICATION SHOWS ACTIVE ON PATIENTS MAR BUT IS NOT IN PYXIS.
[2019-02-13 04:00] VITALS: BP 129/79
[2019-02-13 08:20] VITALS: BP 124/60
--- NOTE | 2019-02-13 08:32 | NUR ---
ADMININSTERED MORNING MEDS WHOLE WITHOUT DIFFICULTY. DENIES ANY NEEDS OR PAIN. CONTINUES ON 3L VIA NC. NO SIGNS OF DISTRESS NOTED. CALL LIGHT WITHIN REACH, FALL PRECAUTIONS IN PLACE, WILL CONTINUE TO MONITOR
[2019-02-13 09:57] LABS: BASOPHILS 0.7 % (0-2); EOSINOPHILS 1.6 % (0-7); IMMATURE GRANULOCYTES 0.8 % (0-5); LYMPHOCYTES 10.5 % (15-50); MCH 26.5 pg (26.0-34.0); MCV 82.7 fL (80.0-100.0); MEAN PLATELET VOLUME 9.4 fL (7.4-10.4); MONOCYTES 9.9 % (2-11); NEUTROPHILS 76.5 % (40-80); PLATELET COUNT 367 10x3/uL (130-400); RDW 18.9 % (11.5-14.5); WBC 12.2 10x3/uL (4.8-10.8)
[2019-02-13 10:08] LABS: HEMATOCRIT 30.6 % (42.0-54.0); HEMOGLOBIN 9.8 g/dL (13.5-17.5)
[2019-02-13 10:29] LABS: ANION GAP 11.3 mmol/L (8-16); CALCIUM 9.3 mg/dL (8.5-10.1); CARBON DIOXIDE 29.2 mmol/L (21.0-32.0); CREATININE - SERUM 1.6 mg/dL (0.6-1.3); POTASSIUM - SERUM 4.5 mmol/L (3.5-5.1)
[2019-02-13 13:07] VITALS: BP 113/64
--- NOTE | 2019-02-13 13:30 | NUR ---
PT CALLED AND INQUIRED ABOUT PT HAVING COLONOSCOPY, PT HAS REFUSED TO DO COLONOSCOPY PT STATES "HE DOES NOT WANT TO HAVE PROCEDURE DONE AT THIS HOSPITAL AND NO ONE CAN FORCE HIM TO DO SO" I EXPLAINED TO PT THAT IT IS HIS RIGHT TO REFUSE TREATMENT.
--- NOTE | 2019-02-13 14:53 | NUR ---
Nutrition follow up: Reviewed chart-pt is sleeping now Regular diet with 67% average po intake RD following
[2019-02-13 16:33] VITALS: BP 116/61
--- NOTE | 2019-02-13 18:09 | NUR ---
I have reviewed this patient and I concur with the Shift Assessment completed by the Licensed Practical Nurse today this shift.
--- NOTE | 2019-02-13 20:15 | NUR ---
PT LAYING RT SIDE, REST QUIETLY, CALL LIGHT IN REACH.
[2019-02-13 21:34] VITALS: BP 129/69
[2019-02-14] VITALS: BP 134/72
--- NOTE | 2019-02-14 03:15 | NUR ---
REST QUIETLY IN BED, CALL LIGHT IN REACH.
[2019-02-14 04:00] VITALS: BP 126/58
--- NOTE | 2019-02-14 04:27 | NUR ---
I AGREE WITH THE DESKTOP ENGINEER ASSESSMENT.
--- NOTE | 2019-02-14 06:49 | NUR ---
PT PULL OUT IV. SMALL AMOUNT OF BLOOD IN IV SITE, CLEANED IV SITE, CHANGED GOWN.
[2019-02-14 07:02] LABS: BASOPHILS 0.7 % (0-2); EOSINOPHILS 1.9 % (0-7); HEMOGLOBIN 9.7 g/dL (13.5-17.5); IMMATURE GRANULOCYTES 1.4 % (0-5); LYMPHOCYTES 15.6 % (15-50); MCH 26.1 pg (26.0-34.0); MCHC 31.3 g/dL (31.0-37.0); MCV 83.6 fL (80.0-100.0); MEAN PLATELET VOLUME 9.5 fL (7.4-10.4); MONOCYTES 11.4 % (2-11); PLATELET COUNT 348 10x3/uL (130-400); RBC 3.71 10x6/uL (4.20-6.10); RDW 18.9 % (11.5-14.5); WBC 9.7 10x3/uL (4.8-10.8)
[2019-02-14 07:26] LABS: ANION GAP 10.8 mmol/L (8-16); CALCIUM 9.2 mg/dL (8.5-10.1); CARBON DIOXIDE 29.4 mmol/L (21.0-32.0); CREATININE - SERUM 1.5 mg/dL (0.6-1.3); POTASSIUM - SERUM 4.2 mmol/L (3.5-5.1)
--- NOTE | 2019-02-14 08:00 | NUR ---
PT RESTING IN BED WITH EYES OPEN CALL LIGHT IN REACH WILL MONITER
[2019-02-14 08:56] VITALS: BP 110/67
--- NOTE | 2019-02-14 11:30 | NUR ---
THE PATIENTS SON IS HERE TO VISIT WITH THE PATIENT. HE ASKED TO SPEAK WITH THIS NURSE. THE SON IS UPSET BECAUSE THE PATIENT HAS NOT HAD A COLONOSCOPY YET, THIS IS BECAUSE THE PATIENT HAS REFUSED THE PROCEDURE ON SEVERAL OCCASIONS. THIS NURSE TRIED TO EXPLAIN TO THE SON THAT WE CAN NO FORCE THE PATIENT TO HAVE THE PROCEDURE OR DRINK THE PREP. THE SON IS DEMANDING TO SEE THE DOCTOR AND HE IS UPSET THAT THE DOCTORS DONT PROVIDE US A SCHEDULE, STATING "THIS IS BULLSHIT, AT [facility] THE DOCTOR CAME BETWEEN 8 AND 10 EVERYDAY" I TRIED TO EXPLAIN BUT HE CUT ME OFF, CURSING, STATING "THIS IS FUCKING BULLSHIT, IF YOU ARE GOING TO STAND THERE AND ARGUE WITH ME I WILL TAKE HIM TO [facility]" THEN HE STATED "WHAT IF MY DAD HAD A MASSIVE HEART ATTACK, WHO WOULD TAKE CARE OF HIM, IF THERE IS NO DOCTOR HERE RIGHT NOW" THE RT GIRL SPOKE UP AND EXPLAINED TO HIM "THAT THERE WOULD BE SEVERAL PEOPLE IN THE ROOM HELPING HIS DAD" THIS NURSE CAME TO THE DESK AND CALLED BOTH PATRICIA AND DR MATTHEW, AND DR MATTHEW STATES HE WILL BE HERE WITHIN THE HOUR. ROWENA, AWNING CRAFTSPERSON CAME AND SPOKE TO THE PATIENT AND HIS FAMILY
--- NOTE | 2019-02-14 12:00 | NUR ---
PT SON IN ROOM INQUIRING ABOUT PT HAVING COLONOSCOPY RESCHEDULED. DR MATTHEW CALLED WILL TELL SON
--- NOTE | 2019-02-14 13:56 | MORECARE ---
CASE MANAGEMENT DISCHARGE SUMMARY PATIENT: BENJAMIN KNOWLES UNIT: [id number] ADM DATE: 02/06/19 AGE: 69 : 50 SEX: M ROOM/BED: D.1208 AUTHOR: AMBROSE LAMBERT PHYSICIAN: REFERRING PHYSICIAN: MILTON RAMIREZ MD DATE OF SERVICE: 02/14/19 Discharge Plan Patient Name: BENJAMIN KNOWLES Facility: [facility]:[place] : 1950 Planned Disposition: Home Hlth Svc w Plan Readm Anticipated Discharge Date: 02/10/19 Discharge Date: Expected LOS: 4 Initial Reviewer: [id number] Initial Review Date: 02/08/2019 Generated: 02/14/19 2:56 pm Comments DCP- Discharge Planning Updated by [id number]: Harmony Tidwell on 02/14/19 12:[address] Encounter No: [id number] : 1950 Primary Insurance: MEDICARE A & B Anticipated DC Date: 02-10-2019 Planned Disposition: Home Hlth Svc w Plan Readm External Planned Provider: : [facility] DCP follow-up note: Patient and family in agreement with discharge plan. No changes to plan. Case management will follow and assist as needed. DC IMM PRESENTED, EXPLAINED, AND SIGNED BY THE PATIENT'S SON. PATIENT'S SON ALSO MENTIONED THAT THE PATIENT HAS [facility] . PRISCILA FORM SIGNED BY PATIENT'S SON FOR RESUMPTION OF HH AT DISCHARGE. Patient Name: BENJAMIN KNOWLES Harmony Tidwell RN, [facility] DCP- Discharge Planning Updated by [id number]: Norma Jaimes on 02/09/19 4:[address] Patient Name: BENJAMIN KNOWLES Admission Status: ER Accout number: [id number] Admission Date: 02-06-2019 : 1950 Admission Diagnosis:ANEMIA, UNSPECIFIED Attending: MILTON BALDERRAMA Current LOS: 3 Anticipated DC Date: 02-10-2019 Planned Disposition: Home Hlth Svc w Plan Readm Primary Insurance: MEDICARE A & B Discharge Planning Comments: CM SPOKE WITH PATIENT'S NURSE LIANET TODAY, AND HE STATES PATIENT HAS BEEN REFUSING MEDS ALL DAY. RESPIRATORY ALSO STATES HE IS REFUSING TREATMENTS. PATIENT IS CURRENT WITH [facility], CM OR NURSE TO NOTIFY THEM WHEN HE IS DISCHARGED. CM WILL FOLLOW AND ASSIST NEEDED. Biology Specimen Technician: Norma Jaimes DCP- Discharge Planning Updated by [id number]: Normaronni Jaimes on 02/08/19 3:[address] Patient Name: BENJAMIN KNOWLES Admission Status: ER Accout number: [id number] Admission Date: 02-06-2019 : 1950 Admission Diagnosis:ANEMIA, UNSPECIFIED Attending: MILTON BALDERRAMA Current LOS: 2 Anticipated DC Date: Planned Disposition: Primary Insurance: MEDICARE A & B Discharge Planning Comments: HEBER FROM [facility] CALLED ME TODAY AND STATES PATIENT IS CURRENT WITH THEM. CM WILL NOTIFY [facility] WHEN HE IS READY FOR DISCHARGE. Biology Specimen Technician: Norma Jaimes DCP- Discharge Planning Updated by [id number]: Norma Jaimes on 02/08/19 11:[address] Patient Name: BENJAMIN KNOWLES Admission Status: ER Accout number: [id number] Admission Date: 02-06-2019 : 1950 Admission Diagnosis:ANEMIA, UNSPECIFIED Attending: MILTON BALDERRAMA Current LOS: 2 Anticipated DC Date: Planned Disposition: Primary Insurance: MEDICARE A & B Discharge Planning Comments: CM MET WITH PATIENT ABOUT DC PLANNING/NEEDS. PATIENT STATES PLANS TO DC TO HOME WHERE HE LIVES WITH HIS GIRLFRIEND. DENIES ANY NEEDS, STATES HAS PLENTY OF FRIENDS AND FAMILY TO HELP HIM. SOMEONE CAN INFORMATION CLERK AT TIME OF DISCHARGE. CM TO FOLLOW. Biology Specimen Technician: Norma Jaimes DCPIA - Discharge Planning Initial Assessment Updated by [id number]: Norma Jaimes on 02/08/19 12:56 pm * Is the patient Alert and Oriented? Yes * PCP NONE * Pharmacy [facility] * Preadmission Environment Home with Family * ADLs Independent * Equipment Cane Nebulizer Oxygen * Community resources currently utilized None * Additional services required to return to the preadmission environment? No * Can the patient safely return to the preadmission environment? Yes * Has this patient been hospitalized within the prior 30 days at any hospital? No Coverage Notice Reviewer: [email or web address] Ralph Tidwell Notice Issued Date-Time: 02/14/2019 12:45 Notice Type: IM Discharge Notice Notice Delivered To: Family Member Relationship to Patient: Son Potato Peeler Name: Delivery Method: HAND - Hand Delivered Ashely Days: Prior Verbal Notification: Recipient Understood Notice: Recipient Signature: Med Rec Note Co-signed by Attending: Coverage Notice Comment: Last DP export: 02/09/19 4:03 p Patient Name: BENJAMIN KNOWLES Page [id number] at 1356 All edits/amendments must be made on the electronic document DICTATION DATE: 02/14/19 135 INVENTORY ASSISTANT: FREDO 02/14/19 1358 RPT#: [id number] DC DATE: STATUS: ADM IN [facility] [address] [place] [address] END OF REPORT
--- NOTE | 2019-02-14 14:00 | NUR ---
DR MATTHEW CALLED COLONOSCOPY SCHEDUOLED FOR TOMMORROW SON NOTIFIED
--- NOTE | 2019-02-14 14:54 | MORECARE ---
CASE MANAGEMENT DISCHARGE SUMMARY PATIENT: BENJAMIN KNOWLES UNIT: [id number] ADM DATE: 02/06/19 AGE: 69 : 50 SEX: M ROOM/BED: D.1208 AUTHOR: AMBROSE LAMBERT PHYSICIAN: REFERRING PHYSICIAN: MILTON RAMIREZ MD DATE OF SERVICE: 02/14/19 Discharge Plan Patient Name: BENJAMIN KNOWLES Facility: [facility]:[place] : 1950 Planned Disposition: Home Hlth Svc w Plan Readm Anticipated Discharge Date: 02/10/19 Discharge Date: Expected LOS: 4 Initial Reviewer: [email or web address] Initial Review Date: 02/08/2019 Generated: 02/14/19 3:54 pm Comments DCP- Discharge Planning Updated by [id number]: Harmony Tidwell on 02/14/19 1:[address] Patient Name: BENJAMIN KNOWLES Encounter No: [id number] : 1950 Primary Insurance: MEDICARE A & B Anticipated DC Date: 02-10-2019 Planned Disposition: Home Hlth Svc w Plan Readm External Planned Provider: : DCP follow-up note: Patient and family in agreement with discharge plan. No changes to plan. CM noted that patient has [facility]. Presented PRISCILA form to patient and his son. Explained form and patient's son signed form for resumption of [facility]. Signed form placed in chart and signed form left with patient's son. Case management will follow and assist as needed. Harmony Tidwell RN, [facility] DCP- Discharge Planning Updated by [id number]: Harmony Tidwell on 02/14/19 12:[address] Encounter No: [id number] : 1950 Primary Insurance: MEDICARE A & B Anticipated DC Date: 02-10-2019 Planned Disposition: Home Hlth Svc w Plan Readm External Planned Provider: : [facility] DCP follow-up note: Patient and family in agreement with discharge plan. No changes to plan. Case management will follow and assist as needed. DC IMM PRESENTED, EXPLAINED, AND SIGNED BY THE PATIENT'S SON. PATIENT'S SON ALSO MENTIONED THAT THE PATIENT HAS [facility]. PRISCILA FORM SIGNED BY PATIENT'S SON FOR RESUMPTION OF HH AT DISCHARGE. Patient Name: BENJAMIN KNOWLES Harmony Tidwell RN, [facility] DCP- Discharge Planning Updated by [id number]: Norma Jaimes on 02/09/19 4:[address] Patient Name: BENJAMIN KNOWLES Admission Status: ER Accout number: [id number] Admission Date: 02-06-2019 : 1950 Admission Diagnosis:ANEMIA, UNSPECIFIED Attending: MILTON BALDERRAMA Current LOS: 3 Anticipated DC Date: 02-10-2019 Planned Disposition: Home Hlth Svc w Plan Readm Primary Insurance: MEDICARE A & B Discharge Planning Comments: CM SPOKE WITH PATIENT'S NURSE LIANET TODAY, AND HE STATES PATIENT HAS BEEN REFUSING MEDS ALL DAY. RESPIRATORY ALSO STATES HE IS REFUSING TREATMENTS. PATIENT IS CURRENT WITH [facility], CM OR NURSE TO NOTIFY THEM WHEN HE IS DISCHARGED. CM WILL FOLLOW AND ASSIST NEEDED. Commercial Real Estate Lender: Norma Jaimes DCP- Discharge Planning Updated by [id number]: Normaronni Jaimes on 02/08/19 3:[address] Patient Name: BENJAMIN KNOWLES Admission Status: ER Accout number: [id number] Admission Date: 02-06-2019 : 1950 Admission Diagnosis:ANEMIA, UNSPECIFIED Attending: MILTON BALDERRAMA Current LOS: 2 Anticipated DC Date: Planned Disposition: Primary Insurance: MEDICARE A & B Discharge Planning Comments: HEBER FROM [facility] CALLED ME TODAY AND STATES PATIENT IS CURRENT WITH THEM. CM WILL NOTIFY [place] WHEN HE IS READY FOR DISCHARGE. Commercial Real Estate Lender: Norma Jaimes DCP- Discharge Planning Updated by [id number]: Norma Jaimes on 02/08/19 11:[address] Patient Name: BENJAMIN KNOWLES Admission Status: ER Accout number: [id number] Admission Date: 02-06-2019 : 1950 Admission Diagnosis:ANEMIA, UNSPECIFIED Attending: MILTON BALDERRAMA Current LOS: 2 Anticipated DC Date: Planned Disposition: Primary Insurance: MEDICARE A & B Discharge Planning Comments: CM MET WITH PATIENT ABOUT DC PLANNING/NEEDS. PATIENT STATES PLANS TO DC TO HOME WHERE HE LIVES WITH HIS GIRLFRIEND. DENIES ANY NEEDS, STATES HAS PLENTY OF FRIENDS AND FAMILY TO HELP HIM. SOMEONE CAN HOSPICE COORDINATOR AT TIME OF DISCHARGE. CM TO FOLLOW. Commercial Real Estate Lender: Norma Jaimes DCPIA - Discharge Planning Initial Assessment Updated by [id number]: Norma Jaimes on 02/08/19 12:56 pm * Is the patient Alert and Oriented? Yes * PCP NONE * Pharmacy [facility] * Preadmission Environment Home with Family * ADLs Independent * Equipment Cane Nebulizer Oxygen * Community resources currently utilized None * Additional services required to return to the preadmission environment? No * Can the patient safely return to the preadmission environment? Yes * Has this patient been hospitalized within the prior 30 days at any hospital? No Coverage Notice Reviewer: [id number] Ralph Tidwell Notice Issued Date-Time: 02/14/2019 12:45 Notice Type: IM Discharge Notice Notice Delivered To: Family Member Relationship to Patient: Son Assembler Radio And Electrical Name: Delivery Method: HAND - Hand Delivered Ashely Days: Prior Verbal Notification: Recipient Understood Notice: Recipient Signature: Med Rec Note Co-signed by Attending: Coverage Notice Comment: Last DP export: 02/14/19 12:56 p Patient Name: BENJAMIN KNOWLES Page [phone] at 1454 All edits/amendments must be made on the electronic document DICTATION DATE: 02/14/191452 REPAIR TECH: FREDO 02/14/19 145 RPT#: [id number] DC DATE: STATUS: ADM IN [facility] [address] [place] [address] END OF REPORT
--- NOTE | 2019-02-14 16:00 | NUR ---
PT STARTED GOLYTELE PREP
--- NOTE | 2019-02-14 16:31 | NUR ---
I have reviewed this patient and I concur with the Shift Assessment completed by the Licensed Practical Nurse today this shift.
[2019-02-14 16:39] VITALS: BP 108/59
[2019-02-14 16:52] VITALS: BP 112/62
--- NOTE | 2019-02-14 19:39 | NUR ---
RESUMING PT CARE. PT IS ALERT LAYING IN BED. NO C/O VOICED. NO S/S OF DISTRESS NOTED. BED IN LOW POSITION WITH CALL LIGHT IN REACH. WILL CONTINUE TO MONITOR PT AND FOLLOW PLAN OF CARE.
[2019-02-14 21:00] VITALS: BP 122/75
[2019-02-15] VITALS: BP 114/69; BP 122/75
[2019-02-15 04:00] VITALS: BP 113/64
--- NOTE | 2019-02-15 06:24 | NUR ---
I AGREE WITH VOCATIONAL AUTO BODY INSTRUCTOR ASSESSMENT.
[2019-02-15 06:57] LABS: BASOPHILS 0.5 % (0-2); EOSINOPHILS 2.3 % (0-7); HEMATOCRIT 31.4 % (42.0-54.0); HEMOGLOBIN 9.9 g/dL (13.5-17.5); IMMATURE GRANULOCYTES 1.5 % (0-5); LYMPHOCYTES 17.3 % (15-50); MCH 26.5 pg (26.0-34.0); MCHC 31.5 g/dL (31.0-37.0); MCV 84.2 fL (80.0-100.0); MEAN PLATELET VOLUME 9.5 fL (7.4-10.4); MONOCYTES 11.1 % (2-11); NEUTROPHILS 67.3 % (40-80); PLATELET COUNT 324 10x3/uL (130-400); RBC 3.73 10x6/uL (4.20-6.10); RDW 18.8 % (11.5-14.5); WBC 9.2 10x3/uL (4.8-10.8)
[2019-02-15 07:08] LABS: ANION GAP 14.9 mmol/L (8-16); CALCIUM 8.5 mg/dL (8.5-10.1); CARBON DIOXIDE 27.6 mmol/L (21.0-32.0); CREATININE - SERUM 1.4 mg/dL (0.6-1.3); POTASSIUM - SERUM 4.5 mmol/L (3.5-5.1)
[2019-02-15 09:37] VITALS: BP 104/63
--- NOTE | 2019-02-15 13:43 | NUR ---
Nutrition Follow Up: Pt was asleep at the time of RD visit. Spoke with family member who stated concern over pt not being able to eat for test. RD assured family member that when test was finished and diet was resumed pt would be provided a meal. Diet: NPO (Regular prior to this) PO Intake: 43% meal avg BM: 02/14/19 Labs reviewed Meds noted including Lasix Rec resuming diet when medically feasible. RD following.
[2019-02-15 18:55] VITALS: BP 160/61
[2019-02-15 20:00] VITALS: BP 113/56
--- NOTE | 2019-02-15 20:00 | NUR ---
RECEIVED PT IN BED AAOX2 TO SELF AND PLACE SLIGHT SOB NOTED 02 ON 3 LPM NC ZAMAN CATHETER INTACT CONCENTRATED URINE WILL CONTINUE TO MONITOR
--- NOTE | 2019-02-15 20:25 | NUR ---
LEFT HAND AND RIGHT FOREARM PIV'S REMOVED, TIP INTACT. RIGHT HAND PIV PATENT.
--- NOTE | 2019-02-15 21:24 | NUR ---
GREETED PATIENT AND INTRODUCED MYSELF. PATIENT REPOSTIONED IN BED FOR COMFORT. EVENING MEDICATIONS ADMINISTERED. CALL LIGHT IN REACH.
[2019-02-16] VITALS: BP 118/57
[2019-02-16 04:00] VITALS: BP 110/61
--- NOTE | 2019-02-16 06:20 | NUR ---
DC'D ZAMAN CATHETER. PATIENT TOLERATED PROCEDURE. PATIENT GIVEN A URINAL AND TOLD TO CALL FOR ASSISTANCE IF HE NEEDS TO URINATE. CALL LIGHT IN REACH.
--- NOTE | 2019-02-16 08:00 | NUR ---
AM ROUNDS COMPLETED. PT VERY ANXIOUS TO BE DISCAHRGED AND REFUSED ALL MEDICATIONS AND ME TO EVEN PERFORM MY ASSESSMENT. PAGED PRIMARY TO INQUIRE ABOUT DISCHARGE. THEY STATE HE WILL BE DISCHARGING. D/C PTS R.HAND PIV WITH CATHETER TIP FULLY INTACT. WILL BEGIN DISCHARGE WORKUP.
[2019-02-16 08:15] LABS: ANION GAP 14.4 mmol/L (8-16); CALCIUM 9.3 mg/dL (8.5-10.1); CARBON DIOXIDE 24.7 mmol/L (21.0-32.0); CREATININE - SERUM 1.5 mg/dL (0.6-1.3); POTASSIUM - SERUM 4.1 mmol/L (3.5-5.1)
[2019-02-16 08:17] LABS: BASOPHILS 0.4 % (0-2); EOSINOPHILS 1.3 % (0-7); HEMATOCRIT 32.5 % (42.0-54.0); HEMOGLOBIN 10.3 g/dL (13.5-17.5); IMMATURE GRANULOCYTES 1.1 % (0-5); LYMPHOCYTES 16.4 % (15-50); MCH 26.5 pg (26.0-34.0); MCHC 31.7 g/dL (31.0-37.0); MCV 83.8 fL (80.0-100.0); MEAN PLATELET VOLUME 9.7 fL (7.4-10.4); NEUTROPHILS 72.8 % (40-80); PLATELET COUNT 336 10x3/uL (130-400); RBC 3.88 10x6/uL (4.20-6.10); RDW 18.4 % (11.5-14.5)
[2019-02-16 08:24] LABS: WBC 13.9 10x3/uL (4.8-10.8)
[2019-02-16 09:41] VITALS: BP 95/50
--- NOTE | 2019-02-16 11:16 | NUR ---
DISCHARGE TEACHING PROVIDED AND PAPERS SIGNED. PT VERBALIZED UNDERSTANDING AND DENIES ANY QUESTIONS OR CONCERNS. ALL BELONGINGS COLLECTED AND BAGGED FOR PT. PT IS COMPLETELY DRESSED AND READY TO LEAVE, SON AT BEDSIDE FOR TRANSPORTATION. NO FURTHER NEEDS.
--- NOTE | 2019-02-16 11:42 | MORECARE ---
CASE MANAGEMENT DISCHARGE SUMMARY PATIENT: BENJAMIN KNOWLES UNIT: [id number] ADM DATE: 02/06/19 AGE: 69 : 50 SEX: M ROOM/BED: D.1208 AUTHOR: PETRA,DOC PHYSICIAN: REFERRING PHYSICIAN: MILTON RAMIREZ MD DATE OF SERVICE: 02/16/19 Discharge Plan Patient Name: BENJAMIN KNOWLES Facility: [facility]:[place] : 1950 Planned Disposition: Home Hlth Svc w Plan Readm Anticipated Discharge Date: 02/10/19 Discharge Date: 02/16/2019 Expected LOS: 4 Initial Reviewer: [email or web address] Initial Review Date: 02/08/2019 Generated: 02/16/19 12:41 pm Comments DCP- Discharge Planning Updated by [id number]: Bhavana Rizo on 02/16/19 10:[address] [facility]ED [facility] THIS AM AT 0952. SPOKE WITH CONOR TO ADVISE OF DISCHARHE TO HOME TODAY. CM FAXED DISCHARGE SUMMARY, DISCHARGE INSTRUCTIONS, DISCHARGE MED LIST , GI AND UROLOGY SALES RESEARCH ANALYST NOTES TO [place]. [facility] WILL CALL TO ADVISE THE PATIENT OF VISIT DATE. DCP- Discharge Planning Updated by [email or web address]: Harmony Tidwell on 02/14/19 1:[address] Patient Name: BENJAMIN KNOWLES Encounter No: [id number] : 1950 Primary Insurance: MEDICARE A & B Anticipated DC Date: 02-10-2019 Planned Disposition: Home Hlth Svc w Plan Readm External Planned Provider: : DCP follow-up note: Patient and family in agreement with discharge plan. No changes to plan. CM noted that patient has [facility]. Presented PRISCILA form to patient and his son. Explained form and patient's son signed form for resumption of [facility]. Signed form placed in chart and signed form left with patient's son. Case management will follow and assist as needed. Harmony Tidwell RN, [facility] DCP- Discharge Planning Updated by [id number]: Harmony Tidwell on 02/14/19 12:[address] Encounter No: [id number] : 1950 Primary Insurance: MEDICARE A & B Anticipated DC Date: 02-10-2019 Planned Disposition: Home Hlth Svc w Plan Readm External Planned Provider: : [facility] DCP follow-up note: Patient and family in agreement with discharge plan. No changes to plan. Case management will follow and assist as needed. DC IMM PRESENTED, EXPLAINED, AND SIGNED BY THE PATIENT'S SON. PATIENT'S SON ALSO MENTIONED THAT THE PATIENT HAS [facility]. PRISCILA FORM SIGNED BY PATIENT'S SON FOR RESUMPTION OF HH AT DISCHARGE. Patient Name: BENJAMIN KNOWLES Harmony Tidwell RN, [facility] DCP- Discharge Planning Updated by [id number]: Norma Jaimes on 02/09/19 4:[address] Patient Name: BENJAMIN KNOWLES Admission Status: ER Accout number: [id number] Admission Date: 02-06-2019 : 1950 Admission Diagnosis:ANEMIA, UNSPECIFIED Attending: MILTON BALDERRAMA Current LOS: 3 Anticipated DC Date: 02-10-2019 Planned Disposition: Home Hlth Svc w Plan Readm Primary Insurance: MEDICARE A & B Discharge Planning Comments: CM SPOKE WITH PATIENT'S NURSE LIANET TODAY, AND HE STATES PATIENT HAS BEEN REFUSING MEDS ALL DAY. RESPIRATORY ALSO STATES HE IS REFUSING TREATMENTS. PATIENT IS CURRENT WITH [facility], CM OR NURSE TO NOTIFY THEM WHEN HE IS DISCHARGED. CM WILL FOLLOW AND ASSIST NEEDED. Document Control Clerk: Norma Jaimes DCP- Discharge Planning Updated by [id number]: Norma Jaimes on 02/08/19 3:[address] Patient Name: BENJAMIN KNOWLES Admission Status: ER Accout number: [id number] Admission Date: 02-06-2019 : 1950 Admission Diagnosis:ANEMIA, UNSPECIFIED Attending: MILTON BALDERRAMA Current LOS: 2 Anticipated DC Date: Planned Disposition: Primary Insurance: MEDICARE A & B Discharge Planning Comments: HEBER FROM [facility] CALLED ME TODAY AND STATES PATIENT IS CURRENT WITH THEM. CM WILL NOTIFY [facility] WHEN HE IS READY FOR DISCHARGE. Document Control Clerk: Norma Jaimes DCP- Discharge Planning Updated by [email or web address]: Norma Jaimes on 02/08/19 11:[address] Patient Name: BENJAMIN KNOWLES Admission Status: ER Accout number: [id number] Admission Date: 02-06-2019 : 1950 Admission Diagnosis:ANEMIA, UNSPECIFIED Attending: MILTON BALDERRAMA Current LOS: 2 Anticipated DC Date: Planned Disposition: Primary Insurance: MEDICARE A & B Discharge Planning Comments: CM MET WITH PATIENT ABOUT DC PLANNING/NEEDS. PATIENT STATES PLANS TO DC TO HOME WHERE HE LIVES WITH HIS GIRLFRIEND. DENIES ANY NEEDS, STATES HAS PLENTY OF FRIENDS AND FAMILY TO HELP HIM. SOMEONE CAN BETTING CLERKS AT TIME OF DISCHARGE. CM TO FOLLOW. Document Control Clerk: Norma Jaimes DCPIA - Discharge Planning Initial Assessment Updated by [id number]: Norma Jaimes on 02/08/19 12:56 pm * Is the patient Alert and Oriented? Yes * PCP NONE * Pharmacy [facility] * Preadmission Environment Home with Family * ADLs Independent * Equipment Cane Nebulizer Oxygen * Community resources currently utilized None * Additional services required to return to the preadmission environment? No * Can the patient safely return to the preadmission environment? Yes * Has this patient been hospitalized within the prior 30 days at any hospital? No Coverage Notice Reviewer: [id number] Ralph Tidwell Notice Issued Date-Time: 02/14/2019 12:45 Notice Type: IM Discharge Notice Notice Delivered To: Family Member Relationship to Patient: Son Rn Clinical Resource Name: Delivery Method: HAND - Hand Delivered Ashely Days: Prior Verbal Notification: Recipient Understood Notice: Recipient Signature: Med Rec Note Co-signed by Attending: Coverage Notice Comment: Last DP export: 02/14/19 1:54 p Patient Name: BENJAMIN KNOWLES Page [id number] at 1142 All edits/amendments must be made on the electronic document DICTATION DATE: 02/16/19 1141 DIRECTOR MARKET INTELLIGENCE: FREDO 02/16/19 1141 RPT#: [id number] DC DATE:02/16/19 STATUS: DIS IN [facility] [address] [place] [address] END OF REPORT
--- NOTE | 2019-02-16 11:59 | MORECARE ---
CASE MANAGEMENT DISCHARGE SUMMARY PATIENT: BENJAMIN KNOWLES UNIT: [id number] ADM DATE: 02/06/19 AGE: 69 : 50 SEX: M ROOM/BED: D.1208 AUTHOR: PETRA,DOC PHYSICIAN: REFERRING PHYSICIAN: MILTON RAMIREZ MD DATE OF SERVICE: 02/16/19 Discharge Plan Patient Name: BENJAMIN KNOWLES Facility: [facility]:[place] : 1950 Planned Disposition: Home Hlth Svc w Plan Readm Anticipated Discharge Date: 02/10/19 Discharge Date: 02/16/2019 Expected LOS: 4 Initial Reviewer: [id number] Initial Review Date: 02/08/2019 Generated: 02/16/19 12:59 pm Comments DCP- Discharge Planning Updated by [id number]: Bhavana Rizo on 02/16/19 10:[address] [facility] AM AT 0952. SPOKE WITH CONOR TO ADVISE OF DISCHARHE TO HOME TODAY. CM FAXED DISCHARGE SUMMARY, DISCHARGE INSTRUCTIONS, DISCHARGE MED LIST , GI AND UROLOGY PERFORMING ARTS TECHNICIANS NOTES TO [facility]. [facility] WILL CALL TO ADVISE THE PATIENT OF VISIT DATE. DCP- Discharge Planning Updated by [id number]: Harmony Tidwell on 02/14/19 1:[address] Patient Name: BENJAMIN KNOWLES Encounter No: [id number] : 1950 Primary Insurance: MEDICARE A & B Anticipated DC Date: 02-10-2019 Planned Disposition: Home Hlth Svc w Plan Readm External Planned Provider: : DCP follow-up note: Patient and family in agreement with discharge plan. No changes to plan. CM noted that patient has [facility]. Presented PRISCILA form to patient and his son. Explained form and patient's son signed form for resumption of [facility]. Signed form placed in chart and signed form left with patient's son. Case management will follow and assist as needed. Harmony Tidwell RN, [facility] DCP- Discharge Planning Updated by [id number]: Harmony Tidwell on 02/14/19 12:[address] Encounter No: [id number] : 1950 Primary Insurance: MEDICARE A & B Anticipated DC Date: 02-10-2019 Planned Disposition: Home Hlth Svc w Plan Readm External Planned Provider: : [facility] DCP follow-up note: Patient and family in agreement with discharge plan. No changes to plan. Case management will follow and assist as needed. DC IMM PRESENTED, EXPLAINED, AND SIGNED BY THE PATIENT'S SON. PATIENT'S SON ALSO MENTIONED THAT THE PATIENT HAS [facility]. PRISCILA FORM SIGNED BY PATIENT'S SON FOR RESUMPTION OF HH AT DISCHARGE. Patient Name: BENJAMIN KNOWLES Harmony Tidwell RN, [facility] DCP- Discharge Planning Updated by [email or web address]: Norma Jaimes on 02/09/19 4:[address] Patient Name: BENJAMIN KNOWLES Admission Status: ER Accout number: [id number] Admission Date: 02-06-2019 : 1950 Admission Diagnosis:ANEMIA, UNSPECIFIED Attending: MILTON BALDERRAMA Current LOS: 3 Anticipated DC Date: 02-10-2019 Planned Disposition: Home Hlth Svc w Plan Readm Primary Insurance: MEDICARE A & B Discharge Planning Comments: CM SPOKE WITH PATIENT'S NURSE LIANET TODAY, AND HE STATES PATIENT HAS BEEN REFUSING MEDS ALL DAY. RESPIRATORY ALSO STATES HE IS REFUSING TREATMENTS. PATIENT IS CURRENT WITH [facility], CM OR NURSE TO NOTIFY THEM WHEN HE IS DISCHARGED. CM WILL FOLLOW AND ASSIST NEEDED. Neurology Director: Norma Jaimes DCP- Discharge Planning Updated by [id number]: Norma Jaimes on 02/08/19 3:[address] Patient Name: BENJAMIN KNOWLES Admission Status: ER Accout number: [id number] Admission Date: 02-06-2019 : 1950 Admission Diagnosis:ANEMIA, UNSPECIFIED Attending: MILTON BALDERRAMA Current LOS: 2 Anticipated DC Date: Planned Disposition: Primary Insurance: MEDICARE A & B Discharge Planning Comments: HEBER FROM [facility] CALLED ME TODAY AND STATES PATIENT IS CURRENT WITH THEM. CM WILL NOTIFY [facility] WHEN HE IS READY FOR DISCHARGE. Neurology Director: Norma Jaimes DCP- Discharge Planning Updated by [id number]: Norma Jaimes on 02/08/19 11:[address] Patient Name: BENJAMIN KNOWLES Admission Status: ER Accout number: [id number] Admission Date: 02-06-2019 : 1950 Admission Diagnosis:ANEMIA, UNSPECIFIED Attending: MILTON BALDERRAMA Current LOS: 2 Anticipated DC Date: Planned Disposition: Primary Insurance: MEDICARE A & B Discharge Planning Comments: CM MET WITH PATIENT ABOUT DC PLANNING/NEEDS. PATIENT STATES PLANS TO DC TO HOME WHERE HE LIVES WITH HIS GIRLFRIEND. DENIES ANY NEEDS, STATES HAS PLENTY OF FRIENDS AND FAMILY TO HELP HIM. SOMEONE CAN MASTER CRAFTSMAN AT TIME OF DISCHARGE. CM TO FOLLOW. Neurology Director: Norma Jaimes DCPIA - Discharge Planning Initial Assessment Updated by [email or web address]: Norma Jaimes on 02/08/19 12:56 pm * Is the patient Alert and Oriented? Yes * PCP NONE * Pharmacy [facility] * Preadmission Environment Home with Family * ADLs Independent * Equipment Cane Nebulizer Oxygen * Community resources currently utilized None * Additional services required to return to the preadmission environment? No * Can the patient safely return to the preadmission environment? Yes * Has this patient been hospitalized within the prior 30 days at any hospital? No Coverage Notice Reviewer: [email or web address] Ralph Tidwell Notice Issued Date-Time: 02/14/2019 12:45 Notice Type: IM Discharge Notice Notice Delivered To: Family Member Relationship to Patient: Son Hplc Chemist Name: Delivery Method: HAND - Hand Delivered Ashely Days: Prior Verbal Notification: Recipient Understood Notice: Recipient Signature: Med Rec Note Co-signed by Attending: Coverage Notice Comment: Last DP export: 02/16/19 10:41 a Patient Name: BENJAMIN KNOWLES Page [id number] at 1159 All edits/amendments must be made on the electronic document DICTATION DATE: 02/16/19 115 UNLOAD ASSOCIATE: FREDO 02/16/19 1159 RPT#: [id number] DC DATE:02/16/19 STATUS: DIS IN [facility] [address] [place] [address] END OF REPORT
== END 2019-02-16 11:29 | disposition home health service (06) | DRG 871 ==
LOC: D.ER 14:07 → D.EDHOLD 16:19 → D.M3 16:19
PROVIDERS: Emergency Medicine; Family Medicine; Internal Medicine Gastroenterology; Internal Medicine Hematology & Oncology; Internal Medicine Nephrology; ADMIT Family Medicine; ATTEND Family Medicine
PROC: 0DD68ZX Extraction of Stomach, Via Natural or Artificial Opening Endoscopic, Diagnostic (ICD-10-PCS; 2019-02-07)
PROC: 0DD98ZX Extraction of Duodenum, Via Natural or Artificial Opening Endoscopic, Diagnostic (ICD-10-PCS; principal; 2019-02-07 14:40)
PROC: 0DBL8ZZ Excision of Transverse Colon, Via Natural or Artificial Opening Endoscopic (ICD-10-PCS; 2019-02-15)
DX: A41.9 Sepsis, unspecified organism (principal); G93.41 Metabolic encephalopathy; N39.0 Urinary tract infection, site not specified; N17.9 Acute kidney failure, unspecified; D50.9 Iron deficiency anemia, unspecified; D47.3 Essential (hemorrhagic) thrombocythemia; K21.0 Gastro-esophageal reflux disease with esophagitis; K31.819 Angiodysplasia of stomach and duodenum without bleeding; R19.5 Other fecal abnormalities; J44.9 Chronic obstructive pulmonary disease, unspecified; E78.5 Hyperlipidemia, unspecified; F32.9 Major depressive disorder, single episode, unspecified; K64.1 Second degree hemorrhoids; K57.30 Diverticulosis of large intestine without perforation or abscess without bleeding

== ENCOUNTER 2019-04-01 05:29 | Inpatient (IN) | payer MEDICARE ==
[~2019-04-01] VITALS: Ht 180.3 cm; Wt 91.8 kg
[2019-04-01 05:53] LABS: BASOPHILS 0.8 % (0-2); EOSINOPHILS 1.7 % (0-7); HEMATOCRIT 32.2 % (42.0-54.0); HEMOGLOBIN 9.9 g/dL (13.5-17.5); IMMATURE GRANULOCYTES 1.7 % (0-5); LYMPHOCYTES 10.7 % (15-50); MCH 28.6 pg (26.0-34.0); MCHC 30.7 g/dL (31.0-37.0); MCV 93.1 fL (80.0-100.0); MONOCYTES 7.8 % (2-11); NEUTROPHILS 77.3 % (40-80); RBC 3.46 10x6/uL (4.20-6.10); RDW 17.8 % (11.5-14.5); WBC 12.9 10x3/uL (4.8-10.8)
[2019-04-01 05:57] VITALS: BP 131/78
[2019-04-01 06:00] LABS: PLATELET COUNT 252 10x3/uL (130-400)
[2019-04-01 06:02] LABS: INR 1.22 (0.85-1.17); PROTIME 14.9 SECONDS (11.6-15.0)
[2019-04-01 06:07] LABS: ALBUMIN 3.5 g/dL (3.4-5.0); ALKALINE PHOSPHATASE 114 U/L (46-116); ALT (SGPT) 22 U/L (10-68); BILIRUBIN - TOTAL 0.28 mg/dL (0.2-1.3); CALC OSMOLALITY 294 mosm/kg (275-300); CALCIUM 9.5 mg/dL (8.5-10.1); CARBON DIOXIDE 28.8 mmol/L (21.0-32.0); CHLORIDE - SERUM 107 mmol/L (98-107); CREATININE - SERUM 1.5 mg/dL (0.6-1.3); GLUCOSE 111 mg/dL (74-106); POTASSIUM - SERUM 5.2 mmol/L (3.5-5.1); PROTEIN - SERUM 8.3 g/dL (6.4-8.2); SODIUM 144 mmol/L (136-145); UREA NITROGEN 32 mg/dL (7-18); eGFR NON AFRICAN AMERICAN 49 mL/min (90-120)
[2019-04-01 06:19] LABS: CKMB 3.7 U/L (0.0-3.6); CREATINE KINASE 69 UL (21-232); PRO BNP 1435 pg/mL (0-125); TROPONIN-I < 0.017 ng/mL (0.000-0.060)
[2019-04-01 06:50] VITALS: BP 128/72
--- NOTE | 2019-04-01 08:15 | NUR ---
ASSESSMENT PER FLOW SHEET. PT TO ROOM 2218 FROM ER VIA STRETCHER. HE IS ON BIPAP AND AWAKENS INT, BRIEFLY.ORIENTATION TO ROOM.CALL LIGHT IN REACH
--- NOTE | 2019-04-01 10:00 | NUR ---
FALL PREVENTION INITIATED.
[2019-04-01 12:30] VITALS: BP 106/71; Ht 180.3 cm; Wt 91.8 kg
[2019-04-01 13:26] VITALS: BP 143/62
[2019-04-01 13:33] LABS: % SATURATION 17 % (15-55); IRON 49 ug/dl (35-150); TOTAL IRON BIND CAPACITY 282 ug/dl (260-445); UNSAT IRON BIND CAPACITY 233 ug/dl (150-375)
[2019-04-01 14:39] LABS: CKMB 3.5 U/L (0.0-3.6); CREATINE KINASE 70 UL (21-232); TROPONIN-I < 0.017 ng/mL (0.000-0.060)
[2019-04-01 17:10] VITALS: BP 121/59
--- NOTE | 2019-04-01 18:39 | NUR ---
SLEEPING WITHOUT DISTRESS. REMAINS WITHOUT DISTRESS.PT WANTS IV DISCONNECTED.HE IS EASILY AGGITATED.CONT PLAN OF CARE
--- NOTE | 2019-04-01 19:00 | NUR ---
REPORT RECEIVED AND CARE OF PT ASSUMED. PT LYING IN SUPINE POSITION WITH BIPAP IN PLACE. IF IN RIGHT FA SALINE LOCKED. TELEMETRY IN PLACE AND READING 61 SR W/ BBB AT THIS ASSESSMENT.
[2019-04-01 19:22] LABS: CKMB 2.8 U/L (0.0-3.6); CREATINE KINASE 70 UL (21-232); TROPONIN-I < 0.017 ng/mL (0.000-0.060)
[2019-04-01 20:00] VITALS: BP 145/73
--- NOTE | 2019-04-01 22:00 | NUR ---
PT CLEANED AND ALL BEDDING AND GOWN CHANGED DUE TO INCONTINCE. POSITIONED FOR COMFORT.
--- NOTE | 2019-04-01 23:28 | NUR ---
PT TORE MASK OFF AND BROKE INTO PIECES EXPLAINED IMPORTANCE OF COMPLIANCE HOWEVER PT CONTINUES TO REFUSE AND DEMANDS TO SPEAK TO A DOCTOR NURSE NOTIFED. PT PLACED ON 4 LITER NASAL CANULLA WILL CONTINUE TO WATCH
--- NOTE | 2019-04-01 23:35 | NUR ---
CALLED RT PT IN ROOM BREAKING BIPAP MASK APART...RT REPLACED MASK AND PUT PT BACK ON BIPAP.
[2019-04-02] VITALS: BP 142/64
[2019-04-02 00:32] LABS: APPEARANCE CLEAR (CLEAR); BILIRUBIN NEGATIVE (NEGATIVE); COLOR YELLOW (YELLOW); GLUCOSE NEGATIVE (NEGATIVE); KETONE NEGATIVE (NEGATIVE); NITRITE NEGATIVE (NEGATIVE); PROTEIN NEGATIVE (NEGATIVE); SPECIFIC GRAVITY 1.015 (1.005-1.020); UROBILINOGEN NORMAL (NORMAL)
--- NOTE | 2019-04-02 00:32 | NUR ---
IN AND OUT CATH PERFORMED TO COLLECT UA AND CX. DRAINED 1050 ML YELLOW URINE. SENT SAMPLES TO LAB. PT TOLERATED WELL.
[2019-04-02 01:35] LABS: CKMB 3.3 U/L (0.0-3.6); CREATINE KINASE 78 UL (21-232); TROPONIN-I < 0.017 ng/mL (0.000-0.060)
[2019-04-02 04:00] VITALS: BP 145/78
--- NOTE | 2019-04-02 08:45 | NUR ---
PATIENT IN BED WITH NO COMPLAINTS AT THIS TIME. IV SL. CALL LIGHT WITHIN REACH.
[2019-04-02 09:11] VITALS: BP 138/69
[2019-04-02 11:38] LABS: BASOPHILS 0.1 % (0-2); EOSINOPHILS 0 % (0-7); HEMATOCRIT 29.9 % (42.0-54.0); HEMOGLOBIN 9.4 g/dL (13.5-17.5); IMMATURE GRANULOCYTES 0.4 % (0-5); LYMPHOCYTES 8.2 % (15-50); MCH 28.5 pg (26.0-34.0); MCHC 31.4 g/dL (31.0-37.0); MEAN PLATELET VOLUME 9.7 fL (7.4-10.4); MONOCYTES 7.1 % (2-11); NEUTROPHILS 84.2 % (40-80); PLATELET COUNT 240 10x3/uL (130-400); RDW 17.2 % (11.5-14.5); WBC 11.8 10x3/uL (4.8-10.8)
[2019-04-02 11:41] LABS: MCV 90.6 fL (80.0-100.0)
[2019-04-02 11:57] LABS: ALBUMIN 3.4 g/dL (3.4-5.0); BILIRUBIN - TOTAL 0.25 mg/dL (0.2-1.3); CALCIUM 9.2 mg/dL (8.5-10.1); CARBON DIOXIDE 29.3 mmol/L (21.0-32.0); CREATININE - SERUM 1.6 mg/dL (0.6-1.3); MAGNESIUM - SERUM 1.7 mg/dL (1.8-2.4); POTASSIUM - SERUM 4.3 mmol/L (3.5-5.1); PROTEIN - SERUM 7.1 g/dL (6.4-8.2)
[2019-04-02 13:29] VITALS: BP 133/62
--- NOTE | 2019-04-02 14:55 | NUR ---
Redness noted to top of both feet and lower legs (just above the heels). Blanchable redness with no open areas seen. It appears as the pt has been scratching the areas. Recommend skin cream be applied to areas of redness. Pt will need to keep nonskid socks on. Wound care will monitor as needed.
--- NOTE | 2019-04-02 16:45 | NUR ---
PATIENT IV RESTARTED IN LEFT WRIST. RIGHT WRIST IV LEAKING. REMOVED WITH CATH TIP INTACT.
[2019-04-02 17:30] VITALS: BP 142/63
--- NOTE | 2019-04-02 18:45 | NUR ---
PATIENT IN BED WITH NO COMPLAINTS OR SIGNS OF DISTRESS. IV INTACT. BA ON. CALL LIGHT WITHIN REACH.
[2019-04-02 20:00] VITALS: BP 151/69
--- NOTE | 2019-04-02 20:00 | NUR ---
ASSESSMENT PER FLOWSHEET. IV PATENT LEFT WRIST WITH NS AT 100CC'S/HR. O2 ON 2L/M PER NC. TELM.=SR W/BBB W/HR 79. SR UP X2 CALL LIGHT WITHIN REACH.BED ALARM ON
--- NOTE | 2019-04-02 22:15 | NUR ---
ANTIBIOTIC CREAM APPLIED TO RASH ON TOP OF EACH FOOT. PLACED URINAL PT VOIDED.
--- NOTE | 2019-04-03 00:15 | NUR ---
RESTING QUIETLY DENIES NEEDS.
[2019-04-03 01:37] VITALS: BP 175/90
--- NOTE | 2019-04-03 03:00 | NUR ---
VOIDS IN URINAL WATCHES TV DENIES NEEDS.
[2019-04-03 03:38] VITALS: BP 165/81
[2019-04-03 06:24] LABS: ALBUMIN 3.1 g/dL (3.4-5.0); ANION GAP 12.2 mmol/L (8-16); BILIRUBIN - TOTAL 0.25 mg/dL (0.2-1.3); CALCIUM 8.5 mg/dL (8.5-10.1); CARBON DIOXIDE 28.9 mmol/L (21.0-32.0); CREATININE - SERUM 1.6 mg/dL (0.6-1.3); MAGNESIUM - SERUM 1.8 mg/dL (1.8-2.4); POTASSIUM - SERUM 4.1 mmol/L (3.5-5.1); PROTEIN - SERUM 7.2 g/dL (6.4-8.2)
[2019-04-03 06:26] LABS: BASOPHILS 0.1 % (0-2); EOSINOPHILS 0 % (0-7); HEMATOCRIT 29.8 % (42.0-54.0); HEMOGLOBIN 9.3 g/dL (13.5-17.5); IMMATURE GRANULOCYTES 0.5 % (0-5); LYMPHOCYTES 5.6 % (15-50); MCH 28.3 pg (26.0-34.0); MCHC 31.2 g/dL (31.0-37.0); MCV 90.6 fL (80.0-100.0); MEAN PLATELET VOLUME 9.9 fL (7.4-10.4); MONOCYTES 4.7 % (2-11); NEUTROPHILS 89.1 % (40-80); PLATELET COUNT 242 10x3/uL (130-400); RBC 3.29 10x6/uL (4.20-6.10); RDW 17.6 % (11.5-14.5); WBC 10.9 10x3/uL (4.8-10.8)
[2019-04-03 09:30] VITALS: BP 142/59
--- NOTE | 2019-04-03 09:50 | NUR ---
PATIENT PULLING TELE OFF. NEW ELECTRODES APPLED AND ATTACHED AT THIS TIME. PATIENT CALL LIGHT WITHIN REACH. BA ON.
[2019-04-03 14:01] VITALS: BP 168/84
--- NOTE | 2019-04-03 15:13 | MORECARE ---
CASE MANAGEMENT DISCHARGE SUMMARY PATIENT: BENJAMIN KNOWLES UNIT: [id number] ADM DATE: 04/01/19 AGE: 69 : 50 SEX: M ROOM/BED: D.2218 AUTHOR: AMBROSE LAMBERT PHYSICIAN: REFERRING PHYSICIAN: NICOLE LARA MD DATE OF SERVICE: 04/03/19 Discharge Plan Patient Name: BENJAMIN KNOWLES [facility] [facility] 1950 Planned Disposition: Home or Self Care Anticipated Discharge Date: Discharge Date: Expected LOS: Initial Reviewer: [email or web address] Initial Review Date: 04/01/2019 Generated: 04/03/19 4:12 pm DCPIA - Discharge Planning Initial Assessment Updated by [email or web address]: Jannie Kirkland on 04/03/19 3:08 pm * Is the patient Alert and Oriented? Yes * How many steps to enter\exit or inside your home? STEPS * PCP [facility]? * Pharmacy [facility] * Preadmission Environment Home with Family * ADLs Partial Dependent * Partial ADLs (Assistance needed) Ambulation Bathing Medication Management * Equipment Cane Nebulizer Oxygen Rolling Walker * List name and contact numbers for known caregivers / representatives who currently or will assist patient after discharge: RADHA KNOWLES [phone] * Verbal permission to speak to the caregivers and representatives has been obtained from the patient. Yes * Community resources currently utilized Home Health * Please name any agencies selected above. CURRENT WITH [facility] * Additional services required to return to the preadmission environment? Yes * Has this patient been hospitalized within the prior 30 days at any hospital? No Patient Name: BENJAMIN KNOWLES Page [phone] at 1513 All edits/amendments must be made on the electronic document DICTATION DATE: 04/03/19 151 MATE SHIP: FREDO 04/03/19 151 RPT#: [id number] DC DATE: STATUS: ADM IN [facility] [address] [place] [address] END OF REPORT
--- NOTE | 2019-04-03 15:22 | MORECARE ---
CASE MANAGEMENT DISCHARGE SUMMARY PATIENT: BENJAMIN KNOWLES UNIT: [id number] ADM DATE: 04/01/19 AGE: 69 : 50 SEX: M ROOM/BED: D.2218 AUTHOR: AMBROSE LAMBERT PHYSICIAN: REFERRING PHYSICIAN: NICOLE LARA MD DATE OF SERVICE: 04/03/19 Discharge Plan Patient Name: BENJAMIN KNOWLES Facility: [facility]:[place] : 1950 Planned Disposition: Home or Self Care Anticipated Discharge Date: Discharge Date: Expected LOS: Initial Reviewer: [email or web address] Initial Review Date: 04/01/2019 Generated: 04/03/19 4:22 pm Comments DCP- Discharge Planning Updated by [email or web address]: Jannie Kirkland on 04/03/19 2:[address] Patient Name: BENJAMIN KNOWLES Admission Status: ER Accout number: [id number] Admission Date: 04-01-2019 : 1950 Admission Diagnosis: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 CM educated patient on the CM role and verbal consent given by patient to complete assessment. Patient lives at home with his girlfriend whom he has lived with for 30 years and her adult son. At discharge patient is unsure of his plans home with home health vs inpatient rehab . CM discussed availability of home health, rehab services, and medical equipment. He is current with [facility]. He has a walker, home O2, nebulizer, portable O2, cane, concentrator. He stated he uses [facility]. Patient denied known discharge needs at this time. CM will continue to follow and will assist as needed with dc plans/needs. Precision Machine Operator: Jannie Kirkland DCPIA - Discharge Planning Initial Assessment Updated by [email or web address]: Jannie Kirkland on 04/03/19 3:08 pm * Is the patient Alert and Oriented? Yes * How many steps to enter\exit or inside your home? STEPS * PCP [facility]? * Pharmacy [facility] * Preadmission Environment Home with Family * ADLs Partial Dependent * Partial ADLs (Assistance needed) Ambulation Bathing Medication Management * Equipment Cane Nebulizer Oxygen Rolling Walker * List name and contact numbers for known caregivers / representatives who currently or will assist patient after discharge: RADHA KNOWLES [phone] * Verbal permission to speak to the caregivers and representatives has been obtained from the patient. Yes * Community resources currently utilized Home Health * Please name any agencies selected above. CURRENT WITH [facility] * Additional services required to return to the preadmission environment? Yes * Has this patient been hospitalized within the prior 30 days at any hospital? No Coverage Notice Reviewer: [id number] Ralph Kirkland Notice Issued Date-Time: 04/03/2019 14:30 Notice Type: Patient Choice Letter Notice Delivered To: Patient Relationship to Patient: Ditch Tender Name: Delivery Method: - Ashely Days: Prior Verbal Notification: Recipient Understood Notice: Recipient Signature: Yes Med Rec Note Co-signed by Attending: Coverage Notice Comment: Last DP export: 04/03/19 2:12 pm Patient Name: BENJAMIN KNOWLES Page [phone] at 1522 All edits/amendments must be made on the electronic document DICTATION DATE: 04/03/19 1522 DEHYDRATOR: FREDO 04/03/19 1522 RPT#: [id number] DC DATE: STATUS: ADM IN [facility] [address] [place] [address] END OF REPORT
--- NOTE | 2019-04-03 16:00 | NUR ---
PATIENT CONFUSED AND TRYING TO GET OUT OF BED. PULLED IV OUT AND IS REFUSING TO RECIEVE A NEW ONE. HAS CLOTHES ON AND IS STATING THAT HIS AND SON HAVE RUN OFF WITH ALL HIS MONEY. CALLED HIS AND LET HER SPEAK WITH PATIENT. GOT PATIENT TO GET UP IN BED AND SIT BACK AND EAT ICECREAM AT THIS TIME. CALL LIGHT WITHIN REACH. BA ON.
--- NOTE | 2019-04-03 17:15 | NUR ---
NOTIFIED PATIENCE OF PATIENTS CONFUSION AND REFUSING IV AT THIS TIME. STATED HE WOULD BE COMING UP HERE SOON.
[2019-04-03 17:42] VITALS: BP 145/71
--- NOTE | 2019-04-03 17:45 | NUR ---
ASKED PATIENT AGAIN IF I COULD RESTART IV. REFUSED AND STATED HE IS NOT STAYING HERE. CALL LIGHT WITHIN REACH.
--- NOTE | 2019-04-03 19:58 | NUR ---
ASKED AGAIN IF I COULD START IV FOR MEDS. PATIENT REFUSED. SITTING UP IN BED TAKING BREATHING TREATMENT. CALL LIGHT WITHIN REACH. BA ON
[2019-04-03 20:00] VITALS: BP 126/69
[2019-04-04] VITALS: BP 170/93
[2019-04-04 05:15] LABS: BASOPHILS 0 % (0-2); EOSINOPHILS 0 % (0-7); HEMATOCRIT 30.8 % (42.0-54.0); HEMOGLOBIN 9.6 g/dL (13.5-17.5); IMMATURE GRANULOCYTES 0.7 % (0-5); LYMPHOCYTES 6.9 % (15-50); MCH 28.4 pg (26.0-34.0); MCHC 31.2 g/dL (31.0-37.0); MCV 91.1 fL (80.0-100.0); MEAN PLATELET VOLUME 9.4 fL (7.4-10.4); MONOCYTES 6.4 % (2-11); PLATELET COUNT 227 10x3/uL (130-400); RBC 3.38 10x6/uL (4.20-6.10); WBC 11.3 10x3/uL (4.8-10.8)
[2019-04-04 06:14] LABS: ALBUMIN 3.1 g/dL (3.4-5.0); ANION GAP 13.9 mmol/L (8-16); BILIRUBIN - TOTAL 0.26 mg/dL (0.2-1.3); CALCIUM 8.1 mg/dL (8.5-10.1); CARBON DIOXIDE 27.2 mmol/L (21.0-32.0); CREATININE - SERUM 1.3 mg/dL (0.6-1.3); MAGNESIUM - SERUM 1.7 mg/dL (1.8-2.4); POTASSIUM - SERUM 4.1 mmol/L (3.5-5.1); PROTEIN - SERUM 7.1 g/dL (6.4-8.2)
--- NOTE | 2019-04-04 08:00 | NUR ---
PATIENT IN BED WITH IV INTACT. NO COMPLAINTS AT THIS. NOT CONFUSED YESTERDAY. VOIDED IN URINAL WITH ASSIST. CALL LIGHT WITHIN REACH.
[2019-04-04 08:49] VITALS: BP 154/74
--- NOTE | 2019-04-04 12:15 | MORECARE ---
CASE MANAGEMENT DISCHARGE SUMMARY PATIENT: BENJAMIN KNOWLES UNIT: [id number] ADM DATE: 04/01/19 AGE: 69 : 50 SEX: M ROOM/BED: D.2218 AUTHOR: PETRADOC PHYSICIAN: REFERRING PHYSICIAN: NICOLE LARA MD DATE OF SERVICE: 04/04/19 Discharge Plan Patient Name: BENJAMIN KNOWLES Facility: [facility]:[place] : 1950 Planned Disposition: Home or Self Care Anticipated Discharge Date: Discharge Date: Expected LOS: Initial Reviewer: [email or web address] Initial Review Date: 04/01/2019 Generated: 04/04/19 1:14 pm Comments DCP- Discharge Planning Updated by [email or web address]: Jannie Kirkland on 04/04/19 11:[address] SPOKE WITH PATIENT'S SON AT LENGTH AND HIS DAUGHTER VIA PHONE. THEY ARE CONCERNED ABOUT HIS LIVING SITUTION AND THEY WOULD LIKE THEIR DAD TO GO TO REHAB BEFORE GOING HOME. SPOKE ABOUT THE OPTIONS FOR REHAB AND SHOAIB (SON) WOULD LIKE HIM TO GO TO INPATIENT REHAB AT [facility]. I CALLED JASMIN AT [facility] AND SENT REFERRAL TO HER. CM WILL CONTINUE TO FOLLOW AND ASSIST WITH DC PLANNING SHOAIB (SON) [phone] CHIDI (DAUGHTER) [phone] DCP- Discharge Planning Updated by [id number]: Jannie Kirkland on 04/03/19 2:[address] Patient Name: BENJAMIN KNOWLES Admission Status: ER Accout number: [id number] Admission Date: 04-01-2019 : 1950 Admission Diagnosis: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 CM educated patient on the CM role and verbal consent given by patient to complete assessment. Patient lives at home with his girlfriend whom he has lived with for 30 years and her adult son. At discharge patient is unsure of his plans home with home health vs inpatient rehab . CM discussed availability of home health, rehab services, and medical equipment. He is current with [facility]. He has a walker, home O2, nebulizer, portable O2, cane, concentrator. He stated he uses [facility]. Patient denied known discharge needs at this time. CM will continue to follow and will assist as needed with dc plans/needs. Bag Grader: Jannie Kirkland DCPIA - Discharge Planning Initial Assessment Updated by [email or web address]: Jannie Kirkland on 04/03/19 3:08 pm * Is the patient Alert and Oriented? Yes * How many steps to enter\exit or inside your home? STEPS * PCP RESENDEZ? * Pharmacy [facility] * Preadmission Environment Home with Family * ADLs Partial Dependent * Partial ADLs (Assistance needed) Ambulation Bathing Medication Management * Equipment Cane Nebulizer Oxygen Rolling Walker * List name and contact numbers for known caregivers / representatives who currently or will assist patient after discharge: RADHA KNOWLES [phone] * Verbal permission to speak to the caregivers and representatives has been obtained from the patient. Yes * Community resources currently utilized Home Health * Please name any agencies selected above. CURRENT WITH [facility] * Additional services required to return to the preadmission environment? Yes * Has this patient been hospitalized within the prior 30 days at any hospital? No External Providers [facility] Next Contact Date: Service Request Date: Service Type: Resolution: Reviewer: Comments: Coverage Notice Reviewer: [email or web address] - Jannie Kirkland Notice Issued Date-Time: 04/03/2019 14:30 Notice Type: Patient Choice Letter Notice Delivered To: Patient Relationship to Patient: Lining Presser Name: Delivery Method: - Ashely Days: Prior Verbal Notification: Recipient Understood Notice: Recipient Signature: Yes Med Rec Note Co-signed by Attending: Coverage Notice Comment: Last DP export: 04/03/19 2:22 pm Patient Name: BENJAMIN KNOWLES Page [id number] at 1215 All edits/amendments must be made on the electronic document DICTATION DATE: 04/04/194 QUIRK SANDER: FREDO 04/04/194 RPT#: [id number] DC DATE: STATUS: ADM IN [facility] [address] [place] [address] END OF REPORT
[2019-04-04 13:23] VITALS: BP 159/91
--- NOTE | 2019-04-04 17:03 | NUR ---
OT NOTE: PT CONFUSED THIS PM. PT COMPLETED SUPINE TO SIT WITH SBA. PT COMPLETED STANDING WITH SBA. PT EXHIBITS POOR SAFETY AWARENESS AND REQUIRED VERBAL CUES. PT COMPLETED FACE WASH AT EOB WITH SET UP. PT COMPLETED HYGIENE TASK WITH MIN A SECONDARY TO CONFUSION. THANK YOU, ARIK GODINEZ
[2019-04-04 17:43] VITALS: BP 137/89
--- NOTE | 2019-04-04 18:45 | NUR ---
PATIENT IN BED WITH IV INTACT. NO COMPLAINTS AT THIS TIME. MORE CONFUSED THIS EVENING. BA ON. CALL LIGHT WITHIN REACH.
--- NOTE | 2019-04-04 20:00 | NUR ---
ASSESSMENT PER FLOWSHEET. PT REMAINS CONFUSED O2 ON 2L/M PER NC. HOB UP 30 DEGREES. BED ALARM KEVIN MAT IN USE WITH YELLOW SAFETY MEASURES IN USE. DOOR OPENED.
--- NOTE | 2019-04-04 20:30 | NUR ---
BED ALARM SOUNDING PATIENT TRYING TO CLIMB OUT OF BED ASSISTED TO A STANDING POSITIION URINAL IN PLACE. VOIDS IN URINAL. ASSISTED BACK TO BED RESET KEVIN BED ALARM DOOR REMAINS OPENED.
[2019-04-04 21:41] VITALS: BP 156/92
--- NOTE | 2019-04-04 22:00 | NUR ---
MEDS GIVEN PER MAR.
[2019-04-05] VITALS: BP 162/84
--- NOTE | 2019-04-05 01:28 | NUR ---
EYES CLOSED RESPIRATIONS WITH EASE AND UNLABORED. O2 ON 2L/M PER NC.
--- NOTE | 2019-04-05 03:00 | NUR ---
STOOD AT BEDSIDE TO VOID
[2019-04-05 04:00] VITALS: BP 158/72
[2019-04-05 05:43] LABS: ANION GAP 9.7 mmol/L (8-16); BILIRUBIN - TOTAL 0.39 mg/dL (0.2-1.3); CALCIUM 8.4 mg/dL (8.5-10.1); CARBON DIOXIDE 32.5 mmol/L (21.0-32.0); CREATININE - SERUM 1.1 mg/dL (0.6-1.3); MAGNESIUM - SERUM 1.9 mg/dL (1.8-2.4); POTASSIUM - SERUM 4.2 mmol/L (3.5-5.1); PROTEIN - SERUM 6.7 g/dL (6.4-8.2)
--- NOTE | 2019-04-05 06:37 | NUR ---
MEDS S PER MAR.NO CHANGES IN ASSESSMENT.
[2019-04-05 07:17] LABS: BASOPHILS 0 % (0-2); EOSINOPHILS 0 % (0-7); HEMATOCRIT 29.3 % (42.0-54.0); HEMOGLOBIN 9.3 g/dL (13.5-17.5); IMMATURE GRANULOCYTES 0.4 % (0-5); LYMPHOCYTES 7.6 % (15-50); MCH 28.4 pg (26.0-34.0); MCHC 31.7 g/dL (31.0-37.0); MCV 89.6 fL (80.0-100.0); MONOCYTES 7.4 % (2-11); NEUTROPHILS 84.6 % (40-80); PLATELET COUNT 225 10x3/uL (130-400); RBC 3.27 10x6/uL (4.20-6.10); RDW 17.9 % (11.5-14.5); WBC 11.6 10x3/uL (4.8-10.8)
[2019-04-05 10:01] VITALS: BP 114/53
[2019-04-05] MEDS ORDERED: CLOTRIM ANTIFUN15 GM TOPICAL (11:27)
[2019-04-05] MEDS ORDERED: PROTONIX40 MG PO (11:27)
[2019-04-05] MEDS ORDERED: IPRAT-ALBUT 0.5-3 ML UPD (11:27)
[2019-04-05] MEDS ORDERED: SOLU-MEDRO40 MG/1 M1 IV (11:27)
[2019-04-05] MEDS ORDERED: Lovenox INJ SC (11:27)
[2019-04-05] MEDS ORDERED: IPRAT-ALBUT 0.5-3 ML INH (11:27)
[2019-04-05] MEDS ORDERED: BROVANA15 MCG/2 M INH (11:27)
--- NOTE | 2019-04-05 12:15 | NUR ---
OT NOTE: PT PERFORMED WELL. REMAINS CONFUSED AND SOMEWHAT DISORIENTED. PT WAS INCONT IN BED. AMB FROM BED TO TOILET WITH WALKER AND MIN ASSIST. ABLE TO PERFORM UPPER BODY BATHING WITH MIN ASSIST; MOD ASSIST WITH LE DRESSING. CUES TO STAY FOCUSED ON TASK. SIMPLE GROOMING WITH SET UP. MOD ASSIST FOR TOILET HYGIENE; IN ROOM AMB WITH WALKER AND MIN ASSIST. BACK TO BED WITH MIN ASSIST. LIONEL GALVAN, OTR/L
--- NOTE | 2019-04-05 12:33 | MORECARE ---
CASE MANAGEMENT DISCHARGE SUMMARY PATIENT: BENJAMIN KNOWLES UNIT: [id number] ADM DATE: 04/01/19 AGE: 69 : 50 SEX: M ROOM/BED: D.2218 AUTHOR: AMBROSE LAMBERT PHYSICIAN: REFERRING PHYSICIAN: NICOLE LARA MD DATE OF SERVICE: 04/05/19 Discharge Plan Patient Name: BENJAMIN KNOWLES Facility: [facility]:[place] : 1950 Planned Disposition: Home or Self Care Anticipated Discharge Date: Discharge Date: Expected LOS: Initial Reviewer: [email or web address] Initial Review Date: 04/01/2019 Generated: 04/05/19 1:33 pm Comments DCP- Discharge Planning Updated by [id number]: Jannie Kirkland on 04/05/19 11:[address] PATIENT WILL BE DISCHARGING TO INPATIENT REHAB AT [facility] TODAY. IMM SERVED AND EXPLAINED TO PATIENT AND SON VIA PHONE. SHOAIB (SON) WILL BE COMING UP TO THE HOSPITAL AND WILL BE MEETING HIM AT INPATIENT REHAB. CM WILL CONTINUE TO FOLLOW AND ASSIT WITH DC PLANNING DCP- Discharge Planning Updated by [id number]: Jannie Kirkland on 04/04/19 11:[address] SPOKE WITH PATIENT'S SON AT LENGTH AND HIS DAUGHTER VIA PHONE. THEY ARE CONCERNED ABOUT HIS LIVING SITUTION AND THEY WOULD LIKE THEIR DAD TO GO TO REHAB BEFORE GOING HOME. SPOKE ABOUT THE OPTIONS FOR REHAB AND SHOAIB (SON) WOULD LIKE HIM TO GO TO INPATIENT REHAB AT [facility]. I CALLED JASMIN AT [facility] AND SENT REFERRAL TO HER. 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 CM educated patient on the CM role and verbal consent given by patient to complete assessment. Patient lives at home with his girlfriend whom he has lived with for 30 years and her adult son. At discharge patient is unsure of his plans home with home health vs inpatient rehab . CM discussed availability of home health, rehab services, and medical equipment. He is current with [facility]. He has a walker, home O2, nebulizer, portable O2, cane, concentrator. He stated he uses [facility]. Patient denied known discharge needs at this time. CM will continue to follow and will assist as needed with dc plans/needs. Director Of Advertising Sales: Jannie Kirkland DCPIA - Discharge Planning Initial Assessment Updated by [id number]: Jannie Kirkland on 04/03/19 3:08 pm * Is the patient Alert and Oriented? Yes * How many steps to enter\exit or inside your home? STEPS * PCP [facility]? * Pharmacy [facility] * Preadmission Environment Home with Family * ADLs Partial Dependent * Partial ADLs (Assistance needed) Ambulation Bathing Medication Management * Equipment Cane Nebulizer Oxygen Rolling Walker * List name and contact numbers for known caregivers / representatives who currently or will assist patient after discharge: RADHA KNOWLES [phone] * Verbal permission to speak to the caregivers and representatives has been obtained from the patient. Yes * Community resources currently utilized Home Health * Please name any agencies selected above. CURRENT WITH [facility] * Additional services required to return to the preadmission environment? Yes * Has this patient been hospitalized within the prior 30 days at any hospital? No Coverage Notice Reviewer: [id number] Ralph Kirkland Notice Issued Date-Time: 04/03/2019 14:30 Notice Type: Patient Choice Letter Notice Delivered To: Patient Relationship to Patient: Weight Loss Consultant Name: Delivery Method: - Ashely Days: Prior Verbal Notification: Recipient Understood Notice: Recipient Signature: Yes Med Rec Note Co-signed by Attending: Coverage Notice Comment: Reviewer: [id number] Ralph Kirkland Notice Issued Date-Time: 04/05/2019 11:55 Notice Type: IM Discharge Notice Notice Delivered To: Patient Relationship to Patient: Weight Loss Consultant Name: Delivery Method: HAND - Hand Delivered Ashely Days: Prior Verbal Notification: Yes Recipient Understood Notice: Recipient Signature: Yes Med Rec Note Co-signed by Attending: Coverage Notice Comment: I ALSO CALLED AND EXPLAINED TO AL Greer DP export: 04/04/19 11:14 a Patient Name: BENJAMIN KNOWLES Page [id number] at 1233 All edits/amendments must be made on the electronic document DICTATION DATE: 04/05/19 1232 TERRA COTTA ROOFER HELPER: FREDO 04/05/19 1232 RPT#: [id number] DC DATE: STATUS: ADM IN [facility] [address] [place] [address] END OF REPORT
[2019-04-05 12:43] VITALS: BP 134/56
--- NOTE | 2019-04-05 14:01 | NUR ---
REPORT CALLED TO LEISA,SPOKE WITHKELI.
--- NOTE | 2019-04-05 14:33 | MORECARE ---
CASE MANAGEMENT DISCHARGE SUMMARY PATIENT: BENJAMIN KNOWLES UNIT: [id number] ADM DATE: 04/01/19 AGE: 69 : 50 SEX: M ROOM/BED: D.2218 AUTHOR: PETRA,DOC PHYSICIAN: REFERRING PHYSICIAN: NICOLE LARA MD DATE OF SERVICE: 04/05/19 Discharge Plan Patient Name: BENJAMIN KNOWLES Facility: [facility]:[place] : 1950 Planned Disposition: Home or Self Care Anticipated Discharge Date: Discharge Date: Expected LOS: Initial Reviewer: [email or web address] Initial Review Date: 04/01/2019 Generated: 04/05/19 3:33 pm Comments DCP- Discharge Planning Updated by [email or web address]: Jannie Kirkland on 04/05/19 1:[address] Patient will be discharging to [facility] inpatient rehab, he will be going to room 107. son is at bedside and has signed paperwork at [facility]. cm will continue to follow DCP- Discharge Planning Updated by [id number]: Jannie Kirkland on 04/05/19 11:[address] PATIENT WILL BE DISCHARGING TO INPATIENT REHAB AT [facility] TODAY. IMM SERVED AND EXPLAINED TO PATIENT AND SON VIA PHONE. SHOAIB (SON) WILL BE COMING UP TO THE HOSPITAL AND WILL BE MEETING HIM AT INPATIENT REHAB. CM WILL CONTINUE TO FOLLOW AND ASSIT WITH DC PLANNING DCP- Discharge Planning Updated by [email or web address]: Jannie Kirkland on 04/04/19 11:[address] SPOKE WITH PATIENT'S SON AT LENGTH AND HIS DAUGHTER VIA PHONE. THEY ARE CONCERNED ABOUT HIS LIVING SITUTION AND THEY WOULD LIKE THEIR DAD TO GO TO REHAB BEFORE GOING HOME. SPOKE ABOUT THE OPTIONS FOR REHAB AND SHOAIB (SON) WOULD LIKE HIM TO GO TO INPATIENT REHAB AT [facility]. I CALLED JASMIN AT [facility] AND SENT REFERRAL TO HER. CM WILL CONTINUE TO FOLLOW AND ASSIST WITH DC PLANNING SHOAIB (SON) [phone] CHIDI (DAUGHTER) [phone] DCP- Discharge Planning Updated by [id number]: Jannie Kirkland on 04/03/19 2:[address] Patient Name: BENJAMIN KNOWLES Admission Status: ER Accout number: [id number] Admission Date: 04-01-2019 : 1950 Admission Diagnosis: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 CM educated patient on the CM role and verbal consent given by patient to complete assessment. Patient lives at home with his girlfriend whom he has lived with for 30 years and her adult son. At discharge patient is unsure of his plans home with home health vs inpatient rehab . CM discussed availability of home health, rehab services, and medical equipment. He is current with [facility]. He has a walker, home O2, nebulizer, portable O2, cane, concentrator. He stated he uses [facility]. Patient denied known discharge needs at this time. CM will continue to follow and will assist as needed with dc plans/needs. Airport Ramp Attendant: Jannie Kirkland DCPIA - Discharge Planning Initial Assessment Updated by [email or web address]: Jannie Kirkland on 04/03/19 3:08 pm * Is the patient Alert and Oriented? Yes * How many steps to enter\exit or inside your home? STEPS * PCP [facility]? * Pharmacy [facility] * Preadmission Environment Home with Family * ADLs Partial Dependent * Partial ADLs (Assistance needed) Ambulation Bathing Medication Management * Equipment Cane Nebulizer Oxygen Rolling Walker * List name and contact numbers for known caregivers / representatives who currently or will assist patient after discharge: RADHA KNOWLES [phone] * Verbal permission to speak to the caregivers and representatives has been obtained from the patient. Yes * Community resources currently utilized Home Health * Please name any agencies selected above. CURRENT WITH [facility] * Additional services required to return to the preadmission environment? Yes * Has this patient been hospitalized within the prior 30 days at any hospital? No Coverage Notice Reviewer: [email or web address] Ralph Kirkland Notice Issued Date-Time: 04/03/2019 14:30 Notice Type: Patient Choice Letter Notice Delivered To: Patient Relationship to Patient: Financial Reporting Manager Name: Delivery Method: - Ashely Days: Prior Verbal Notification: Recipient Understood Notice: Recipient Signature: Yes Med Rec Note Co-signed by Attending: Coverage Notice Comment: Reviewer: [email or web address] Ralph Kirkland Notice Issued Date-Time: 04/05/2019 11:55 Notice Type: IM Discharge Notice Notice Delivered To: Patient Relationship to Patient: Financial Reporting Manager Name: Delivery Method: HAND - Hand Delivered Ashely Days: Prior Verbal Notification: Yes Recipient Understood Notice: Recipient Signature: Yes Med Rec Note Co-signed by Attending: Coverage Notice Comment: I ALSO CALLED AND EXPLAINED TO AL Greer DP export: 04/05/19 11:33 a Patient Name: BENJAMIN KNOWLES Page [phone] at 1433 All edits/amendments must be made on the electronic document DICTATION DATE: 04/05/19 1433 PRECINCT POLICE LIEUTENANT: FREDO 04/05/19 1433 RPT#: [id number] DC DATE: STATUS: ADM IN [facility] [address] [place] [address] END OF REPORT
--- NOTE | 2019-04-05 15:55 | NUR ---
[facility]
== END 2019-04-05 15:55 | DRG 291 ==
LOC: D.ER 05:29 → D.MS 07:21
PROVIDERS: Emergency Medicine; Family Medicine; ADMIT Internal Medicine Nephrology; ATTEND Internal Medicine Nephrology
DX: I50.23 Acute on chronic systolic (congestive) heart failure (principal); J96.22 Acute and chronic respiratory failure with hypercapnia; J44.1 Chronic obstructive pulmonary disease with (acute) exacerbation; N17.9 Acute kidney failure, unspecified; E78.5 Hyperlipidemia, unspecified; I10 Essential (primary) hypertension; F41.8 Other specified anxiety disorders; D64.9 Anemia, unspecified; E87.5 Hyperkalemia

== ENCOUNTER 2019-05-02 17:16 | Inpatient (IN) | payer MEDICARE ==
[~2019-05-02] VITALS: Ht 180.3 cm; Wt 90.7 kg
--- NOTE | ~2019-05-02 | HEMODYNAMI ---
PATIENT:HI KNOWLES MEDICAL RECORD: [id number] : 50 LOCATION:[facility] D1205 ADMISSION DATE: 05/02/19 Generatedon:05/08/201910:06 Patient name: HI KNOWLES Patient #: [id number] SSN: [id number] : 1950 Date of study: 05/08/2019 Page: Of Hemodynamic Procedure Report Patient Data Patient Demographics Procedure consent was obtained First Name: HI Gender: Male Last Name: BENSON : 1950 Patient #: [id number] Age: 69 year(s) Race: SSN: [id number] Additional ID: [id number] Contact details Address: [address] [place] [address] State: [place] City: [facility] [place] Zip code: [address] Past Medical History Allergies: No known allergies Admission Admission Data Admission Date: 05/02/2019 Admission Time: 21:11 Room #: D.1205 Weight (lbs.): 199.96 Weight (kg.): 90.7 Lab Results Lab Result Date: 05/08/2019 Lab Result Time: 0:00 Biochemistry Name Units Result Min Max BUN mg/dl 19 --(----)*- 7 18 Creatinine mg/dl 1.4 --(----)*- 0.6 1.3 eGFR ml/min 53 *-(----)-- 90 120 NONAFRICAN CBC Name Units Result Min Max Hematocrit % 25.8 *-(----)-- 42 54 Hemoglobin g/dl 8.3 *-(----)-- 13.5 17.5 Procedure Procedure Types Cath Procedure Diagnostic Procedure LHC LH w/Coronaries Sedation Charges Moderate Sedation up to 15 minutes Procedure Description Procedure Date Procedure Date: 05/08/2019 Procedure Start Time: 9:57 Procedure End Time: 10:05 Procedure Staff Name Function Hi Calvillo MD Performing Physician Surendra Pelletier RT Sba Business Development Officer Sabra Martinez RT Monitor Yane Dash RT Scrub Anni Reyna RT Scrub Jonn Lopez RN Nurse Froylan Avelar RN Nurse Procedure Data Cath Procedure Fluoroscopy Diagnostic fluoroscopy Total fluoroscopy Time: 1.4 time: 1.4 min min Diagnostic fluoroscopy Total fluoroscopy dose: 367 dose: 367 mGy mGy Contrast Material Contrast Material Type Amount (ml) Isovue 300 64 Entry Location Entry Primary Successful Side Size Upsize Upsize Entry Closure Succes sful Closure Location (Fr) 1 (Fr) 2 (Fr) Remarks Device Remarks Femoral Right 5 Fr Exoseal artery Estimated blood loss: 5 ml Diagnostic catheters Device Type Used For End Catheter Placement MULTIPACK JL 4.0 5Fr Left Coronary catheter Angiography MULTIPACK 3DRC 5Fr Right Coronary catheter Angiography MULTIPACK Pigtail 5 Fr LV Angiography catheter Procedure Complications No complications Procedure Medications Medication Administration Route Dosage 0.9% NaCl I.V. 100 ml/hr Oxygen etCO2 Nasal cannula 2 l/min Heparin Flush Bag added to field 2 bags (1000units/500ml NS) Lidocaine 2% added to field 20 Versed I.V. 0.5 mg Fentanyl I.V. 25 mcg Hemodynamics Rest HGB: 8.3 (g/dl) Heart Rate: 77 (bpm) Pressure Samples Time Site Value (mmHg) Purpose Heart Use Rate(bpm) 10:01 LV 106/8,12 Snapshot 87 10:02 AO 114/60(78) Pullback 80 10:02 LV 108/12,15 Pullback 80 Gradients Valve Time Site 1 Site 2 Mean SEP/DFP Peak To Heart Use (mmHg) (sec/min) Peak Rate (mmHg) (bpm) Aortic 10:02 LV AO 0 15 0 80 108/12,15 114/60(78) Calculations Valve P-P Mean Valve Index Valve Source Name Gradient Area Flow (cm2) Aortic 0 0 0 0 Snapshots Pre Cath Intra NCS Post Cath Vital Signs Time Heart Resp SPO2 etCO2 NIBP (mmHg) Rhythm Pain Sedation Rate (ipm) (%) (mmHg) Status Level (bpm) 9:48:35 80 14 100 8.2 133/73(91) NSR 0 (11) 10(A) , No pain 9:52:47 78 20 98 0 109/86(108) NSR 0 (11) 10(A) , No pain 9:57:56 76 19 97 0 105/64(88) NSR 0 (11) 9(A) , No pain 10:02:02 74 25 97 0 104/74(82) NSR 0 (11) 9(A) , No pain Medications Time Medication Route Dose Verified Delivered Reason Notes Effe ctiveness by by 9:49:17 0.9% NaCl I.V. 100 Jonn Jonn Per ml/hr Jessica Lopez physician RN RN 9:49:27 Oxygen etCO2 2 Jonn Jonn for low 02 Nasal l/min Lorigan Lorigan sats cannula RN RN 9:49:38 Heparin Flush added 2 Jonn Jonn used for Bag to bags Lorigan Lorigan procedure (1000units/500ml field RN RN NS) 9:49:49 Lidocaine 2% added 20ml Jonn Jonn for local to vial Lorigan Lorigan anesthetic field RN RN 9:54:33 Versed I.V. 0.5 Jonn Jonn for mg Lorigan Lorigan sedation RN RN 9:54:45 Fentanyl I.V. 25 Jonn Jonn for mcg Lorigan Lorigan sedation RN scheduler conveyor Log Time Note 9:15:53 Surendra Pelletier RT(R) (CV) sent for patient. Start room use. 9:20:21 Signed procedure consent form obtained from patient. 9:20:23 Procedure Status Urgent Heart Cath (IP). 9:20:24 Time tracking: Regular hours (M-F 7:00 - 5:00) 9:20:27 Plan of Care:Hemodynamics will remain stable., Cardiac rhythm will remain stable., Comfort level will be maintained., Respiratory function will remain adequate., Patient/ family verbilizes understanding of procedure., Procedure tolerated without complication., Recovers from procedure without complications.. 9:35:52 Patient allergic to No known allergies 9:36:38 Lab Result : BUN 19 mg/dl 9:36:38 Lab Result : Creatinine 1.4 mg/dl 9:36:38 Lab Result : eGFR NONAFRICAN 53 ml/min 9:36:38 Lab Result : Hemoglobin 8.3 g/dl 9:36:38 Lab Result : Hematocrit 25.8 % 9:37:46 Patient received from MED 3 to CCL 1 Alert and oriented. Tansferred to table in Supine position. 9:38:14 Warm blankets applied, and adriana hugger turned on for patient comfort. 9:38:15 Correct patient and procedure confirmed by team. 9:38:17 ECG and BP/O2 sat monitors applied to patient. 9:45:06 Patient Weight : 199.96 lbs 9:47:20 Vital chart was started 9:47:26 Full Disclosure recording started 9:47:31 H&P Date Dictated: 05/08/2019 New H&P dictated by physician.. 9:47:33 Pre-procedure instructions explained to patient. 9:47:34 Pre-op teaching completed and patient verbalized understanding. 9:47:36 Family unavailable. 9:47:38 Patient NPO since Midnight. 9:47:43 Is the patient allergic to Iodine/contrast media? No. 9:47:44 Was the patient premedicated? No 9:47:52 Is patient on blood thinner?No 9:47:54 Patient diabetic? Unknown. 9:47:57 Previous problem with sedation/anesthesia? Unknown ? 9:48:00 Snore? Unknown 9:48:02 Sleep apnea? Unknown 9:48:03 Deviated septum? Unknown 9:48:05 Opens mouth fully? Yes 9:48:07 Sticks out tongue? Unknown 9:48:10 Airway obstruction? Unknown ? 9:48:13 Dentures? Unknown ? 9:48:18 Pre procedure: right dorsailis pedis pulse 2+ Normal; easily identifiable; not easily obliterated 9:48:20 Pre procedure: left dorsailis pedis pulse 2+ Normal; easily identifiable; not easily obliterated 9:48:22 Patient pain scale 0/10 ?. 9:48:34 IV patent on arrival in left forearm with 0.9% NaCl at O. 9:48:36 Lab results completed and on chart. 9:48:41 Right groin area was prepped with chlora-prep and draped in sterile fashion 9:48:43 Alarms reviewed by R. N. 9:48:43 Sharps counted by scrub and verified by R.N. 9:48:45 Physician arrived 9:48:46 --------ALL STOP TIME OUT------ 9:48:47 Final Timeout: patient, procedure, and site verified with staff and physician. All members of the team are in agreement. 9:48:49 Right groin site verified by team. 9:48:52 Fire Safety Assessment: A--An alcohol-based skin anteseptic being used preoperatively., C--Open oxygen or nitrous oxide is being used., D--An ESU, laser, or fiber-optic light is being used. 9:49:07 Physical assessment completed. ASA score P 3 - A patient with severe systemic disease as per Hi Calvillo MD. 9:49:17 0.9% NaCl 100 ml/hr I.V. was administered by Jonn Lopez RN; Per physician; 9:49:20 2) 60-89 Mildly reduced kidney function, and other findings (as for stage 1) point to kidney disease. 9:49:27 Oxygen 2 l/min etCO2 Nasal cannula was administered by Jonn Lopez RN; for low 02 sats; 9:49:34 Sedation plan: IV Moderate Sedation Medication:Versed, Fentanyl 9:49:38 Heparin Flush Bag (1000units/500ml NS) 2 bags added to field was administered by Jonn Lopez RN; used for procedure; 9:49:49 Lidocaine 2% 20ml vial added to field was administered by Jonn Lopez RN; for local anesthetic; 9:49:55 Maximum allowable contrast dose (3.7 X eGFR X 0.75)180 ml. 9:50:16 Baseline sample Acquired. 9:50:20 Rhythm: sinus rhythm 9:50:26 Use device set Femoral Dx 9:50:28 ACIST Syringe (40739) opened to sterile field. 9:50:28 Bag Decanter () opened to sterile field. 9:50:28 Medline Cath Pack ([id number]) opened to sterile field. 9:50:30 ACIST Hand Control (35280) opened to sterile field. 9:50:30 ACIST Manifold (53377) opened to sterile field. 9:50:31 DIAGNOSTIC Multipack 5Fr catheter set ([id number]) opened to sterile field. 9:50:31 Tegaderm 4 x 4 (1626W) opened to sterile field. 9:50:32 EMERALD Guide Wire (184-156) opened to sterile field. 9:50:33 SHEATH 5FR Malta ([id number]) opened to sterile field. 9:54:33 Versed 0.5 mg I.V. was administered by Jonn Lopez RN; for sedation; 9:54:45 Fentanyl 25 mcg I.V. was administered by Jonn Lopez RN; for sedation; 9:56:27 Procedure started. 9:57:36 Local anesthetic to right femoral artery with Lidocaine 2% by Hi Calvillo MD.INITIAL ACCESS ONLY 9:57:46 A 5 Fr sheath was inserted into the Right Femoral artery 9:57:53 A MULTIPACK JL 4.0 5Fr catheter was advanced over the wire and used for Left Coronary Angiography. 9:58:08 LCA angiography performed. 9:58:12 Injector settings: Ml/sec: 3, Volume: 6, 9:59:54 Catheter removed. 10:00:18 A MULTIPACK 3DRC 5Fr catheter was advanced over the wire and used for Right Coronary Angiography. 10:00:21 RCA angiography performed. 10:00:23 Injector settings: Ml/sec: 3, Volume: 6, 10:00:26 Catheter removed. 10:00:37 A MULTIPACK Pigtail 5 Fr catheter was advanced over the wire and used for LV Angiography. 10:01:43 LV hemodynamics recorded. 10:01:44 LV gram done using IZAGUIRRE 10:01:47 Injector settings: Ml/sec: 5, Volume: 15, 10:01:55 EF : 40 % 10:02:40 Catheter removed. 10:02:51 EXOSEAL 5Fr (EX500) opened to sterile field. 10:03:31 Sheath removed intact; hemostasis achieved with Exoseal to the Right Femoral artery. 10:03:33 Procedure ended.(Physican Out) 10:03:59 Fluoroscopy time 01.40 minutes. 10:04:06 Flurop Dose total: 367 10:04:06 Fluoroscopy dose: 367 mGy 10:04:12 Dose Area Product 53118 mGy/cm. 10:04:25 Contrast amount:Isovue 300 64ml. 10:04:30 Sharps counted by scrub and verified by R.N. 10:04:34 Insertion/operative site no bleeding no hematoma. 10:04:40 Post-op/insertion site Right Femoral artery dressed using a 4 x 4 and Tegaderm. 10:04:42 Post Procedure Pulses reassessed and unchanged 10:04:45 Post procedure rhythm: unchanged. 10:04:48 Estimated blood loss: 5 ml 10:04:50 Post procedure instruction explained to patient.Patient verbalizes understanding. 10:04:50 Patient needs reinforcement of post procedure teaching. 10:05:08 Procedure type changed to Cath procedure, Diagnostic procedure, LHC, LHC w/Coronaries, Sedation Charges, Moderate Sedation up to 15 minutes 10:05:10 Procedure and supply charges have been captured, reviewed, submitted and are correct. 10:05:15 Procedure Complication : No complications 10:05:19 Vital chart was stopped 10:05:33 Report given to Med II. 10:05:36 Patient transfered to Med II with Stretcher. 10:05:48 Procedure ended. 10:05:48 Full Disclosure recording stopped 10:05:52 End room use (Document Last) Device Usage Item Name Manufacture Quantity Catalog Hospital Part Current Minimal L ot# / Number Charge Number Stock Stock Serial# Code ACIST Acist 1 50401 020490 791769 283681 20 Syringe Medical (83363) Systems Inc Bag Microtek 1 2001S 046330 89326 060765 5 Decanter Medical Inc. () Medline Medline 1 [id number] 094470 90792 871668 5 Cath Pack ([id number]) ACIST Hand Acist 1 76648 799826 017429 129816 5 Control Medical (59991) Systems Inc ACIST Acist 1 28601 436017 401123 658832 5 Manifold Medical (78251) Systems Inc DIAGNOSTIC Cardinal 1 FF7805 329876 15625 710428 30 Multipack Health 5Fr catheter set (WT7576) Tegaderm 4 3M 1 1626W 293244 347700 379360 5 x 4 (1626W) EMERALD Cardinal 1 502-455 127234 065226 648734 5 Guide Wire Health (502-455) SHEATH 5FR Terumo 1 TNH973 660964 276322 331486 5 [place] (GCN516) MULTIPACK Cardinal 1 120574 5 JL 4.0 5Fr Health catheter MULTIPACK Cardinal 1 495405 5 3DRC 5Fr Health catheter MULTIPACK Cardinal 1 835677 5 Pigtail 5 Health Fr catheter EXOSEAL 5Fr Cardinal 1 EX500 943977 980759 767995 10 (EX500) AnaBios Signature Audit [place] Stage Time Signature Unsigned Intra-Procedure 05/08/2019 Anni Reyna 10:06:55 AM RT(R) Signatures Performing Physician : Signature : Hi Calvillo MD Date : Time : Monitor : Sabra Martinez Signature : RT Date : Time : Nurse : Ojnn Lorigan Signature : RN Date : Time : Nurse : Buffie Avelar RN Signature : Date : Time : [facility] [address] [place] [address]
[~2019-05-02 17:16] MED LIST changes: +CLOTRIM ANTIFUN15 GM TOPICAL; +IPRAT-ALBUT 0.5-3 ML INH; +Lovenox INJ SC; +SOLU-MEDRO40 MG/1 M1 IV
[2019-05-02 18:06] LABS: BASOPHILS 0.1 % (0-2); EOSINOPHILS 1.9 % (0-7); HEMATOCRIT 26.2 % (42.0-54.0); HEMOGLOBIN 8.5 g/dL (13.5-17.5); MCH 28.8 pg (26.0-34.0); MCHC 32.4 g/dL (31.0-37.0); MCV 88.8 fL (80.0-100.0); MEAN PLATELET VOLUME 9.3 fL (7.4-10.4); MONOCYTES 6.3 % (2-11); NEUTROPHILS 82.7 % (40-80); PLATELET COUNT 246 10x3/uL (130-400); RBC 2.95 10x6/uL (4.20-6.10); RDW 15.8 % (11.5-14.5); WBC 9.2 10x3/uL (4.8-10.8)
[2019-05-02 18:18] LABS: APTT 31.1 SECONDS (22.8-39.4); INR 1.27 (0.85-1.17); PROTIME 15.3 SECONDS (11.6-15.0)
[2019-05-02 18:31] LABS: ALBUMIN 2.2 g/dL (3.4-5.0); ALKALINE PHOSPHATASE 99 U/L (46-116); ALT (SGPT) 14 U/L (10-68); BILIRUBIN - TOTAL 0.46 mg/dL (0.2-1.3); CALC OSMOLALITY 273 mosm/kg (275-300); CALCIUM 8.3 mg/dL (8.5-10.1); CARBON DIOXIDE 27.8 mmol/L (21.0-32.0); CHLORIDE - SERUM 100 mmol/L (98-107); CREATININE - SERUM 1.3 mg/dL (0.6-1.3); GLUCOSE 126 mg/dL (74-106); POTASSIUM - SERUM 4.1 mmol/L (3.5-5.1); PROTEIN - SERUM 7.1 g/dL (6.4-8.2); SODIUM 135 mmol/L (136-145); UREA NITROGEN 19 mg/dL (7-18); eGFR NON AFRICAN AMERICAN 58 mL/min (90-120)
[2019-05-02 18:39] LABS: AMYLASE - SERUM 148 U/L (25-115); CKMB 0.8 U/L (0.0-3.6); CREATINE KINASE 18 UL (21-232); LIPASE 671 U/L (73-393); PRO BNP 628 pg/mL (0-125); TROPONIN-I < 0.017 ng/mL (0.000-0.060)
--- NOTE | 2019-05-02 19:20 | NUR ---
HAND OFF REPORT GIVEN TO PHIL GARSIA.
--- NOTE | 2019-05-02 19:21 | NUR ---
URINE SAMPLE COLLECTED AND SENT TO LAB.
[2019-05-02 19:25] LABS: APPEARANCE HAZY (CLEAR); COLOR YELLOW (YELLOW)
[2019-05-02 19:26] LABS: BACTERIA MANY /hpf (NONE SEEN); BILIRUBIN NEGATIVE (NEGATIVE); GLUCOSE NEGATIVE (NEGATIVE); KETONE NEGATIVE (NEGATIVE); NITRITE NEGATIVE (NEGATIVE); PROTEIN TRACE mg/dL (NEGATIVE); RED CELLS - URINE OCC /hpf (0-5); SPECIFIC GRAVITY 1.015 (1.005-1.020); UROBILINOGEN NORMAL (NORMAL); WHITE CELLS - URINE >50 /hpf (0-5)
--- NOTE | 2019-05-02 19:30 | NUR ---
PT RETURNED FROM CT AT THIS TIME.
--- NOTE | 2019-05-02 22:52 | NUR ---
ZITHROMAX INFUSION STOPPED AT THIS TIME. PT TRANSPORTED TO 1205 VIA STRETCHER WITH 02 AND VETERANS' COUNSELOR.
[2019-05-02 23:21] VITALS: BP 126/66; BMI 27.9
[2019-05-02] MEDS ORDERED: ALBUTEROL SULF8.5 GM INH (23:21)
--- NOTE | 2019-05-02 23:45 | NUR ---
RECIEVED REPORT FROM SUN, ER. PT ARRIVED ON STRETCHER. INITIAL ASSESSMENT COMPLETED. PT ANSWERED MOST QUESTION. VSS, AAOX2, WITH OCCASIONAL CONFUSION. PT IS CHEESH-NA. STATES HE USES HEARING AID BUT HE LEFT IT AT HOME. ZAMAN DRAINING AND INTACT. O2 @ 4L NC. ABD DISTENDED, PT DENIES PAIN AT THIS TIME. CANE @ BEDSIDE. PT DENIES ANY FURTHER NEEDS AT THIS TIME. WILL CPOC. CL WITHIN REACH, BED IN LOW, SR UP X2.
[2019-05-03 03:31] VITALS: BP 120/80
[2019-05-03 06:44] LABS: BASOPHILS 0 % (0-2); EOSINOPHILS 0 % (0-7); HEMATOCRIT 24.6 % (42.0-54.0); HEMOGLOBIN 7.9 g/dL (13.5-17.5); IMMATURE GRANULOCYTES 1.4 % (0-5); LYMPHOCYTES 6.5 % (15-50); MCH 28.6 pg (26.0-34.0); MCHC 32.1 g/dL (31.0-37.0); MCV 89.1 fL (80.0-100.0); MEAN PLATELET VOLUME 9.4 fL (7.4-10.4); NEUTROPHILS 90.1 % (40-80); PLATELET COUNT 257 10x3/uL (130-400); RBC 2.76 10x6/uL (4.20-6.10); RDW 15.9 % (11.5-14.5)
--- NOTE | 2019-05-03 07:05 | NUR ---
PT RESTING SUPINE UPON ENTERING WITH EYES CLOSED, BREATHIN EVEN AND UNLABORED, NO S/S OF DISTRESS NOTED. PT IS WEARING 4L OF OXYGEN AND HAVE A ZAMAN IN FOR RETENTION. DENIES ANY NEEDS AT THIS TIME. BED IN LOWEST POSITION, BED RAILS X2, CALL LIGHT WITHIN REACH. WILL CTM.
[2019-05-03 07:19] LABS: ANION GAP 12.7 mmol/L (8-16); BILIRUBIN - TOTAL 0.39 mg/dL (0.2-1.3); CALCIUM 8.7 mg/dL (8.5-10.1); CARBON DIOXIDE 27.4 mmol/L (21.0-32.0); CREATININE - SERUM 1.2 mg/dL (0.6-1.3); MAGNESIUM - SERUM 2.2 mg/dL (1.8-2.4); PHOSPHOROUS 3.9 mg/dL (2.5-4.9); POTASSIUM - SERUM 4.1 mmol/L (3.5-5.1); PROTEIN - SERUM 6.6 g/dL (6.4-8.2)
[2019-05-03 07:22] LABS: WBC 6.4 10x3/uL (4.8-10.8)
[2019-05-03 09:24] VITALS: BP 124/60
--- NOTE | 2019-05-03 09:45 | NUR ---
ADMINISTERED MORNING MEDICATION AT THIS TIME, NO TROUBLE SWALLOWING. DENIES OTHER NEEDS AT THIS TIME. WILL CTM.
--- NOTE | 2019-05-03 11:42 | NUR ---
ADMINISTERED MEDICATION, NO TROUBLE SWALLOWING. HUNG ANTIBIOTICS, NO COMPLAINTS OF PAIN. WILL CTM.
--- NOTE | 2019-05-03 12:55 | NUR ---
ADMINISTERED LOVENOX INJECTION, TOLERATED WELL. HELPED PT TO BATHROOM. DENIES ANY NEEDS AT THIS TIME. WILL CTM.
[2019-05-03 13:09] LABS: CKMB 1.5 U/L (0.0-3.6); CREATINE KINASE 25 UL (21-232)
[2019-05-03 13:10] LABS: TROPONIN-I < 0.017 ng/mL (0.000-0.060)
[2019-05-03 13:12] VITALS: BP 123/62
--- NOTE | 2019-05-03 14:50 | NUR ---
PT TO CT.
[2019-05-03 14:56] LABS: LIPASE 85 U/L (73-393)
[2019-05-03 14:57] LABS: AMYLASE - SERUM 41 U/L (25-115)
--- NOTE | 2019-05-03 15:11 | NUR ---
RETURNED FROM CT. REQUESTED HAIR COMB, PROVIDED.
--- NOTE | 2019-05-03 15:45 | NUR ---
ADMINISTERED MEDICATION, NO TROUBLE SWALLOWING. DENIES OTHER NEEDS. WILL CTM.
[2019-05-03 17:13] LABS: CKMB 1.3 U/L (0.0-3.6); CREATINE KINASE 21 UL (21-232); TROPONIN-I < 0.017 ng/mL (0.000-0.060)
--- NOTE | 2019-05-03 19:07 | NUR ---
PT RESTING COMFORTABLY IN BED DENIES ANY NEEDS AT THIS TIME. REPORT PASSED TO USER EXPERIENCE DEVELOPER.
[2019-05-03 20:00] VITALS: BP 105/60
--- NOTE | 2019-05-03 21:48 | NUR ---
PT IN BED. MOVED BEDSIDE TABLE AGAINST WALL PER PT REQUEST. PT DENIES NEEDS AT THIS TIME.
[2019-05-04] VITALS: BP 99/60
[2019-05-04 01:03] LABS: CKMB 1.2 U/L (0.0-3.6); CREATINE KINASE 21 UL (21-232)
[2019-05-04 01:04] LABS: TROPONIN-I < 0.017 ng/mL (0.000-0.060)
[2019-05-04 03:44] VITALS: BP 100/61
--- NOTE | 2019-05-04 07:05 | NUR ---
PT RESTING SUPINE IN BED WITH EYES CLOSED, BREATHING EVEN AND UNLABORED. NO S/S OF DISTRESS NOTED AT THIS TIME. EASILY AROUSEDD TO ASSESS VITALS. VITALS STABLE 97% O2 4L VIA NC, 88 BPM, 122/73 AND 17 BREATHS PER MINUTE. PT DENIES ANY NEEDS AT THIS TIME. WILL CTM.
[2019-05-04 07:08] LABS: ANION GAP 11.8 mmol/L (8-16); CALCIUM 8.6 mg/dL (8.5-10.1); CARBON DIOXIDE 28.2 mmol/L (21.0-32.0); CREATININE - SERUM 1.2 mg/dL (0.6-1.3); MAGNESIUM - SERUM 2.1 mg/dL (1.8-2.4); PHOSPHOROUS 2.9 mg/dL (2.5-4.9)
[2019-05-04 07:12] LABS: BASOPHILS 0.1 % (0-2); EOSINOPHILS 0.1 % (0-7); HEMATOCRIT 24.8 % (42.0-54.0); HEMOGLOBIN 8.1 g/dL (13.5-17.5); IMMATURE GRANULOCYTES 3.7 % (0-5); LYMPHOCYTES 14.1 % (15-50); MCH 29.3 pg (26.0-34.0); MCHC 32.7 g/dL (31.0-37.0); MCV 89.9 fL (80.0-100.0); MEAN PLATELET VOLUME 9.4 fL (7.4-10.4); MONOCYTES 6.9 % (2-11); NEUTROPHILS 75.1 % (40-80); PLATELET COUNT 294 10x3/uL (130-400); RBC 2.76 10x6/uL (4.20-6.10); RDW 16.2 % (11.5-14.5)
[2019-05-04 07:17] LABS: WBC 10.3 10x3/uL (4.8-10.8)
[2019-05-04 07:26] VITALS: BP 111/60
[2019-05-04 07:32] VITALS: BP 111/60
--- NOTE | 2019-05-04 09:15 | NUR ---
MORNING MEDICATION GIVEN AT THIS TIME. NO TROUBLE SWALLOWING. PT DENIES OTHER NEEDS AT THIS TIME. WILL CTM.
--- NOTE | 2019-05-04 11:05 | NUR ---
PT RESTING COMOFORTABLY IN BED, DENIES ANY NEEDS. WILL CTM.
[2019-05-04 12:41] VITALS: Ht 180.3 cm; Wt 90.7 kg
--- NOTE | 2019-05-04 13:59 | NUR ---
PT RESTING IN BED, DENIES ANY NEEDS AT THIS TIME. WILL CTM.
--- NOTE | 2019-05-04 14:36 | NUR ---
DISCONNECTED PT FROM IV POLE, ATBX FINISHED. IV IS SALINE LOCKED.
--- NOTE | 2019-05-04 15:55 | NUR ---
ADMINISTERED MEDICATION, NO TROUBLE SWALLOWING. DENIES ANY NEEDS AT THIS TIME. WILL CTM.
--- NOTE | 2019-05-04 17:14 | NUR ---
ADMINISTERED MEDICATION, PT ADMINISTERED NASAL SPRAY. EMPTIED ZAMAN, 700 ML. DENIES NEEDS. WILL CTM.
--- NOTE | 2019-05-04 19:21 | NUR ---
PT IN BED. DENIES NEEDS AT THIS TIME.
[2019-05-04 20:00] VITALS: BP 131/70
--- NOTE | 2019-05-04 21:33 | MORECARE ---
CASE MANAGEMENT DISCHARGE SUMMARY PATIENT: BENJAMIN KNOWLES UNIT: [id number] ADM DATE: 05/02/19 AGE: 69 : 50 SEX: M ROOM/BED: D.1205 AUTHOR: AMBROSE LAMBERT PHYSICIAN: REFERRING PHYSICIAN: ELIZABETH MICHAELS MD DATE OF SERVICE: 05/04/19 Discharge Plan Patient Name: BENJAMIN KNOWLES Facility: [facility]:[place] : 1950 Planned Disposition: Home with Home Health Anticipated Discharge Date: Discharge Date: Expected LOS: Initial Reviewer: [email or web address] Initial Review Date: 05/03/2019 Generated: 05/04/19 10:33 pm Comments DCP- Discharge Planning Updated by [email or web address]: Buffy Castillo on 05/04/19 8:[address] LATE ENTRY 05/03/19 Patient Name: BENJAMIN KNOWLES Admission Status: ER Accout number: [id number] Admission Date: 05-02-2019 : 1950 Admission Diagnosis:SHORTNESS OF BREATH Attending: ELIZABETH MICHAELS Current LOS: 2 Anticipated DC Date: Planned Disposition: Primary Insurance: MEDICARE A & B Discharge Planning Comments: CM met with patient to complete initial dc planning assessment. CM educated patient on the CM role and verbal consent given by patient to complete assessment. Patient lives at home with his girlfriend whom he has lived with for 30 years and her adult son. At discharge patient is unsure of his plans home with home health vs inpatient rehab . CM discussed availability of home health, rehab services, and medical equipment. He is current with [facility]. He has a walker, home O2, nebulizer, portable O2, cane, concentrator. He stated he uses [facility]. Patient denied known discharge needs at this time. CM will continue to follow and will assist as needed with dc plans/needs. Cake Former: Buffy Castillo Patient Name: BENJAMIN KNOWLES Page [id number] at 2133 All edits/amendments must be made on the electronic document DICTATION DATE: 05/04/192132 STEAM FRAME OPERATOR: FREDO 05/04/192132 RPT#: [id number] DC DATE: STATUS: ADM IN [facility] [address] [place] [address] END OF REPORT
--- NOTE | 2019-05-04 21:40 | MORECARE ---
CASE MANAGEMENT DISCHARGE SUMMARY PATIENT: BENJAMIN KNOWLES UNIT: [id number] ADM DATE: 05/02/19 AGE: 69 : 50 SEX: M ROOM/BED: D.1205 AUTHOR: PETRADOC PHYSICIAN: REFERRING PHYSICIAN: ELIZABETH MICHAELS MD DATE OF SERVICE: 05/04/19 Discharge Plan Patient Name: BENJAMIN KNOWLES Facility: [facility]:[place] : 1950 Planned Disposition: Home with Home Health Anticipated Discharge Date: Discharge Date: Expected LOS: Initial Reviewer: [email or web address] Initial Review Date: 05/03/2019 Generated: 05/04/19 10:39 pm Comments DCP- Discharge Planning Updated by [email or web address]: Buffy Castillo on 05/04/19 8:[address] LATE ENTRY 05/03/19 Patient Name: BENJAMIN KNOWLES Admission Status: ER Accout number: [id number] Admission Date: 05-02-2019 : 1950 Admission Diagnosis:SHORTNESS OF BREATH Attending: ELIZABETH MICHAELS Current LOS: 2 Anticipated DC Date: Planned Disposition: Primary Insurance: MEDICARE A & B Discharge Planning Comments: CM met with patient to complete initial dc planning assessment. CM educated patient on the CM role and verbal consent given by patient to complete assessment. Patient lives at home with his girlfriend whom he has lived with for 30 years and her adult son. At discharge patient is unsure of his plans home with home health vs inpatient rehab . CM discussed availability of home health, rehab services, and medical equipment. He is current with [facility]. He has a walker, home O2, nebulizer, portable O2, cane, concentrator. He stated he uses [facility]. Patient denied known discharge needs at this time. CM will continue to follow and will assist as needed with dc plans/needs. Preload Supervisor: Buffy Castillo DCPIA - Discharge Planning Initial Assessment Updated by [email or web address]: Buffy Castillo on 05/04/19 9:37 pm * Is the patient Alert and Oriented? Yes * How many steps to enter\exit or inside your home? * PCP DEONNA?? * Pharmacy [facility] * Preadmission Environment Home with Family * ADLs Independent * Other Equipment WALKER, CANE, HOME 02, PORT 02, NEBULIZER * List name and contact numbers for known caregivers / representatives who currently or will assist patient after discharge: RADHA VIGIL - GIRLFRIEND - [phone] * Verbal permission to speak to the caregivers and representatives has been obtained from the patient. Yes * Community resources currently utilized Home Health * Please name any agencies selected above. [facility] * Additional services required to return to the preadmission environment? No * Can the patient safely return to the preadmission environment? Yes * Has this patient been hospitalized within the prior 30 days at any hospital? Yes Last DP export: 05/04/19 8:33 pm Patient Name: BENJAMIN KNOWLES Page [id number] at 2140 All edits/amendments must be made on the electronic document DICTATION DATE: 05/04/192138 FITNESS AND WELLNESS DIRECTOR: FREDO 05/04/192138 RPT#: [id number] DC DATE: STATUS: ADM IN [facility] [address] [place] [address] END OF REPORT
[2019-05-05 00:57] VITALS: BP 126/65
[2019-05-05 03:56] VITALS: BP 118/70
[2019-05-05 07:43] LABS: HEMATOCRIT 26.3 % (42.0-54.0); HEMOGLOBIN 8.4 g/dL (13.5-17.5); IMMATURE GRANULOCYTES 9.6 % (0-5); MCHC 31.9 g/dL (31.0-37.0); MCV 90.7 fL (80.0-100.0); MEAN PLATELET VOLUME 9.3 fL (7.4-10.4); PLATELET COUNT 348 10x3/uL (130-400); RDW 16.2 % (11.5-14.5); WBC 10.8 10x3/uL (4.8-10.8)
[2019-05-05 07:44] VITALS: BP 86/55
[2019-05-05 08:02] LABS: ANION GAP 11.7 mmol/L (8-16); CALCIUM 8.8 mg/dL (8.5-10.1); CARBON DIOXIDE 27.6 mmol/L (21.0-32.0); CREATININE - SERUM 1.4 mg/dL (0.6-1.3); MAGNESIUM - SERUM 1.8 mg/dL (1.8-2.4); PHOSPHOROUS 3.3 mg/dL (2.5-4.9); POTASSIUM - SERUM 4.3 mmol/L (3.5-5.1)
[2019-05-05 09:09] LABS: EOSINOPHILS 1 % (0-7); LYMPHOCYTES 18 % (15-50); MONOCYTES 9 % (2-11); NEUTROPHILS 64 % (40-80)
--- NOTE | 2019-05-05 09:10 | NUR ---
AM MEDS GIVEN AT THIS TIME. RT AC IV RED AND SWOLLEN, TENDER TO TOUCH. D/C IV WITH CATHETER TIP INTACT. ATTEMPTED TO START NEW IV WAS UNSUCCESSFUL. WILL HAVE ELIZ NURSE SEE IF SHE CAN START IV. PT DENIES ANY NEEDS AT THIS TIME. CALL LIGHT IN REACH, BEDSIDE RAILS X2, NAD NOTED, WILL CONTINUE PLAN OF CARE.
--- NOTE | 2019-05-05 10:25 | NUR ---
NEW 22G IV STARTED BY ELIZ TO LT FA. IVPB VANCOMYCIN HUNG AT THIS TIME. PT DENIES ANY NEEDS AT THIS TIME. ZAMAN CATHETER DRAINING LIGHT YELLOW URINE TO GRAVITY. CALL LIGHT IN REACH, BEDSIDE RAILS X2, NAD NOTED,W ILL CONTINUE PLAN OF CARE.
--- NOTE | 2019-05-05 11:34 | NUR ---
ASKED PT IF HE WANTED TO GET A BATH TODAY, PT STATED " NOT TODAY". PT RESTING COMFORTABLY IN BED, DENIES ANY NEEDS AT THIS TIME. CALL LIGHT IN REACH, NAD NOTED, WILL CONTINUE TO MONITOR.
[2019-05-05 12:18] VITALS: BP 91/55
--- NOTE | 2019-05-05 13:49 | NUR ---
HELPED PT TO BATHROOM AND BACK TO BED, PT HAD STEADY GATE, WITH MINIMAL ASSIST. PT HAD NORMAL BM. COMPLETE LINEN CHANGE PROVIDED AT THSI TIME BUT PT REFUSED TO GET A BATH AT THIS TIME. CALL LIGHT IN REACH, NAD NOTED, WILL CONTINEU TO MONITOR.
[2019-05-05 15:56] VITALS: BP 107/60
--- NOTE | 2019-05-05 19:21 | NUR ---
PATIENT RESTING IN BED AND DENIES NEEDS AT THIS TIME. NO S/S OF DISTRESS. VSS. BED IN LOWEST POSITION AND CALL LIGHT WITHIN REACH. ENCOURAGED THE PATIENT TO CALL IF HE HAS NEEDS. WILL CONTINUE TO MONITOR,
[2019-05-05 19:57] VITALS: BP 104/60
[2019-05-06 00:15] VITALS: BP 107/62
[2019-05-06 04:25] VITALS: BP 109/56
--- NOTE | 2019-05-06 07:00 | NUR ---
MORNING ROUNDS COMPLETE. VSS, NO SIGNS OF DISTRESS. NO C/O PAIN AT THIS TIME WILL CONT WITH POC.
[2019-05-06 07:10] LABS: ANION GAP 9.6 mmol/L (8-16); CALCIUM 8.5 mg/dL (8.5-10.1); CARBON DIOXIDE 29.4 mmol/L (21.0-32.0); CREATININE - SERUM 1.5 mg/dL (0.6-1.3); MAGNESIUM - SERUM 1.8 mg/dL (1.8-2.4); PHOSPHOROUS 3.6 mg/dL (2.5-4.9)
[2019-05-06 07:25] LABS: HEMATOCRIT 26.1 % (42.0-54.0); HEMOGLOBIN 8.4 g/dL (13.5-17.5); MCH 28.9 pg (26.0-34.0); MCHC 32.2 g/dL (31.0-37.0); MCV 89.7 fL (80.0-100.0); MEAN PLATELET VOLUME 9.2 fL (7.4-10.4); PLATELET COUNT 361 10x3/uL (130-400); RBC 2.91 10x6/uL (4.20-6.10); RDW 16.3 % (11.5-14.5); WBC 12.1 10x3/uL (4.8-10.8)
[2019-05-06 08:05] VITALS: BP 110/50
[2019-05-06 10:57] LABS: EOSINOPHILS 4 % (0-7); LYMPHOCYTES 23 % (15-50); MONOCYTES 2 % (2-11); NEUTROPHILS 66 % (40-80)
[2019-05-06 10:58] LABS: PLATELET ESTIMATE NORMAL
[2019-05-06 12:36] VITALS: BP 96/66
--- NOTE | 2019-05-06 13:30 | NUR ---
PT SITTING UP IN CHAIR. NO SIGNS OF DISTRESS. PT DENIES ANY PAIN AT THIS TIME. CONT WITH POC.
[2019-05-06 15:15] VITALS: BP 89/53
--- NOTE | 2019-05-06 19:27 | NUR ---
PATIENT SITTING UP IN THE CHAIR AND DENIES NEEDS AT THIS TIME. NO S/S OF DISTRESS. VSS. ENCOURAGED THE PATIENT TO CALL WHEN HE IS READY TO GO TO BED OR HAS OTHER NEEDS. PATIENT VERBALIZED UNDERSTANDING. WILL CONTINUE TO MONITOR.
[2019-05-06 19:29] VITALS: BP 106/60
[2019-05-07] VITALS (7 sets, daily range): BP systolic 102–156; BP diastolic 55–102
[2019-05-07 06:37] LABS: BASOPHILS 0.9 % (0-2); EOSINOPHILS 3.1 % (0-7); HEMATOCRIT 26.4 % (42.0-54.0); HEMOGLOBIN 8.5 g/dL (13.5-17.5); IMMATURE GRANULOCYTES 22.1 % (0-5); LYMPHOCYTES 13.9 % (15-50); MCHC 32.2 g/dL (31.0-37.0); MCV 90.1 fL (80.0-100.0); MEAN PLATELET VOLUME 9.3 fL (7.4-10.4); MONOCYTES 4.9 % (2-11); NEUTROPHILS 55.1 % (40-80); PLATELET COUNT 383 10x3/uL (130-400); RBC 2.93 10x6/uL (4.20-6.10); RDW 16.3 % (11.5-14.5); WBC 14.2 10x3/uL (4.8-10.8)
[2019-05-07 06:53] LABS: ANION GAP 10.2 mmol/L (8-16); CALCIUM 8.4 mg/dL (8.5-10.1); CARBON DIOXIDE 28.5 mmol/L (21.0-32.0); CREATININE - SERUM 1.4 mg/dL (0.6-1.3); MAGNESIUM - SERUM 1.9 mg/dL (1.8-2.4); PHOSPHOROUS 3.1 mg/dL (2.5-4.9); POTASSIUM - SERUM 3.7 mmol/L (3.5-5.1)
--- NOTE | 2019-05-07 07:17 | NUR ---
PT RESTING IN BED UPON ENTERING, BREATHING EVEN AND UNLABORED. NO S/S OF DISTRESS. PT IS ALERT AND CONFUSED. ZAMAN IN PLACE DRAINING YELLOW URINE. IV TO THE LEFT FOREARM, SALINE LOCKED AND PT IS ON 2.5 L OF OXYGEN VIA NASAL CANNULA. DENIES ANY NEEDS AT THIS TIME. NUCLEAR MEDICINE AT BEDSIDE. WILL CTM.
--- NOTE | 2019-05-07 07:58 | NUR ---
PT ATE BREAKFAST DESPITE BEING NPO, NOTIFIED NUCLEAR MEDICINE.
--- NOTE | 2019-05-07 08:06 | NUR ---
PT TO NUCLEAR MEDICINE.
--- NOTE | 2019-05-07 09:15 | NUR ---
PT BACK FROM NUCLEAR MEDICINE.
--- NOTE | 2019-05-07 10:26 | NUR ---
PT BACK WITH NUCLEAR MEDICINE.
--- NOTE | 2019-05-07 10:47 | NUR ---
Nutrition follow-up: Diet: Low sodium PO intake 100% of most melas Lab reviewed Wt: 199# Pt was supposed to be NPO for stress test today; however, pt ate breakfast any way. +BM RDN following.
--- NOTE | 2019-05-07 10:57 | NUR ---
PT BACK FROM NUCLEAR MEDICINE.
--- NOTE | 2019-05-07 11:18 | NUR ---
ADMINISTERED MEDICATION, NO TROUBLE SWALLOWING. PT UPRIGHT IN BEDSIDE CHAIR WATCHING TV. DENIES ANY NEEDS AT THIS TIME. CALL LIGHT WITHIN REACH. WILL CTM.
--- NOTE | 2019-05-07 11:46 | NUR ---
Rehab Prescreening Consult recieved and the chart has been reviewed. He is a good ARU candidate when he is medically stable. He has a stress test scheduled for today. Rehab will follow Hanh Jordan RN Clinical liaison, rehab
--- NOTE | 2019-05-07 12:05 | NUR ---
PT SITTING IN BEDSIDE CHAIR WATCHING TV. DENIES ANY NEEDS. WILL CTM.
--- NOTE | 2019-05-07 13:15 | NUR ---
PT SITTING IN BEDSIDE CHAIR, DENIES ANY NEEDS AT THIS TIME. WILL CTM.
--- NOTE | 2019-05-07 14:18 | NUR ---
I have reviewed this patient and I concur with the Shift Assessment completed by the Licensed Practical Nurse today this shift.
--- NOTE | 2019-05-07 17:15 | NUR ---
ADMINISTERED MEDICATIONS AT THIS TIME, NO TROUBLE SWALLOWING. PT IN BED SIDE CHAIR WATCHING TV, EATING DINNER. DENIES ANY NEEDS AT THIS TIME. WILL CTM.
--- NOTE | 2019-05-07 19:01 | NUR ---
PASSED REPORT TO WILDLIFE BIOSTATION RESEARCH ECOLOGIST.
--- NOTE | 2019-05-07 19:15 | NUR ---
ASSISTED PATIENT TO RESTROOM PER HIS REQUEST. PATIENT HAD A SMALL BM. ASSISTED PATIENT BACK TO CHAIR. NO S/S OF DISTRESS. PATIENT DENIES OTHER NEEDS AT THIS TIME. BED IN LOWEST POSITION AND CALL LIGHT WITHIN REACH. ENCOURAGED THE PATIENT TO CALL IF HE HAS NEEDS. WILL CONTINUE TO MONITOR.
[2019-05-08 00:39] VITALS: BP 109/62
[2019-05-08 04:43] VITALS: BP 112/55
--- NOTE | 2019-05-08 07:27 | NUR ---
PT RESTING SUPINE IN BED WITH EYES CLOSED, BREATHING EVEN AND UNLABORED. NO S/S OF DISTRESS. PT HAS IV TO LEFT FOREARM SALINE LOCKED. PT IS ON 2.5L OF O2 VIA NASAL CANNULA. WILL CTM.
[2019-05-08 08:03] LABS: HEMATOCRIT 25.8 % (42.0-54.0); HEMOGLOBIN 8.3 g/dL (13.5-17.5); MCH 28.9 pg (26.0-34.0); MCHC 32.2 g/dL (31.0-37.0); MCV 89.9 fL (80.0-100.0); MEAN PLATELET VOLUME 9.1 fL (7.4-10.4); PLATELET COUNT 404 10x3/uL (130-400); RBC 2.87 10x6/uL (4.20-6.10); RDW 16.3 % (11.5-14.5); WBC 15.2 10x3/uL (4.8-10.8)
[2019-05-08 08:18] VITALS: BP 94/60
[2019-05-08 08:32] LABS: ANION GAP 10.9 mmol/L (8-16); CALCIUM 8.9 mg/dL (8.5-10.1); CREATININE - SERUM 1.3 mg/dL (0.6-1.3); POTASSIUM - SERUM 3.9 mmol/L (3.5-5.1)
--- NOTE | 2019-05-08 09:20 | NUR ---
CONSENT OBTAINED FROM PT SPOUSE TO PERFORM HEART CATH, ALL QUESTIONS ANSWERED.
--- NOTE | 2019-05-08 09:25 | NUR ---
INTERNET MARKETING SPECIALIST REQUEST FOR PT TO BE PREOP. PT PREOP ORDERED. PT PIV TO LOWER LEFT FA HAD INFILTRATED. PIV REMOVED WITH CATHETER TIP INTACT. 22G PIV INSERTED X1 ATTEMPT TO LEFT UPPER FA. PT TOLERATED WELL.
--- NOTE | 2019-05-08 09:28 | NUR ---
PT TO ASSISTANT CENTER DIRECTOR.
--- NOTE | 2019-05-08 10:33 | NUR ---
RECEIVED PT FROM OUTREACH LIAISON. OUTREACH LIAISON REPORTS CLEAN CATH, LAY FLAT FOR 2 HOURS POST OP. PT IS ABLE TO SET UP/AMBULATE AT 12:30PM TODAY. PT IS RESTING COMFORTABLY IS EYES CLOSED, REATTACHED PT TO OXYGEN AT 2.5L. VSS. WILL CTM Q15 MIN FOR 1 HOUR.
[2019-05-08 10:53] LABS: EOSINOPHILS 2 % (0-7); LYMPHOCYTES 13 % (15-50); MONOCYTES 10 % (2-11); NEUTROPHILS 57 % (40-80)
[2019-05-08 10:54] LABS: ANISOCYTOSIS OCC; HYPOCHROMASIA OCC; PLATELET ESTIMATE INCREASED; ROULEAUX OCC
[2019-05-08 12:00] VITALS: BP 94/49
--- NOTE | 2019-05-08 12:12 | NUR ---
PT RESTING COMFORTABLY IN BED WITH EYES CLOSED, BREATHING EVEN AND UNLABORED. CATH SITE CLEAN, DRY AND INTACT, PERIPHERAL PULSES STRONG BILATERALLY. WILL CTM.
[2019-05-08 12:42] LABS: PATH REVIEW PERIPHERAL SMEAR REVIEWED
--- NOTE | 2019-05-08 13:07 | NUR ---
PT HEAVILY SEDATED FROM ANESTHESIA. ABLE TO WAKE PT WITH STERNAL RUB. PT REQUESTED TO BE LEFT ALONE TO SLEEP. WILL CTM.
[2019-05-08 15:06] VITALS: BP 97/52
--- NOTE | 2019-05-08 17:30 | NUR ---
ADMINISTERED MEDICATION AT THIS TIME, NO TROUBLE SWALLOWING. PT UP RIGHT EATING DINNER UPON EXITING THE ROOM. DENIES OTHER NEEDS. WILL CTM.
--- NOTE | 2019-05-08 18:29 | NUR ---
PT SITTING UP RIGHT IN BED, NO S/S OF DISTRESS. DENIES OTHER NEEDS AT THIS TIME. WILL CTM.
--- NOTE | 2019-05-08 20:15 | NUR ---
PT IN BED RESTING WITH EYES CLOSED. EVEN AND UNLABORED RESPIRATIONS NOTED AT THIS TIME.
[2019-05-08 21:00] VITALS: BP 130/59
--- NOTE | 2019-05-09 06:52 | NUR ---
REPORT RECEIVED. HE IS ALERT. RESP EVEN WITHOUT LABOR. O2 ON AT 2 LITER PER MINUTE PER N/C. F/C IS PATENT. SALINE LOCK TO LEFT FOREARM. DENIES ANY CURRENT NEEDS CL IN REACH. BED IS LOCKED AND IN LOWEST POSITION. CAREPLAN REVIEW DONE WITH SAFETY PRECAUTIONS IN PLACE
[2019-05-09 07:13] LABS: ANION GAP 10.8 mmol/L (8-16); CALCIUM 8.2 mg/dL (8.5-10.1); CREATININE - SERUM 1.3 mg/dL (0.6-1.3); POTASSIUM - SERUM 3.8 mmol/L (3.5-5.1)
[2019-05-09 07:14] LABS: HEMATOCRIT 26.9 % (42.0-54.0); HEMOGLOBIN 8.6 g/dL (13.5-17.5); MCV 90.6 fL (80.0-100.0); PLATELET COUNT 405 10x3/uL (130-400); RBC 2.97 10x6/uL (4.20-6.10); RDW 16.5 % (11.5-14.5); WBC 13.9 10x3/uL (4.8-10.8)
[2019-05-09 08:11] VITALS: BP 114/51
--- NOTE | 2019-05-09 10:30 | NUR ---
HE AMBULATED WITH THERAPY THEN WAS SITTING UP IN A CHAIR IN HIS ROOM. KENA WELL. CL IN REACH
[2019-05-09 10:56] LABS: ANISOCYTOSIS OCC; EOSINOPHILS 2 % (0-7); HYPOCHROMASIA OCC; LYMPHOCYTES 6 % (15-50); MONOCYTES 13 % (2-11); NEUTROPHILS 60 % (40-80); PLATELET ESTIMATE INCREASED
--- NOTE | 2019-05-09 11:15 | NUR ---
UP TO BATHROOM AND HAD BM. HE WAS ABLE TO AMBULATE WITH SOME ASSIST. O2 ON. HE HAS SHORTNESS OF BREATH AT TIMES IF UP MOVING ABOUT.
[2019-05-09 12:21] VITALS: BP 96/48
--- NOTE | 2019-05-09 14:45 | NUR ---
TOOK PO MEDS WITHOUT DIFF. CLEANED SORES TO LEFT LOWER LEG AND NEW BANDAID APPLIED. HE DENIES ANY CURRENT NEEDS. IVABT INFUSING AT THIS TIME AND HE WAS REMINDED TO USE CL FOR ASSIST.
[2019-05-09 15:46] VITALS: BP 100/54
--- NOTE | 2019-05-09 16:16 | NUR ---
UNABLE TO COLLECT SPUTUM SPECIMEN TODAY. HE IS NOT COUGHING ANYTHING UP, HE IS AWARE OF NEED FOR ONE
--- NOTE | 2019-05-09 19:17 | NUR ---
PT IN BED. DENIES NEEDS AT THIS TIME.
[2019-05-09 21:05] VITALS: BP 103/47
--- NOTE | 2019-05-09 21:11 | MORECARE ---
CASE MANAGEMENT DISCHARGE SUMMARY PATIENT: BENJAMIN KNOWLES UNIT: [id number] ADM DATE: 05/02/19 AGE: 69 : 50 SEX: M ROOM/BED: D.1205 AUTHOR: PETRADOC PHYSICIAN: REFERRING PHYSICIAN: ELIZABETH MICHAELS MD DATE OF SERVICE: 05/09/19 Discharge Plan Patient Name: BENJAMIN KNOWLES Facility: [facility]:[place] : 1950 Planned Disposition: Home with Home Health Anticipated Discharge Date: Discharge Date: Expected LOS: Initial Reviewer: [email or web address] Initial Review Date: 05/03/2019 Generated: 05/09/19 10:11 pm Comments DCP- Discharge Planning Updated by [email or web address]: Buffy Castillo on 05/09/19 8:[address] CM spoke with patient he is agreeing to go to inpatient rehab. CM explained that he needs to participate in therapy to go to Rehab he verbalized understanding. D/C IMM signed 05/09/19 @ 1210. CM will continue to follow and assist as needed with discharge planning / needs. DCP- Discharge Planning Updated by [id number]: Buffy Castillo on 05/04/19 8:[address] LATE ENTRY 05/03/19 Patient Name: BENJAMIN KNOWLES Admission Status: ER Accout number: [id number] Admission Date: 05-02-2019 : 1950 Admission Diagnosis:SHORTNESS OF BREATH Attending: ELIZABETH MICHAELS Current LOS: 2 Anticipated DC Date: Planned Disposition: Primary Insurance: MEDICARE A & B Discharge Planning Comments: CM met with patient to complete initial dc planning assessment. CM educated patient on the CM role and verbal consent given by patient to complete assessment. Patient lives at home with his girlfriend whom he has lived with for 30 years and her adult son. At discharge patient is unsure of his plans home with home health vs inpatient rehab . CM discussed availability of home health, rehab services, and medical equipment. He is current with [facility]. He has a walker, home O2, nebulizer, portable O2, cane, concentrator. He stated he uses [facility]. Patient denied known discharge needs at this time. CM will continue to follow and will assist as needed with dc plans/needs. Veterans' Counselor: Buffy Castillo DCPIA - Discharge Planning Initial Assessment Updated by [id number]: Buffy Castillo on 05/04/19 9:37 pm * Is the patient Alert and Oriented? Yes * How many steps to enter\exit or inside your home? * PCP DEONNA?? * Pharmacy [facility] * Preadmission Environment Home with Family * ADLs Independent * Other Equipment WALKER, CANE, HOME 02, PORT 02, NEBULIZER * List name and contact numbers for known caregivers / representatives who currently or will assist patient after discharge: RADHA VIGIL - GIRLFRIEND - [phone] * Verbal permission to speak to the caregivers and representatives has been obtained from the patient. Yes * Community resources currently utilized Home Health * Please name any agencies selected above. [facility] * Additional services required to return to the preadmission environment? No * Can the patient safely return to the preadmission environment? Yes * Has this patient been hospitalized within the prior 30 days at any hospital? Yes Coverage Notice Reviewer: [id number] - Buffy Castillo Notice Issued Date-Time: 05/09/2019 12:10 Notice Type: IM Discharge Notice Notice Delivered To: Patient Relationship to Patient: Self Accelerator Operator Name: Delivery Method: HAND - Hand Delivered Ashely Days: Prior Verbal Notification: Recipient Understood Notice: Yes Recipient Signature: Yes Med Rec Note Co-signed by Attending: Coverage Notice Comment: Last DP export: 05/04/19 8:40 pm Patient Name: BENJAMIN KNOWLES Page [id number] at 2111 All edits/amendments must be made on the electronic document DICTATION DATE: 05/09/192109 MENDER HAND: FREDO 05/09/192109 RPT#: [id number] DC DATE: STATUS: ADM IN [facility] [address] [place] [address] END OF REPORT
[2019-05-10] VITALS (8 sets, daily range): BP systolic 84–108; BP diastolic 46–61
[2019-05-10 06:29] LABS: BASOPHILS 0.2 % (0-2); HEMATOCRIT 26.8 % (42.0-54.0); HEMOGLOBIN 8.6 g/dL (13.5-17.5); IMMATURE GRANULOCYTES 12.2 % (0-5); LYMPHOCYTES 8.5 % (15-50); MCH 28.8 pg (26.0-34.0); MCHC 32.1 g/dL (31.0-37.0); MCV 89.6 fL (80.0-100.0); MEAN PLATELET VOLUME 8.9 fL (7.4-10.4); MONOCYTES 6.7 % (2-11); NEUTROPHILS 70.4 % (40-80); PLATELET COUNT 376 10x3/uL (130-400); RBC 2.99 10x6/uL (4.20-6.10); RDW 16.5 % (11.5-14.5); WBC 13.7 10x3/uL (4.8-10.8)
[2019-05-10 06:30] LABS: ANION GAP 11.5 mmol/L (8-16); CALCIUM 8.4 mg/dL (8.5-10.1); CARBON DIOXIDE 28.5 mmol/L (21.0-32.0); CREATININE - SERUM 1.4 mg/dL (0.6-1.3)
--- NOTE | 2019-05-10 16:30 | MORECARE ---
CASE MANAGEMENT DISCHARGE SUMMARY PATIENT: BENJAMIN KNOWLES UNIT: [id number] ADM DATE: 05/02/19 AGE: 69 : 50 SEX: M ROOM/BED: D.1205 AUTHOR: PETRADOC PHYSICIAN: REFERRING PHYSICIAN: ELIZABETH MICHAELS MD DATE OF SERVICE: 05/10/19 Discharge Plan Patient Name: BENJAMIN KNOWLES Facility: [facility]:[place] : 1950 Planned Disposition: Home with Home Health Anticipated Discharge Date: Discharge Date: Expected LOS: Initial Reviewer: [email or web address] Initial Review Date: 05/03/2019 Generated: 05/10/19 5:29 pm Comments DCP- Discharge Planning Updated by [email or web address]: Buffy Castillo on 05/10/19 3:[address] Barajas and LAND MANAGEMENT SUPERVISOR stated that patient isn't ready to discharge today d/t low grade fever and increased WBC. Nadia with Inpatient Rehab stated they will accept once patient is stable for discharge. CM will continue to follow and assist as needed with discharge planning / needs. DCP- Discharge Planning Updated by [id number]: Buffy Castillo on 05/09/19 8:[address] CM spoke with patient he is agreeing to go to inpatient rehab. CM explained that he needs to participate in therapy to go to Rehab he verbalized understanding. D/C IMM signed 05/09/19 @ 1210. CM will continue to follow and assist as needed with discharge planning / needs. DCP- Discharge Planning Updated by [id number]: Buffy Castillo on 05/04/19 8:[address] LATE ENTRY 05/03/19 Patient Name: BENJAMIN KNOWLES Admission Status: ER Accout number: [id number] Admission Date: 05-02-2019 : 1950 Admission Diagnosis:SHORTNESS OF BREATH Attending: ELIZABETH MICHAELS Current LOS: 2 Anticipated DC Date: Planned Disposition: Primary Insurance: MEDICARE A & B Discharge Planning Comments: CM met with patient to complete initial dc planning assessment. CM educated patient on the CM role and verbal consent given by patient to complete assessment. Patient lives at home with his girlfriend whom he has lived with for 30 years and her adult son. At discharge patient is unsure of his plans home with home health vs inpatient rehab . CM discussed availability of home health, rehab services, and medical equipment. He is current with [facility]. He has a walker, home O2, nebulizer, portable O2, cane, concentrator. He stated he uses [facility]. Patient denied known discharge needs at this time. CM will continue to follow and will assist as needed with dc plans/needs. Labor Commissioner: Buffy Castillo DCPIA - Discharge Planning Initial Assessment Updated by [email or web address]: Buffy Castillo on 05/04/19 9:37 pm * Is the patient Alert and Oriented? Yes * How many steps to enter\exit or inside your home? * PCP DEONNA?? * Pharmacy [facility] * Preadmission Environment Home with Family * ADLs Independent * Other Equipment WALKER, CANE, HOME 02, PORT 02, NEBULIZER * List name and contact numbers for known caregivers / representatives who currently or will assist patient after discharge: RADHA VIGIL - GIRLFRIEND - [phone] * Verbal permission to speak to the caregivers and representatives has been obtained from the patient. Yes * Community resources currently utilized Home Health * Please name any agencies selected above. [facility] * Additional services required to return to the preadmission environment? No * Can the patient safely return to the preadmission environment? Yes * Has this patient been hospitalized within the prior 30 days at any hospital? Yes Coverage Notice Reviewer: [id number] - Buffy Castillo Notice Issued Date-Time: 05/09/2019 12:10 Notice Type: IM Discharge Notice Notice Delivered To: Patient Relationship to Patient: Self Qa Test Lead Name: Delivery Method: HAND - Hand Delivered Ashely Days: Prior Verbal Notification: Recipient Understood Notice: Yes Recipient Signature: Yes Med Rec Note Co-signed by Attending: Coverage Notice Comment: Last DP export: 05/09/19 8:11 p Patient Name: BENJAMIN KNOWLES Page [id number] at 1630 All edits/amendments must be made on the electronic document DICTATION DATE: 05/10/191628 DOT COMPLIANCE SPECIALIST: FREDO 05/10/191628 RPT#: [id number] DC DATE: STATUS: ADM IN [facility] [address] [place] [address] END OF REPORT
--- NOTE | 2019-05-10 18:56 | NUR ---
PT IN BED. DENIES NEEDS AT THIS TIME.
--- NOTE | 2019-05-10 20:14 | MORECARE ---
CASE MANAGEMENT DISCHARGE SUMMARY PATIENT: BENJAMIN KNOWLES UNIT: [id number] ADM DATE: 05/02/19 AGE: 69 : 50 SEX: M ROOM/BED: D.1205 AUTHOR: AMBROSE LAMBERT PHYSICIAN: REFERRING PHYSICIAN: ELIZABETH MICHAELS MD DATE OF SERVICE: 05/10/19 Discharge Plan Patient Name: BENJAMIN KNOWLES Facility: [facility]:[place] : 1950 Planned Disposition: Home with Home Health Anticipated Discharge Date: Discharge Date: Expected LOS: Initial Reviewer: [email or web address] Initial Review Date: 05/03/2019 Generated: 05/10/19 9:14 pm Comments DCP- Discharge Planning Updated by [id number]: Kandace Oakley on 05/10/19 7:[address] Barajas and CREDIT DIRECTOR stated that patient isn't ready to discharge today d/t low grade fever and increased WBC. Nadia with Inpatient Rehab stated they will accept once patient is stable for discharge. CM will continue to follow and assist as needed with discharge planning / needs. WBC 13.7, HGB 8.6, HCT 26.8. DCP- Discharge Planning Updated by [id number]: Buffy Castillo on 05/09/19 8:[address] CM spoke with patient he is agreeing to go to inpatient rehab. CM explained that he needs to participate in therapy to go to Rehab he verbalized understanding. D/C IMM signed 05/09/19 @ 1210. CM will continue to follow and assist as needed with discharge planning / needs. DCP- Discharge Planning Updated by [id number]: Buffy Castillo on 05/04/19 8:[address] LATE ENTRY 05/03/19 Patient Name: BENJAMIN KNOWLES Admission Status: ER Accout number: [id number] Admission Date: 05-02-2019 : 1950 Admission Diagnosis:SHORTNESS OF BREATH Attending: ELIZABETH MICHAELS Current LOS: 2 Anticipated DC Date: Planned Disposition: Primary Insurance: MEDICARE A & B Discharge Planning Comments: CM met with patient to complete initial dc planning assessment. CM educated patient on the CM role and verbal consent given by patient to complete assessment. Patient lives at home with his girlfriend whom he has lived with for 30 years and her adult son. At discharge patient is unsure of his plans home with home health vs inpatient rehab . CM discussed availability of home health, rehab services, and medical equipment. He is current with [facility]. He has a walker, home O2, nebulizer, portable O2, cane, concentrator. He stated he uses [facility]. Patient denied known discharge needs at this time. CM will continue to follow and will assist as needed with dc plans/needs. Neon Molder: Buffy Castillo DCPIA - Discharge Planning Initial Assessment Updated by [email or web address]: Buffy Catsillo on 05/04/19 9:37 pm * Is the patient Alert and Oriented? Yes * How many steps to enter\exit or inside your home? * PCP DEONNA?? * Pharmacy [facility] * Preadmission Environment Home with Family * ADLs Independent * Other Equipment WALKER, CANE, HOME 02, PORT 02, NEBULIZER * List name and contact numbers for known caregivers / representatives who currently or will assist patient after discharge: RADHA VIGIL - GIRLFRIEND - [phone] * Verbal permission to speak to the caregivers and representatives has been obtained from the patient. Yes * Community resources currently utilized Home Health * Please name any agencies selected above. [facility] * Additional services required to return to the preadmission environment? No * Can the patient safely return to the preadmission environment? Yes * Has this patient been hospitalized within the prior 30 days at any hospital? Yes Coverage Notice Reviewer: [id number] - Buffy Castillo Notice Issued Date-Time: 05/09/2019 12:10 Notice Type: IM Discharge Notice Notice Delivered To: Patient Relationship to Patient: Self Wood Veneer Taper Name: Delivery Method: HAND - Hand Delivered Ashely Days: Prior Verbal Notification: Recipient Understood Notice: Yes Recipient Signature: Yes Med Rec Note Co-signed by Attending: Coverage Notice Comment: Last DP export: 05/10/19 3:30 p Patient Name: BENJAMIN KNOWLES Page [id number] at 2014 All edits/amendments must be made on the electronic document DICTATION DATE: 05/10/192012 RADARMAN: FREDO 05/10/192012 RPT#: [id number] DC DATE: STATUS: ADM IN [facility] [address] [place] [address] END OF REPORT
[2019-05-11 00:50] VITALS: BP 98/57
[2019-05-11 05:30] VITALS: BP 105/67
[2019-05-11 07:25] LABS: BASOPHILS 0.5 % (0-2); EOSINOPHILS 3.1 % (0-7); HEMATOCRIT 26.6 % (42.0-54.0); HEMOGLOBIN 8.6 g/dL (13.5-17.5); IMMATURE GRANULOCYTES 11.9 % (0-5); LYMPHOCYTES 13.8 % (15-50); MCHC 32.3 g/dL (31.0-37.0); MCV 89.6 fL (80.0-100.0); MEAN PLATELET VOLUME 8.7 fL (7.4-10.4); MONOCYTES 10.6 % (2-11); NEUTROPHILS 60.1 % (40-80); PLATELET COUNT 345 10x3/uL (130-400); RBC 2.97 10x6/uL (4.20-6.10); RDW 16.3 % (11.5-14.5)
--- NOTE | 2019-05-11 07:31 | NUR ---
PT SITTING UP IN BED. RR EVEN AND UNLABORED. DENIES NEEDS AT THIS TIME. WILL CONTINUE T MONITOR.
[2019-05-11] MEDS ORDERED: VIBRAMYCIN 100100 MG PO ×2 (07:41→07:45)
[2019-05-11] MEDS ORDERED: FLOMAX0.4 MG PO (07:41)
[2019-05-11] MEDS ORDERED: AUGMENTIN 875-11 TAB PO (07:41)
[2019-05-11] MEDS ORDERED: COREG 3.1253.125 MG PO (07:42)
[2019-05-11 08:06] LABS: ANION GAP 8.3 mmol/L (8-16); CALCIUM 8.6 mg/dL (8.5-10.1); CARBON DIOXIDE 29.4 mmol/L (21.0-32.0); CREATININE - SERUM 1.3 mg/dL (0.6-1.3); POTASSIUM - SERUM 3.7 mmol/L (3.5-5.1)
[2019-05-11 08:51] VITALS: BP 112/64
[2019-05-11 12:01] VITALS: BP 154/85
--- NOTE | 2019-05-11 12:32 | NUR ---
ZAMAN D/C WITH BULB DEFLATED. PT TOLERATED WELL. 275 MLS CLEAR YELLOW URINE NOTED.
--- NOTE | 2019-05-11 12:36 | NUR ---
REPORT CALLED TO REHAB NURSE. IV D/C WITH CATHETER TIP INTACT.
--- NOTE | 2019-05-11 13:29 | NUR ---
PT D/C PER WHEELCHAIR WITH BELONGINGS. D/C PAPERWORK SIGNED AND NO FURTHER QUESTIONS. PT TRANSFERED TO REHAB.
--- NOTE | 2019-05-11 18:08 | MORECARE ---
CASE MANAGEMENT DISCHARGE SUMMARY PATIENT: BENJAMIN KNOWLES UNIT: [id number] ADM DATE: 05/02/19 AGE: 69 : 50 SEX: M ROOM/BED: D.1205 AUTHOR: PETRA,DOC PHYSICIAN: REFERRING PHYSICIAN: ELIZABETH MICHAELS MD DATE OF SERVICE: 05/11/19 Discharge Plan Patient Name: BENJAMIN KNOWLES Facility: [facility]:[place] : 1950 Planned Disposition: Home with Home Health Anticipated Discharge Date: 05/11/19 Discharge Date: 05/11/2019 Expected LOS: 9 Initial Reviewer: [email or web address] Initial Review Date: 05/03/2019 Generated: 05/11/19 7:08 pm Comments DCP- Discharge Planning Updated by [id number]: Kandace Oakley on 05/10/19 7:[address] Barajas and STEEL FABRICATOR stated that patient isn't ready to discharge today d/t low grade fever and increased WBC. Nadia with Inpatient Rehab stated they will accept once patient is stable for discharge. CM will continue to follow and assist as needed with discharge planning / needs. WBC 13.7, HGB 8.6, HCT 26.8. DCP- Discharge Planning Updated by [id number]: Buffy Castillo on 05/09/19 8:[address] CM spoke with patient he is agreeing to go to inpatient rehab. CM explained that he needs to participate in therapy to go to Rehab he verbalized understanding. D/C IMM signed 05/09/19 @ 1210. CM will continue to follow and assist as needed with discharge planning / needs. DCP- Discharge Planning Updated by [id number]: Buffy Castillo on 05/04/19 8:[address] LATE ENTRY 05/03/19 Patient Name: BENJAMIN KNOWLES Admission Status: ER Accout number: [id number] Admission Date: 05-02-2019 : 1950 Admission Diagnosis:SHORTNESS OF BREATH Attending: ELIZABETH MICHAELS Current LOS: 2 Anticipated DC Date: Planned Disposition: Primary Insurance: MEDICARE A & B Discharge Planning Comments: CM met with patient to complete initial dc planning assessment. CM educated patient on the CM role and verbal consent given by patient to complete assessment. Patient lives at home with his girlfriend whom he has lived with for 30 years and her adult son. At discharge patient is unsure of his plans home with home health vs inpatient rehab . CM discussed availability of home health, rehab services, and medical equipment. He is current with [facility]. He has a walker, home O2, nebulizer, portable O2, cane, concentrator. He stated he uses [facility]. Patient denied known discharge needs at this time. CM will continue to follow and will assist as needed with dc plans/needs. Gluer Machine Setup Operator: Buffy Castillo DCPIA - Discharge Planning Initial Assessment Updated by [email or web address]: Buffy Castillo on 05/04/19 9:37 pm * Is the patient Alert and Oriented? Yes * How many steps to enter\exit or inside your home? * PCP DEONNA?? * Pharmacy [facility] * Preadmission Environment Home with Family * ADLs Independent * Other Equipment WALKER, CANE, HOME 02, PORT 02, NEBULIZER * List name and contact numbers for known caregivers / representatives who currently or will assist patient after discharge: RADHA VIGIL - GIRLFRIEND - [phone] * Verbal permission to speak to the caregivers and representatives has been obtained from the patient. Yes * Community resources currently utilized Home Health * Please name any agencies selected above. [facility] * Additional services required to return to the preadmission environment? No * Can the patient safely return to the preadmission environment? Yes * Has this patient been hospitalized within the prior 30 days at any hospital? Yes Coverage Notice Reviewer: [id number] - Buffy Castillo Notice Issued Date-Time: 05/09/2019 12:10 Notice Type: IM Discharge Notice Notice Delivered To: Patient Relationship to Patient: Self Regional Facilities Manager Name: Delivery Method: HAND - Hand Delivered Ashely Days: Prior Verbal Notification: Recipient Understood Notice: Yes Recipient Signature: Yes Med Rec Note Co-signed by Attending: Coverage Notice Comment: Last DP export: 05/10/19 7:14 p Patient Name: BENJAMIN KNOWLES Page [id number] at 1808 All edits/amendments must be made on the electronic document DICTATION DATE: 05/11/191807 MANUSCRIPTS ARCHIVIST: FREDO 05/11/191807 RPT#: [id number] DC DATE:05/11/19 STATUS: DIS IN [facility] [address] [place] [address] END OF REPORT
--- NOTE | 2019-05-11 18:16 | MORECARE ---
CASE MANAGEMENT DISCHARGE SUMMARY PATIENT: BENJAMIN KNOWLES UNIT: [id number] ADM DATE: 05/02/19 AGE: 69 : 50 SEX: M ROOM/BED: D.1205 AUTHOR: PETRA,DOC PHYSICIAN: REFERRING PHYSICIAN: ELIZABETH MICHAELS MD DATE OF SERVICE: 05/11/19 Discharge Plan Patient Name: BENJAMIN KNOWLES Facility: [facility]:[place] : 1950 Planned Disposition: Home with Home Health Anticipated Discharge Date: 05/11/19 Discharge Date: 05/11/2019 Expected LOS: 9 Initial Reviewer: [email or web address] Initial Review Date: 05/03/2019 Generated: 05/11/19 7:16 pm Comments DCP- Discharge Planning Updated by [email or web address]: Bhavana Rizo on 05/11/19 5:[address] LATE ENTRY 1000 CM SPOKE WITH THE PATIENT TO VERIFY DISCHARGE PLAN. ADVISED I WOULD SPEAK WITH ACUTE REHAB AT IDT MEETING AND REPORT BACK TO H[facility]. PATIENT WITH NASAL O2, CXR WITH PERSISTENT AIRSPACE DZ AT [facility], H/H 8.6/ 26.6, ZAMAN. 1115 PATIENT AND HIS GIRL FRIEND DISCUSSED DISCHARGE PLAN. HE WILL DISCHARGE TO [facility]. PATIENT WAS ACCEPTED TO 1114 BED A. PRIMARY NURSE NOTIFIED TO CALL REPORT. DISCHARGE PACKET PREPARED. DISCHARGED TO ACUTE REHAB THIS PM. DCP- Discharge Planning Updated by [email or web address]: Kandace Oakley on 05/10/19 7:[address] Barajas and SWEDGER stated that patient isn't ready to discharge today d/t low grade fever and increased WBC. Nadia with Inpatient Rehab stated they will accept once patient is stable for discharge. CM will continue to follow and assist as needed with discharge planning / needs. WBC 13.7, HGB 8.6, HCT 26.8. DCP- Discharge Planning Updated by [id number]: Buffy Castillo on 05/09/19 8:[address] CM spoke with patient he is agreeing to go to inpatient rehab. CM explained that he needs to participate in therapy to go to Rehab he verbalized understanding. D/C IMM signed 05/09/19 @ 1210. CM will continue to follow and assist as needed with discharge planning / needs. DCP- Discharge Planning Updated by [email or web address]: Buffy Castillo on 05/04/19 8:[address] LATE ENTRY 05/03/19 Patient Name: BENJAMIN KNOWLES Admission Status: ER Accout number: [id number] Admission Date: 05-02-2019 : 1950 Admission Diagnosis:SHORTNESS OF BREATH Attending: ELIZABETH MICHAELS Current LOS: 2 Anticipated DC Date: Planned Disposition: Primary Insurance: MEDICARE A & B Discharge Planning Comments: CM met with patient to complete initial dc planning assessment. CM educated patient on the CM role and verbal consent given by patient to complete assessment. Patient lives at home with his girlfriend whom he has lived with for 30 years and her adult son. At discharge patient is unsure of his plans home with home health vs inpatient rehab . CM discussed availability of home health, rehab services, and medical equipment. He is current with [facility]. He has a walker, home O2, nebulizer, portable O2, cane, concentrator. He stated he uses [facility]. Patient denied known discharge needs at this time. CM will continue to follow and will assist as needed with dc plans/needs. Net Sorter: Buffy Castillo DCPIA - Discharge Planning Initial Assessment Updated by [email or web address]: Buffy Castillo on 05/04/19 9:37 pm * Is the patient Alert and Oriented? Yes * How many steps to enter\exit or inside your home? * PCP DEONNA?? * Pharmacy [facility] * Preadmission Environment Home with Family * ADLs Independent * Other Equipment WALKER, CANE, HOME 02, PORT 02, NEBULIZER * List name and contact numbers for known caregivers / representatives who currently or will assist patient after discharge: RADHA VIGIL - GIRLFRIEND - [phone] * Verbal permission to speak to the caregivers and representatives has been obtained from the patient. Yes * Community resources currently utilized Home Health * Please name any agencies selected above. [facility] * Additional services required to return to the preadmission environment? No * Can the patient safely return to the preadmission environment? Yes * Has this patient been hospitalized within the prior 30 days at any hospital? Yes Coverage Notice Reviewer: [email or web address] - Buffy Castillo Notice Issued Date-Time: 05/09/2019 12:10 Notice Type: IM Discharge Notice Notice Delivered To: Patient Relationship to Patient: Self Mobile Sales Expert Name: Delivery Method: HAND - Hand Delivered Ashely Days: Prior Verbal Notification: Recipient Understood Notice: Yes Recipient Signature: Yes Med Rec Note Co-signed by Attending: Coverage Notice Comment: Last DP export: 05/11/19 5:08 p Patient Name: BENJAMIN KNOWLES Page [id number] at 1816 All edits/amendments must be made on the electronic document DICTATION DATE: 05/11/191815 LUMP ROLLER: FREDO 05/11/191815 RPT#: [id number] DC DATE:05/11/19 STATUS: DIS IN [facility] [address] [place] [address] END OF REPORT
--- NOTE | 2019-05-13 09:24 | OP ---
PATIENT NAME: BENJAMIN KNOWLES MEDICAL RECORD: [id number] :[birth year] LOCATION:D.M3 D.1205 ADMISSION DATE:05/02/19 SURGEON: BENJAMIN ALVAREZ MD DATE OF OPERATION: 05/08/2019 PROCEDURE: Left heart catheterization, selective coronary angiography, right femoral artery approach. CATHETERS: A 5-Bangladeshi sheath, 5/4 left and right Stefanie, 5/4 pig. The procedure was well tolerated. The patient returned to bales, sheath removed. ExoSeal device was placed. FINDINGS: Left ventriculography in 30-degree IZAGUIRRE view shows global hypokinesis. Overall reduced LV function, estimated EF 30% to 35%. CORONARY ANATOMY: LEFT MAIN: Left main is free of disease. LAD: Free of disease in diagonal system. CIRCUMFLEX: Free of disease in the marginal system. RIGHT CORONARY ARTERY: Dominant artery, gives rise to PDA, free of disease. IMPRESSION: Nonischemic cardiomyopathy. Given BP and mild renal insufficiency, we will add low-dose Aldactone, could consider LACIE, ARB if pressure tolerates down the road. TRANSINT:[id number] Voice Confirmation ID: [id number] DOCUMENT ID: [id number] BENJAMIN ALVAREZ MD at 0924 CC: [id number] DICTATION DATE: 05/08/19 1018 [facility] DIRECTOR: 05/08/19 1143 DIS IN 05/11/19 [facility] [address] [place] [address]
== END 2019-05-11 13:37 | DRG 193 ==
LOC: D.ER 17:16 → D.M3 21:11
PROVIDERS: Emergency Medicine; Family Medicine; Internal Medicine Interventional Cardiology; Internal Medicine Nephrology; ADMIT Family Medicine; ATTEND Family Medicine
PROC: B2151ZZ Fluoroscopy of Left Heart using Low Osmolar Contrast (ICD-10-PCS; 2019-05-08)
PROC: 4A023N7 Measurement of Cardiac Sampling and Pressure, Left Heart, Percutaneous Approach (ICD-10-PCS; 2019-05-08)
PROC: B2111ZZ Fluoroscopy of Multiple Coronary Arteries using Low Osmolar Contrast (ICD-10-PCS; principal; 2019-05-08 09:15)
DX: J18.1 Lobar pneumonia, unspecified organism (principal); J96.21 Acute and chronic respiratory failure with hypoxia; I50.23 Acute on chronic systolic (congestive) heart failure; G93.41 Metabolic encephalopathy; J44.0 Chronic obstructive pulmonary disease with (acute) lower respiratory infection; J44.1 Chronic obstructive pulmonary disease with (acute) exacerbation; E87.1 Hypo-osmolality and hyponatremia; N39.0 Urinary tract infection, site not specified; E46 Unspecified protein-calorie malnutrition; I42.9 Cardiomyopathy, unspecified; J98.11 Atelectasis; N17.9 Acute kidney failure, unspecified; A93.8 Other specified arthropod-borne viral fevers; I13.0 Hypertensive heart and chronic kidney disease with heart failure and stage 1 through stage 4 chronic kidney disease, or unspecified chronic kidney disease; Y95 Nosocomial condition; E78.5 Hyperlipidemia, unspecified; F41.9 Anxiety disorder, unspecified; F32.9 Major depressive disorder, single episode, unspecified; K21.9 Gastro-esophageal reflux disease without esophagitis; Z99.81 Dependence on supplemental oxygen; J30.9 Allergic rhinitis, unspecified; J32.9 Chronic sinusitis, unspecified; R04.0 Epistaxis; D64.9 Anemia, unspecified; Z68.27 Body mass index [BMI] 27.0-27.9, adult; B95.2 Enterococcus as the cause of diseases classified elsewhere; N18.9 Chronic kidney disease, unspecified

== ENCOUNTER 2019-05-11 13:27 | Inpatient (IN) | payer MEDICARE ==
[~2019-05-11] VITALS: Ht 180.3 cm; Wt 90.7 kg
[~2019-05-11 13:27] MED LIST changes: +ALBUTEROL SULF8.5 GM INH; +AUGMENTIN 875-11 TAB PO; +COREG 3.1253.125 MG PO; +FLOMAX0.4 MG PO; +VIBRAMYCIN 100100 MG PO
[2019-05-11 14:08] VITALS: BP 102/57; BMI 28.0
--- NOTE | 2019-05-11 14:51 | NUR ---
PATIENT ADMITTED TO REHAB FROM ACUTE FLOOR. HIS PCP IS DOLORES ANTON. DME AT HOME IS WALKER, O2, NEBULIZER ([facility] PATIENT IS HIS PROVIDER). HE IS A CLIENT OF [facility]. DISCHARGE PLANS ARE FOR PATIENT TO RETURN HOME WITH HIS GIRL FRIEND AND HER ADULT SON. WILL CONTINUE TO FOLLOW WITH PATIENT AND WILL ASSIST WITH NEEDS.
--- NOTE | 2019-05-11 19:20 | NUR ---
GREETED PATIENT AND INTRODUCED MYSELF HIS NURSE. PATIENT IS LAYING IN BED IN SUPINE POSITION. RESPIRATIONS EVEN. NO S/S OF DISTRESS. DENIES ANY EVIDENCE OF PAIN AT THIS TIME. CALL LIGHT IN REACH.
[2019-05-11 21:19] VITALS: BP 115/56
--- NOTE | 2019-05-12 02:10 | NUR ---
PATIENT LAYING IN BED AWAKE AND WATCHING TV. DENIES ANY NEEDS AT THIS TIME. CALL LIGHT IN REACH.
--- NOTE | 2019-05-12 06:30 | NUR ---
RESPIRATORY CAME TO UNIT TO GIVE PATIENT A TREATMENT AND PATIENT REFUSED TO HAVE TREATMENT. NOTE MADE ON DR. RICH SHEET.
--- NOTE | 2019-05-12 06:39 | NUR ---
PATIENT WAS OPERATIONS BOARDMAN LIGHT ASKING WHY HE DIDNT GET HIS BREATHING TREATMENT. I INFORMED PATIENT THAT HE HAD REFUSED HIS TREATMENT.
--- NOTE | 2019-05-12 08:47 | NUR ---
PT AM MEDS ADMINISTERED AT THIS TIME. PT DENIES NEEDS. PT RESTING IN BED. WCTM.
[2019-05-12 09:51] VITALS: BP 101/54
--- NOTE | 2019-05-12 10:32 | NUR ---
ASSISTED PT TO BATHROOM. PT VOIDED DARK YELLOW URINE. PT BACK IN BED AND DENIES NEEDS. WCTM.
[2019-05-12 12:55] VITALS: Ht 180.3 cm; Wt 90.7 kg
[2019-05-12 20:09] VITALS: BP 131/51
--- NOTE | 2019-05-12 22:35 | NUR ---
PATIENT RECEIVED SITTING UP IN BED. ASSESSMENT & VITAL SIGNS DONE. NO C/O PAIN OR DISTRESS. 02NC @ 3L CONTINUOUS. BED LOW. CALL LIGHT WITHIN REACH. WILL CONTINUE TO MONITOR.
--- NOTE | 2019-05-13 02:03 | NUR ---
I have reviewed this patient and I concur with the Shift Assessment completed by the Licensed Practical Nurse today this shift.
--- NOTE | 2019-05-13 08:01 | NUR ---
RESTING WITH EYES CLOSED. NO DISTRESS NOTED. RESP EVEN AND UNLABORED. CL IN REACH.
[2019-05-13 08:50] VITALS: BP 115/69
--- NOTE | 2019-05-13 10:21 | NUR ---
RESTING WITH EYES CLOSED. RESP EVEN AND UNLABORED. NO DISTRESS NOTED. O2 AT 2L. CL IN REACH.
--- NOTE | 2019-05-13 14:42 | NUR ---
OFFERED SHOWER. PATIENT REFUSED TWO TIMES TO TAKE A SHOWER.
--- NOTE | 2019-05-13 15:56 | NUR ---
NO CHANGE IN ASSESSMENT. SITTING IN WC. NO C/O PAIN.
[2019-05-13 19:44] VITALS: BP 99/56
--- NOTE | 2019-05-13 19:45 | NUR ---
PT SITTING UP IN WHEELCHAIR. CL IN REACH. O2 ON 2L VIA NC. RESP EVEN AND UNLABORED. PT GETS DYSPNEA WITH EXCERTION. LUNGS DIMINSHED. BOWEL ACTIVE X4. A/O X3. DENIES NEEDS AT THIS TIME. WCTM
--- NOTE | 2019-05-14 01:00 | NUR ---
I have reviewed this patient and I concur with the Shift Assessment completed by the Licensed Practical Nurse today this shift.
--- NOTE | 2019-05-14 06:09 | NUR ---
ASSISTED TO AND FROM BATHROOM. CL IN REACH. PT BACK IN BED. EATING PRINGLES. DENIES FURTHER NEEDS. WCTM
[2019-05-14 07:06] LABS: BASOPHILS 0.8 % (0-2); EOSINOPHILS 2.1 % (0-7); HEMATOCRIT 28.3 % (42.0-54.0); IMMATURE GRANULOCYTES 8.4 % (0-5); MCH 29.4 pg (26.0-34.0); MCHC 31.8 g/dL (31.0-37.0); MCV 92.5 fL (80.0-100.0); MEAN PLATELET VOLUME 8.8 fL (7.4-10.4); MONOCYTES 10.1 % (2-11); NEUTROPHILS 59.6 % (40-80); PLATELET COUNT 344 10x3/uL (130-400); RBC 3.06 10x6/uL (4.20-6.10); RDW 16.6 % (11.5-14.5); WBC 11.9 10x3/uL (4.8-10.8)
[2019-05-14 07:23] LABS: ANION GAP 10.4 mmol/L (8-16); CALCIUM 8.6 mg/dL (8.5-10.1); CREATININE - SERUM 1.2 mg/dL (0.6-1.3); POTASSIUM - SERUM 4.4 mmol/L (3.5-5.1)
[2019-05-14 08:23] VITALS: BP 106/54
--- NOTE | 2019-05-14 13:26 | NUR ---
PT RESTING IN BED WITH EYES OPEN CALL LIGHT IN REACH WILL MONITER
--- NOTE | 2019-05-14 20:23 | NUR ---
PT IN BED LOWEST POSITION, TOILETED, NO OTHER NEEDS NOTED, FLUIDS AND CALL LIGHT WITHIN REACH
[2019-05-15 01:08] VITALS: BP 111/60
--- NOTE | 2019-05-15 03:55 | NUR ---
PT IN BED LOWEST POSITION, EYES CLOSED AROUSES EASILY TO VOICE, RESPIRATIONS, EVEN AND UNLABORED, NO IMMEDIATE NEEDS NOTED, FLUIDS AND CALL LIGHT WITHIN REACH
--- NOTE | 2019-05-15 08:00 | NUR ---
PT RESTING IN BED WITH EYES OPEN CALL LIGHT IN REACH WILL MONITER
[2019-05-15 08:22] VITALS: BP 103/53
--- NOTE | 2019-05-15 14:00 | NUR ---
I have reviewed this patient and I concur with the Shift Assessment completed by the Licensed Practical Nurse today this shift.
--- NOTE | 2019-05-15 14:53 | NUR ---
Nutrition Note: Diet: Regular PO intake 75% Labs and meds reviewed Pt remains at low nutrition risk at this time. Will continue to monitor.
--- NOTE | 2019-05-15 18:04 | NUR ---
PT RESTING IN BED WITH EYES OPEN CALL LIGHT IN REACH WILL MONITER
--- NOTE | 2019-05-15 19:42 | NUR ---
PT IN BED LOWEST POSITION, EATING DINNER, NO IMMEDIATE NEEDS NOTED, RESPIRATIONS EVEN AND UNLABORED, FLUIDS AND CALL LIGHT WITHIN REACH
--- NOTE | 2019-05-15 23:08 | NUR ---
PT IN BED LOWEST POSITION, EYES CLOSED AROUSES EASILY TO VOICE, NO IMMEDIATE NEEDS NOTED,RESPIRATIONS EVEN AND UNLABORED, FLUIDS AND CALL LIGHT WITHIN REACH
[2019-05-15 23:19] VITALS: BP 142/68
[2019-05-16 06:45] LABS: HEMATOCRIT 27.3 % (42.0-54.0); HEMOGLOBIN 8.7 g/dL (13.5-17.5); MCH 29.5 pg (26.0-34.0); MCHC 31.9 g/dL (31.0-37.0); MCV 92.5 fL (80.0-100.0); MEAN PLATELET VOLUME 8.6 fL (7.4-10.4); PLATELET COUNT 298 10x3/uL (130-400); RBC 2.95 10x6/uL (4.20-6.10); RDW 16.8 % (11.5-14.5); WBC 12.1 10x3/uL (4.8-10.8)
[2019-05-16 07:05] LABS: ANION GAP 10.3 mmol/L (8-16); CALCIUM 8.8 mg/dL (8.5-10.1); CARBON DIOXIDE 30.4 mmol/L (21.0-32.0); CREATININE - SERUM 1.1 mg/dL (0.6-1.3); POTASSIUM - SERUM 4.7 mmol/L (3.5-5.1)
--- NOTE | 2019-05-16 07:32 | NUR ---
NO C/O PAIN. ALERT AND ORIENTED. CONFUSION AT TIMES. RESP EVEN AND UNLABORED. CL IN REACH.
[2019-05-16 08:02] VITALS: BP 110/64
[2019-05-16 09:59] LABS: EOSINOPHILS 1 % (0-7); LYMPHOCYTES 30 % (15-50); MONOCYTES 16 % (2-11); NEUTROPHILS 43 % (40-80); PLATELET ESTIMATE NORMAL
--- NOTE | 2019-05-16 11:41 | RHP ---
PATIENT: BENJAMIN KNOWLES MEDICAL RECORD: [id number] ACCOUNT: [id number] LOCATION:[facility]1114 : [birth year] ADMISSION DATE: 05/11/19 REHABILITATION HISTORY AND PHYSICAL EXAMINATION POST ADMISSION PHYSICIAN EXAMINATION POST ADMISSION PHYSICAL EXAMINATION AND HISTORY AND PHYSICAL DATE OF ADMISSION: 05/11/2019 ADMITTING DIAGNOSIS: Acute exacerbation of chronic obstructive pulmonary disease. HISTORY OF PRESENT ILLNESS: The patient admitted to inpatient rehab with acute exacerbation of COPD. A 69-year-old gentleman with history of hypertension, CHF, COPD, pneumonia, depression. He was recently discharged from the hospital in January after undergoing a colonoscopy and polypectomy. He presented to the ED via EMS with shortness of breath. He additionally complained of cough and fever. He states his shortness of breath had begun that day and was recent. The patient's initial temperature in the ED was mildly elevated. He was admitted to medical floor telemetry and further evaluation. Cardiology was consulted. Cardiac stress test showed abnormal nuclear stress test with some reversible ischemia in the inferior wall with moderate left ventricular dysfunction and ejection fraction of 38% consistent with an ischemic cardiomyopathy. Since the scan was abnormal and suggests significant hemodynamic disease, a left heart catheterization was done. It showed a nonischemic cardiomyopathy. He has been on blood pressure medications. He has been on a low dose of Aldactone. They have been watching his pressure closely. Pulmonary consult showed zhayg-yh-nfyrixx hypoxic respiratory failure secondary to left lower lobe pneumonia. He had some mild hilar lymphadenopathy and acute exacerbation of COPD. Previously, he was moderately independent with a cane for ADLs and mobility. Currently, he is mod to max assist for ADLs and mobility secondary to dyspnea, worsens with exertion, fatigue, generalized weakness, cardiomyopathy with an EF of 38%. He was on 2 liters via O2. He wants to regain his strength and return back home with his significant other. Comorbidities in this patient includes some oropharyngeal dysphagia, acute hypoxic respiratory failure, COPD, left lower lobe pneumonia, electrolyte abnormalities, acute kidney injury, normocytic anemia, history of iron deficiency, hospital-acquired pneumonia, xynfe-qw-wqtklmz heart failure, hypertension, hyperlipidemia, depression, anxiety, debility, urinary retention, chest pain, some confusion possibly related to metabolic encephalopathy, history of tobacco use, history of asbestos exposure, and allergic rhinitis. PAST MEDICAL HISTORY: Significant for hypertension, CHF, dyslipidemia, COPD, pneumonia, depression, and anxiety. PAST SURGICAL HISTORY: Includes colonoscopy with polypectomy. ALLERGIES: No known drug allergies. CURRENT MEDICATIONS: Include Lovenox 40 mg subcutaneous daily. He is on Flomax 0.4 mg daily, Zoloft 50 mg daily, Protonix 40 mg daily, Singulair 10 mg at bedtime, doxycycline 100 mg b.i.d., Lotrimin 1 application b.i.d., Augmentin 1 tab b.i.d., DuoNeb updrafts as needed, Brovana 15 mcg b.i.d., carvedilol 3.125 mg b.i.d. with meals, and DuoNeb updrafts. HISTORY AND PHYSICAL [id number] BENJAMIN KNOWLES HABITS: Does have a history of tobacco use, but nothing current. FAMILY HISTORY: Noncontributory. SOCIAL HISTORY: The patient hopes to return back home and get back to his prior level of functioning. REVIEW OF SYSTEMS: GENERAL: Does complain of some weakness and fatigue. HEENT: Denies cold, cough, or congestion. CARDIOVASCULAR: Denies any chest pain at this time. PHYSICAL EXAMINATION: VITAL SIGNS: Stable. He is afebrile. GENERAL: A well-developed gentleman, in no acute distress upon exam. HEENT: Normocephalic and atraumatic. Mucosa moist. NECK: Supple. No lymphadenopathy. LUNGS: Clear in the upper doe, decreased breath sounds in the bases. CARDIOVASCULAR: Regular rate and rhythm. ABDOMEN: Benign. EXTREMITIES: No clubbing, cyanosis or edema. NEUROLOGIC: He does have noted proximal muscle weakness in his upper thighs at 2/5. LABORATORY DATA: Lab work showed a white count of 11,000, H&H of 8.6 and 26.6, and platelet count was noted to be 345. His sodium is 137, potassium 3.7, BUN and creatinine of 13 and 1.3, and blood sugar was noted to be 99. UA did show a little bit of trace leukocyte esterase upon admission on the . ASSESSMENT: This is a 69-year-old gentleman admitted to the rehab with a working diagnosis of acute exacerbation of chronic obstructive pulmonary disease. The patient has potential to make improvement. We will institute the following multidisciplinary therapies including, but not limited to, physical, occupational, respiratory, speech, nutritional services, prosthetics, and orthotics. Given his complex medical condition and risks for more complications, rehabilitation services cannot be provided at a lower level of care such as a skilled nurse facility. PLAN: 1. Admit to [facility] for an inpatient therapy to include the following disciplines; A. Physical therapy to improve gait, all transfer skills, and bed mobility to modified independent level. B. Occupational therapy to modified independent level. C. Case management to assist with discharge planning and placement options. D. Nutrition to assist with nutritional needs. E. Rehabilitation nursing to assist in monitoring the patient's underlying medical conditions and to assist with any type of bowel or bladder management. 2. The patient's current medications will be continued. 3. The patient will be placed on standard fall precautions. 4. The patient's estimated length of stay is approximately 7-10 days. 5. We will discuss the patient during care team staff meeting this week. TRANSINT:[id number] Voice Confirmation ID: [id number] DOCUMENT ID: [id number] HISTORY AND PHYSICAL [id number] BENJAMIN KNOWLES notes whether there has been none or any medical/functional change since admission: - No change since prescreen. AUNG attests patient continues to be appropriate for IRF: - Continues to be appropriate. JAYA SANTOS MD at 1141 CC: [id number] DICTATION DATE: 05/12/19 1202 TACTICAL AIR DEFENSE CONTROLLER: 05/12/19 1347 ADM IN [facility] [address] [place] [address]
[2019-05-17 03:09] VITALS: BP 116/68
--- NOTE | 2019-05-17 06:29 | NUR ---
PT IN BED LOWEST POSITION, EYES CLOSED AROUSES EASILY TO VOICE, NO IMMEDIATE NEEDS NOTED,RESPIRATIONS EVEN AND UNLABORED, FLUIDS AND CALL LIGHT WITHIN REACH
[2019-05-17 08:14] VITALS: BP 109/68
--- NOTE | 2019-05-17 08:15 | NUR ---
PT RESTING IN BED WITH EYES OPEN CALL LIGHT IN REACH NO PROBLEMS WILL MONITER
--- NOTE | 2019-05-17 18:00 | NUR ---
PT RESTING IN BED WITH EYES OPEN CALL LIGHT IN REACH NO PROBLEMS WILL MONITER
--- NOTE | 2019-05-17 19:47 | NUR ---
PT SITTING UP ON SIDE OF BED WATCHING TV. CL IN REACH. DENIES NEEDS OR PAIN AT THIS TIME. BED IN LOW SIDE RAILS X2. A/O X4 AT THIS TIME. LUNGS DIMINISHED. BOWEL ACTIVE X4. WILL CONTINUE TO MONITOR.
[2019-05-17 20:00] VITALS: BP 115/64
--- NOTE | 2019-05-18 01:15 | NUR ---
PT RESTING QUIETLY. CL IN REACH. NO DISTRESS NOTED. WCTM RESP EVEN AND UNLABORED.
--- NOTE | 2019-05-18 03:17 | NUR ---
I have reviewed this patient and I concur with the Shift Assessment completed by the Licensed Practical Nurse today this shift.
--- NOTE | 2019-05-18 06:34 | NUR ---
PT RESTING QUIETLY. CL IN REACH. NO DISTRESS NOTED. WCTM
[2019-05-18 08:36] LABS: ANION GAP 12.5 mmol/L (8-16); CALCIUM 8.8 mg/dL (8.5-10.1); CREATININE - SERUM 1.2 mg/dL (0.6-1.3); POTASSIUM - SERUM 4.5 mmol/L (3.5-5.1)
[2019-05-18 08:42] VITALS: BP 117/48
[2019-05-18 09:48] LABS: BASOPHILS 1.2 % (0-2); EOSINOPHILS 2.4 % (0-7); HEMATOCRIT 28.3 % (42.0-54.0); HEMOGLOBIN 8.9 g/dL (13.5-17.5); IMMATURE GRANULOCYTES 6.5 % (0-5); MCH 29.1 pg (26.0-34.0); MCHC 31.4 g/dL (31.0-37.0); MCV 92.5 fL (80.0-100.0); MEAN PLATELET VOLUME 9.4 fL (7.4-10.4); MONOCYTES 11.5 % (2-11); NEUTROPHILS 58.4 % (40-80); PLATELET COUNT 308 10x3/uL (130-400); RBC 3.06 10x6/uL (4.20-6.10); RDW 17.2 % (11.5-14.5); WBC 10.1 10x3/uL (4.8-10.8)
--- NOTE | 2019-05-18 09:52 | NUR ---
PATIENT DISCHARGING HOME TODAY WITH FAMILY. [facility] WILL RESUME THEREAPY AT HOME. [facility] HAS DELIVERED A ROLLING WALKER. [facility] SANDY MARRUFO 05/29/19 @ 1:30. PATIENT CHOICE FORM AND IMFM FORMS SIGNED, COPY GIVEN TO PATIENT AND FILED IN CHART. DSICHARGE INSTRUCTIONS WITH [employer]IM DATA FAXED TO PCP, HOME HEALTH AND NURSE REVIWED WITH PATIENT.
--- NOTE | 2019-05-18 10:00 | NUR ---
PT RESTING IN BED. AM MEDICATIONS GIVEN. PT DENIES NEEDS. WCTM.
--- NOTE | 2019-05-18 11:54 | NUR ---
DISCHARGE INSTRUCTIONS REVIEWED. PT STATES UNDERSTANDING. PT REFUSED TO HAVE MEDICATIONS CALLED IN STATING THAT HE HAD PLENTY OF MEDS AT HOME AND DIDN'T WANT TO PAY FOR MORE RIGHT NOW.
--- NOTE | 2019-05-18 13:30 | NUR ---
PT DISCHARGED HOME WITH FAMILY. PT ESCORTED OUT VIA WHEELCHAIR BY HOSPITAL STAFF.
--- NOTE | 2019-06-19 10:09 | DS ---
PATIENT:BENJAMIN KNOWLES :50 MEDICAL RECORD: [id number] DISCHARGE SUMMARY ADMISSION DATE: 05/11/19 DISCHARGE DATE: 05/18/19 This is a discharge dated 05/18/2019 from inpatient rehabilitation. PRIMARY DIAGNOSIS: Decreased functional ability and ability to provide activities of daily living secondary to chronic obstructive pulmonary disease exacerbation. SECONDARY DIAGNOSES: 1. Fvyud-ef-szogrgm hypoxic hypercapnic respiratory failure. 2. Chronic obstructive pulmonary disease. 3. Systolic congestive heart failure. 4. Hospital-acquired pneumonia. 5. Hypertension. 6. Depression/anxiety. 7. Hyperlipidemia. 8. Anemia. 9. Gastroesophageal reflux disease. HOSPITAL COURSE: Full H&P is located elsewhere on the chart on this 69-year-old male who was admitted to inpatient rehab for physical therapy and occupational therapy to improve gait, transfer skills, bed mobility, and activities of daily living to a modified independent level. He was evaluated by PT and OT and their plans of care were followed. He required retirement care for observation and assessment and medication administration. He remained on appropriate home medications. He had supplemental oxygen to keep sats greater than 90% and with nebulized medications for respiratory support for antibiotic coverage. He was on Augmentin and doxycycline. Electrolytes were managed by protocol. He was cooperative with therapies, progressing towards goals. Case management was involved for discharge planning. He was considered stable for discharge on 05/18/2019, having met all of his OT goals and 2/3 long-term PT goals with recommendations to continue therapy at discharge. DISCHARGE MEDICATIONS: As per discharge medication reconciliation. DISCHARGE DISPOSITION: The patient is discharged home. He will continue his current diet and level of activity and will have [facility] for continued nursing, PT and OT. He will have a rolling walker delivered by [facility] and will follow up with primary care and specialists as directed. At least 30 minutes was spent in this discharge activity. TRANSINT:[id number] Voice Confirmation ID: [id number] DOCUMENT ID: [id number] Dictated By: SERGE ARRIAGA I have interviewed/examined the above patient and agree with these documented DISCHARGE SUMMARY REPORT [id number] BENJAMIN KNOWLES findings. JAYA SANTOS MD at 1011 at 1009 CC: [id number] DICTATION DATE: 06/17/191816 PIGEON FANCIER: 06/18/19 0511 DIS IN 05/18/19 [facility] [address] [facility] [place] [address]
== END 2019-05-18 15:23 | disposition home health service (06) | DRG 190 ==
LOC: D.REHAB 13:27
PROVIDERS: ADMIT Emergency Medicine; ATTEND Emergency Medicine
DX: J44.1 Chronic obstructive pulmonary disease with (acute) exacerbation (principal); J96.01 Acute respiratory failure with hypoxia; J18.1 Lobar pneumonia, unspecified organism; I50.23 Acute on chronic systolic (congestive) heart failure; N17.9 Acute kidney failure, unspecified; E87.1 Hypo-osmolality and hyponatremia; N39.0 Urinary tract infection, site not specified; I13.0 Hypertensive heart and chronic kidney disease with heart failure and stage 1 through stage 4 chronic kidney disease, or unspecified chronic kidney disease; R13.12 Dysphagia, oropharyngeal phase; E87.8 Other disorders of electrolyte and fluid balance, not elsewhere classified; D64.9 Anemia, unspecified; E78.5 Hyperlipidemia, unspecified; F41.8 Other specified anxiety disorders; R53.81 Other malaise; R33.9 Retention of urine, unspecified; R07.9 Chest pain, unspecified; J30.9 Allergic rhinitis, unspecified; N18.9 Chronic kidney disease, unspecified

== ENCOUNTER 2019-07-10 20:19 | Inpatient (IN) | payer MEDICARE ==
[~2019-07-10] VITALS: Ht 180.3 cm; Wt 90.6 kg
[2019-07-10 20:30] VITALS: BP 129/78
[2019-07-10 20:57] VITALS: BP 136/70
[2019-07-10 21:01] VITALS: BP 130/53
[2019-07-10 21:10] LABS: BASOPHILS 0.3 % (0-2); EOSINOPHILS 4.8 % (0-7); HEMATOCRIT 35.5 % (42.0-54.0); IMMATURE GRANULOCYTES 0.2 % (0-5); LYMPHOCYTES 14.3 % (15-50); MCV 93.7 fL (80.0-100.0); MEAN PLATELET VOLUME 9.4 fL (7.4-10.4); MONOCYTES 11.9 % (2-11); NEUTROPHILS 68.5 % (40-80); PLATELET COUNT 221 10x3/uL (130-400); RBC 3.79 10x6/uL (4.20-6.10); RDW 14.5 % (11.5-14.5)
[2019-07-10 21:20] LABS: APTT 26.8 SECONDS (22.8-39.4); INR 1.09 (0.85-1.17); PROTIME 13.6 SECONDS (11.6-15.0)
--- NOTE | 2019-07-10 21:24 | NUR ---
PT SIGNIFICANT OTHER RADHA VIGIL [phone] -
[2019-07-10 21:26] LABS: ALBUMIN 3.6 g/dL (3.4-5.0); ALKALINE PHOSPHATASE 119 U/L (46-116); ALT (SGPT) 14 U/L (10-68); CALC OSMOLALITY 279 mosm/kg (275-300); CARBON DIOXIDE 31.3 mmol/L (21.0-32.0); CHLORIDE - SERUM 104 mmol/L (98-107); CREATININE - SERUM 1.3 mg/dL (0.6-1.3); GLUCOSE 96 mg/dL (74-106); POTASSIUM - SERUM 4.7 mmol/L (3.5-5.1); PROTEIN - SERUM 7.1 g/dL (6.4-8.2); SODIUM 140 mmol/L (136-145); UREA NITROGEN 15 mg/dL (7-18); eGFR NON AFRICAN AMERICAN 58 mL/min (90-120)
[2019-07-10 21:37] LABS: CKMB 1.6 U/L (0.0-3.6); CREATINE KINASE 62 UL (21-232); TROPONIN-I < 0.017 ng/mL (0.000-0.060)
[2019-07-10 22:01] VITALS: BP 127/70
[2019-07-10 23:31] VITALS: BP 135/70
[2019-07-11] VITALS (7 sets, daily range): BP systolic 113–148; BP diastolic 51–86; Ht 180.3 cm; Wt 90.6 kg
--- NOTE | 2019-07-11 00:54 | NUR ---
PT TO CT
--- NOTE | 2019-07-11 02:18 | NUR ---
PT , LORIE VIGIL [phone] CALLED AT THIS TIME.
--- NOTE | 2019-07-11 08:15 | NUR ---
PT RESTING IN BED WITH EYES OPEN CALL LIGHT IN REACH WILL MONITER
[2019-07-11 14:09] LABS: CKMB 2.1 U/L (0.0-3.6); CREATINE KINASE 89 UL (21-232)
[2019-07-11 14:10] LABS: TROPONIN-I < 0.017 ng/mL (0.000-0.060)
--- NOTE | 2019-07-11 14:30 | NUR ---
I have reviewed this patient and I concur with the Shift Assessment completed by the Licensed Practical Nurse today this shift.
--- NOTE | 2019-07-11 14:36 | NUR ---
I have reviewed this patient and I concur with the Shift Assessment completed by the Licensed Practical Nurse today this shift.
--- NOTE | 2019-07-11 18:33 | NUR ---
PT RESTING IN BED WITH EYES OPEN CALL LIGHT IN REACH WILL MONITER
--- NOTE | 2019-07-11 19:15 | NUR ---
EVENING ROUNDS COMPLETED. PATIENT RESTING IN BED WITH EYES CLOSED. NO COMPLAINTS OF PAIN OR DISCOMFORT. DENIES HAVING ANY NEEDS AT THIS TIME. BED IN LOWEST POSITION. SIDE RAILS UP. CALL LIGHT IN REACH. WILL CONTINUE TO MONITOR.
[2019-07-11 19:59] LABS: CKMB 1.8 U/L (0.0-3.6); CREATINE KINASE 93 UL (21-232)
[2019-07-11 20:11] LABS: TROPONIN-I < 0.017 ng/mL (0.000-0.060)
[2019-07-12] VITALS: BP 117/60
[2019-07-12 00:43] LABS: CKMB 1.6 U/L (0.0-3.6); CREATINE KINASE 103 UL (21-232)
[2019-07-12 00:57] LABS: TROPONIN-I < 0.017 ng/mL (0.000-0.060)
[2019-07-12 04:00] VITALS: BP 151/70
--- NOTE | 2019-07-12 04:32 | NUR ---
PATIENT RESTING IN BED WITH EYES CLOSED. NO SIGNS OF DISTRESS. BED IN LOWEST POSITION. SIDE RAILS UP. CALL LIGHT IN REACH. WILL CONTINUE TO MONITOR.
[2019-07-12 05:09] LABS: BASOPHILS 0.4 % (0-2); EOSINOPHILS 4.6 % (0-7); HEMATOCRIT 33.8 % (42.0-54.0); HEMOGLOBIN 10.4 g/dL (13.5-17.5); IMMATURE GRANULOCYTES 0.3 % (0-5); LYMPHOCYTES 18.6 % (15-50); MCH 28.9 pg (26.0-34.0); MCHC 30.8 g/dL (31.0-37.0); MCV 93.9 fL (80.0-100.0); MEAN PLATELET VOLUME 9.9 fL (7.4-10.4); MONOCYTES 13.1 % (2-11); PLATELET COUNT 224 10x3/uL (130-400); RDW 14.6 % (11.5-14.5)
[2019-07-12 06:01] LABS: ALBUMIN 3.2 g/dL (3.4-5.0); BILIRUBIN - TOTAL 0.37 mg/dL (0.2-1.3); CALCIUM 8.6 mg/dL (8.5-10.1); CARBON DIOXIDE 30.4 mmol/L (21.0-32.0); CREATININE - SERUM 1.2 mg/dL (0.6-1.3)
[2019-07-12 06:05] LABS: ANION GAP 10.4 mmol/L (8-16); POTASSIUM - SERUM 3.8 mmol/L (3.5-5.1)
--- NOTE | 2019-07-12 07:45 | NUR ---
A/A/OX4. ANSWERS ALL QUESTIONS APPROPRIATELY. DENIES ANY PAIN AND VOICES NO REQUESTS OTHER THAN HE WANTS TO GO HOME. ASSESSMENT COMPLETED AND WILL CONTINUE POC. CALL LIGHT IN REACH, KEVIN BED ALARM IN PLACE AND WORKING PROPERLY. SCDS ON BILATERALLY.
[2019-07-12 10:44] VITALS: BP 139/76
[2019-07-12 13:42] VITALS: BP 112/52
--- NOTE | 2019-07-12 15:02 | NUR ---
I have reviewed this patient and I concur with the Shift Assessment completed by the Licensed Practical Nurse today this shift.
--- NOTE | 2019-07-12 15:41 | NUR ---
OT NOTE: PT COMPLETED BED MOB WITH SBA. PT COMPLETED SIT TO STAND WITH MIN A. PT COMPLETED TOILETING TASKS WITH CGA FOR BALANCE AND MIN A FOR HYGIENE TASKS. PT EXHIBITS DECREASED SAFETY AWARENESS. THANK YOU, ARIK GODINEZ
[2019-07-12 18:20] VITALS: BP 110/57
--- NOTE | 2019-07-12 19:16 | NUR ---
REPORT RECEIVED, WILL CONTINUE POC. PATIENT IS ALERT, PLEASANTLY DISORIENTED. SITTING UP AT BEDSIDE CONFUSED ABOUT SCD'S THINKING THEY WERE THE TV. ORIENTED PATIENT, CL GIVEN. NO S/S OF DISTRESS OBSERVED, RR EVEN AND UNLABORED ON 2L O2 VIA NC. IV TO RT FA SL, PATENT, DRSG C/D/I. PATIENT DENIES FURTHER NEEDS AT THIS TIME. CL IN REACH, BED LOCKED AND LOWERED, KEVIN ALARM ON. WILL CTM.
[2019-07-12 20:00] VITALS: BP 153/72
[2019-07-13] VITALS: BP 127/66
--- NOTE | 2019-07-13 02:40 | NUR ---
PT CARE ASSUMED. RR EVEN AND UNLABORED ON 2L NC. PT RESTING QUIETLY NO S/S OF DISTRESS NOTED. CALL LIGHT IN REACH. SR X2. CALL LIGHT IN REACH. FALL PRECAUTIONS IN PLACE. WILL CTM.
[2019-07-13 04:00] VITALS: BP 126/69
[2019-07-13 06:11] LABS: BASOPHILS 0.2 % (0-2); EOSINOPHILS 5.7 % (0-7); HEMOGLOBIN 10.5 g/dL (13.5-17.5); IMMATURE GRANULOCYTES 0.1 % (0-5); LYMPHOCYTES 19.4 % (15-50); MCHC 30.9 g/dL (31.0-37.0); MCV 93.9 fL (80.0-100.0); MEAN PLATELET VOLUME 10.3 fL (7.4-10.4); MONOCYTES 12.7 % (2-11); NEUTROPHILS 61.9 % (40-80); PLATELET COUNT 238 10x3/uL (130-400); RBC 3.62 10x6/uL (4.20-6.10); RDW 14.7 % (11.5-14.5); WBC 8.1 10x3/uL (4.8-10.8)
--- NOTE | 2019-07-13 06:18 | NUR ---
PHIL REED FROM [facility] CALLED REQUESTED ADMISSION DATE AND DIAGNOSIS FOR THEIR RECORDS.
[2019-07-13 06:39] LABS: ALBUMIN 3.3 g/dL (3.4-5.0); ANION GAP 8.9 mmol/L (8-16); BILIRUBIN - TOTAL 0.33 mg/dL (0.2-1.3); CALCIUM 8.7 mg/dL (8.5-10.1); CARBON DIOXIDE 29.7 mmol/L (21.0-32.0); CREATININE - SERUM 1.2 mg/dL (0.6-1.3); MAGNESIUM - SERUM 2.2 mg/dL (1.8-2.4); POTASSIUM - SERUM 3.6 mmol/L (3.5-5.1)
--- NOTE | 2019-07-13 07:20 | NUR ---
REPORT RECEIVED. WILL CONTINUE WITH POC. PT CURRENTLY LYING SEMI FOWLERS. CALL LIGHT W/I REACH. PT IS SLEEPING WITH EYES CLOSED AT THIS TIME. RR EVEN AND UNLABORED ON 2L 02. R.FOR PIV IS SALINE LOCKED. KEVIN ALARM IN PLACE AND FUNCTIONING PROPERLY. PT DENIES ANY NEEDS. NO S/S OF DISTRESS NOTED. WILL CTM.
[2019-07-13 08:58] VITALS: BP 120/60
--- NOTE | 2019-07-13 11:34 | NUR ---
I have reviewed this patient and I concur with the Shift Assessment completed by the Licensed Practical Nurse today this shift.
[2019-07-13 12:00] VITALS: BP 124/76
[2019-07-13 13:10] LABS: ACLA - IGG AB <9 GPL U/mL (0-14); ACLA - IGM AB 14 MPL U/mL (0-12)
[2019-07-13 13:10] LABS: ALPHA FETOPROTEIN -(TUMOR MRK) 1.7 ng/mL (0.0-8.3); CEA 2.7 ng/mL (0.0-4.7)
--- NOTE | 2019-07-13 15:54 | MORECARE ---
CASE MANAGEMENT DISCHARGE SUMMARY PATIENT: BENJAMIN KNOWLES UNIT: [id number] ADM DATE: 07/11/19 AGE: 69 : 50 SEX: M ROOM/BED: D.2134 AUTHOR: PETRA,DOC PHYSICIAN: REFERRING PHYSICIAN: MANDI CHAMORRO MD DATE OF SERVICE: 07/13/19 Discharge Plan Patient Name: BENJAMIN KNOWLES Facility: [facility]:[place] : 1950 Planned Disposition: Home with Home Health Anticipated Discharge Date: Discharge Date: Expected LOS: Initial Reviewer: [id number] Initial Review Date: 07/13/2019 Generated: 07/13/19 4:54 pm DCPIA - Discharge Planning Initial Assessment Updated by JACK: Boni Galvez on 07/13/19 3:48 pm * Is the patient Alert and Oriented? Yes * How many steps to enter\exit or inside your home? * [facility] [place] * Pharmacy [facility], Take the Interview [place] * Preadmission Environment Home with Family * ADLs Partial Dependent * Partial ADLs (Assistance needed) Ambulation Bathing Medication Management * Equipment Cane Nebulizer Oxygen Rolling Walker * Other Equipment ROLLATOR WALKER HOME AND PORTABLE OXYGEN, [facility] PATIENT IS PROVIDER * List name and contact numbers for known caregivers / representatives who currently or will assist patient after discharge: RADHA VIGIL, SIGNIFICANT OTHER, * Verbal permission to speak to the caregivers and representatives has been obtained from the patient. Yes * Community resources currently utilized Home Health * Please name any agencies selected above. [facility] * Additional services required to return to the preadmission environment? No * Can the patient safely return to the preadmission environment? Yes * Has this patient been hospitalized within the prior 30 days at any hospital? No External Providers External Provider: [facility] Next Contact Date: 07/13/2019 Service Request Date: Service Type: Resolution: Reviewer: Comments: Coverage Notice Reviewer: [id number] Ralph Galvez Notice Issued Date-Time: 07/13/2019 9:10 Notice Type: Patient Choice Letter Notice Delivered To: Patient Relationship to Patient: Fish Seiner Name: Delivery Method: EXPR - Express Mail [place] Days: Prior Verbal Notification: Recipient Understood Notice: Yes Recipient Signature: Yes Med Rec Note Co-signed by Attending: Coverage Notice Comment: [facility] Patient Name: BENJAMIN KNOWLES Page [phone] at 1554 All edits/amendments must be made on the electronic document DICTATION DATE: 07/13/191553 BUTCHERETTE: FREDO 07/13/191553 RPT#: [id number] DC DATE: STATUS: ADM IN [facility] [address] [place] [address] END OF REPORT
[2019-07-13 16:00] VITALS: BP 164/58
[2019-07-13 19:00] VITALS: BP 172/64
--- NOTE | 2019-07-13 21:30 | NUR ---
PT HARD TO AROUSE TO TAKE PM MEDICATION. PT STATED THAT HE IS TIRED BUT DENIES PAIN OR SOB AT THIS TIME. NO NEEDS EXPRESSED. CALL LIGHT IN REACH. WILL CTM.
[2019-07-14] VITALS (7 sets, daily range): BP systolic 111–152; BP diastolic 65–78
[2019-07-14 03:49] LABS: APPEARANCE CLEAR (CLEAR); BILIRUBIN NEGATIVE (NEGATIVE); COLOR YELLOW (YELLOW); GLUCOSE NEGATIVE (NEGATIVE); KETONE NEGATIVE (NEGATIVE); NITRITE NEGATIVE (NEGATIVE); PROTEIN NEGATIVE (NEGATIVE); SPECIFIC GRAVITY 1.015 (1.005-1.020); UROBILINOGEN NORMAL (NORMAL)
[2019-07-14 03:55] LABS: UDS - AMPHET NEGATIVE QUAL (NEGATIVE); UDS - BARB NEGATIVE QUAL (NEGATIVE); UDS - BENZO NEGATIVE QUAL (NEGATIVE); UDS - COCAINE NEGATIVE QUAL (NEGATIVE); UDS - OPIATE NEGATIVE QUAL (NEGATIVE); UDS - PCP NEGATIVE QUAL (NEGATIVE); UDS - THC NEGATIVE QUAL (NEGATIVE)
[2019-07-14 05:08] LABS: BASOPHILS 0.4 % (0-2); EOSINOPHILS 5.4 % (0-7); HEMATOCRIT 34.3 % (42.0-54.0); HEMOGLOBIN 10.5 g/dL (13.5-17.5); IMMATURE GRANULOCYTES 0.1 % (0-5); LYMPHOCYTES 14.8 % (15-50); MCH 29.3 pg (26.0-34.0); MCHC 30.6 g/dL (31.0-37.0); MCV 95.8 fL (80.0-100.0); MEAN PLATELET VOLUME 9.7 fL (7.4-10.4); MONOCYTES 14.1 % (2-11); NEUTROPHILS 65.2 % (40-80); PLATELET COUNT 218 10x3/uL (130-400); RBC 3.58 10x6/uL (4.20-6.10); RDW 14.8 % (11.5-14.5); WBC 7.8 10x3/uL (4.8-10.8)
[2019-07-14 05:34] LABS: ALBUMIN 3.3 g/dL (3.4-5.0); ANION GAP 9.9 mmol/L (8-16); BILIRUBIN - TOTAL 0.49 mg/dL (0.2-1.3); CALCIUM 8.9 mg/dL (8.5-10.1); CARBON DIOXIDE 29.9 mmol/L (21.0-32.0); CREATININE - SERUM 1.1 mg/dL (0.6-1.3); MAGNESIUM - SERUM 2.5 mg/dL (1.8-2.4); POTASSIUM - SERUM 3.8 mmol/L (3.5-5.1); PROTEIN - SERUM 7.2 g/dL (6.4-8.2)
--- NOTE | 2019-07-14 05:46 | NUR ---
PT ALERT AND EASIER TO AROUSE THIS AM. RR EVEN AND UNLABORED. NO NEEDS EXPRESSED. FALL PRECATIONS IN PLACE. CALL LIGHT IN REACH. WILL CTM.
--- NOTE | 2019-07-14 08:38 | NUR ---
AM MEDS GIVEN AT THIS TIME. ALSO SET UP BREAKFAST TRAY FOR PT. PT DENIES ANY NEEDS AT THIS TIME. CALL LIGHT IN REACH, NAD NOTED, WILL CONTINUE TO MONITOR.
[2019-07-14 13:09] LABS: LUPUS - INTERPRETATION Comment: (()); LUPUS - THROMBIN TIME 19.7 sec (0.0-23.0); LUPUS - dRVVT 42.4 sec (0.0-47.0); PTT-LA 44.6 sec (0.0-51.9)
--- NOTE | 2019-07-14 14:00 | NUR ---
HELPED PT TO BATHROOM AND BACK TO CHAIR X1 ASSIST. PT DENIES ANY OTHER NEEDS AT THIS TIME. CALL LIGHT IN REACH, NAD NOTED,W ILL CONTINUE TO MONITOR.
[2019-07-14 14:08] LABS: CA 27-29 16.5 U/mL (0.0-38.6)
--- NOTE | 2019-07-14 18:09 | NUR ---
PT UP TO CHAIR, TALKING ON THE PHONE, DENIES ANY NEEDS AT THIS TIME. CALL LIGHT IN REACH, NAD NOTED.
--- NOTE | 2019-07-14 19:20 | NUR ---
PT CARE ASSUMED. BEDSIDE SHIFT REPORT COMPLETE. PT UP IN CHAIR RECEIVING UPDRAFT. RR EVEN AND UNLABORED. NO S/S OF DISTRESS NOTED AT THIS TIME. CHAIR ALARM ON AND FALL PRECAUTIONS IN PLACE. PT DENIES NEEDS AT THIS TIME. CALL LIGHT IN REACH. WILL CTM.
[2019-07-15 04:00] VITALS: BP 125/72
[2019-07-15 05:41] LABS: BASOPHILS 0.3 % (0-2); EOSINOPHILS 6.9 % (0-7); HEMATOCRIT 34.5 % (42.0-54.0); HEMOGLOBIN 10.4 g/dL (13.5-17.5); IMMATURE GRANULOCYTES 0.3 % (0-5); LYMPHOCYTES 14.3 % (15-50); MCH 28.7 pg (26.0-34.0); MCHC 30.1 g/dL (31.0-37.0); MEAN PLATELET VOLUME 9.6 fL (7.4-10.4); MONOCYTES 12.9 % (2-11); NEUTROPHILS 65.3 % (40-80); PLATELET COUNT 219 10x3/uL (130-400); RBC 3.63 10x6/uL (4.20-6.10); RDW 14.7 % (11.5-14.5); WBC 8.9 10x3/uL (4.8-10.8)
[2019-07-15 06:02] LABS: ALBUMIN 3.2 g/dL (3.4-5.0); ANION GAP 6.5 mmol/L (8-16); BILIRUBIN - TOTAL 0.36 mg/dL (0.2-1.3); CALCIUM 8.7 mg/dL (8.5-10.1); CREATININE - SERUM 1.2 mg/dL (0.6-1.3); MAGNESIUM - SERUM 2.4 mg/dL (1.8-2.4); POTASSIUM - SERUM 3.5 mmol/L (3.5-5.1); PROTEIN - SERUM 6.9 g/dL (6.4-8.2)
[2019-07-15 07:52] VITALS: BP 104/49
[2019-07-15 12:00] VITALS: BP 119/72
--- NOTE | 2019-07-15 14:22 | NUR ---
I have reviewed this patient and I concur with the Shift Assessment completed by the Licensed Practical Nurse today this shift.
[2019-07-15 15:47] VITALS: BP 112/68
--- NOTE | 2019-07-15 17:28 | NUR ---
I have reviewed this patient and I concur with the Shift Assessment completed by the Licensed Practical Nurse today this shift.
[2019-07-15 20:00] VITALS: BP 118/62
[2019-07-16 00:34] VITALS: BP 127/83
[2019-07-16 04:00] VITALS: BP 114/64
[2019-07-16 05:52] LABS: BASOPHILS 0.1 % (0-2); EOSINOPHILS 4.1 % (0-7); HEMATOCRIT 37.2 % (42.0-54.0); HEMOGLOBIN 11.5 g/dL (13.5-17.5); IMMATURE GRANULOCYTES 0.4 % (0-5); MCHC 30.9 g/dL (31.0-37.0); MCV 93.9 fL (80.0-100.0); MONOCYTES 9.3 % (2-11); NEUTROPHILS 77.1 % (40-80); PLATELET COUNT 261 10x3/uL (130-400); RBC 3.96 10x6/uL (4.20-6.10); RDW 14.8 % (11.5-14.5)
[2019-07-16 05:57] LABS: WBC 13.9 10x3/uL (4.8-10.8)
[2019-07-16 06:26] LABS: ALBUMIN 3.5 g/dL (3.4-5.0); ANION GAP 12.3 mmol/L (8-16); BILIRUBIN - TOTAL 0.35 mg/dL (0.2-1.3); CALCIUM 8.9 mg/dL (8.5-10.1); CARBON DIOXIDE 28.8 mmol/L (21.0-32.0); CREATININE - SERUM 1.2 mg/dL (0.6-1.3); MAGNESIUM - SERUM 2.5 mg/dL (1.8-2.4); PROTEIN - SERUM 7.6 g/dL (6.4-8.2)
[2019-07-16 06:27] LABS: POTASSIUM - SERUM 4.1 mmol/L (3.5-5.1)
[2019-07-16 07:38] VITALS: BP 114/67
--- NOTE | 2019-07-16 09:25 | MORECARE ---
CASE MANAGEMENT DISCHARGE SUMMARY PATIENT: BENJAMIN KNOWLES UNIT: [id number] ADM DATE: 07/11/19 AGE: 69 : 50 SEX: M ROOM/BED: D.2134 AUTHOR: PETRA,DOC PHYSICIAN: REFERRING PHYSICIAN: MANDI CHAMORRO MD DATE OF SERVICE: 07/16/19 Discharge Plan Patient Name: BENJAMIN KNOWLES Facility: [facility]:[place] : 1950 Planned Disposition: Home with Home Health Anticipated Discharge Date: Discharge Date: Expected LOS: Initial Reviewer: [id number] Initial Review Date: 07/13/2019 Generated: 07/16/19 10:25 am DCPIA - Discharge Planning Initial Assessment Updated by JACK: Boni Galvez on 07/13/19 3:48 pm * Is the patient Alert and Oriented? Yes * How many steps to enter\exit or inside your home? * PCP [facility] [place] * Pharmacy [facility], [place] * Preadmission Environment Home with Family * ADLs Partial Dependent * Partial ADLs (Assistance needed) Ambulation Bathing Medication Management * Equipment Cane Nebulizer Oxygen Rolling Walker * Other Equipment ROLLATOR WALKER HOME AND PORTABLE OXYGEN, [facility] PATIENT IS PROVIDER * List name and contact numbers for known caregivers / representatives who currently or will assist patient after discharge: RADHA VIGIL, SIGNIFICANT OTHER, * Verbal permission to speak to the caregivers and representatives has been obtained from the patient. Yes * Community resources currently utilized Home Health * Please name any agencies selected above. [facility] * Additional services required to return to the preadmission environment? No * Can the patient safely return to the preadmission environment? Yes * Has this patient been hospitalized within the prior 30 days at any hospital? No Coverage Notice Reviewer: [id number] - Boni Galvez Notice Issued Date-Time: 07/13/2019 9:10 Notice Type: Patient Choice Letter Notice Delivered To: Patient Relationship to Patient: Infrastructure Architect Name: Delivery Method: EXPR - Express Mail Ashely Days: Prior Verbal Notification: Recipient Understood Notice: Yes Recipient Signature: Yes Med Rec Note Co-signed by Attending: Coverage Notice Comment: [facility] Last DP export: 07/13/19 2:54 Patient Name: BENJAMIN KNOWLES Page [phone] at 0925 All edits/amendments must be made on the electronic document DICTATION DATE: 07/16/19924 SPRING TIER: FREDO 07/16/19924 RPT#: [id number] DC DATE: STATUS: ADM IN [facility] [address] [place] [address] END OF REPORT
[2019-07-16 11:27] VITALS: BP 95/53
--- NOTE | 2019-07-16 11:36 | NUR ---
OT NOTE: PT MORE CONFUSED TODAY. INCREASED DIFFICULTY FOLLOWING COMMANDS. BED MOB WITH MIN ASSIST; MIN ASSIST WITH TOILETING; SET UP FOR FEEDING. IN ROOM AMBULATION WITH MIN ASSIST AND FREQ VERBAL CUES FOR INSTRUCTION. SITTING UP IN CHAIR WITHOUT DIFFICULTY. LIONEL GALVAN, OTR/L
--- NOTE | 2019-07-16 12:31 | NUR ---
REHAB PRESCREENING Rehab referral received and chart reviewed. This patient did ambulate 4 feet on 07/14. [facility] notes today that patient has a low grade fever with temp max of 99.1 and WBC is elevated today 13.9 (8.9 yesterday) - on no steroids. Rehab will continue to follow this patient and will accept him when his physician feels he is appropriate for discharge if he is agreeable to come. Thank you for this referral! Alexandria Bird, HOURLY CAREGIVER Rehab PD
--- NOTE | 2019-07-16 14:11 | MORECARE ---
CASE MANAGEMENT DISCHARGE SUMMARY PATIENT: BENJAMIN KNOWLES UNIT: [id number] ADM DATE: 07/11/19 AGE: 69 : 50 SEX: M ROOM/BED: D.2134 AUTHOR: PETRA,DOC PHYSICIAN: REFERRING PHYSICIAN: MANDI CHAMORRO MD DATE OF SERVICE: 07/16/19 Discharge Plan Patient Name: BENJAMIN KNOWLES Facility: [facility]:[place] : 1950 Planned Disposition: Home with Home Health Anticipated Discharge Date: Discharge Date: Expected LOS: Initial Reviewer: [id number] Initial Review Date: 07/13/2019 Generated: 07/16/19 3:10 pm DCPIA - Discharge Planning Initial Assessment Updated by JACK: Boni Galvez on 07/13/19 3:48 pm * Is the patient Alert and Oriented? Yes * How many steps to enter\exit or inside your home? * PCP [facility] [place] * Pharmacy [facility], [place] * Preadmission Environment Home with Family * ADLs Partial Dependent * Partial ADLs (Assistance needed) Ambulation Bathing Medication Management * Equipment Cane Nebulizer Oxygen Rolling Walker * Other Equipment ROLLATOR WALKER HOME AND PORTABLE OXYGEN, [facility] PATIENT IS PROVIDER * List name and contact numbers for known caregivers / representatives who currently or will assist patient after discharge: RADHA VIGIL, SIGNIFICANT OTHER, * Verbal permission to speak to the caregivers and representatives has been obtained from the patient. Yes * Community resources currently utilized Home Health * Please name any agencies selected above. [facility] * Additional services required to return to the preadmission environment? No * Can the patient safely return to the preadmission environment? Yes * Has this patient been hospitalized within the prior 30 days at any hospital? No Coverage Notice Reviewer: [id number] Ralph Galvez Notice Issued Date-Time: 07/13/2019 9:10 Notice Type: Patient Choice Letter Notice Delivered To: Patient Relationship to Patient: Remote Sensing Analyst Name: Delivery Method: EXPR - Express Mail Ashely Days: Prior Verbal Notification: Recipient Understood Notice: Yes Recipient Signature: Yes Med Rec Note Co-signed by Attending: Coverage Notice Comment: [facility] Reviewer: [id number] Galvez Notice Issued Date-Time: 07/16/2019 12:55 Notice Type: IM Discharge Notice Notice Delivered To: Patient Relationship to Patient: Remote Sensing Analyst Name: Delivery Method: HAND - Hand Delivered Ashely Days: Prior Verbal Notification: Recipient Understood Notice: Yes Recipient Signature: Yes Med Rec Note Co-signed by Attending: Coverage Notice Comment: Last DP export: 07/16/19 8:25 Patient Name: BENJAMIN KNOWELS Page [phone] at 1411 All edits/amendments must be made on the electronic document DICTATION DATE: 07/16/191409 SATELLITE COMMUNICATIONS ENGINEER: FREDO 07/16/191409 RPT#: [id number] DC DATE: STATUS: ADM IN [facility] [address] [place] [address] END OF REPORT
--- NOTE | 2019-07-16 14:21 | MORECARE ---
CASE MANAGEMENT DISCHARGE SUMMARY PATIENT: BENJAMIN KNOWLES UNIT: [id number] ADM DATE: 07/11/19 AGE: 69 : 50 SEX: M ROOM/BED: D.2134 AUTHOR: PETRA,DOC PHYSICIAN: REFERRING PHYSICIAN: MANDI CHAMORRO MD DATE OF SERVICE: 07/16/19 Discharge Plan Patient Name: BENJAMIN KNOWLES Facility: [facility]:[place] : 1950 Planned Disposition: Home with Home Health Anticipated Discharge Date: Discharge Date: Expected LOS: Initial Reviewer: [id number] Initial Review Date: 07/13/2019 Generated: 07/16/19 3:20 pm Comments DCP- Discharge Planning Updated by [id number]: Boni Galvez on 07/16/19 1:[address] Patient Name: BENJAMIN KNOWLES Encounter No: [id number] : 1950 Primary Insurance: MEDICARE A & B Anticipated DC Date: Planned Disposition: Home with Home Health External Planned Provider: [facility] DCP follow-up note: CM RECEIVED MESSAGE FROM [facility] OF INPATIENT REHAB, THEY WILL ACCEPT PT WHEN MEDICALLY STABLE FOR DISCHARGE TO REHAB. CM MET WITH PT IN ROOM AND INFORMED PT OF REHAB ACCEPTANCE. PT STATES HE DOES NOT WANT REHAB, HE HAS BEEN THERE AND WANTS TO GO HOME. PT WANTS HOME HEALTH RESUMPTION WITH [facility]. CM ENCOURAGED PT TO TAKE ADVANTAGE OF REHAB SERVICES PRIOR TO GOING HOME AND DISCUSSED HAVING A SAFE DISCHARGE PLAN. CM DISCUSSED PT THERAPY NOTES INDICATING PT NEEDS REHAB SERVICES PRIOR TO HOME WITH [facility]. PT INSISTS HE IS GOING HOME, HIS WILL PICK HIM UP FOR DISCHARGE HOME. PT STATES THAT DR. RESENDEZ ALREADY TOLD HIM HE COULD DISCHARGE. CM EXPLAINED THAT THE PRIMARY DOCTOR ON PT'S CASE HAS NOT YET SEEN OR DISCHARGED PT TODAY. IMPORTANT MESSAGE FROM MEDICARE PROVIDED AND EXPLAINED. CM NOTIFIED [facility] OF [facility] INPATIENT REHAB WHO STATED SHE WILL NOT CLOSE OUT PT'S SCREENING IN EVENT PT CHANGES HIS MIND. CM RECEIVED CALL FROM RADHA VIGIL, , WHO STATES THAT PT IS STUBORN AND THAT HE NEEDS REHAB BEFORE COMING HOME. RADHA STATES [facility]. PT HAS CALLED RADHA AND TOLD HER HE PLANS TO COME HOME AT DISCHARGE. RADHA WANTS PT TO GO TO REHAB. CM EXPLAINED THAT FAMILY WILL HAVE TO CONVINCE PT TO GO AND THAT CM WAS NOT ABLE TO GET PT TO AGREE. RADHA WILL CALL HER DAUGHER TO CALL PT AND CONVINCE HIM TO GO TO INPATIENT REHAB AT DISCHARGE FROM HOSPITAL. CM WAITING FOR FAMILY TO SPEAK TO PT; THEY ARE HOPEFUL THAT PT WILL CHANGE HIS MIND AND GO TO INPATIENT REHAB PRIOR TO GOING HOME WITH [facility] REASUMPTION. Boni Galvez,. CASE MANAGEMENT DCPIA - Discharge Planning Initial Assessment Updated by [id number]: Boni Galvez on 07/13/19 3:48 pm * Is the patient Alert and Oriented? Yes * How many steps to enter\exit or inside your home? * PCP [facility] [place] * Pharmacy [facility] [place] * Preadmission Environment Home with Family * ADLs Partial Dependent * Partial ADLs (Assistance needed) Ambulation Bathing Medication Management * Equipment Cane Nebulizer Oxygen Rolling Walker * Other Equipment ROLLATOR WALKER HOME AND PORTABLE OXYGEN, [facility] PATIENT IS PROVIDER * List name and contact numbers for known caregivers / representatives who currently or will assist patient after discharge: RADHA VIGIL, SIGNIFICANT OTHER, * Verbal permission to speak to the caregivers and representatives has been obtained from the patient. Yes * Community resources currently utilized Home Health * Please name any agencies selected above. [facility] * Additional services required to return to the preadmission environment? No * Can the patient safely return to the preadmission environment? Yes * Has this patient been hospitalized within the prior 30 days at any hospital? No Coverage Notice Reviewer: [id number] Ralph Galvez Notice Issued Date-Time: 07/13/2019 9:10 Notice Type: Patient Choice Letter Notice Delivered To: Patient Relationship to Patient: Sports Book Board Attendant Name: Delivery Method: EXPR - Express Mail Ashely Days: Prior Verbal Notification: Recipient Understood Notice: Yes Recipient Signature: Yes Med Rec Note Co-signed by Attending: Coverage Notice Comment: [facility] Reviewer: [id number] Ralph Galvez Notice Issued Date-Time: 07/16/2019 12:55 Notice Type: IM Discharge Notice Notice Delivered To: Patient Relationship to Patient: Sports Book Board Attendant Name: Delivery Method: HAND - Hand Delivered Ashely Days: Prior Verbal Notification: Recipient Understood Notice: Yes Recipient Signature: Yes Med Rec Note Co-signed by Attending: Coverage Notice Comment: Last DP export: 07/16/19 1:11 Patient Name: BENJAMIN KNOWLES Page [phone] at 1421 All edits/amendments must be made on the electronic document DICTATION DATE: 07/16/191419 TONGUE PRESSER: FREDO 07/16/191419 RPT#: [id number] DC DATE: STATUS: ADM IN [facility] [address] [place] [address] END OF REPORT
[2019-07-16 15:06] VITALS: BP 112/64
--- NOTE | 2019-07-16 16:53 | NUR ---
RESP UL ON . UP IN CHAIR [facility] CALL LIGHT IN REACH. AMIE CONT. PLAN OF CARE.
[2019-07-16 20:00] VITALS: BP 109/65
--- NOTE | 2019-07-16 20:29 | NUR ---
OT NOTE: PT COMPLETED FACE WASH/HAND WASH WITH MIN A. PT COMPLETED BED MOB TASKS WITH CGA/MIN A. PT REQUIRED EXTRA TIME AND VERBAL CUES SECONDARY TO PROCESSING. THANK YOU,ARIK GODINEZ
[2019-07-17] VITALS: BP 108/69
[2019-07-17 04:27] VITALS: BP 109/66
[2019-07-17 04:29] LABS: BASOPHILS 0.3 % (0-2); HEMATOCRIT 33.9 % (42.0-54.0); HEMOGLOBIN 10.4 g/dL (13.5-17.5); IMMATURE GRANULOCYTES 0.3 % (0-5); LYMPHOCYTES 16.2 % (15-50); MCH 29.3 pg (26.0-34.0); MCHC 30.7 g/dL (31.0-37.0); MCV 95.5 fL (80.0-100.0); MEAN PLATELET VOLUME 9.8 fL (7.4-10.4); MONOCYTES 10.5 % (2-11); NEUTROPHILS 65.7 % (40-80); PLATELET COUNT 251 10x3/uL (130-400); RBC 3.55 10x6/uL (4.20-6.10); RDW 14.7 % (11.5-14.5)
[2019-07-17 04:34] LABS: WBC 9.1 10x3/uL (4.8-10.8)
[2019-07-17 07:37] VITALS: BP 113/73
--- NOTE | 2019-07-17 08:32 | MORECARE ---
CASE MANAGEMENT DISCHARGE SUMMARY PATIENT: BENJAMIN KNOWLES UNIT: [id number] ADM DATE: 07/11/19 AGE: 69 : 50 SEX: M ROOM/BED: D.2134 AUTHOR: PETRA,DOC PHYSICIAN: REFERRING PHYSICIAN: MANDI CHAMORRO MD DATE OF SERVICE: 07/17/19 Discharge Plan Patient Name: BENJAMIN KNOWLES [facility] [facility] 1950 Planned Disposition: Inpatient Rehab Anticipated Discharge Date: 07/18/19 Discharge Date: Expected LOS: 7 Initial Reviewer: [id number] Initial Review Date: 07/13/2019 Generated: 07/17/19 9:32 am Comments DCP- Discharge Planning Updated by [email or web address]: Boni Galvez on 07/17/19 7:[address] Patient Name: BENJAMIN KNOWLES Encounter No: [id number] : 1950 Primary Insurance: MEDICARE A & B Anticipated DC Date: 07-18-2019 Planned Disposition: Inpatient Rehab External Planned Provider: [facility] DCP follow-up note: LATE ENTRY FROM 07-16-19, 1615 HOURS: PT HAS NOW AGREED TO GO TO INPATIENT REHAB AT [facility]. [place] NOTIFIED [facility] OF INPATIENT REHAB. FOR DISCHARGE, NOTIFY [facility] WHO WILL THEN CONTACT [facility] NURSE WITH ROOM NUMBER WHEN READY TO ACCEPT PT AND NURSE REPORT. Boni Galvez, CASE MANAGEMENT DCP- Discharge Planning Updated by [id number]: Boni Galvez on 07/16/19 1:[address] Patient Name: BENJAMIN KNOWLES Encounter No: [id number] : 1950 Primary Insurance: MEDICARE A & B Anticipated DC Date: Planned Disposition: Home with Home Health External Planned Provider: [facility] DCP follow-up note: CM RECEIVED MESSAGE FROM [facility] OF [facility]PATIENT [facility], THEY WILL ACCEPT PT WHEN MEDICALLY STABLE FOR DISCHARGE TO REHAB. CM MET WITH PT IN ROOM AND INFORMED PT OF REHAB ACCEPTANCE. PT STATES HE DOES NOT WANT REHAB, HE HAS BEEN THERE AND WANTS TO GO HOME. PT WANTS HOME HEALTH RESUMPTION WITH [facility]. CM ENCOURAGED PT TO TAKE ADVANTAGE OF REHAB SERVICES PRIOR TO GOING HOME AND DISCUSSED HAVING A SAFE DISCHARGE PLAN. CM DISCUSSED PT THERAPY NOTES INDICATING PT NEEDS REHAB SERVICES PRIOR TO HOME WITH HOME HEALTH. PT INSISTS HE IS GOING HOME, HIS WILL PICK HIM UP FOR DISCHARGE HOME. PT STATES THAT DR. RESENDEZ ALREADY TOLD HIM HE COULD DISCHARGE. CM EXPLAINED THAT THE PRIMARY DOCTOR ON PT'S CASE HAS NOT YET SEEN OR DISCHARGED PT TODAY. IMPORTANT MESSAGE FROM MEDICARE PROVIDED AND EXPLAINED. CM NOTIFIED [facility] OF [facility] WHO STATED SHE WILL NOT CLOSE OUT PT'S SCREENING IN EVENT PT CHANGES HIS MIND. CM RECEIVED CALL FROM RADHA VIGIL, , WHO STATES THAT PT IS STUBORN AND THAT HE NEEDS REHAB BEFORE COMING HOME. RADHA STATES THAT [facility] AGREES. PT HAS CALLED RADHA AND TOLD HER HE PLANS TO COME HOME AT DISCHARGE. RADHA WANTS PT TO GO TO REHAB. CM EXPLAINED THAT FAMILY WILL HAVE TO CONVINCE PT TO GO AND THAT CM WAS NOT ABLE TO GET PT TO AGREE. RADHA WILL CALL HER DAUGHER TO CALL PT AND CONVINCE HIM TO GO TO INPATIENT REHAB AT DISCHARGE FROM HOSPITAL. CM WAITING FOR FAMILY TO SPEAK TO PT; THEY ARE HOPEFUL THAT PT WILL CHANGE HIS MIND AND GO TO INPATIENT REHAB PRIOR TO GOING HOME WITH [facility] REASUMPTION. Boni Galvez,. CASE MANAGEMENT DCPIA - Discharge Planning Initial Assessment Updated by [id number]: Boni Galvez on 07/13/19 3:48 pm * Is the patient Alert and Oriented? Yes * How many steps to enter\exit or inside your home? * PCP [facility] [place] * Pharmacy [facility] [place] * Preadmission Environment Home with Family * ADLs Partial Dependent * Partial ADLs (Assistance needed) Ambulation Bathing Medication Management * Equipment Cane Nebulizer Oxygen Rolling Walker * Other Equipment ROLLATOR WALKER HOME AND PORTABLE OXYGEN, [facility] PATIENT IS PROVIDER * List name and contact numbers for known caregivers / representatives who currently or will assist patient after discharge: RADHA VIGIL, SIGNIFICANT OTHER, * Verbal permission to speak to the caregivers and representatives has been obtained from the patient. Yes * Community resources currently utilized Home Health * Please name any agencies selected above. [facility] * Additional services required to return to the preadmission environment? No * Can the patient safely return to the preadmission environment? Yes * Has this patient been hospitalized within the prior 30 days at any hospital? No Coverage Notice Reviewer: [id number] Ralph Galvez Notice Issued Date-Time: 07/13/2019 9:10 Notice Type: Patient Choice Letter Notice Delivered To: Patient Relationship to Patient: Zipper Joiner Name: Delivery Method: EXPR - Express Mail Ashely Days: Prior Verbal Notification: Recipient Understood Notice: Yes Recipient Signature: Yes Med Rec Note Co-signed by Attending: Coverage Notice Comment: [facility] Reviewer: [id number] Ralph Galvez Notice Issued Date-Time: 07/16/2019 12:55 Notice Type: IM Discharge Notice Notice Delivered To: Patient Relationship to Patient: Zipper Joiner Name: Delivery Method: HAND - Hand Delivered Ashely Days: Prior Verbal Notification: Recipient Understood Notice: Yes Recipient Signature: Yes Med Rec Note Co-signed by Attending: Coverage Notice Comment: Last DP export: 07/16/19 1:21 Patient Name: BENJAMIN KNOWLES Page [phone] at 0832 All edits/amendments must be made on the electronic document DICTATION DATE: 07/17/19831 MICROWAVE TECHNICIAN: FREDO 07/17/19 0832 RPT#: [id number] DC DATE: STATUS: ADM IN [facility] [address] [place] [address] END OF REPORT
[2019-07-17 11:10] VITALS: BP 118/63
[2019-07-17] MEDS ORDERED: ELIQUIS5 MG PO (11:55)
--- NOTE | 2019-07-17 12:03 | NUR ---
OT NOTE: PT REMAINS SLOW TO PROCESS; SLIGHTLY CONFUSED AND SLOW WITH ORIENTATION. BED MOB WITH MIN ASSIST; ABLE TO WASH UPPER BODY WITH SET UP; LE BODY WITH MIN/MOD ASSIST; MIN ASSIST TO CARRIE GOWN AND MOD ASSIST TO CARRIE SOCKS. IN ROOM AMBULATION WITH MIN ASSIST; FUNCTIONAL TRANSFERS WITH MIN ASSIST. PT TRANSFERRED TO CHAIR; POSITIONED FOR COMFORT AND ALARM TURNED ON FOR SAFETY. LIONEL GALVAN, OTR/L
[2019-07-17] MEDS ORDERED: FLUTICASONE PRO16 GM NASAL (12:39)
[2019-07-17] MEDS ORDERED: PULMICORT0.5 MG/21 INH (12:40)
--- NOTE | 2019-07-17 12:42 | NUR ---
PAGE INTO PATRICIA [facility]EH[facility] APN TO SEE IF PATIENT NEEDS A FLU SHOT UPON DISCHARGE WITH HIS DX OF P.E. NO FLU SHOT AT ADMIT. AWAITING CALL BACK.
--- NOTE | 2019-07-17 12:43 | NUR ---
PATRICIA TO CALL BACK AND SAYS THAT PATIENT CAN HAVE ONE IF HE WANTS IT. I ASKED THE PATIENT AND HE REPLIED "YES". ORDEREDD.
--- NOTE | 2019-07-17 13:22 | MORECARE ---
CASE MANAGEMENT DISCHARGE SUMMARY PATIENT: BENJAMIN KNOWLES UNIT: [id number] ADM DATE: 07/11/19 AGE: 69 : 50 SEX: M ROOM/BED: D.2134 AUTHOR: PETRA,DOC PHYSICIAN: REFERRING PHYSICIAN: MANDI CHAMORRO MD DATE OF SERVICE: 07/17/19 Discharge Plan Patient Name: [facility]ENJAMIN KNOWLES [facility] [facility] 1950 Planned Disposition: Inpatient Rehab Anticipated Discharge Date: 07/17/19 Discharge Date: Expected LOS: 6 Initial Reviewer: [id number] Initial Review Date: 07/13/2019 Generated: 07/17/19 2:22 pm Comments DCP- Discharge Planning Updated by [email or web address]: Boni Galvez on 07/17/19 7:[address] Patient Name: BENJAMIN KNOWLES Encounter No: [id number] : 1950 Primary Insurance: MEDICARE A & B Anticipated DC Date: 07-18-2019 Planned Disposition: Inpatient Rehab External Planned Provider: [facility] INPATIENT REHAB DCP follow-up note: LATE ENTRY FROM 07-16-19, 1615 HOURS: PT HAS NOW AGREED TO GO TO INPATIENT REHAB AT [facility]. WAYNE NOTIFIED BEA OF INPATIENT REHAB. FOR DISCHARGE, NOTIFY [facility] WHO WILL THEN CONTACT [facility] NURSE WITH ROOM NUMBER WHEN READY TO ACCEPT PT AND NURSE REPORT. Boni Galvez, CASE MANAGEMENT DCP- Discharge Planning Updated by [id number]: Boni Galvez on 07/16/19 1:[address] Patient Name: BENJAMIN KNOWLES Encounter No: [id number] : 1950 Primary Insurance: MEDICARE A & B Anticipated DC Date: Planned Disposition: Home with Home Health External Planned Provider: [facility] DCP follow-up note: CM RECEIVED MESSAGE FROM BEA OF INPATIENT REHAB, THEY WILL ACCEPT PT WHEN MEDICALLY STABLE FOR DISCHARGE TO REHAB. CM MET WITH PT IN ROOM AND INFORMED PT OF REHAB ACCEPTANCE. PT STATES HE DOES NOT WANT REHAB, HE HAS BEEN THERE AND WANTS TO GO HOME. PT WANTS HOME HEALTH RESUMPTION WITH [facility] [employer]. CM ENCOURAGED PT TO TAKE ADVANTAGE OF REHAB SERVICES PRIOR TO GOING HOME AND DISCUSSED HAVING A SAFE DISCHARGE PLAN. CM DISCUSSED PT THERAPY NOTES INDICATING PT NEEDS REHAB SERVICES PRIOR TO HOME WITH HOME HEALTH. PT INSISTS HE IS GOING HOME, HIS WILL PICK HIM UP FOR DISCHARGE HOME. PT STATES THAT DR. RESENDEZ ALREADY TOLD HIM HE COULD DISCHARGE. CM EXPLAINED THAT THE PRIMARY DOCTOR ON PT'S CASE HAS NOT YET SEEN OR DISCHARGED PT TODAY. IMPORTANT MESSAGE FROM MEDICARE PROVIDED AND EXPLAINED. CM NOTIFIED BEA OF [facility] INPATIENT REHAB WHO STATED SHE WILL NOT CLOSE OUT PT'S SCREENING IN EVENT PT CHANGES HIS MIND. CM RECEIVED CALL FROM RADHA VIGIL, , WHO STATES THAT PT IS STUBORN AND THAT HE NEEDS REHAB BEFORE COMING HOME. RADHA STATES THAT [facility] AGREES. PT HAS CALLED RADHA AND TOLD HER HE PLANS TO COME HOME AT DISCHARGE. RADHA WANTS PT TO GO TO REHAB. CM EXPLAINED THAT FAMILY WILL HAVE TO CONVINCE PT TO GO AND THAT CM WAS NOT ABLE TO GET PT TO AGREE. RADHA WILL CALL HER DAUGHER TO CALL PT AND CONVINCE HIM TO GO TO INPATIENT REHAB AT DISCHARGE FROM HOSPITAL. CM WAITING FOR FAMILY TO SPEAK TO PT; THEY ARE HOPEFUL THAT PT WILL CHANGE HIS MIND AND GO TO INPATIENT REHAB PRIOR TO GOING HOME WITH [facility] REASUMPTION. Boni Galvez,. CASE MANAGEMENT DCPIA - Discharge Planning Initial Assessment Updated by [id number]: Boni Galvez on 07/13/19 3:48 pm * Is the patient Alert and Oriented? Yes * How many steps to enter\exit or inside your home? * PCP [facility] [place] * Pharmacy [facility] [place] * Preadmission Environment Home with Family * ADLs Partial Dependent * Partial ADLs (Assistance needed) Ambulation Bathing Medication Management * Equipment Cane Nebulizer Oxygen Rolling Walker * Other Equipment ROLLATOR WALKER HOME AND PORTABLE OXYGEN, [facility] PATIENT IS PROVIDER * List name and contact numbers for known caregivers / representatives who currently or will assist patient after discharge: RADHA VIGIL, SIGNIFICANT OTHER, * Verbal permission to speak to the caregivers and representatives has been obtained from the patient. Yes * Community resources currently utilized Home Health * Please name any agencies selected above. [facility] * Additional services required to return to the preadmission environment? No * Can the patient safely return to the preadmission environment? Yes * Has this patient been hospitalized within the prior 30 days at any hospital? No Coverage Notice Reviewer: [id number] Ralph Galvez Notice Issued Date-Time: 07/13/2019 9:10 Notice Type: Patient Choice Letter Notice Delivered To: Patient Relationship to Patient: Criminal Justice Program Director Name: Delivery Method: EXPR - Express Mail Ashe[place] Days: Prior Verbal Notification: Recipient Understood Notice: Yes Recipient Signature: Yes Med Rec Note Co-signed by Attending: Coverage Notice Comment: [facility] Reviewer: [id number] Ralph Galvez Notice Issued Date-Time: 07/16/2019 12:55 Notice Type: IM Discharge Notice Notice Delivered To: Patient Relationship to Patient: Criminal Justice Program Director Name: Delivery Method: HAND - Hand Delivered Ashely Days: Prior Verbal Notification: Recipient Understood Notice: Yes Recipient Signature: Yes Med Rec Note Co-signed by Attending: Coverage Notice Comment: Last DP export: 07/17/19 7:32 Patient Name: BENJAMIN KNOWLES Page [phone] at 1322 All edits/amendments must be made on the electronic document DICTATION DATE: 07/17/19 1322 MESSAGE BROKER DEVELOPER: FREDO 07/17/19 1322 RPT#: [id number] DC DATE: STATUS: ADM IN [facility] [address] [place] [address] END OF REPORT
--- NOTE | 2019-07-17 13:31 | MORECARE ---
CASE MANAGEMENT DISCHARGE SUMMARY PATIENT: BENJAMIN KNOWLES UNIT: [id number] ADM DATE: 07/11/19 AGE: 69 : 50 SEX: M ROOM/BED: D.2134 AUTHOR: PETRA,DOC PHYSICIAN: REFERRING PHYSICIAN: MANDI CHAMORRO MD DATE OF SERVICE: 07/17/19 Discharge Plan Patient Name: BENJAMIN KNOWLES [facility] [facility] 1950 Planned Disposition: Inpatient Rehab Anticipated Discharge Date: 07/17/19 Discharge Date: Expected LOS: 6 Initial Reviewer: [id number] Initial Review Date: 07/13/2019 Generated: 07/17/19 2:30 pm Comments DCP- Discharge Planning Updated by [id number]: Boni Galvez on 07/17/19 12:[address] Patient Name: BENJAMIN KNOWLES Encounter No: [id number] : 1950 Primary Insurance: MEDICARE A & B Anticipated DC Date: 07-17-2019 Planned Disposition: Inpatient Rehab External Planned Provider: [facility] INPAT[facility] DCP follow-up note: CM SPOKE TO PHIL ZALDIVAR, PT WILL DISCHARGE TO INPATIENT REHAB TODAY PER PARAM SHEEHAN. PT NOTIFIED AND IN AGREEMENT. PHIL ZALDIVAR LEFT TELEPHONE MESSAGE FROM TAJ OF INPATIENT REHAB. [facility] TO CONTACT MED 2 NURSE WITH ROOM NUMBER WHEN READY TO ACCEPT PT AND NURSE REPORT. CLINT Santiago DCP- Discharge Planning Updated by [id number]: Boni Galvez on 07/17/19 7:[address] Patient Name: BENJAMIN KNOWLES Encounter No: [id number] : 1950 Primary Insurance: MEDICARE A & B Anticipated DC Date: 07-18-2019 Planned Disposition: Inpatient Rehab External Planned Provider: [facility] INPAT[facility] DCP follow-up note: LATE ENTRY FROM 07-16-19, 1615 HOURS: PT HAS NOW AGREED TO GO TO INPATIENT REHAB AT [facility]. CM NOTIFIED BEA OF INPATIENT REHAB. FOR DISCHARGE, NOTIFY [facility] INPAT[facility] WHO WILL THEN CONTACT MED 2 NURSE WITH ROOM NUMBER WHEN READY TO ACCEPT PT AND NURSE REPORT. CLINT Santiago MANAGEMENT DCP- Discharge Planning Updated by [id number]: Boni Galvez on 07/16/19 1:[address] Patient Name: BENJAMIN KNOWLES Encounter No: [id number] : 1950 Primary Insurance: MEDICARE A & B Anticipated DC Date: Planned Disposition: Home with Home Health External Planned Provider: [facility] DCP follow-up note: CM RECEIVED MESSAGE FROM BEA OF INPATIENT REHAB, THEY WILL ACCEPT PT WHEN MEDICALLY STABLE FOR DISCHARGE TO REHAB. CM MET WITH PT IN ROOM AND INFORMED PT OF REHAB ACCEPTANCE. PT STATES HE DOES NOT WANT REHAB, HE HAS BEEN THERE AND WANTS TO GO HOME. PT WANTS HOME HEALTH RESUMPTION WITH [employer]. CM ENCOURAGED PT TO TAKE ADVANTAGE OF REHAB SERVICES PRIOR TO GOING HOME AND DISCUSSED HAVING A SAFE DISCHARGE PLAN. CM DISCUSSED PT THERAPY NOTES INDICATING PT NEEDS REHAB SERVICES PRIOR TO HOME WITH [facility]. PT INSISTS HE IS GOING HOME, HIS WILL PICK HIM UP FOR DISCHARGE HOME. PT STATES THAT DR. RESENDEZ ALREADY TOLD HIM HE COULD DISCHARGE. CM EXPLAINED THAT THE PRIMARY DOCTOR ON PT'S CASE HAS NOT YET SEEN OR DISCHARGED PT TODAY. IMPORTANT MESSAGE FROM MEDICARE PROVIDED AND EXPLAINED. CM NOTIFIED BEA OF [facility] INPATIENT REH[facility] WHO STATED SHE WILL NOT CLOSE OUT PT'S SCREENING IN EVENT PT CHANGES HIS MIND. CM RECEIVED CALL FROM RADHA YARITZA, , WHO STATES THAT PT IS STUBORN AND THAT HE NEEDS REHAB BEFORE COMING HOME. RADHA STATES THAT [facility] AGREES. PT HAS CALLED RADHA AND TOLD HER HE PLANS TO COME HOME AT DISCHARGE. RADHA WANTS PT TO GO TO REHAB. CM EXPLAINED THAT FAMILY WILL HAVE TO CONVINCE PT TO GO AND THAT CM WAS NOT ABLE TO GET PT TO AGREE. RADHA WILL CALL HER DAUGHER TO CALL PT AND CONVINCE HIM TO GO TO INPATIENT REHAB AT DISCHARGE FROM HOSPITAL. CM WAITING FOR FAMILY TO SPEAK TO PT; THEY ARE HOPEFUL THAT PT WILL CHANGE HIS MIND AND GO TO INPATIENT REHAB PRIOR TO GOING HOME WITH [facility] REASUMPTION. Boni Galvez,. CASE MANAGEMENT DCPIA - Discharge Planning Initial Assessment Updated by [email or web address]: Boni Galvez on 07/13/19 3:48 pm * Is the patient Alert and Oriented? Yes * How many steps to enter\exit or inside your home? * PCP [facility] [place] * Pharmacy [facility], [place] * Preadmission Environment Home with Family * ADLs Partial Dependent * Partial ADLs (Assistance needed) Ambulation Bathing Medication Management * Equipment Cane Nebulizer Oxygen Rolling Walker * Other Equipment ROLLATOR WALKER HOME AND PORTABLE OXYGEN, [facility] PATIENT IS PROVIDER * List name and contact numbers for known caregivers / representatives who currently or will assist patient after discharge: RADHA VIGIL, SIGNIFICANT OTHER, * Verbal permission to speak to the caregivers and representatives has been obtained from the patient. Yes * Community resources currently utilized Home Health * Please name any agencies selected above. [facility] * Additional services required to return to the preadmission environment? No * Can the patient safely return to the preadmission environment? Yes * Has this patient been hospitalized within the prior 30 days at any hospital? No Coverage Notice Reviewer: [id number] Ralph Galvez Notice Issued Date-Time: 07/13/2019 9:10 Notice Type: Patient Choice Letter Notice Delivered To: Patient Relationship to Patient: Spar Cap Beveler Name: Delivery Method: EXPR - Express Mail Ashely Days: Prior Verbal Notification: Recipient Understood Notice: Yes Recipient Signature: Yes Med Rec Note Co-signed by Attending: Coverage Notice Comment: [facility] Reviewer: [id number] Ralph Galvez Notice Issued Date-Time: 07/16/2019 12:55 Notice Type: IM Discharge Notice Notice Delivered To: Patient Relationship to Patient: Spar Cap Beveler Name: Delivery Method: HAND - Hand Delivered Ashely Days: Prior Verbal Notification: Recipient Understood Notice: Yes Recipient Signature: Yes Med Rec Note Co-signed by Attending: Coverage Notice Comment: Last DP export: 07/17/19 12:22 Patient Name: BENJAMIN KNOWLES Page [phone] at 1331 All edits/amendments must be made on the electronic document DICTATION DATE: 07/17/19 1330 CASING GRADER: FREDO 07/17/19 1330 RPT#: [id number] [place] DATE: STATUS: ADM IN [facility] [address] [facility] [place] [address] END OF REPORT
[2019-07-17 17:08] LABS: FACTOR II DNA ANALYSIS Negative (())
--- NOTE | 2019-07-17 18:28 | NUR ---
OT NOTE: PT COMPLETED BATHING TASKS AT [facility] WITH MOD A FOR LB TASKS. PT COMPLETED GROOMING TASKS WITH SET UP AT [facility]. PT REQUIRED CUES FOR SEQUENCING OF TASKS . PT COMPLETED STANDING BALANCE WITH DRESSING REQUIRED CGA TO MAINTAIN BALANCE. PT STATED HE IS READY FOR REHAB. THANK YOU, ARIK GODINEZ
== END 2019-07-17 15:20 | DRG 175 ==
LOC: D.ER 20:19 → D.M2 07-11 02:39
PROVIDERS: Family Medicine; Internal Medicine Hematology & Oncology; ADMIT Emergency Medicine; ATTEND Emergency Medicine
DX: I26.99 Other pulmonary embolism without acute cor pulmonale (principal); J96.21 Acute and chronic respiratory failure with hypoxia; I50.22 Chronic systolic (congestive) heart failure; N17.9 Acute kidney failure, unspecified; I25.10 Atherosclerotic heart disease of native coronary artery without angina pectoris; D50.9 Iron deficiency anemia, unspecified; K21.9 Gastro-esophageal reflux disease without esophagitis; F41.8 Other specified anxiety disorders; J43.9 Emphysema, unspecified; I08.1 Rheumatic disorders of both mitral and tricuspid valves; J30.9 Allergic rhinitis, unspecified; R04.0 Epistaxis; Z87.01 Personal history of pneumonia (recurrent)

== ENCOUNTER 2019-07-17 14:40 | Inpatient (IN) | payer MEDICARE ==
[~2019-07-17] VITALS: Ht 180.3 cm; Wt 92.4 kg
[~2019-07-17 14:40] MED LIST changes: +ELIQUIS5 MG PO; +FLUTICASONE PRO16 GM NASAL; +PULMICORT0.5 MG/21 INH
[2019-07-17 17:35] VITALS: BP 108/69; BMI 23.0
--- NOTE | 2019-07-17 19:35 | NUR ---
PT SITTING UP IN CHAIR NEXT TO BED. CL IN REACH. A/O X4. DENIES NEEDS AT THIS TIME. RESP EVEN AND UNLABORED. LUNGS DIMINISHED. BOWEL ACTIVE X4. O2 ON 3L VIA NC. WILL CONTINUE TO MONITOR.
[2019-07-17 20:56] VITALS: BP 108/69
--- NOTE | 2019-07-18 00:08 | NUR ---
QUIET HOURS. PT LYING IN BED EYES CLOSED RESTING QUIETLY. NO SIGNS OF ACUTE DISTRESS NOTED. CL IN REACH
--- NOTE | 2019-07-18 06:22 | NUR ---
PT LYING IN BED WATCHING TV. CL IN REACH. DENIES NEEDS AT THIS TIME. O2 ON. WCTM
[2019-07-18 06:34] LABS: BASOPHILS 0.3 % (0-2); EOSINOPHILS 6.4 % (0-7); HEMATOCRIT 34.3 % (42.0-54.0); HEMOGLOBIN 10.4 g/dL (13.5-17.5); IMMATURE GRANULOCYTES 0.3 % (0-5); LYMPHOCYTES 13.3 % (15-50); MCH 28.8 pg (26.0-34.0); MCHC 30.3 g/dL (31.0-37.0); MEAN PLATELET VOLUME 9.9 fL (7.4-10.4); MONOCYTES 9.4 % (2-11); NEUTROPHILS 70.3 % (40-80); PLATELET COUNT 258 10x3/uL (130-400); RBC 3.61 10x6/uL (4.20-6.10); RDW 14.9 % (11.5-14.5); WBC 9.8 10x3/uL (4.8-10.8)
[2019-07-18 06:49] LABS: ANION GAP 9.8 mmol/L (8-16); CALCIUM 8.7 mg/dL (8.5-10.1); CARBON DIOXIDE 30.3 mmol/L (21.0-32.0); CREATININE - SERUM 1.2 mg/dL (0.6-1.3); POTASSIUM - SERUM 4.1 mmol/L (3.5-5.1)
--- NOTE | 2019-07-18 08:00 | NUR ---
SHIFT ASSMT COMPLETED.CL IN REACH.BREAKFAST GIVEN.
[2019-07-18 08:08] VITALS: BP 117/67
--- NOTE | 2019-07-18 12:00 | NUR ---
SITTING UP IN WC IN ROOM.LUNCH GIVEN.
[2019-07-18 15:22] VITALS: Ht 180.3 cm; Wt 92.4 kg
--- NOTE | 2019-07-18 15:25 | NUR ---
PATIENT ADMITTED TO REHAB FROM ACUTE FLOOR. PATIENT IS A CLIENT OF [facility]. DME AT HOME IS CANE, NEBULIZER, O2 AND A WALKER . HIS DME PROVIDER IS [facility] PATIENT. AT DISCHARGE PATIENT WILL NEED A FOLLOW UP APPOINTMENT WITH DR. SEGOVIA FOR 2 WEEKS, WILL CONTINUE TO FOLLOW WITH PATIENT
--- NOTE | 2019-07-18 16:34 | NUR ---
CARE TEAM MEETING: PATIENT IS NEW TO UNIT AND WILL BE RA AT NEXT MEETING. WILL CONTINUE TO FOLLOW WITH PATIENT
--- NOTE | 2019-07-18 19:14 | NUR ---
GREETED PATIENT AND INTRODUCED MYSELF HIS NURSE. PATIENT IS LAYING IN BED WATCHING TV. O2 AT 2L IN USE VIA NC. RESPIRATONS EVEN. NO S/S OF DISTRESS. CALL LIGHT IN REACH. STATES THAT PAIN IS 6/10 ON LEFT SHOULDER.
[2019-07-18 20:37] VITALS: BP 101/66
--- NOTE | 2019-07-18 23:45 | NUR ---
PT. RESTING QUIETLY WITH EYES CLOSED LAYING IN SUPINE POSITION. HOB AT 20 DEGREES. O2 AT 3L IN USE VIA NC. RESPIRATIONS EVEN. NO S/S OF DISTRESS. CALL LIGHT IN REACH.
--- NOTE | 2019-07-19 06:22 | NUR ---
PT. AWAKE LAYING IN BED. DENIES ANY NEEDS AT THIS TIME. CALL LIGHT IN REACH.
--- NOTE | 2019-07-19 08:07 | NUR ---
PT RESTING IN BED WITH EYES OPEN CALL LIGHT IN REACH NO PROBLEMS WILL MONITER
[2019-07-19 08:28] VITALS: BP 111/71
--- NOTE | 2019-07-19 16:16 | NUR ---
PT RESTING IN BED WITH EYES OPEN CALL LIGHT IN REACH NO PROBLEMS WILL MONITER
--- NOTE | 2019-07-19 19:39 | NUR ---
GREETED PATIENT AND INTRODUCED MYSELF HIS NURSE. PATIENT IS SITTING IN THE CHAIR FILLING OUT TOMORROWS MENU. O2 AT 3L IN USE VIA NC. RESPIRATIONS EVEN. NO S/S OF DISTRESS. DENIES ANY NEEDS AT THIS TIME. CALL LIGHT IN REACH.
[2019-07-19 20:00] VITALS: BP 105/51
--- NOTE | 2019-07-20 00:33 | NUR ---
PT. RESTING QUIETLY WITH EYES CLOSED. O2 AT 3L IN USE VIA NC. RESPIRATIONS EVEN. NO S/S OF DISTRESS. CALL LIGHT IN REACH.
[2019-07-20 06:22] LABS: BASOPHILS 0.5 % (0-2); EOSINOPHILS 7.3 % (0-7); HEMATOCRIT 31.4 % (42.0-54.0); HEMOGLOBIN 10.1 g/dL (13.5-17.5); IMMATURE GRANULOCYTES 0.3 % (0-5); LYMPHOCYTES 14.5 % (15-50); MCH 30.2 pg (26.0-34.0); MCHC 32.2 g/dL (31.0-37.0); MEAN PLATELET VOLUME 9.8 fL (7.4-10.4); MONOCYTES 11.3 % (2-11); NEUTROPHILS 66.1 % (40-80); PLATELET COUNT 213 10x3/uL (130-400); RBC 3.34 10x6/uL (4.20-6.10); RDW 14.5 % (11.5-14.5); WBC 8.8 10x3/uL (4.8-10.8)
[2019-07-20 06:51] LABS: ANION GAP 11.3 mmol/L (8-16); CALCIUM 8.5 mg/dL (8.5-10.1); CARBON DIOXIDE 28.7 mmol/L (21.0-32.0); CREATININE - SERUM 1.1 mg/dL (0.6-1.3)
[2019-07-20 08:00] VITALS: BP 120/68
--- NOTE | 2019-07-20 12:18 | NUR ---
PT RESTING IN BED WITH EYES OPEN CALL LIGHT IN REACH WILL MONITER
--- NOTE | 2019-07-20 17:45 | NUR ---
PT NOSE BLEEDING APPLIED PRESSURE TO RIGHT NARE PT HELD HEAD BACK 5 MIN PT FACE CLEANED AND NO MORE BLEEDING NOTED WILL MONITER
--- NOTE | 2019-07-20 19:30 | NUR ---
GREETED PATIENT AND INTRODUCED MYSELF HIS NURSE. PATIENT IS SITTIN IN CHAIR WATCHING TV. O2 AT 3L VIA NC IN USE. RESPIRATIONS EVEN. NO S/S OF DISTRESS. CALL LIGHT WITHIN REACH.
[2019-07-20 21:05] VITALS: BP 89/65
--- NOTE | 2019-07-21 00:23 | NUR ---
PT. RESTING QUIETLY WITH EYES CLOSED. O2 AT 3L IN USE VIA NC. RESPIRATIONS EVEN. NO S/S OF DISTRESS. CALL LIGHT IN REACH.
--- NOTE | 2019-07-21 08:06 | NUR ---
ALERT AND ORIENTED. O2 AT 3L NC. NO C/O PAIN. GOING TO THERAPY AT THIS TIME.
[2019-07-21 08:48] VITALS: BP 137/65
--- NOTE | 2019-07-21 12:03 | NUR ---
SITTING IN WC WATCHING BALL GAME. NO DISTRESS NOTED. CL IN REACH. PARTICIPATED IN THERAPY THIS AM.
--- NOTE | 2019-07-21 15:44 | NUR ---
NO CHANGE IN ASSESSMENT. RESTING WITH EYES CLOSED. CL IN REACH.
[2019-07-21 19:45] VITALS: BP 113/62
--- NOTE | 2019-07-21 19:50 | NUR ---
BEDSIDE REPORT COMPLETE. PT SITTING UP IN W/C WATCHING FOOTBALL. DENIES ANY NEEDS OR PAIN. CONTINUES ON 3L VIA NC. RR EVEN AND UNLABORED. VS STABLE. SHIFT ASSESSMENT COMPLETE. CL IN REACH. FALL PRECAUTIONS IN PLACE. WILL CONTINUE TO MONITOR
--- NOTE | 2019-07-22 00:09 | NUR ---
QUIET HOURS. PT LYING IN BED EYES CLOSED RESTING QUIETLY. RR EVEN AND UNLABORED. CL IN REACH
--- NOTE | 2019-07-22 04:16 | NUR ---
PT LYING IN BED ON RIGHT SIDE EYES CLOSED RESTING QUIETLY. CONTINUES ON 3L VIA NC. CL IN REACH
--- NOTE | 2019-07-22 07:56 | NUR ---
SITTING IN CHAIR EATING BREAKFAST. NO C/O PAIN. O2 ON AT 3L NC. SOB WITH EXERTION. CL IN REACH.
[2019-07-22 08:03] VITALS: BP 100/68
--- NOTE | 2019-07-22 15:09 | NUR ---
NO CHANGE IN ASSESSMENT. RESTING WO DISTRESS OR C/O PAIN. CL IN REACH.
[2019-07-22 19:40] VITALS: BP 116/74
--- NOTE | 2019-07-22 19:40 | NUR ---
BEDSIDE REPORT COMPLETE. PT LYING IN BED EYES CLOSED RESTING. EASILY AROUSED WITH VERBAL STIMULI. DENIES ANY NEEDS OR PAIN. NO SIGNS OF ACUTE DISTRESS NOTED. CONTINUES ON 3L VIA NC. VS STABLE. SHIFT ASSESSMENT COMPLETE. CL IN REACH. FALL PRECAUTIONS IN PLACE. WILL CONTINUE TO MONITOR
--- NOTE | 2019-07-23 01:00 | NUR ---
ASSISTED PT TO RESTROOM AND BACK TO BED WITH MIN ASSIST. NO CONCERNS VOICED. DENIES ANY PAIN. CL IN REACH
--- NOTE | 2019-07-23 05:34 | NUR ---
ASSISTED PT WITH SHOWER MOD ASSIST. COMPLETE LINEN CHANGED
[2019-07-23 06:30] LABS: BASOPHILS 0.4 % (0-2); EOSINOPHILS 2.1 % (0-7); HEMATOCRIT 34.6 % (42.0-54.0); HEMOGLOBIN 10.8 g/dL (13.5-17.5); IMMATURE GRANULOCYTES 0.6 % (0-5); LYMPHOCYTES 13.8 % (15-50); MCH 29.8 pg (26.0-34.0); MCHC 31.2 g/dL (31.0-37.0); MCV 95.3 fL (80.0-100.0); MEAN PLATELET VOLUME 9.8 fL (7.4-10.4); NEUTROPHILS 74.1 % (40-80); RBC 3.63 10x6/uL (4.20-6.10); RDW 14.5 % (11.5-14.5)
[2019-07-23 06:32] LABS: PLATELET COUNT 266 10x3/uL (130-400)
[2019-07-23 06:36] LABS: ANION GAP 11.7 mmol/L (8-16); CALCIUM 8.5 mg/dL (8.5-10.1); CARBON DIOXIDE 27.1 mmol/L (21.0-32.0); CREATININE - SERUM 1.2 mg/dL (0.6-1.3); POTASSIUM - SERUM 3.8 mmol/L (3.5-5.1)
--- NOTE | 2019-07-23 07:53 | NUR ---
ALERT WITH SOME CONFUSION. REORIENTS WITH CUES. O2 AT 3L NC. NO C/O PAIN. HAD SHOWER LAST NIGHT. CL IN REACH.
[2019-07-23 08:14] VITALS: BP 103/58
--- NOTE | 2019-07-23 09:53 | NUR ---
PT IN THERAPY NO TX GIVEN
--- NOTE | 2019-07-23 11:36 | NUR ---
RESTING IN ROOM WO DISTRESS. CL IN REACH. BED ALARM ON.
--- NOTE | 2019-07-23 14:12 | NUR ---
Nutrition Follow-up: Diet: AHA Cardiac PO intake: ~75% average x last 7 meals. Reports good appetite. Meds reviewed. Labs noted: Glu 127. Noted "reddened area to buttocks" in nursing skin assessment. Wt: 204# (07/18/19), no new wt. Last BM 07/23/19. Continue current nutrition regimen. RD Following.
--- NOTE | 2019-07-23 16:53 | NUR ---
NO CHANGE IN ASSESSMENT. RESTING WO DISTRESS. CL IN REACH.
--- NOTE | 2019-07-23 19:05 | NUR ---
BEDSIDE REPORT COMPLETE. PT SITTING UP IN W/C WATCHING TV. ALERT TO SELF ONLY. REORIENTED TO TIME, PLACE, AND SITUATION. DENIES ANY NEEDS OR PAIN. NO SIGNS OF ACUTE DISTRESS NOTED. VS STABLE. SHIFT ASSESSMENT COMPLETE. CL IN REACH. FALL PRECAUTIONS IN PLACE. WILL CONTINUE TO MONITOR
[2019-07-23 21:00] VITALS: BP 99/55
--- NOTE | 2019-07-24 01:04 | NUR ---
QUIET HOURS. PT SITTING UP IN CHAIR WATCHING TV. DENIES ANY NEEDS OR PAIN. RR EVEN AND UNLABORED. CONTINUES ON 3L VIA NC. CL IN REACH
--- NOTE | 2019-07-24 03:10 | NUR ---
ASSISTED PT TO RESTROOM AND TO BED WITH MIN ASSIST. DENIES ANY NEEDS OR PAIN. CL IN REACH, BED RAILS X2, BED ALARM ON.
--- NOTE | 2019-07-24 06:58 | NUR ---
SITTING UP IN BED EYES CLOSED RESTING. CONTINUES ON 4L VIA NC. SOB NOTED. CL IN REACH
[2019-07-24 08:21] VITALS: BP 134/77
--- NOTE | 2019-07-24 19:25 | NUR ---
PT LYING IN BED EYES CLOSED. MOUTH WIDE OPEN. O2 ON 2L RESP DECREASED O2 DUE TO IT BEING ON 5L AND PT HAS COPD AND TOLERATES 2L WITH NO DISTRESS. PT VERY HARD TO WAKE. WILL CONTINUE TO MONITOR.
[2019-07-24 21:05] VITALS: BP 132/66
--- NOTE | 2019-07-25 00:46 | NUR ---
I have reviewed this patient and I concur with the Shift Assessment completed by the Licensed Practical Nurse today this shift.
--- NOTE | 2019-07-25 03:00 | NUR ---
PT RESTING QUIETLY. CL IN REACH. NO DISTRESS NOTED. WCTM
[2019-07-25 07:05] LABS: BASOPHILS 0.3 % (0-2); EOSINOPHILS 2.4 % (0-7); HEMATOCRIT 32.4 % (42.0-54.0); HEMOGLOBIN 10.1 g/dL (13.5-17.5); IMMATURE GRANULOCYTES 0.8 % (0-5); LYMPHOCYTES 21.4 % (15-50); MCH 28.8 pg (26.0-34.0); MCHC 31.2 g/dL (31.0-37.0); MCV 92.3 fL (80.0-100.0); MEAN PLATELET VOLUME 9.3 fL (7.4-10.4); MONOCYTES 11.4 % (2-11); NEUTROPHILS 63.7 % (40-80); PLATELET COUNT 217 10x3/uL (130-400); RBC 3.51 10x6/uL (4.20-6.10); RDW 14.4 % (11.5-14.5); WBC 6.2 10x3/uL (4.8-10.8)
[2019-07-25 07:22] LABS: CALC OSMOLALITY 279 mosm/kg (275-300); CALCIUM 8.2 mg/dL (8.5-10.1); CARBON DIOXIDE 29.2 mmol/L (21.0-32.0); CHLORIDE - SERUM 103 mmol/L (98-107); GLUCOSE 88 mg/dL (74-106); POTASSIUM - SERUM 3.7 mmol/L (3.5-5.1); SODIUM 139 mmol/L (136-145); UREA NITROGEN 20 mg/dL (7-18); eGFR NON AFRICAN AMERICAN 79 mL/min (90-120)
--- NOTE | 2019-07-25 08:00 | NUR ---
SHIFT ASSMT COMPLETED.
[2019-07-25 08:16] VITALS: BP 112/44
--- NOTE | 2019-07-25 09:12 | RHP ---
PATIENT: BENJAMIN KNOWLES MEDICAL RECORD: [id number] ACCOUNT: [id number] LOCATION:[facility]1118 : 50 ADMISSION DATE: 07/17/19 REHABILITATION HISTORY AND PHYSICAL EXAMINATION POST ADMISSION PHYSICIAN EXAMINATION POST ADMISSION PHYSICAL EXAMINATION AND HISTORY AND PHYSICAL DATE OF ADMISSION: 07/17/2019 ADMITTING DIAGNOSIS: Acute exacerbation of chronic obstructive pulmonary disease. HISTORY OF PRESENT ILLNESS: The patient is a 69-year-old gentleman with history of COPD, coronary artery disease, chronic hypoxic respiratory failure, chronic O2 dependence, hypertension, congestive heart failure, history of pneumonia, tick fever, who presented with worsening dyspnea, dyspnea on exertion. He appeared to be confused, but did follow simple commands. He was admitted with pulmonary embolus and acute exacerbation of COPD. He had an elevated D-dimer at that time. He had segmented pulmonary emboli in the left lobe and COPD changes. He has been participating in OT and PT, but has noted to have some confusion and thought processes that need to be evaluated by speech therapy during his stay. He is currently on telemetry, making adjustments to his anticoagulation therapy, monitoring his lab values closely, working on his confusion, dyspnea with exertion, thought processing problems, deconditioning, weakness, debility, impaired mobility, gait disturbance. He is noted to be a fall risk and has self-care deficit. These are all barriers to his discharge home. He lives at home with his significant other. He was independent with ADLs and mobility, using a cane prior to this. He is currently set up for mod assist for his ADLs and mod assist for mobility. He and his family would like for him to return home at his prior level of functioning or better. Comorbidities include [id number] respiratory failure, history of emphysema, O2 dependence, ex-smoker. He has got a history of allergic rhinitis and sinusitis, asbestos exposure, gastroesophageal reflux disease, anxiety and depression, normocytic anemia, coronary artery disease, respiratory failure, pulmonary embolus, and tick fever. PAST MEDICAL HISTORY: Significant for hyperlipidemia, COPD, pneumonia. He had a bowel obstruction in the past, depression, iron-deficiency anemia, gastroesophageal reflux disease, anxiety, tick fever. PAST SURGICAL HISTORY: None. ALLERGIES: No known drug allergies. CURRENT MEDICATIONS: Include Eliquis, he is on a loading dose of 10 mg b.i.d. and then will be switched to 5 b.i.d. He is on Flomax 0.4 mg daily, Zoloft 50 mg daily, carvedilol 3.125 mg b.i.d. with meals, budesonide 0.5 mg b.i.d., Protonix 40 mg daily, DuoNeb updrafts 3 cc every 4 hours p.r.n., Singulair 10 mg at bedtime, Flonase nasal spray 1 spray b.i.d., Lotrimin 1 application b.i.d., Ventolin updrafts as needed. HABITS: Does have a history of tobacco use in the past, but currently none. FAMILY HISTORY: Noncontributory. HISTORY AND PHYSICAL [id number] BENJAMIN KNOWLES SOCIAL HISTORY: The patient hopes to return back home and get back to his prior level of functioning. REVIEW OF SYSTEMS: GENERAL: Does complain of some weakness and fatigue. HEENT: Denies cold, cough, or congestion. CARDIOVASCULAR: Denies any chest pain. PHYSICAL EXAMINATION: VITAL SIGNS: Stable, afebrile. GENERAL: A well-developed gentleman, in no acute distress upon exam. HEENT: Normocephalic and atraumatic. Mucosa moist. NECK: Supple. No lymphadenopathy. LUNGS: Decreased breath sounds in both lung doe. ABDOMEN: Soft, benign, and nondistended. Positive bowel sounds times 4. EXTREMITIES: No clubbing, cyanosis or edema. NEUROLOGIC: Mainly intact, although he does have weakness in his proximal muscles of his legs. LABORATORY DATA: White count is 9.8, H&H of 10 and 34, and platelet count is noted to be 258. Sodium 141, potassium 4.1, BUN and creatinine of 23 and 1.2, and blood sugar is noted to be 64. ASSESSMENT: This is a 69-year-old gentleman admitted to the rehab with a working diagnosis of exacerbation of chronic obstructive pulmonary disease, complicated by pulmonary embolus. The patient has potential to make improvement. We will institute the following multidisciplinary therapies including, but not limited to, physical, occupational, respiratory, speech, nutritional services, prosthetics, and orthotics. Given his complex medical condition and risk for more complications, rehabilitation services cannot be provided at a lower level of care such as a skilled nurse facility. PLAN: 1. Admit to [facility] for an inpatient therapy to include the following disciplines; A. Physical therapy to improve gait, all transfer skills, and bed mobility to modified independent level. B. Occupational therapy to a modified independent level. C. Case management to assist with discharge planning and placement options. D. Nutrition to assist with nutritional needs. E. Rehabilitation nursing to assist in monitoring the patient's underlying medical conditions and to assist with any type of bowel or bladder management. 2. The patient's current medications and medical care will be continued. 3. The patient will be placed on standard fall precautions. 4. The patient's estimated length of stay is approximately 7-10 days. 5. We will discuss the patient during care team staff meeting this week. TRANSINT:[id number] Voice Confirmation ID: [id number] DOCUMENT ID: [id number] AUNG notes whether there has been none or any medical/functional change since admission: - No change since preaddmission. HISTORY AND PHYSICAL [id number] BENJAMIN KNOWLES attests patient continues to be appropriate for IRF: - Continues to be appropriate. JAYA SANTOS MD at 0912 CC: [id number] DICTATION DATE: 07/18/19 0651 INDUSTRIAL AUTOMATION ENGINEER: 07/18/19 0714 ADM IN [facility] [address] [id number]
--- NOTE | 2019-07-25 16:00 | NUR ---
WILL CONTINUE TO MONITOR.
[2019-07-25 19:00] VITALS: BP 124/64
--- NOTE | 2019-07-25 19:30 | NUR ---
PT SITTING UP IN BED. CL IN REACH. DENIES NEEDS AT THIS TIME. RESP EVEN AND UNLABORED. BED IN LOW SIDE RAILS X2. A/O X4. LUNGS WHEEZES BILATERAL. BOWEL HYPOACTIVE X4. WILL CONTINUE TO MONITOR.
--- NOTE | 2019-07-26 01:20 | NUR ---
ASSISTED TO AND FROM BATHROOM. BACK IN BED. CL IN REACH. DENIES FURTHER NEEDS. WCTM
--- NOTE | 2019-07-26 04:23 | NUR ---
QUIET HOURS. PT LYING IN BED EYES CLOSED RESTING. RR EVEN AND UNLABORED. CONTINUES ON 3L VIA NC. CL IN REACH
--- NOTE | 2019-07-26 04:26 | NUR ---
I have reviewed this patient and I concur with the Shift Assessment completed by the Licensed Practical Nurse today this shift.
[2019-07-26 08:00] VITALS: BP 118/48
[2019-07-26 19:22] VITALS: BP 112/60
--- NOTE | 2019-07-26 19:25 | NUR ---
PT LYING IN BED RESTING QUIETLY. CL IN REACH. NO DISTRESS NOTED. BED IN LOW SIDE RAILS X2. RESP EVEN AND UNLABORED. O2 ON 2L VIA NC. WILL CONTINUE TO MONITOR. BED ALARM ON.
--- NOTE | 2019-07-27 03:15 | NUR ---
ASSISTED TO AND FROM BATHROOM. CL IN REACH. DENIES FURTHER NEEDS. BACK IN BED. BED ALARM ON. WILL CONTINUE TO MONITOR.
--- NOTE | 2019-07-27 04:39 | NUR ---
I have reviewed this patient and I concur with the Shift Assessment completed by the Licensed Practical Nurse today this shift.
[2019-07-27 07:56] LABS: BASOPHILS 0.5 % (0-2); EOSINOPHILS 4.9 % (0-7); HEMATOCRIT 31.6 % (42.0-54.0); HEMOGLOBIN 9.7 g/dL (13.5-17.5); IMMATURE GRANULOCYTES 0.5 % (0-5); MCH 28.6 pg (26.0-34.0); MCHC 30.7 g/dL (31.0-37.0); MCV 93.2 fL (80.0-100.0); MEAN PLATELET VOLUME 9.5 fL (7.4-10.4); NEUTROPHILS 66.1 % (40-80); PLATELET COUNT 257 10x3/uL (130-400); RBC 3.39 10x6/uL (4.20-6.10); RDW 14.4 % (11.5-14.5); WBC 9.9 10x3/uL (4.8-10.8)
[2019-07-27 07:57] VITALS: BP 122/62
--- NOTE | 2019-07-27 08:00 | NUR ---
The patient is awake and alert. He is pleasant. He is wearing O2@2L/M. He is calm and denies needs at this time.
[2019-07-27 08:09] LABS: CALCIUM 8.5 mg/dL (8.5-10.1); CARBON DIOXIDE 29.7 mmol/L (21.0-32.0); CREATININE - SERUM 1.1 mg/dL (0.6-1.3); POTASSIUM - SERUM 3.7 mmol/L (3.5-5.1)
--- NOTE | 2019-07-27 09:48 | NUR ---
The patient is compliant with medications this am.
--- NOTE | 2019-07-27 11:01 | NUR ---
SPOKE WITH PATIENT DAUGHTER AND SHE IS TO MAKE ARRANGEMENTS TO COME AND VISITI HER DAD TO ASSIT IN DISCHARGE PLANS. WILL CONTINUE TO FOLLOW WITH PATIENT. HIS S/O ATTENDED MEETING.
--- NOTE | 2019-07-27 12:42 | NUR ---
NUTRITION F/U PT UP TO CHAIR FOR LUNCH TODAY. REPORTS GOOD APPETITE AND PO INTAKE. NO COMPLAINTS AT THIS TIME. RD FOLLOWING
--- NOTE | 2019-07-27 13:45 | NUR ---
Assisted the patient to the toilet and back to his room to sit in his w/c by the bed.
[2019-07-27 19:00] VITALS: BP 118/67
--- NOTE | 2019-07-27 19:11 | NUR ---
PT IS RESTING IN BED WITH EYES OPEN. ALERT AND ORIENTED X 3. PT DENIES ANY PAIN OR DISCOMFORT AT THIS TIME. NO SOB NOTED. O2 IS ON @ 2LPM PER NC. SR'S ARE UP X 2 IN BED. CALL LIGHT AND BEDSIDE TABLE ARE WITHIN EASY REACH.
--- NOTE | 2019-07-27 21:10 | NUR ---
RESTING QUIETLY IN BED WITH EYES CLOSED. NO DISTRESS NOTED.
--- NOTE | 2019-07-28 00:01 | NUR ---
RESTING IN BED WITH EYES CLOSED.
--- NOTE | 2019-07-28 01:14 | NUR ---
I have reviewed this patient and I concur with the Shift Assessment completed by the Licensed Practical Nurse today this shift.
--- NOTE | 2019-07-28 05:10 | NUR ---
RESTING IN BED WITH EYES CLOSED.
[2019-07-28 07:46] VITALS: BP 98/62
--- NOTE | 2019-07-28 08:01 | NUR ---
AM MEDS GIVEN ORDERED.
--- NOTE | 2019-07-28 09:00 | NUR ---
PT IS DOING PHYSICAL THERAPY WITH PHYSICAL THERAPY STAFF.
--- NOTE | 2019-07-28 12:06 | NUR ---
PT IS EANTING LUNCH. CALL LIGHT IN REACH.
--- NOTE | 2019-07-28 14:20 | NUR ---
SITTING UP IN BED AND WATCHING TV, CALL LIGHT IN REACH.
--- NOTE | 2019-07-28 18:16 | NUR ---
I have reviewed this patient and I concur with the Shift Assessment completed by the Licensed Practical Nurse today this shift.
[2019-07-28 19:30] VITALS: BP 102/55
--- NOTE | 2019-07-28 19:30 | NUR ---
PT IS RESTING IN BED WITH EYES OPEN. ALERT AND ORIENTED X 3. DENIES ACUTE PAIN OR DISCOMFORT AT THIS TIME. STATES I HAD A PAIN PILL EARLIER AND IT IS HELPING A LOT. O2 IS ON @ 2LPM PER NC. NO SOB NOTED. PULSE OX IS 98%. SR'S ARE UP X 2 IN BED. CALL LIGHT AND BEDSIDE TABLE ARE WITHIN EASY REACH.
--- NOTE | 2019-07-28 22:11 | NUR ---
PT RESTING QUIETLY IN BED WITH EYES CLOSED.
--- NOTE | 2019-07-29 00:54 | NUR ---
I have reviewed this patient and I concur with the Shift Assessment completed by the Licensed Practical Nurse today this shift.
--- NOTE | 2019-07-29 03:48 | NUR ---
PT IS RESTING IN BED WITH EYES CLOSED.
--- NOTE | 2019-07-29 05:49 | NUR ---
PT RESTING IN BED WITH EYES OPEN. NO NEEDS VOICED. TOLERATED AM MED WITHOUT DIFFICULTY.
[2019-07-29 08:00] VITALS: BP 108/64
--- NOTE | 2019-07-29 08:00 | NUR ---
SHIFT ASSMT COMPLETED.BREAKFAST GIVEN.
--- NOTE | 2019-07-29 12:00 | NUR ---
SITTING UP IN BED EATING LUNCH.
[2019-07-29 16:34] VITALS: BP 110/59
[2019-07-29 19:04] VITALS: BP 111/58
--- NOTE | 2019-07-29 19:21 | NUR ---
PT IS RESTING IN BED WATCHING TV. ALERT AND ORIENTED X 3. DENIES ANY PAIN OR DISCOMFORT AT THIS TIME. NO NEEDS VOICED. O2 IS ON @ 2LPM PER NC. NO SOB NOTED. SR'S ARE UP X 2 IN BED. CALL LIGHT AND BEDSIDE TABLE ARE WITHIN EASY REACH.
--- NOTE | 2019-07-29 21:32 | NUR ---
PT RESTING IN BED WATCHING TV AND DOZING ON AND OFF. NO DISTRESS NOTED.
--- NOTE | 2019-07-30 00:24 | NUR ---
PT ASSISTED TO THE BATHROOM WITH MIN ASSIST.
--- NOTE | 2019-07-30 02:51 | NUR ---
I have reviewed this patient and I concur with the Shift Assessment completed by the Licensed Practical Nurse today this shift.
--- NOTE | 2019-07-30 04:49 | NUR ---
PT ASSISTED TO THE BATHROOM WITH SBA. VOIDED WITHOUT DIFFICULTY. NO FURTHER NEEDS VOICED.
[2019-07-30 05:35] LABS: BASOPHILS 0.5 % (0-2); EOSINOPHILS 4.7 % (0-7); HEMATOCRIT 33.6 % (42.0-54.0); HEMOGLOBIN 10.4 g/dL (13.5-17.5); IMMATURE GRANULOCYTES 1.2 % (0-5); MCH 28.9 pg (26.0-34.0); MCV 93.3 fL (80.0-100.0); MEAN PLATELET VOLUME 9.9 fL (7.4-10.4); MONOCYTES 8.7 % (2-11); NEUTROPHILS 64.9 % (40-80); PLATELET COUNT 304 10x3/uL (130-400); RDW 14.3 % (11.5-14.5); WBC 10.3 10x3/uL (4.8-10.8)
[2019-07-30 06:08] LABS: ANION GAP 13.7 mmol/L (8-16); CALCIUM 8.6 mg/dL (8.5-10.1); CARBON DIOXIDE 27.7 mmol/L (21.0-32.0); CREATININE - SERUM 1.1 mg/dL (0.6-1.3); POTASSIUM - SERUM 4.4 mmol/L (3.5-5.1)
[2019-07-30 08:00] VITALS: BP 106/59
--- NOTE | 2019-07-30 10:07 | NUR ---
LAYING IN BED WATCHING TV. CALL LIGHT IN REACH
--- NOTE | 2019-07-30 18:14 | NUR ---
RESTING QUIETLY IN BED. DECLINED SUPPER. CALL LIGHT IN REACH. F/C PATENT WITH PALE YELLOW URINE
--- NOTE | 2019-07-30 18:14 | NUR ---
RESTING QUIETLY IN BED. DENIES NEEDS. CALL LIGHT IN REACH
--- NOTE | 2019-07-30 21:32 | NUR ---
PT IS RESTING IN BED WITH EYES OPEN. STATES HE IS READY TO GO HOME TOMORROW. NO NEEDS VOICED.
--- NOTE | 2019-07-30 22:20 | NUR ---
I have reviewed this patient and I concur with the Shift Assessment completed by the Licensed Practical Nurse today this shift.
--- NOTE | 2019-07-31 01:35 | NUR ---
PT ASSISTED TO BR WITH SBA. NO NEEDS VOICED.
--- NOTE | 2019-07-31 02:47 | NUR ---
QUIET HOURS. PT LYING IN BED ON RIGHT SIDE EYES CLOSED RESTING QUIETLY. CONTINUES ON 3L VIA NC. RR EVEN AND UNLABORED. CL IN REACH
--- NOTE | 2019-07-31 06:23 | NUR ---
PT RESTING IN BED WITH EYES CLOSED. AWOKE EASILY TO VERBAL STIMULI. TOLERATED AM MED WITHOUT DIFFICULTY.
[2019-07-31 08:00] VITALS: BP 113/61
--- NOTE | 2019-07-31 09:40 | NUR ---
PATIENT DISCHARGING HOME TODAY WITH FAMILY. [facility] WILL RESUME THERAPY AT HOME. NO NEW DME NEEDED AT THIS TIME. SANDY/ [facility] 08/08/19 @ 10:00, DR. SEGOVIA 08/13/19 @ 1:00. PATIENT CHOICE FORM (HAND OUT GIVEN ) AND [facility] FORMS SIGNED, COPY GIVEN TO PATIENT AND FILED IN CHART. DISCHARGE INSRUCTIONS FAXED TO PCP, TO HOME HEALTH AND REVIEWED WITH PATIENT PER NURSE.
--- NOTE | 2019-07-31 13:00 | NUR ---
DC HOME WITH FRIEND. MEDS CALLED IN TO PHARMACY. REVIEWED MEDS, F/U APPTS AND DC INSTRUCTIONS. DENIES NEEDS OR QUESTIONS AT DC. LEFT FLOOR IN WC
== END 2019-07-31 13:00 | disposition home health service (06) | DRG 190 ==
LOC: D.REHAB 14:40
PROVIDERS: ADMIT Emergency Medicine; ATTEND Emergency Medicine
DX: J44.1 Chronic obstructive pulmonary disease with (acute) exacerbation (principal); I26.99 Other pulmonary embolism without acute cor pulmonale; J96.20 Acute and chronic respiratory failure, unspecified whether with hypoxia or hypercapnia; I50.22 Chronic systolic (congestive) heart failure; N17.9 Acute kidney failure, unspecified; Z99.81 Dependence on supplemental oxygen; K21.9 Gastro-esophageal reflux disease without esophagitis; F41.8 Other specified anxiety disorders; D64.9 Anemia, unspecified; I25.10 Atherosclerotic heart disease of native coronary artery without angina pectoris; Z87.891 Personal history of nicotine dependence; R26.9 Unspecified abnormalities of gait and mobility; R53.1 Weakness; R53.81 Other malaise; Z77.090 Contact with and (suspected) exposure to asbestos

== ENCOUNTER 2019-09-03 11:30 | Inpatient (IN) | payer MEDICARE ==
[~2019-09-03] VITALS: Ht 180.3 cm; Wt 93.4 kg
[2019-09-03 12:05] LABS: BASOPHILS 0.4 % (0-2); EOSINOPHILS 3.8 % (0-7); HEMATOCRIT 34.6 % (42.0-54.0); HEMOGLOBIN 10.7 g/dL (13.5-17.5); IMMATURE GRANULOCYTES 0.2 % (0-5); LYMPHOCYTES 14.2 % (15-50); MCH 28.4 pg (26.0-34.0); MCHC 30.9 g/dL (31.0-37.0); MCV 91.8 fL (80.0-100.0); MEAN PLATELET VOLUME 9.8 fL (7.4-10.4); NEUTROPHILS 72.4 % (40-80); RBC 3.77 10x6/uL (4.20-6.10); RDW 15.2 % (11.5-14.5); WBC 9.5 10x3/uL (4.8-10.8)
[2019-09-03 12:07] LABS: PLATELET COUNT 237 10x3/uL (130-400)
[2019-09-03 12:14] LABS: APTT 29.2 SECONDS (22.8-39.4); CALC OSMOLALITY 293 mosm/kg (275-300); CALCIUM 9.2 mg/dL (8.5-10.1); CARBON DIOXIDE 27.7 mmol/L (21.0-32.0); CHLORIDE - SERUM 109 mmol/L (98-107); CREATININE - SERUM 1.4 mg/dL (0.6-1.3); GLUCOSE 102 mg/dL (74-106); INR 1.1 (0.85-1.17); POTASSIUM - SERUM 4.2 mmol/L (3.5-5.1); PROTIME 13.7 SECONDS (11.6-15.0); SODIUM 144 mmol/L (136-145); UREA NITROGEN 33 mg/dL (7-18); eGFR NON AFRICAN AMERICAN 53 mL/min (90-120)
[2019-09-03 12:31] LABS: ALBUMIN 3.4 g/dL (3.4-5.0); ALKALINE PHOSPHATASE 113 U/L (46-116); ALT (SGPT) 15 U/L (10-68); BILIRUBIN - TOTAL 0.28 mg/dL (0.2-1.3); CREATINE KINASE 73 UL (21-232); MAGNESIUM - SERUM 2.2 mg/dL (1.8-2.4); PRO BNP 875 pg/mL (0-125); PROTEIN - SERUM 7.8 g/dL (6.4-8.2); THYROID STIMULATING HORMONE 1.72 uIU/mL (0.36-3.74)
[2019-09-03 12:32] LABS: TROPONIN-I < 0.017 ng/mL (0.000-0.060)
[2019-09-03 13:00] VITALS: BP 119/62
--- NOTE | 2019-09-03 13:05 | NUR ---
IN AND OUT CATH FOR URINE SAMPLE. 1600CC URINE DRAINED FROM BLADDER, SAMPLE TO LAB
--- NOTE | 2019-09-03 13:30 | NUR ---
PATIENT PLACED ON BI-PAP BY RT. TOLERATES WELL
[2019-09-03 13:45] LABS: APPEARANCE HAZY (CLEAR); BILIRUBIN NEGATIVE (NEGATIVE); COLOR YELLOW (YELLOW); GLUCOSE NEGATIVE (NEGATIVE); KETONE NEGATIVE (NEGATIVE); NITRITE POSITIVE (NEGATIVE); PROTEIN 1+ mg/dL (NEGATIVE); UROBILINOGEN NORMAL (NORMAL)
[2019-09-03 13:51] LABS: BACTERIA MANY /hpf (NEGATIVE); EPITHELIAL CELLS 0-5 /hpf (0-5); RED CELLS - URINE 0-5 /hpf (0-5); UDS - AMPHET NEGATIVE QUAL (NEGATIVE); UDS - BARB NEGATIVE QUAL (NEGATIVE); UDS - BENZO NEGATIVE QUAL (NEGATIVE); UDS - COCAINE NEGATIVE QUAL (NEGATIVE); UDS - OPIATE NEGATIVE QUAL (NEGATIVE); UDS - PCP NEGATIVE QUAL (NEGATIVE); UDS - THC NEGATIVE QUAL (NEGATIVE)
[2019-09-03 14:00] VITALS: BP 144/78
[2019-09-03 15:00] VITALS: BP 143/45
[2019-09-03 16:00] VITALS: BP 134/80
[2019-09-03 18:08] VITALS: BP 127/87; BMI 28.8
--- NOTE | 2019-09-03 18:21 | NUR ---
PATIENT ADMITTED TO ROOM 2232. INFORMATION RECEIVED FROM PATIENT'S PARTNER RADHA AND PATIENT'S DAUGHTER GAY. PATIENT'S DAUGHTER STATES IS DECISION MAKER AND EMERGENCY CONTACT. ADMISSION COMPLETE. BED LOW. FALL PRECAUTIONS IN PLACE. CALL VAUGHN AND PERSONAL ITEMS IN REACH.
--- NOTE | 2019-09-03 18:22 | NUR ---
ADDITION TO PREVIOUS NOTE. PATIEN'T PARTER RADHA STATES WILL BRING PATIENT'S MED LIST TO HOSPITAL TOMORROW.
[2019-09-03 21:08] VITALS: BP 157/85
[2019-09-04 01:05] VITALS: BP 132/70
[2019-09-04 04:38] VITALS: BP 124/78
[2019-09-04 06:08] LABS: BASOPHILS 0.1 % (0-2); EOSINOPHILS 0.1 % (0-7); HEMATOCRIT 33.3 % (42.0-54.0); HEMOGLOBIN 10.2 g/dL (13.5-17.5); IMMATURE GRANULOCYTES 0.1 % (0-5); LYMPHOCYTES 14.2 % (15-50); MCHC 30.6 g/dL (31.0-37.0); MCV 91.5 fL (80.0-100.0); MEAN PLATELET VOLUME 10.3 fL (7.4-10.4); MONOCYTES 11.1 % (2-11); NEUTROPHILS 74.4 % (40-80); PLATELET COUNT 244 10x3/uL (130-400); RBC 3.64 10x6/uL (4.20-6.10); RDW 14.9 % (11.5-14.5); WBC 7.8 10x3/uL (4.8-10.8)
[2019-09-04 06:40] LABS: ALKALINE PHOSPHATASE 102 U/L (46-116); ALT (SGPT) 13 U/L (10-68); BILIRUBIN - TOTAL 0.21 mg/dL (0.2-1.3); CALC OSMOLALITY 296 mosm/kg (275-300); CALCIUM 8.6 mg/dL (8.5-10.1); CARBON DIOXIDE 27.3 mmol/L (21.0-32.0); CHLORIDE - SERUM 111 mmol/L (98-107); CKMB 3.1 U/L (0.0-3.6); CREATINE KINASE 99 UL (21-232); CREATININE - SERUM 1.3 mg/dL (0.6-1.3); GLUCOSE 91 mg/dL (74-106); MAGNESIUM - SERUM 1.9 mg/dL (1.8-2.4); PHOSPHOROUS 3.6 mg/dL (2.5-4.9); POTASSIUM - SERUM 4.3 mmol/L (3.5-5.1); PROTEIN - SERUM 6.7 g/dL (6.4-8.2); SODIUM 146 mmol/L (136-145); TROPONIN-I < 0.017 ng/mL (0.000-0.060); UREA NITROGEN 30 mg/dL (7-18); eGFR NON AFRICAN AMERICAN 58 mL/min (90-120)
--- NOTE | 2019-09-04 07:17 | NUR ---
I have reviewed this patient and I concur with the Shift Assessment completed by the Licensed Practical Nurse today this shift.
--- NOTE | 2019-09-04 07:34 | NUR ---
0500) ATTEMPT TO USE URINAL NO SUCCESS IN AND OUT CATH IN ER [address] 800CC CLAMPED UN CLAMPED 0610 800MORE
[2019-09-04 08:37] VITALS: BP 155/76
--- NOTE | 2019-09-04 08:45 | NUR ---
PATIENT UNABLE TO ANSWER QUESTIONS FOR SUICIDE SCREENING D/T CONFUSION.
--- NOTE | 2019-09-04 10:43 | NUR ---
I have reviewed this patient and I concur with the Shift Assessment completed by the Licensed Practical Nurse today this shift.
[2019-09-04 13:27] VITALS: BP 104/54
[2019-09-04 14:19] VITALS: Ht 180.3 cm; Wt 93.4 kg
[2019-09-04 16:28] VITALS: BP 130/79
[2019-09-04 21:03] VITALS: BP 109/51
--- NOTE | 2019-09-04 23:00 | NUR ---
STRESSED THE IMPORTANCE OF BILEVEL COMPLIANCE HOWEVER PT CONTINUES TO REFUSE TO WEAR NC ON INTACT AND PATENT
[2019-09-05 01:21] VITALS: BP 126/55
--- NOTE | 2019-09-05 01:53 | NUR ---
2300 REFUSES FOR RESP THERAPY TO APPLY BIPAP WILL CONTINUE TO MONITOR FOR ANY RESP CHGES AND FOLLOW CURRENT PLAN OF CARE
--- NOTE | 2019-09-05 03:30 | NUR ---
I have reviewed this patient and I concur with the Shift Assessment completed by the Licensed Practical Nurse today this shift.
[2019-09-05 05:06] VITALS: BP 124/60
[2019-09-05 05:37] LABS: BASOPHILS 0 % (0-2); EOSINOPHILS 0 % (0-7); HEMATOCRIT 33.7 % (42.0-54.0); HEMOGLOBIN 10.4 g/dL (13.5-17.5); IMMATURE GRANULOCYTES 0.3 % (0-5); LYMPHOCYTES 8.1 % (15-50); MCH 28.1 pg (26.0-34.0); MCHC 30.9 g/dL (31.0-37.0); MCV 91.1 fL (80.0-100.0); MEAN PLATELET VOLUME 10.5 fL (7.4-10.4); MONOCYTES 2.8 % (2-11); NEUTROPHILS 88.8 % (40-80); PLATELET COUNT 235 10x3/uL (130-400); WBC 7.8 10x3/uL (4.8-10.8)
[2019-09-05 06:18] LABS: ANION GAP 14.3 mmol/L (8-16); CALCIUM 8.2 mg/dL (8.5-10.1); CARBON DIOXIDE 25.9 mmol/L (21.0-32.0); CREATININE - SERUM 1.1 mg/dL (0.6-1.3); MAGNESIUM - SERUM 1.7 mg/dL (1.8-2.4); POTASSIUM - SERUM 4.2 mmol/L (3.5-5.1)
[2019-09-05 06:54] LABS: PHOSPHOROUS 2.5 mg/dL (2.5-4.9)
[2019-09-05 08:20] VITALS: BP 123/61
--- NOTE | 2019-09-05 08:28 | NUR ---
RESTING IN BED, NO DISTRESS NOTED, SL IN PLACE, CONFUSED TO PLACE AND TIME
[2019-09-05 13:41] VITALS: BP 102/55
--- NOTE | 2019-09-05 15:05 | MORECARE ---
CASE MANAGEMENT DISCHARGE SUMMARY PATIENT: BENJAMIN KNOWLES UNIT: [id number] ADM DATE: 09/03/19 AGE: 69 : 50 SEX: M ROOM/BED: D.2232 AUTHOR: AMBROSE LAMBERT PHYSICIAN: REFERRING PHYSICIAN: JAYA SANTOS MD DATE OF SERVICE: 09/05/19 Discharge Plan Patient Name: BENJAMIN KNOWLES [facility] [facility] 1950 Planned Disposition: Inpatient Rehab Anticipated Discharge Date: Discharge Date: Expected LOS: Initial Reviewer: [email or web address] Initial Review Date: 09/05/2019 Generated: 09/05/19 4:05 pm DCPIA - Discharge Planning Initial Assessment Updated by [email or web address]: Ariana Theodore on 09/05/19 3:03 pm * Is the patient Alert and Oriented? No * How many steps to enter\exit or inside your home? RAMP/0 * [facility] * Pharmacy [facility] IN [place] * Preadmission Environment Home with Family * ADLs Partial Dependent * Partial ADLs (Assistance needed) Ambulation Bathing Medication Management * Equipment Cane Nebulizer Other Oxygen Rolling Walker * Other Equipment Rollator walker Portable oxygen * List name and contact numbers for known caregivers / representatives who currently or will assist patient after discharge: Salmoe Arambula - [facility] - [phone] * Verbal permission to speak to the caregivers and representatives has been obtained from the patient. Yes * Community resources currently utilized Home Health * Please name any agencies selected above. [facility] * Additional services required to return to the preadmission environment? Yes * Can the patient safely return to the preadmission environment? Yes * Has this patient been hospitalized within the prior 30 days at any hospital? No Patient Name: BENJAMIN KNOWLES Page [phone] at 1505 All edits/amendments must be made on the electronic document DICTATION DATE: 09/05/19 1505 MANAGER LAUNDRY: FREDO 09/05/19 1505 RPT#: [id number] DC DATE: STATUS: ADM IN [facility] [address] [id number] END OF REPORT
--- NOTE | 2019-09-05 15:12 | NUR ---
Rehab Prescreening Consult recieved and the chart has been reviewed. He is a good ARU candidate, and will be accepted when medically stable. Discussed with the CM Ariana Theodore RN. Hanh Jordan RN Clinical Liaison, Rehab
--- NOTE | 2019-09-05 15:31 | MORECARE ---
CASE MANAGEMENT DISCHARGE SUMMARY PATIENT: BENJAMIN KNOWLES UNIT: [id number] ADM DATE: 09/03/19 AGE: 69 : 50 SEX: M ROOM/BED: D.2232 AUTHOR: PETRA,DOC PHYSICIAN: REFERRING PHYSICIAN: JAYA SANTOS MD DATE OF SERVICE: 09/05/19 Discharge Plan Patient Name: BENJAMIN KNOWLES Facility: [facility]:[place] : 1950 Planned Disposition: Inpatient Rehab Anticipated Discharge Date: Discharge Date: Expected LOS: Initial Reviewer: [email or web address] Initial Review Date: 09/05/2019 Generated: 09/05/19 4:30 pm Comments DCP- Discharge Planning Updated by [email or web address]: Ariana Theodore on 09/05/19 2:[address] Patient Name: BENJAMIN KNOWLES Admission Status: ER Accout number: [id number] Admission Date: 09-03-2019 : 1950 Admission Diagnosis: Attending: ROBERTO SANTOS Current LOS: 2 Anticipated DC Date: Planned Disposition: Inpatient Rehab Primary Insurance: MEDICARE A & B Discharge Planning Comments: CM met with patient to discuss discharge planning/needs. He answers some questions appropriately and other answers are not appropriate. I discussed inpatient rehab and he states ok. He also states I can call Salome "if you want to" to discuss discharge needs. I called his significant other, Salome Arambula. She states she would like him to go to inpatient rehab prior to discharge and would like him to be at [facility] for the rehab. I spoke with Nadia in Inpatient rehab and she states they will accept him when medically stable. I called APS per ED physician's suggestion and spoke with Bubba and filed a report of self/medical care evaluation specialist neglect for a welfare check. APS case #[id number]. CM will continue to follow and assist with discharge planning/needs. Deputy Fire Marshal: Ariana Theodore DCPIA - Discharge Planning Initial Assessment Updated by [email or web address]: Ariana Theodore on 09/05/19 3:03 pm * Is the patient Alert and Oriented? No * How many steps to enter\\exit or inside your home? RAMP/0 * [facility] * Pharmacy [facility] IN [place] * Preadmission Environment Home with Family * ADLs Partial Dependent * Partial ADLs (Assistance needed) Ambulation Bathing Medication Management * Equipment Cane Nebulizer Other Oxygen Rolling Walker * Other Equipment Rollator walker Portable oxygen * List name and contact numbers for known caregivers / representatives who currently or will assist patient after discharge: Salome Arambula - significant other - [phone] * Verbal permission to speak to the caregivers and representatives has been obtained from the patient. Yes * Community resources currently utilized Home Health * Please name any agencies selected above. [facility] * Additional services required to return to the preadmission environment? Yes * Can the patient safely return to the preadmission environment? Yes * Has this patient been hospitalized within the prior 30 days at any hospital? No Coverage Notice Reviewer: [id number] Ralph Theodore Notice Issued Date-Time: 09/05/2019 15:23 Notice Type: Patient Choice Letter Notice Delivered To: Family Member Relationship to Patient: Life Partner Extension Work Instructor Name: Salome Arambula Delivery Method: PHONE - Phone Ashely Days: Prior Verbal Notification: Recipient Understood Notice: Yes Recipient Signature: Med Rec Note Co-signed by Attending: Coverage Notice Comment: [facility] for [facility] inpatient rehab Last DP export: 09/05/19 2:05 Patient Name: BENJAMIN KNOWLES Page [phone] at 1531 All edits/amendments must be made on the electronic document DICTATION DATE: 09/05/191529 LAMP DEVELOPER: FREDO 09/05/19 153 RPT#: [id number] DC DATE: STATUS: ADM IN [facility] [address] [place] [address] END OF REPORT
[2019-09-05 17:14] VITALS: BP 155/61
--- NOTE | 2019-09-05 19:29 | NUR ---
MORE CONFUSED THIS PM, CONT TO MONITOR, O2 IN PLACE, SL TO L HAND
[2019-09-05 19:30] VITALS: BP 152/78
--- NOTE | 2019-09-06 03:07 | NUR ---
I have reviewed this patient and I concur with the Shift Assessment completed by the Licensed Practical Nurse today this shift.
[2019-09-06 04:52] LABS: BASOPHILS 0.1 % (0-2); EOSINOPHILS 0 % (0-7); HEMATOCRIT 35.5 % (42.0-54.0); HEMOGLOBIN 11.1 g/dL (13.5-17.5); IMMATURE GRANULOCYTES 0.2 % (0-5); LYMPHOCYTES 15.6 % (15-50); MCH 28.2 pg (26.0-34.0); MCHC 31.3 g/dL (31.0-37.0); MCV 90.1 fL (80.0-100.0); MEAN PLATELET VOLUME 10.2 fL (7.4-10.4); MONOCYTES 11.9 % (2-11); NEUTROPHILS 72.2 % (40-80); PLATELET COUNT 253 10x3/uL (130-400); RBC 3.94 10x6/uL (4.20-6.10); RDW 14.8 % (11.5-14.5); WBC 9.4 10x3/uL (4.8-10.8)
[2019-09-06 05:00] VITALS: BP 160/80
[2019-09-06 05:36] LABS: ANION GAP 11.1 mmol/L (8-16); CALCIUM 8.4 mg/dL (8.5-10.1); CARBON DIOXIDE 28.5 mmol/L (21.0-32.0); CREATININE - SERUM 1.3 mg/dL (0.6-1.3); MAGNESIUM - SERUM 1.8 mg/dL (1.8-2.4); PHOSPHOROUS 2.3 mg/dL (2.5-4.9); POTASSIUM - SERUM 3.6 mmol/L (3.5-5.1)
--- NOTE | 2019-09-06 07:10 | NUR ---
PT RESTING IN BED. NO SIGNS OF DISTRESS. IV TO LEFT WRIST PATENT NO REDNESS OR TENDERNESS. ON 4L NC. HAS ZAMAN NO KINKS PATETNT. ALL FALL PRECAUTIONS IN PLACE. DENIES ANY FURTHER NEED AT THIS TIME. CALL LIGHT IN REACH. BED LOW POSITION. NO FAMILY AT BEDSIDE AT THIS TIME.
[2019-09-06 09:21] VITALS: BP 121/51
--- NOTE | 2019-09-06 12:32 | NUR ---
I have reviewed this patient and I concur with the Shift Assessment completed by the Licensed Practical Nurse today this shift.
[2019-09-06 12:54] VITALS: BP 101/67
--- NOTE | 2019-09-06 12:55 | NUR ---
NUTRITION F/U NO INTAKE BREAKFAST THIS AM, CURRENTLY EATING LUNCH. WILL CONTINUE TO PROVIDE AHA DIET, MONITOR PO INTAKE. RD FOLLOWING
[2019-09-06 17:28] VITALS: BP 115/57
[2019-09-06 19:30] VITALS: BP 114/66
--- NOTE | 2019-09-07 00:03 | NUR ---
ASSESSED AT THE BEGINNING OF THE SHIFT. PT WAS ALERT AND RESTLESS. HE HAD JELLO ALL OVER HIM AND TALKED OF SEEING THINGS IN THE ROOM IF HE WERE AT HOME. WE PULLED HIM UP IN THE BED TO MAKE HIM MORE LIKELY TO ACTIVATE THE BED ALARM IF HE TRIED TO GET UP. IT WAS DIFFICULT TO GET HIS MEDS DOWN BECAUSE HE WOULD TRY TO SPIT THEM OUT. HIS IV WAS PULLED OUT AND HE BLED ON HIS SHEETS AND THEN CALLED THE NURSES. AT THAT POINT HE WAS RESTARTED IN HIS RIGHT WRIST. IT HAS BEEN COVERED IN KERLIX AND SECURED.
[2019-09-07 00:30] VITALS: BP 118/64
--- NOTE | 2019-09-07 02:39 | NUR ---
PT WAS GIVEN A COMPLETE BED BATH . NEW LINENS AND NEW SOCKS SUDED. ZAMAN CARE GIVEN. LIGHTS DIM HOPING HE WILL REST BETTER AFTER THE BATH.
[2019-09-07 05:19] VITALS: BP 121/72
[2019-09-07 06:45] LABS: ANION GAP 10.9 mmol/L (8-16); CALCIUM 8.6 mg/dL (8.5-10.1); CREATININE - SERUM 1.2 mg/dL (0.6-1.3); MAGNESIUM - SERUM 1.9 mg/dL (1.8-2.4); POTASSIUM - SERUM 3.9 mmol/L (3.5-5.1)
[2019-09-07 06:47] LABS: PHOSPHOROUS 3.2 mg/dL (2.5-4.9)
[2019-09-07 06:49] LABS: BASOPHILS 0 % (0-2); EOSINOPHILS 0 % (0-7); HEMATOCRIT 34.4 % (42.0-54.0); IMMATURE GRANULOCYTES 0.1 % (0-5); LYMPHOCYTES 10.4 % (15-50); MCH 28.3 pg (26.0-34.0); MCV 88.4 fL (80.0-100.0); MEAN PLATELET VOLUME 10.9 fL (7.4-10.4); MONOCYTES 5.9 % (2-11); NEUTROPHILS 83.6 % (40-80); PLATELET COUNT 259 10x3/uL (130-400); RBC 3.89 10x6/uL (4.20-6.10); RDW 14.6 % (11.5-14.5)
--- NOTE | 2019-09-07 07:16 | NUR ---
PT IS RESTING IN BED WITH EYES CLOSED. RESPIRATIONS ARE EVEN AND UNLABORED. PT OPENS EYES TO VERBAL STIMULATION MOMENTARILY. PT DOES NOT ANSWER QUESTIONS. PT IS MOUTH BREATHING AND WILL NOT BREATH THROUGH NC IS NOSTRIL. O2 SAT @ 89%. NC PLACED IN ORAL O2 @ 94% ON 3L. PT UNABLE TO ASSIST WITH LIFTING LEFT ARM. NOTICE LEFT SIDE MOUTH DROOPING. PERRLA. BILATERAL RADIAL PULSES PALP. BILATERAL PEDAL PULSES PALP. ABDOMINAL REDDENED AREAS WITH SCABS/SORES NOTED. BS ACTIVE X 4. PIV TO RIGHT FA IS SL AND FLUSHES WITHOUT DIFFICULTY. ALL FALL PRECAUTIONS ARE IN PLACE. BED IS IN THE LOWEST POSITION. CALL LIGHT AND BEDSIDE TABLE ARE WITHIN REACH. SIDE RAILS X 2. WILL CONT TO MONITOR.
[2019-09-07 08:50] VITALS: BP 113/58
--- NOTE | 2019-09-07 10:00 | NUR ---
ALL PO MEDICATIONS HELD UNTIL SWALLOW EVAL.
--- NOTE | 2019-09-07 10:22 | NUR ---
CHIDI KNOWLES (DAUGHTER) CALLS TO NOTIFY STAFF OF THE ABILITY TO INFORM LORIE VIGIL (LIFE PARTNER) OF PT STATE BUT IS UNABLE TO MAKE MEDICAL DECISIONS REGARDING PT CARE. PT DAUGHTER STATES THAT SHE IS NEXT OF KIN AND IS THE ONE TO MAKE DECISIONS ABOUT PT CARE.
[2019-09-07 12:28] VITALS: BP 145/77
--- NOTE | 2019-09-07 12:44 | MORECARE ---
CASE MANAGEMENT DISCHARGE SUMMARY PATIENT: BENJAMIN KNOWLES UNIT: [id number] ADM DATE: 09/03/19 AGE: 69 : 50 SEX: M ROOM/BED: D.2232 AUTHOR: PETRA,DOC PHYSICIAN: REFERRING PHYSICIAN: JAYA SANTOS MD DATE OF SERVICE: 09/07/19 Discharge Plan Patient Name: BENJAMIN KNOWLES Facility: [facility]:[place] : 1950 Planned Disposition: Inpatient Rehab Anticipated Discharge Date: Discharge Date: Expected LOS: Initial Reviewer: [email or web address] Initial Review Date: 09/05/2019 Generated: 09/07/19 1:43 pm DCP- Discharge Planning Updated by [id number]: Ariana Theodore on 09/05/19 2:[address] Patient Name: BENJAMIN KNOWLES Admission Status: ER Accout number: [id number] Admission Date: 09-03-2019 : 1950 Admission Diagnosis: Attending: ROBERTO SANTOS Current LOS: 2 Anticipated DC Date: Planned Disposition: Inpatient Rehab Primary Insurance: MEDICARE A & B Discharge Planning Comments: CM met with patient to discuss discharge planning/needs. He answers some questions appropriately and other answers are not appropriate. I discussed inpatient rehab and he states ok. He also states I can call Salome "if you want to" to discuss discharge needs. I called his significant other, Salome Arambula. She states she would like him to go to inpatient rehab prior to discharge and would like him to be at [facility] for the rehab. I spoke with Nadia in Inpatient rehab and she states they will accept him when medically stable. I called [facility] per ED physician's suggestion and spoke with Bubba and filed a report of self/restorative care technician neglect for a welfare check. [facility] case #[id number]. CM will continue to follow and assist with discharge planning/needs. Director Funeral: Ariana Theodore DCPIA - Discharge Planning Initial Assessment Updated by [id number]: Ariana Theodore on 09/05/19 3:03 pm * Is the patient Alert and Oriented? No * How many steps to enter\\exit or inside your home? RAMP/0 * [facility] * Pharmacy [facility] IN [place] * Preadmission Environment Home with Family * ADLs Partial Dependent * Partial ADLs (Assistance needed) Ambulation Bathing Medication Management * Equipment Cane Nebulizer Other Oxygen Rolling Walker * Other Equipment Rollator walker Portable oxygen * List name and contact numbers for known caregivers / representatives who currently or will assist patient after discharge: Salome Arambula - significant other - [phone] * Verbal permission to speak to the caregivers and representatives has been obtained from the patient. Yes * Community resources currently utilized Home Health * Please name any agencies selected above. [facility] * Additional services required to return to the preadmission environment? Yes * Can the patient safely return to the preadmission environment? Yes * Has this patient been hospitalized within the prior 30 days at any hospital? No Coverage Notice Reviewer: [id number] Ralph Theodore Notice Issued Date-Time: 09/05/2019 15:23 Notice Type: Patient Choice Letter Notice Delivered To: Family Member Relationship to Patient: Life Partner Project Design Engineer Name: Salome Arambula Delivery Method: PHONE - Phone Ashely Days: Prior Verbal Notification: Recipient Understood Notice: Yes Recipient Signature: Med Rec Note Co-signed by Attending: Coverage Notice Comment: PRISCILA for [facility] inpatient rehab Last DP export: 09/05/19 2:31 Patient Name: BENJAMIN KNOWLES Page [id number] at 1244 All edits/amendments must be made on the electronic document DICTATION DATE: 09/07/19 1243 SUPERVISOR DENTURE DEPARTMENT: FREDO 09/07/19 1243 RPT#: [id number] DC DATE: STATUS: ADM IN [facility] [address] [place] [address] END OF REPORT
--- NOTE | 2019-09-07 12:59 | MORECARE ---
CASE MANAGEMENT DISCHARGE SUMMARY PATIENT: BENJAMIN KNOWLES UNIT: [id number] ADM DATE: 09/03/19 AGE: 69 : 50 SEX: M ROOM/BED: D.2232 AUTHOR: PETRA,DOC PHYSICIAN: REFERRING PHYSICIAN: JAYA SANTOS MD DATE OF SERVICE: 09/07/19 Discharge Plan Patient Name: BENJAMIN KNOWLES Facility: [facility]:[place] : 1950 Planned Disposition: Inpatient Rehab Anticipated Discharge Date: Discharge Date: Expected LOS: Initial Reviewer: [id number] Initial Review Date: 09/05/2019 Generated: 09/07/19 1:58 pm DCP- Discharge Planning Updated by [email or web address]: Ariana Theodore on 09/05/19 2:[address] Patient Name: BENJAMIN KNOWLES Admission Status: ER Accout number: [id number] Admission Date: 09-03-2019 : 1950 Admission Diagnosis: Attending: ROBERTO SANTOS Current LOS: 2 Anticipated DC Date: Planned Disposition: Inpatient Rehab Primary Insurance: MEDICARE A & B Discharge Planning Comments: CM met with patient to discuss discharge planning/needs. He answers some questions appropriately and other answers are not appropriate. I discussed inpatient rehab and he states ok. He also states I can call Salome "if you want to" to discuss discharge needs. I called his significant other, Salome Arambula. She states she would like him to go to inpatient rehab prior to discharge and would like him to be at [facility] for the rehab. I spoke with Nadia in Inpatient rehab and she states they will accept him when medically stable. I called [facility] per ED physician's suggestion and spoke with Bubba and filed a report of self/care provider neglect for a welfare check. [facility] case #[id number]. CM will continue to follow and assist with discharge planning/needs. Senior Clinical Study Manager: Ariana Theodore DCPIA - Discharge Planning Initial Assessment Updated by [id number]: Ariana Theodore on 09/05/19 3:03 pm * Is the patient Alert and Oriented? No * How many steps to enter\\exit or inside your home? RAMP/0 * [facility] * Pharmacy [facility] [place] * Preadmission Environment Home with Family * ADLs Partial Dependent * Partial ADLs (Assistance needed) Ambulation Bathing Medication Management * Equipment Cane Nebulizer Other Oxygen Rolling Walker * Other Equipment Rollator walker Portable oxygen * List name and contact numbers for known caregivers / representatives who currently or will assist patient after discharge: Salome Arambula - significant other - [phone] * Verbal permission to speak to the caregivers and representatives has been obtained from the patient. Yes * Community resources currently utilized Home Health * Please name any agencies selected above. [facility] * Additional services required to return to the preadmission environment? Yes * Can the patient safely return to the preadmission environment? Yes * Has this patient been hospitalized within the prior 30 days at any hospital? No External Providers External Provider: [facility] *(provides inpt [facility] Next Contact Date: Service Request Date: Service Type: Resolution: Reviewer: Comments: Coverage Notice Reviewer: [id number] Ralph Theodore Notice Issued Date-Time: 09/05/2019 15:23 Notice Type: Patient Choice Letter Notice Delivered To: Family Member Relationship to Patient: Life Partner Rv Technician Name: Salome Arambula Delivery Method: PHONE - Phone Ashely Days: Prior Verbal Notification: Recipient Understood Notice: Yes Recipient Signature: Med Rec Note Co-signed by Attending: Coverage Notice Comment: [facility] for [facility] inpatient rehab Reviewer: [id number] Theodore Notice Issued Date-Time: 09/07/2019 12:55 Notice Type: Patient Choice Letter Notice Delivered To: Family Member Relationship to Patient: Daughter Rv Technician Name: Ana Knowles Delivery Method: PHONE - Phone Ashely Days: Prior Verbal Notification: Recipient Understood Notice: Yes Recipient Signature: Med Rec Note Co-signed by Attending: Coverage Notice Comment: [facility] for [facility] Last DP export: 09/07/19 11:44 Patient Name: BENJAMIN KNOWLES Page [id number] at 1259 All edits/amendments must be made on the electronic document DICTATION DATE: 09/07/191257 MAIL HANDLERS SUPERVISOR: FREDO 09/07/19 125 RPT#: [id number] DC DATE: STATUS: ADM IN [facility] [address] [place] [address] END OF REPORT
--- NOTE | 2019-09-07 13:05 | NUR ---
PT SITTING IN BED AND EATING LUNCH TRAY. PT ALERT WITH EYES OPEN AND STATES "WHY AM I HERE? I FEEL SO LOST" PT IS CONFUSED AND DISORIENTED X 4 BUT IS NOW SPEAKING WITHOUT SLUR/GARBLES. PT IS CHEWING FOOD AND SWALLOWING WITHOUT DIFFICULTY AT THIS TIME. ATTEMPT MADE TO REORIENT PT TO TIME/PLACE/SITATION/PERSON. ALL FALL PRECAUTIONS ARE IN PLACE. PT SITUATED IN BED UPRIGHT AND BED AT 90 DEGREE ANGLE TO ASSIST WITH PROPER SWALLOWING. PT REFUSES REPOSITIONING ATTEMPTS. BED IS IN THE LOWEST POSITION. CALL LIGHT AND BEDSIDE TABLE ARE WITHIN REACH. SIDE RAILS X 2. WILL CONT TO MONITOR.
--- NOTE | 2019-09-07 13:09 | MORECARE ---
CASE MANAGEMENT DISCHARGE SUMMARY PATIENT: BENJAMIN KNOWLES UNIT: [id number] ADM DATE: 09/03/19 AGE: 69 : 50 SEX: M ROOM/BED: D.2232 AUTHOR: PETRA,DOC PHYSICIAN: REFERRING PHYSICIAN: JAYA SANTOS MD DATE OF SERVICE: 09/07/19 Discharge Plan Patient Name: BENJAMIN KNOWLES Facility: [facility]:[place] : 1950 Planned Disposition: Inpatient Rehab Anticipated Discharge Date: Discharge Date: Expected LOS: Initial Reviewer: [id number] Initial Review Date: 09/05/2019 Generated: 09/07/19 2:08 pm Comments DCP- Discharge Planning Updated by [email or web address]: Ariana Theodore on 09/07/19 12:[address] I received a call from patient's daughter, Ana Knowles. Ana states she lives in [place]. She states she is the oldest sibling of patient's children. She tells me that her father lives with Salome Arambula and Salome does not have a POA for the patient. She states that she would like her father to be on Hospice. I went over the list of different hospice agencies and explained the difference between inpatient hospice and home hospice and she would like a referral to [facility]. She states her father will need a hospital bed if he goes home on hospice. After Ana and I spoke, patient's life partner, Salome Arambula, called. She states that patient's daughter had called her and told her that he was coming home on hospice and to get his room ready for a hospital bed. Salome states she agrees with hospice consult. No medical information given to Salome, but I did tell her that we would notify her if patient was returning home and arrangements would need to be made. CM called [facility] and spoke with Estevan and clinical faxed. CM will continue to follow and assist with discharge planning/needs. DCP- Discharge Planning Updated by [id number]: Ariana Theodore on 09/05/19 2:[address] Patient Name: BENJAMIN KNOWLES Admission Status: ER Accout number: [id number] Admission Date: 09-03-2019 : 1950 Admission Diagnosis: Attending: ROBERTO SANTOS Current LOS: 2 Anticipated DC Date: Planned Disposition: Inpatient Rehab Primary Insurance: MEDICARE A & B Discharge Planning Comments: CM met with patient to discuss discharge planning/needs. He answers some questions appropriately and other answers are not appropriate. I discussed inpatient rehab and he states ok. He also states I can call Salome "if you want to" to discuss discharge needs. I called his significant other, Salome Arambula. She states she would like him to go to inpatient rehab prior to discharge and would like him to be at [facility] for the rehab. I spoke with Nadia in Inpatient rehab and she states they will accept him when medically stable. I called [facility] per ED physician's suggestion and spoke with Bubba and filed a report of self/respiratory care assistant neglect for a welfare check. [facility] case #[id number]. CM will continue to follow and assist with discharge planning/needs. Or Assistant: Ariana Theodore DCPIA - Discharge Planning Initial Assessment Updated by [id number]: Ariana Theodore on 09/05/19 3:03 pm * Is the patient Alert and Oriented? No * How many steps to enter\\exit or inside your home? RAMP/0 * [facility]CP [facility] * Pharmacy [facility] IN [place] * Preadmission Environment Home with Family * ADLs Partial Dependent * Partial ADLs (Assistance needed) Ambulation Bathing Medication Management * Equipment Cane Nebulizer Other Oxygen Rolling Walker * Other Equipment Rollator walker Portable oxygen * List name and contact numbers for known caregivers / representatives who currently or will assist patient after discharge: Salome Arambula - significant other - [phone] * Verbal permission to speak to the caregivers and representatives has been obtained from the patient. Yes * Community resources currently utilized Home Health * Please name any agencies selected above. [facility] * Additional services required to return to the preadmission environment? Yes * Can the patient safely return to the preadmission environment? Yes * Has this patient been hospitalized within the prior 30 days at any hospital? No Coverage Notice Reviewer: [id number] - Ariana Theodore Notice Issued Date-Time: 09/05/2019 15:23 Notice Type: Patient Choice Letter Notice Delivered To: Family Member Relationship to Patient: Life Partner Manufacturing Engineering Director Name: Salome Arambula Delivery Method: PHONE - Phone Ashely Days: Prior Verbal Notification: Recipient Understood Notice: Yes Recipient Signature: Med Rec Note Co-signed by Attending: Coverage Notice Comment: PRISCILA for [facility] inpatient rehab Reviewer: [id number] Ralph Theodore Notice Issued Date-Time: 09/07/2019 12:55 Notice Type: Patient Choice Letter Notice Delivered To: Family Member Relationship to Patient: Daughter Manufacturing Engineering Director Name: Ana Knowles Delivery Method: PHONE - Phone Ashely Days: Prior Verbal Notification: Recipient Understood Notice: Yes Recipient Signature: Med Rec Note Co-signed by Attending: Coverage Notice Comment: [facility] for [facility] Last DP export: 09/07/19 11:58 Patient Name: BENJAMIN KNOWLES Page [id number] at 1309 All edits/amendments must be made on the electronic document DICTATION DATE: 09/07/19 1308 SPECIAL EDUCATION SCIENCE TEACHER: FREDO 09/07/19 1308 RPT#: [id number] DC DATE: STATUS: ADM IN [facility] [address] [place] [address] END OF REPORT
[2019-09-07 16:58] VITALS: BP 108/63
--- NOTE | 2019-09-07 19:18 | NUR ---
OT NOTE: PT COMPLETED SUPINE TO SIT WITH CGA. PT COMPLETED SIT TO STAND WITH CGA. PT COMPLETED ADL MOB WITH CGA WITHIN ROOM. PT COMPLETED BUE AROM AX AT EOB WITH SBA. PT REQUIRED FREQUENT REST BREAKS. NURSING CHECKED IN AND WAS ENCOURAGED WITH HIS FUNCTIONAL ENDURANCE COMPARED TO AM. PT COMPLETED FACE WASH AT EOB WITH SET UP. THANK YOU,ARIK GODINEZ
[2019-09-07 19:30] VITALS: BP 116/65
[2019-09-08 00:30] VITALS: BP 121/70
[2019-09-08 04:57] VITALS: BP 120/85
[2019-09-08 06:36] LABS: HEMATOCRIT 34.8 % (42.0-54.0); MCH 28.3 pg (26.0-34.0); MCHC 31.6 g/dL (31.0-37.0); MCV 89.5 fL (80.0-100.0); MEAN PLATELET VOLUME 10.8 fL (7.4-10.4); PLATELET COUNT 227 10x3/uL (130-400); RBC 3.89 10x6/uL (4.20-6.10); RDW 14.9 % (11.5-14.5)
[2019-09-08 06:46] LABS: WBC 8.9 10x3/uL (4.8-10.8)
[2019-09-08 07:00] LABS: ANION GAP 12.4 mmol/L (8-16); CALCIUM 8.4 mg/dL (8.5-10.1); CARBON DIOXIDE 27.7 mmol/L (21.0-32.0); CREATININE - SERUM 1.2 mg/dL (0.6-1.3); PHOSPHOROUS 3.1 mg/dL (2.5-4.9); POTASSIUM - SERUM 4.1 mmol/L (3.5-5.1)
[2019-09-08 07:28] LABS: EOSINOPHILS 1 % (0-7); LYMPHOCYTES 11 % (15-50); MONOCYTES 5 % (2-11); NEUTROPHILS 84 % (40-80); PLATELET ESTIMATE NORMAL
[2019-09-08 09:12] VITALS: BP 139/70
--- NOTE | 2019-09-08 09:22 | NUR ---
RESTING IN BED, NO DISTRESS NOTED, IV INFUSING, REMAINS CONFUSED, CONT TO MONITOR RESP STATUS
[2019-09-08 13:04] VITALS: BP 116/61
[2019-09-08 16:36] VITALS: BP 103/51
--- NOTE | 2019-09-08 19:45 | NUR ---
LYING IN BED YELLING AND CURSING EVERY STAFF MEMBER THAT WALKS IN ROOM. CONFUSED. STATES HE DOESNT HAVE O2 ON. PT IS WEARING O2 @ 2L/NC. TALKING INCOHERENTLY AND UNABLE TO REDIRECT. PULLING ON ZAMAN CATHETER. HAS PULLED STAT LOCK OFF AND STAFF REPORTS HE HAS DONE THIS MULTIPLE TIMES TODAY. RESP LABORED, IRREG. NONPROD COUGH. NS @ 50 MLHR INFUSING IN LT FOREARM WITHOUT DIFF. KEVIN ALARM ON. CL IN REACH.
[2019-09-08 20:00] VITALS: BP 112/79
[2019-09-09] VITALS: BP 142/81
--- NOTE | 2019-09-09 00:46 | NUR ---
HASNT SLEPT ANY TONIGHT SO FAR. LYING IN BED TALKING INCOHERENTLY TO PEOPLE NOT PRESENT. IRRITABLE WITH STAFF. HAS TRIED TO GET OOB SEVERAL TIMES WITHOUT HELP TONIGHT CAUSING BED ALARM TO ACTIVATE. CL IN REACH. KEVIN ALARM ON.
[2019-09-09 04:00] VITALS: BP 130/58
[2019-09-09 05:46] LABS: BASOPHILS 0 % (0-2); EOSINOPHILS 0 % (0-7); HEMATOCRIT 35.6 % (42.0-54.0); HEMOGLOBIN 11.3 g/dL (13.5-17.5); IMMATURE GRANULOCYTES 0.3 % (0-5); LYMPHOCYTES 8.3 % (15-50); MCH 28.3 pg (26.0-34.0); MCHC 31.7 g/dL (31.0-37.0); MCV 89.2 fL (80.0-100.0); MONOCYTES 6.9 % (2-11); NEUTROPHILS 84.5 % (40-80); PLATELET COUNT 248 10x3/uL (130-400); RBC 3.99 10x6/uL (4.20-6.10); RDW 14.7 % (11.5-14.5)
[2019-09-09 06:00] LABS: ANION GAP 10.5 mmol/L (8-16); CALCIUM 8.6 mg/dL (8.5-10.1); CARBON DIOXIDE 28.8 mmol/L (21.0-32.0); CREATININE - SERUM 1.1 mg/dL (0.6-1.3); MAGNESIUM - SERUM 2.2 mg/dL (1.8-2.4); PHOSPHOROUS 3.4 mg/dL (2.5-4.9); POTASSIUM - SERUM 4.3 mmol/L (3.5-5.1)
[2019-09-09 06:01] LABS: WBC 11.6 10x3/uL (4.8-10.8)
--- NOTE | 2019-09-09 07:39 | NUR ---
PT IN BED RESTING WITH EYES OPEN. TALKING TO HIM SELF. ORIENTATED X1 SELF. NO S/S OF ACUTE DISTRESS. NO C/O AT THIS TIME. PT HAS A L FOREARM NS @ 50 ML/HR. IV SITE PATENT WITH NO SWELLING OR REDNESS. IV SITE IS COVERED CURLEX TO PREVENT PULLING OUT. O2 NASAL CANNULA RUNNING @ 2L. KEVIN ON AND FALL PRECAUTIONS IN PLACE. CALL LIGHT IN PLACE. WILL CONTINUE TO MONITOR.
[2019-09-09 08:36] VITALS: BP 125/78
--- NOTE | 2019-09-09 10:24 | NUR ---
PT IS STILL CONFUSED. ORIENTATED TO SELF ONLY. HAD TROUBLE SPEAKING CLEARLY, BUT HAD NO TROUBLE SWALLOWING WATER OR PILLS. PT REFUSED FLUTICASONE (FLONASE). PT IS RESTING IN BED WITH EYES CLOSED. NO S/S OF ACUTE DISTRESS. NO C/O AT THIS TIME. CALL LIGHT IN PLACE. WILL CONITUE TO MONITOR.
[2019-09-09 11:58] VITALS: BP 138/84
[2019-09-09 15:30] VITALS: BP 123/69
--- NOTE | 2019-09-09 18:55 | NUR ---
I have reviewed this patient and I concur with the Shift Assessment completed by the Licensed Practical Nurse today this shift.
--- NOTE | 2019-09-09 19:30 | NUR ---
PT LAYING IN BED TALKING TO PEOPLE NOT PRESENT. ORIENTED TO SELF ONLY. PT HAS BAGS OF CANDY IN BED WITH HIM, HIS CANE, BRUSH. M AND M CANDIES SCATTERED THROUGHOUT THE BED LINENS. VERY CONFUSED. KEVIN ALARM ON. RESP IRREG, LABORED. O2 TUBING AROUND PTS NECK. O2 @ 2L/NC PLACED ON PT. DIFF FOLLOWING COMMANDS. PULLING AT LINES. NS @ 50 MLHR INFUSING IN LT FOREARM. ZAMAN CATH PATENT AND DRAINING YELLOW URINE. SR ELEVATED X3. CL IN REACH.
[2019-09-09 20:54] VITALS: BP 114/60
--- NOTE | 2019-09-09 22:30 | NUR ---
BED BATH GIVEN AND LINENS CHANGED PER REAL PROPERTY APPRAISER. KEVIN ALARM ON. CL IN REACH.
[2019-09-10 00:27] VITALS: BP 136/65
--- NOTE | 2019-09-10 02:45 | NUR ---
LYING IN BED WITH EYES CLOSED. STILL MOVING HANDS AROUND IN BED. HAS BEEN AWAKE AND CONFUSED ALL NIGHT BUT CALMER THAN PREVIOUS NIGHT.
--- NOTE | 2019-09-10 03:53 | NUR ---
DROWSY. LYING IN BED WITH EYES CLOSED. O2 IN USE BUT PT IS MOUTH BREATHING. NO DISTRESS. CL IN REACH. KEVIN ALARM ON
[2019-09-10 04:27] VITALS: BP 144/77
[2019-09-10 05:08] LABS: BASOPHILS 0 % (0-2); EOSINOPHILS 0 % (0-7); HEMATOCRIT 33.6 % (42.0-54.0); HEMOGLOBIN 11.1 g/dL (13.5-17.5); IMMATURE GRANULOCYTES 0.4 % (0-5); MCH 29.6 pg (26.0-34.0); MCV 89.6 fL (80.0-100.0); MEAN PLATELET VOLUME 10.3 fL (7.4-10.4); MONOCYTES 5.7 % (2-11); NEUTROPHILS 85.9 % (40-80); PLATELET COUNT 223 10x3/uL (130-400); RBC 3.75 10x6/uL (4.20-6.10); RDW 14.9 % (11.5-14.5); WBC 9.7 10x3/uL (4.8-10.8)
--- NOTE | 2019-09-10 05:21 | NUR ---
LAYING IN BED. YELLING OUT TO PEOPLE NOT PRESENT. REPOSITIONED FOR COMFORT. KEVIN ALARM ON. CL IN REACH.
[2019-09-10 05:29] LABS: ALKALINE PHOSPHATASE 76 U/L (46-116); ALT (SGPT) 26 U/L (10-68); BILIRUBIN - TOTAL 0.29 mg/dL (0.2-1.3); CALC OSMOLALITY 285 mosm/kg (275-300); CALCIUM 8.5 mg/dL (8.5-10.1); CARBON DIOXIDE 29.2 mmol/L (21.0-32.0); CHLORIDE - SERUM 104 mmol/L (98-107); CREATININE - SERUM 0.9 mg/dL (0.6-1.3); GLUCOSE 112 mg/dL (74-106); POTASSIUM - SERUM 4.5 mmol/L (3.5-5.1); PROTEIN - SERUM 6.2 g/dL (6.4-8.2); SODIUM 140 mmol/L (136-145); UREA NITROGEN 29 mg/dL (7-18); eGFR NON AFRICAN AMERICAN 89 mL/min (90-120)
--- NOTE | 2019-09-10 08:00 | NUR ---
PT RESTING QUIETLY IN BED. RESP EVEN AND UNLABORED AT THIS TIME. O2 @ 2.5L NC IN PLACE. DENIES PAIN AT THIS TIME. PT IS ALERT AND ORIENTED TO PERSON ONLY. IV TO LEFT FOREARM WITH NS @ 50ML/HR INFUSING VIA PUMP. SITE WITHOUT REDNESS OR EDEMA. F/C PATENT TO GRAVITY. KEVIN ALARM IN PLACE AND ON. DENIES FURTHER NEEDS AT THIS TIME. EDUCATED PT REGARDING USING CL BEFORE GETTING UP. CL WITHIN REACH. ENCOURAGED TO CALL WITH NEEDS. CONTINUE POC
[2019-09-10 08:36] VITALS: BP 133/69
[2019-09-10 13:24] VITALS: BP 117/55
[2019-09-10] MEDS ORDERED: ROCEPHIN 1 GM/D51 G1 IV (13:47)
[2019-09-10] MEDS ORDERED: MUCINEX DM ER1 EAC1 PO (13:47)
[2019-09-10] MEDS ORDERED: Daliresp PO (13:47)
[2019-09-10] MEDS ORDERED: TESSALON PERLE100 MG PO (13:48)
[2019-09-10] MEDS ORDERED: PREDNISONE10 MG PO (13:55)
--- NOTE | 2019-09-10 14:20 | MORECARE ---
CASE MANAGEMENT DISCHARGE SUMMARY PATIENT: BENJAMIN KNOWLES UNIT: [id number] ADM DATE: 09/03/19 AGE: 69 : 50 SEX: M ROOM/BED: D.2232 AUTHOR: PETRA,DOC PHYSICIAN: REFERRING PHYSICIAN: JAYA SANTOS MD DATE OF SERVICE: 09/10/19 Discharge Plan Patient Name: BENJAMIN KNOWLES Facility: [facility]:[place] : 1950 Planned Disposition: Inpatient Rehab Anticipated Discharge Date: Discharge Date: Expected LOS: Initial Reviewer: [email or web address] Initial Review Date: 09/05/2019 Generated: 09/10/19 3:20 pm Comments DCP- Discharge Planning Updated by [id number]: Ariana Theodore on 09/10/19 1:[address] CM received order for discharge to inpatient rehab. I called his life partner, Salome, and informed. I spoke with the patient and informed him. He is oriented to place, doesn't seem to understand IMM. He will be discharging today to inpatient rehab. Hanh in inpatient rehab states will be going to room 1108B. DCP- Discharge Planning Updated by [id number]: Ariana Theodore on 09/07/19 12:[address] I received a call from patient's daughter, Ana Knowles. Ana states she lives in [place]. She states she is the oldest sibling of patient's children. She tells me that her father lives with Salome Arambula and Salome does not have a POA for the patient. She states that she would like her father to be on Hospice. I went over the list of different hospice agencies and explained the difference between inpatient hospice and home hospice and she would like a referral to [facility]. She states her father will need a hospital bed if he goes home on hospice. After Ana and I spoke, patient's life partner, Salome Arambula, called. She states that patient's daughter had called her and told her that he was coming home on hospice and to get his room ready for a hospital bed. Salome states she agrees with hospice consult. No medical information given to Salome, but I did tell her that we would notify her if patient was returning home and arrangements would need to be made. CM called [facility] and spoke with Estevan and clinical faxed. CM will continue to follow and assist with discharge planning/needs. DCP- Discharge Planning Updated by [email or web address]: Ariana Theodore on 09/05/19 2:[address] Patient Name: BENJAMIN KNOWLES Admission Status: ER Accout number: [id number] Admission Date: 09-03-2019 : 1950 Admission Diagnosis: Attending: ROBERTO SANTOS Current LOS: 2 Anticipated DC Date: Planned Disposition: Inpatient Rehab Primary Insurance: MEDICARE A & B Discharge Planning Comments: CM met with patient to discuss discharge planning/needs. He answers some questions appropriately and other answers are not appropriate. I discussed inpatient rehab and he states ok. He also states I can call Salome "if you want to" to discuss discharge needs. I called his significant other, Salome Arambula. She states she would like him to go to inpatient rehab prior to discharge and would like him to be at [facility] for the rehab. I spoke with Nadia in Inpatient rehab and she states they will accept him when medically stable. I called [facility] per ED physician's suggestion and spoke with Bubba and filed a report of self/primary care nurse neglect for a welfare check. [facility] case #[id number]. CM will continue to follow and assist with discharge planning/needs. Manager Labor Relations: Ariana Theodore DCPIA - Discharge Planning Initial Assessment Updated by [id number]: Ariana Theodore on 09/05/19 3:03 pm * Is the patient Alert and Oriented? No * How many steps to enter\\exit or inside your home? RAMP/0 * [facility]CP [facility] * Pharmacy [facility] [place] * Preadmission Environment Home with Family * ADLs Partial Dependent * Partial ADLs (Assistance needed) Ambulation Bathing Medication Management * Equipment Cane Nebulizer Other Oxygen Rolling Walker * Other Equipment Rollator walker Portable oxygen * List name and contact numbers for known caregivers / representatives who currently or will assist patient after discharge: Salome Arambula - significant other - [phone] * Verbal permission to speak to the caregivers and representatives has been obtained from the patient. Yes * Community resources currently utilized Home Health * Please name any agencies selected above. [facility] * Additional services required to return to the preadmission environment? Yes * Can the patient safely return to the preadmission environment? Yes * Has this patient been hospitalized within the prior 30 days at any hospital? No Coverage Notice Reviewer: [id number] Ralph Theodore Notice Issued Date-Time: 09/05/2019 15:23 Notice Type: Patient Choice Letter Notice Delivered To: Family Member Relationship to Patient: Life Partner Hod Carrier Name: Salome Arambula Delivery Method: PHONE - Phone Ashely Days: Prior Verbal Notification: Recipient Understood Notice: Yes Recipient Signature: Med Rec Note Co-signed by Attending: Coverage Notice Comment: PRISCILA for [facility] inpatient rehab Reviewer: [id number] Ralph Theodore Notice Issued Date-Time: 09/07/2019 12:55 Notice Type: Patient Choice Letter Notice Delivered To: Family Member Relationship to Patient: Daughter Hod Carrier Name: Ana Knowles Delivery Method: PHONE - Phone Ashely Days: Prior Verbal Notification: Recipient Understood Notice: Yes Recipient Signature: Med Rec Note Co-signed by Attending: Coverage Notice Comment: [facility]ISCIL[facility] for [facility] Last DP export: 09/07/19 12:09 Patient Name: BENJAMIN KNOWLES Page [phone] at 1420 All edits/amendments must be made on the electronic document DICTATION DATE: 09/10/19 1420 TRAUMA SURGEON: FREDO 09/10/19 1420 RPT#: [id number] DC DATE: STATUS: ADM IN [facility] [address] [place] [address] END OF REPORT
--- NOTE | 2019-09-10 16:21 | NUR ---
OT NOTE: PT CONFUSED. UPON ENTERING ROOM PT WAS STANDING WITH IV WRAPPED AROUND LES. NURSING NOTIFIED AND EVALUATED. PT REQUIRED MAX A WITH HYGIENE TASKS. LADI STARK COTA
--- NOTE | 2019-09-12 14:11 | MORECARE ---
CASE MANAGEMENT DISCHARGE SUMMARY PATIENT: BENJAMIN KNOWLES UNIT: [id number] ADM DATE: 09/03/19 AGE: 69 : 50 SEX: M ROOM/BED: D.2232 AUTHOR: PETRA,DOC PHYSICIAN: REFERRING PHYSICIAN: JAYA SANTOS MD DATE OF SERVICE: 09/12/19 Discharge Plan Patient Name: BENJAMIN KNOWLES Facility: [facility]:[place] : 1950 Planned Disposition: Inpatient Rehab Anticipated Discharge Date: Discharge Date: 09/10/2019 Expected LOS: 0 Initial Reviewer: [email or web address] Initial Review Date: 09/05/2019 Generated: 09/12/19 3:11 pm Comments DCP- Discharge Planning Updated by [id number]: Ariana Aglupe on 09/10/19 1:[address] CM received order for discharge to inpatient rehab. I called his life partner, Salome, and informed. I spoke with the patient and informed him. He is oriented to place, doesn't seem to understand IMM. He will be discharging today to inpatient rehab. Hanh in inpatient rehab states will be going to room 1108B. DCP- Discharge Planning Updated by [id number]: Ariana Theodore on 09/07/19 12:[address] I received a call from patient's daughter, Ana Knowles. Ana states she lives in [place]. She states she is the oldest sibling of patient's children. She tells me that her father lives with Salome Arambula and Salome does not have a POA for the patient. She states that she would like her father to be on Hospice. I went over the list of different hospice agencies and explained the difference between inpatient hospice and home hospice and she would like a referral to [facility]. She states her father will need a hospital bed if he goes home on hospice. After Ana and I spoke, patient's life partner, Salome Arambula, called. She states that patient's daughter had called her and told her that he was coming home on hospice and to get his room ready for a hospital bed. Salome states she agrees with hospice consult. No medical information given to Salome, but I did tell her that we would notify her if patient was returning home and arrangements would need to be made. CM called [facility] and spoke with Estevan and clinical faxed. CM will continue to follow and assist with discharge planning/needs. DCP- Discharge Planning Updated by [id number]: Ariana Theodore on 09/05/19 2:[address] Patient Name: BENJAMIN KNOWLES Admission Status: ER Accout number: [id number] Admission Date: 09-03-2019 : 1950 Admission Diagnosis: Attending: ROBERTO SANTOS Current LOS: 2 Anticipated DC Date: Planned Disposition: Inpatient Rehab Primary Insurance: MEDICARE A & B Discharge Planning Comments: CM met with patient to discuss discharge planning/needs. He answers some questions appropriately and other answers are not appropriate. I discussed inpatient rehab and he states ok. He also states I can call Salome "if you want to" to discuss discharge needs. I called his significant other, Salome Arambula. She states she would like him to go to inpatient rehab prior to discharge and would like him to be at [facility] for the rehab. I spoke with Nadia in Inpatient rehab and she states they will accept him when medically stable. I called APS per ED physician's suggestion and spoke with Bubba and filed a report of self/medical care evaluation specialist neglect for a welfare check. APS case #[id number]. CM will continue to follow and assist with discharge planning/needs. Aerospace Mechanic: Ariana Theodore DCPIA - Discharge Planning Initial Assessment Updated by [id number]: Ariana Theodore on 09/05/19 3:03 pm * Is the patient Alert and Oriented? No * How many steps to enter\\exit or inside your home? RAMP/0 * PCP [facility] * Pharmacy [facility] IN [place] * Preadmission Environment Home with Family * ADLs Partial Dependent * Partial ADLs (Assistance needed) Ambulation Bathing Medication Management * Equipment Cane Nebulizer Other Oxygen Rolling Walker * Other Equipment Rollator walker Portable oxygen * List name and contact numbers for known caregivers / representatives who currently or will assist patient after discharge: Salome Arambula - significant other - [phone] * Verbal permission to speak to the caregivers and representatives has been obtained from the patient. Yes * Community resources currently utilized Home Health * Please name any agencies selected above. [facility] * Additional services required to return to the preadmission environment? Yes * Can the patient safely return to the preadmission environment? Yes * Has this patient been hospitalized within the prior 30 days at any hospital? No Coverage Notice Reviewer: [id number] Theodore Notice Issued Date-Time: 09/05/2019 15:23 Notice Type: Patient Choice Letter Notice Delivered To: Family Member Relationship to Patient: Life Partner Retail Seasonal Specialist Name: Salome Arambula Delivery Method: PHONE - Phone Ashely Days: Prior Verbal Notification: Recipient Understood Notice: Yes Recipient Signature: Med Rec Note Co-signed by Attending: Coverage Notice Comment: PRISCILA for [facility] inpatient rehab Reviewer: [id number] Theodore Notice Issued Date-Time: 09/07/2019 12:55 Notice Type: Patient Choice Letter Notice Delivered To: Family Member Relationship to Patient: Daughter Retail Seasonal Specialist Name: Ana Knowles Delivery Method: PHONE - Phone Ashely Days: Prior Verbal Notification: Recipient Understood Notice: Yes Recipient Signature: Med Rec Note Co-signed by Attending: Coverage Notice Comment: PRISCILA for [facility] Reviewer: [id number] Theodore Notice Issued Date-Time: 09/10/2019 14:20 Notice Type: IM Discharge Notice Notice Delivered To: Other Relationship to Patient: Life Partner Retail Seasonal Specialist Name: Salome Arambula Delivery Method: CERT - Certified Mail Ashely Days: Prior Verbal Notification: Recipient Understood Notice: Yes Recipient Signature: Med Rec Note Co-signed by Attending: Coverage Notice Comment: Informed of IMM via telephone, voiced understanding, will send via certified mail. Last DP export: 09/10/19 1:20 Patient Name: BENJAMIN KNOWLES Page [phone] at 1411 All edits/amendments must be made on the electronic document DICTATION DATE: 09/12/19 1411 POCKET MACHINE OPERATOR: FREDO 09/12/19 1411 RPT#: [id number] DC DATE:09/10/19 STATUS: DIS IN [facility] [address] [place] [address] END OF REPORT
== END 2019-09-10 16:10 | DRG 189 ==
LOC: D.ER 11:30 → D.MS 17:00
PROVIDERS: Family Medicine; Internal Medicine Nephrology; ADMIT Emergency Medicine; ATTEND Emergency Medicine
DX: J96.21 Acute and chronic respiratory failure with hypoxia (principal); G93.41 Metabolic encephalopathy; I50.22 Chronic systolic (congestive) heart failure; N17.9 Acute kidney failure, unspecified; N39.0 Urinary tract infection, site not specified; J44.1 Chronic obstructive pulmonary disease with (acute) exacerbation; E78.5 Hyperlipidemia, unspecified; I11.0 Hypertensive heart disease with heart failure; Z79.01 Long term (current) use of anticoagulants; K21.9 Gastro-esophageal reflux disease without esophagitis; R41.82 Altered mental status, unspecified; D64.9 Anemia, unspecified; F41.8 Other specified anxiety disorders; I25.10 Atherosclerotic heart disease of native coronary artery without angina pectoris; N40.0 Benign prostatic hyperplasia without lower urinary tract symptoms; M19.90 Unspecified osteoarthritis, unspecified site; I27.20 Pulmonary hypertension, unspecified; J20.9 Acute bronchitis, unspecified

== ENCOUNTER 2019-09-10 15:06 | Inpatient (IN) | payer MEDICARE ==
[~2019-09-10] VITALS: Ht 180.3 cm; Wt 90.7 kg
[~2019-09-10 15:06] MED LIST changes: +Daliresp PO; +ROCEPHIN 1 GM/D51 G1 IV; +TESSALON PERLE100 MG PO
[2019-09-10 17:56] VITALS: BP 124/69; BMI 27.9
--- NOTE | 2019-09-10 18:37 | NUR ---
PT ADMIT TO REHAV FROM ACUTE FLOOR. HE IS SLOW TO ANSWER QUESTIONS, SLOW TO FOLLOW COMMANDS. HE IS ALERT AND ORIENTED X4 BUT IT TOOK HIM SEVERAL MINUTES TO REMEMBER THE NAME OF THE HOSPITAL HE WAS IN. F/C PRESENT WITH CLOUDY URINE. ABD HAS SEVERAL SMALL BRUISED LOOKING AREAS WITH A SCAB IN THE MIDDLE. OXYGEN 2LNC IN USE.
[2019-09-10 19:00] VITALS: BP 111/48
--- NOTE | 2019-09-10 19:00 | NUR ---
BEDSIDE REPORT COMPLETE. PT LYING IN BED ON LEFT SIDE EYES CLOSED RESTING COMFORTABLY. RR EVEN AND UNLABORED. CONTINUES ON 2.5L VIA NC. VS STABLE. SHIFT ASSESSMENT COMPLETE. CL IN REACH. FALL PRECAUTIONS IN PLACE. WILL CONTINUE TO MONITOR
--- NOTE | 2019-09-10 23:46 | NUR ---
QUIET HOURS. PT LYING IN BED ON RIGHT SIDE EYES CLOSED RESTING. RR EVEN AND UNLABORED. CL IN REACH
--- NOTE | 2019-09-11 04:05 | NUR ---
PT LYING IN BED ON LEFT SIDE EYES CLOSED RESTING. RR EVEN AND UNLABORED. CL IN REACH
--- NOTE | 2019-09-11 05:53 | NUR ---
PT LYING IN BED SUPINE EYES CLOSED RESTING. RR EVEN AND UNLABORED. CL IN REACH
[2019-09-11 07:22] LABS: ANION GAP 9.6 mmol/L (8-16); CALCIUM 8.5 mg/dL (8.5-10.1); CARBON DIOXIDE 29.5 mmol/L (21.0-32.0); CREATININE - SERUM 1.1 mg/dL (0.6-1.3); POTASSIUM - SERUM 4.1 mmol/L (3.5-5.1)
[2019-09-11 07:27] LABS: BASOPHILS 0.1 % (0-2); EOSINOPHILS 1.8 % (0-7); HEMATOCRIT 35.5 % (42.0-54.0); HEMOGLOBIN 11.1 g/dL (13.5-17.5); IMMATURE GRANULOCYTES 0.4 % (0-5); MCH 28.2 pg (26.0-34.0); MCHC 31.3 g/dL (31.0-37.0); MCV 90.1 fL (80.0-100.0); MEAN PLATELET VOLUME 10.9 fL (7.4-10.4); MONOCYTES 10.2 % (2-11); NEUTROPHILS 66.5 % (40-80); PLATELET COUNT 261 10x3/uL (130-400); RBC 3.94 10x6/uL (4.20-6.10); RDW 14.8 % (11.5-14.5); WBC 10.5 10x3/uL (4.8-10.8)
--- NOTE | 2019-09-11 08:15 | NUR ---
PT RESTING IN BED WITH EYES OPEN CALL LIGHT IN REACH WILL MONITER
--- NOTE | 2019-09-11 10:36 | NUR ---
PATIENT ADMITTED TO REHAB FROM ACUTE FLOOR. HIS PCP IS DOLORES ANTON. HE IS A CLIENT OF [facility]. DME AT HOME IS CANE, NEBULIZER, O2 AND A WALKER. HIS DME PROVIDER IS [facility] PATIENT. DISCHARGE PLANS ARE FOR PATIENT TO RETURN HOME. WILL CONTINUE TO FOLLOW WITH PATIENT.
[2019-09-11 12:41] VITALS: Ht 180.3 cm; Wt 90.7 kg
--- NOTE | 2019-09-11 18:45 | NUR ---
BEDSIDE REPORT COMPLETE. PT LYING IN BED EYES CLOSED RESTING. RR EVEN AND UNLABORED. CONTINUES ON 2.5L VIA NC. LEFT FOREARM IV WITHOUT REDNESS OR SWELLING. FLUSHES WITHOUT DIFFICULTY. VS STABLE. SHIFT ASSESSMENT COMPLETE. CL IN REACH. BED ALARM ON. WILL CONTINUE TO MONITOR
[2019-09-11 18:55] VITALS: BP 109/52
--- NOTE | 2019-09-11 23:24 | NUR ---
QUIET HOURS. PT LYING IN BED ON LEFT SIDE EYES CLOSED. RR EVEN AND UNLABORED. CL IN REACH
--- NOTE | 2019-09-12 03:28 | NUR ---
PT LYING IN BED SUPINE EYES CLOSED RESTING. RR EVEN AND UNLABORED. CL IN REACH
--- NOTE | 2019-09-12 06:46 | NUR ---
PT LYING IN BED EYES CLOSED RESTING. RR EVEN AND UNLABORED. CL IN REACH
[2019-09-12 06:58] LABS: BASOPHILS 0 % (0-2); EOSINOPHILS 1.8 % (0-7); HEMATOCRIT 35.3 % (42.0-54.0); HEMOGLOBIN 11.1 g/dL (13.5-17.5); IMMATURE GRANULOCYTES 0.3 % (0-5); LYMPHOCYTES 16.9 % (15-50); MCH 28.5 pg (26.0-34.0); MCHC 31.4 g/dL (31.0-37.0); MCV 90.5 fL (80.0-100.0); MEAN PLATELET VOLUME 10.2 fL (7.4-10.4); MONOCYTES 9.6 % (2-11); NEUTROPHILS 71.4 % (40-80); PLATELET COUNT 247 10x3/uL (130-400); RDW 14.8 % (11.5-14.5); WBC 12.2 10x3/uL (4.8-10.8)
[2019-09-12 07:04] LABS: ANION GAP 7.2 mmol/L (8-16); CALCIUM 7.9 mg/dL (8.5-10.1); CARBON DIOXIDE 29.8 mmol/L (21.0-32.0); CREATININE - SERUM 1.2 mg/dL (0.6-1.3)
[2019-09-12 08:00] VITALS: BP 115/73
--- NOTE | 2019-09-12 08:00 | NUR ---
SHIFT ASSMT COMPLETED.
--- NOTE | 2019-09-12 09:46 | NUR ---
SPOKE WITH PATIENT S/O AND SHE STATES THAT MR. KNOWLES DAUGHTER WOULD LIKE HIM ON HOSPICE. I GAVE PAMPLETS ON ALL THE LOCAL HOSPICES. SHE IS TO REVIEW AND THEN SHE WILL DECIDE ON WHICH ONE SHE WOULD LIKE TO TALK WITH REGARDING ADMISSION. WILL CONTINUE TO FOLLOW WITH PATIENT.
--- NOTE | 2019-09-12 16:00 | NUR ---
REMAINS UP IN WC.
--- NOTE | 2019-09-12 16:35 | NUR ---
CARE TEAM MEETING: PATIENT IS NEW TO UNIT AND WILL BE RA AT NEXT MEETING. PATIENT DAUGHTER HAS ARRANGE FOR [facility] AT DISCHARGE. WILL CONTINUE TO FOLLOW WITH PATIENT.
[2019-09-12 19:39] VITALS: BP 104/60
--- NOTE | 2019-09-12 19:41 | NUR ---
AWAKE AND ALERT. SITTING IN WHEELCHAIR IN ROOM, O2/2L ON PER NASAL CANNULA. ZAMAN PATENT. PERIODS OF CONFUSION. SALINE LOCK INTACT TO LEFT FOREARM WITH NO SIGNS OF INFILTRATION. NO DISTRESS NOTED. CALL LIGHT IN REACH.
--- NOTE | 2019-09-13 00:21 | NUR ---
RESTING IN BED WITH RESPIRATIONS UNLABORED. SALINE LOCK INTACT. O2/2L ON PER NASAL CANNULA. NO ACUTE DISTRESS NOTED.
--- NOTE | 2019-09-13 02:30 | NUR ---
RESTING IN BED. RESPIRATIONS UNLABORED. NO NEEDS VOICED.
--- NOTE | 2019-09-13 04:55 | NUR ---
QUIET HOURS. RESTING IN BED WITH NO DISTRESS NOTED. BLADDER TRAINING THIS SHIFT. ZAMAN CATH CLAMPED AT THIS TIME. NO ACUTE CHANGES IN CONDITION THIS SHIFT.
[2019-09-13 08:00] VITALS: BP 134/70
--- NOTE | 2019-09-13 08:00 | NUR ---
SHIFT ASSMT COMPLETED.
--- NOTE | 2019-09-13 12:00 | NUR ---
SITTING UP IN WC.CL IN REACH.
--- NOTE | 2019-09-13 14:30 | NUR ---
Nutrition Follow-up: Diet: AHA + Boost with meals PO intake: 100% x last 3 meals; reports that his appetite is good and thinks that he may be eating "too much." States that he is also drinking Boost. Last BM: 09/12/19. WT: 200# (09/11/19). Meds noted: prednisone. Labs and nursing skin assessment reviewed. Continue current nutrition regimen. RD following.
--- NOTE | 2019-09-13 21:19 | NUR ---
AWAKE AND RESTING IN BED. CONFUSED AND DISORIENTED TO PLACE TIME AND SITUATION. ATTEMPTED TO REORIENT. AFTER CHATTING WITH PATIENT FOR A WHILE HE SEEM TO RELAX. RESPIRAITONS UNLABORED ON O2/2L PER NASAL CANNULA. LEFT FOREARM SALINE LOCK INTACT WITH NO SIGNS OF INFILTRATION. AFEBRILE AT 97.8. WILL CONTINUE TO MONITOR.
--- NOTE | 2019-09-14 02:20 | NUR ---
SLEEPING AT INTERVALS. WAKES UP CONFUSED. ASSISTED TO REORIENT. NOW RESTING. WILL CONTINUE TO MONITOR.
--- NOTE | 2019-09-14 05:29 | NUR ---
RESTING IN BED WITH EYES CLOSED. RESPIRATIONS UNLABORED. O2/2L ON PER NASAL CANNULA. CALL LIGHT.
[2019-09-14 07:51] LABS: ANION GAP 11.1 mmol/L (8-16); CALCIUM 8.5 mg/dL (8.5-10.1); CARBON DIOXIDE 28.1 mmol/L (21.0-32.0); CREATININE - SERUM 1.1 mg/dL (0.6-1.3); POTASSIUM - SERUM 4.2 mmol/L (3.5-5.1)
[2019-09-14 07:55] LABS: BASOPHILS 0 % (0-2); EOSINOPHILS 0.5 % (0-7); HEMATOCRIT 35.1 % (42.0-54.0); HEMOGLOBIN 10.8 g/dL (13.5-17.5); IMMATURE GRANULOCYTES 0.6 % (0-5); LYMPHOCYTES 10.7 % (15-50); MCH 28.1 pg (26.0-34.0); MCHC 30.8 g/dL (31.0-37.0); MCV 91.4 fL (80.0-100.0); MEAN PLATELET VOLUME 11.1 fL (7.4-10.4); MONOCYTES 8.5 % (2-11); NEUTROPHILS 79.7 % (40-80); PLATELET COUNT 244 10x3/uL (130-400); RBC 3.84 10x6/uL (4.20-6.10); RDW 14.8 % (11.5-14.5)
[2019-09-14 08:00] VITALS: BP 110/49
--- NOTE | 2019-09-14 08:00 | NUR ---
PT RESTING IN BED WITH EYES OPEN CALL LIGHT IN REACH NO PROBLEMS WILL MONITER
--- NOTE | 2019-09-14 08:00 | NUR ---
PT RESTING IN BED WITH EYES OPEN CALL LIGHT IN REACH WILL MONITER
[2019-09-14 08:04] LABS: WBC 16.2 10x3/uL (4.8-10.8)
--- NOTE | 2019-09-14 14:30 | NUR ---
SPOKE WITH PATIENT DAUGHTER AND HE FATHER WILL DISCHARGE 09/18/19 HOME WITH [facility]. S/O HAS BEEN NOTIFIED. WILL CONTINUE TO FOLLOW WITH PATIENT.
--- NOTE | 2019-09-14 18:50 | NUR ---
PT RESTING IN BED WITH EYES OPEN CALL LIGHT IN REACH NO PROBLEMS WILL MONITER
[2019-09-14 19:00] VITALS: BP 121/71
--- NOTE | 2019-09-14 19:00 | NUR ---
BESIDE REPORT COMPLETE. PT LYING IN BED EYES CLOSED RESTING QUIETLY. RR EVEN AND UNLABORED. CONTINUES ON 2L VIA NC. EASILY AROUSED WITH VERBAL STIMULI. DENIES ANY NEEDS OR PAIN. ZAMAN PATENT AND FREE FROM KINKS. CL IN REACH. BED ALARM ON. WILL CONTINUE TO MONITOR
--- NOTE | 2019-09-15 00:37 | NUR ---
QUIET HOURS. PT LYING IN BED EYES CLOSED RESTING QUIETLY. RR EVEN AND UNLABORED. CL IN REACH. BED ALARM ON
--- NOTE | 2019-09-15 04:20 | NUR ---
PT LYING IN BED EYES CLOSED RESTING. RR EVEN AND UNLABORED. CL IN REACH
[2019-09-15 08:00] VITALS: BP 142/60
--- NOTE | 2019-09-15 08:00 | NUR ---
PATIENT IS ALERT. CONFUSED. BED ALARM ON. CALL LIGHT WITHIN REACH. VOICES NO NEEDS AT THIS TIME. WILL CONTINUE WITH PLAN OF CARE
--- NOTE | 2019-09-15 10:04 | NUR ---
PATIENT IN REHAB ROOM. WORKING WITH PHYSICAL THERPIST. DENIES ANY PAIN/DISC AT THIS TIME.
--- NOTE | 2019-09-15 12:53 | NUR ---
PATIENT HELPED WITH SHOWER. LINENS ON BED CHANGED
[2019-09-15 19:00] VITALS: BP 134/73
--- NOTE | 2019-09-15 19:00 | NUR ---
BEDSIDE REPORT COMPLETE. PT LYING IN BED AWAKE AND ALERT WATCHING TV. ALERT AND ORIENTED X2. REORIENTED TO TIME AND SITUATION. RR EVEN AND UNLABORED. CONTINUES ON 2L VIA NC. VS STABLE. SHIFT ASSESSMENT COMPLETE. CL IN REACH. BED ALARM ON. WILL CONTINUE TO MONITOR
--- NOTE | 2019-09-16 01:05 | NUR ---
QUIET HOURS. PT LYING IN BED EYES CLOSED RESTING QUIETLY. RR EVEN AND UNLABORED. CL IN REACH
--- NOTE | 2019-09-16 06:29 | NUR ---
PT LYING IN BED ON RIGHT SIDE EYES CLOSED RESTING QUIETLY. RR EVEN AND UNLABORED. CL IN REACH
[2019-09-16 08:00] VITALS: BP 111/67
--- NOTE | 2019-09-16 11:43 | NUR ---
SHIFT ASSMT COMPLETED.UP OOB FOR BREAKFAST.CL IN REACH.
--- NOTE | 2019-09-16 12:00 | NUR ---
EATING LUNCH IN BED.
--- NOTE | 2019-09-16 17:30 | NUR ---
ZAMAN CATH DC'D,TIP INTACT.
[2019-09-16 19:35] VITALS: BP 130/70
--- NOTE | 2019-09-16 19:35 | NUR ---
BEDSIDE REPORT COMPLETE. PT LYING IN BED EYES CLOSED RESTING QUIETLY. RR EVEN AND UNLABORED. VS STABLE. SHIFT ASSESSMENT COMPLETE. CL IN REACH. BED ALARM ON. WILL CONTINUE TO MONITOR
--- NOTE | 2019-09-16 23:30 | NUR ---
QUIET HOURS. PT LYING IN BED ON LEFT SIDE EYES CLOSED RESTING. RR EVEN AND UNLABORED. CONTINUES ON 2L VIA NC. CL IN REACH. BED ALARM ON
--- NOTE | 2019-09-17 02:28 | NUR ---
ASSISTED PT TO RESTROOM AND BACK TO BED WITH SBA. CLEAR YELLOW VOID 300ML OUTPUT. FIRST VOID SINCE ZAMAN DISCONTINUED.
--- NOTE | 2019-09-17 03:36 | NUR ---
PT LYING IN BED ON RIGHT SIDE EYES CLOSED RESTING QUIETLY. RR EVEN AND UNLABORED. CL IN REACH
--- NOTE | 2019-09-17 06:20 | NUR ---
ASSISTED PT TO RESTROOM AND BACK TO BED WITH SBA. DENIES ANY OTHER NEEDS. CL IN REACH
[2019-09-17 07:05] LABS: CALC OSMOLALITY 282 mosm/kg (275-300); CALCIUM 8.8 mg/dL (8.5-10.1); CARBON DIOXIDE 30.6 mmol/L (21.0-32.0); CHLORIDE - SERUM 101 mmol/L (98-107); GLUCOSE 97 mg/dL (74-106); POTASSIUM - SERUM 4.6 mmol/L (3.5-5.1); SODIUM 139 mmol/L (136-145); UREA NITROGEN 27 mg/dL (7-18); eGFR NON AFRICAN AMERICAN 79 mL/min (90-120)
[2019-09-17 07:16] LABS: BASOPHILS 0.1 % (0-2); EOSINOPHILS 0.5 % (0-7); HEMATOCRIT 35.8 % (42.0-54.0); HEMOGLOBIN 11.2 g/dL (13.5-17.5); IMMATURE GRANULOCYTES 1.2 % (0-5); LYMPHOCYTES 10.3 % (15-50); MCH 28.4 pg (26.0-34.0); MCHC 31.3 g/dL (31.0-37.0); MCV 90.6 fL (80.0-100.0); MONOCYTES 6.7 % (2-11); NEUTROPHILS 81.2 % (40-80); PLATELET COUNT 263 10x3/uL (130-400); RBC 3.95 10x6/uL (4.20-6.10); RDW 14.7 % (11.5-14.5); WBC 15.5 10x3/uL (4.8-10.8)
--- NOTE | 2019-09-17 07:55 | NUR ---
ALERT AND ORIENTED. SITTING IN WC EATING BREAKFAST. NO C/O PAIN CL IN REACH.
--- NOTE | 2019-09-17 08:30 | RHP ---
PATIENT: BENJAMIN KNOWLES MEDICAL RECORD: [id number] ACCOUNT: [id number] LOCATION:[facility] : [birth year] ADMISSION DATE: 09/10/19 REHABILITATION HISTORY AND PHYSICAL EXAMINATION POST ADMISSION PHYSICIAN EXAMINATION ADMITTING DIAGNOSIS: Acute metabolic encephalopathy. HISTORY OF PRESENT ILLNESS: The patient is a 69-year-old gentleman who presented to the Emergency Room Department on 09/03/2019 with altered mental status, got a history of dementia and COPD. Family does care for him on a regular basis. Apparently, he appeared unkempt, his hygiene was poor. He was unresponsive except to pain only. He has some auditory wheezing. He had a nitrite positive UTI. He had an elevated BUN and creatinine. He was placed on IV antibiotics, Solu-Medrol, updrafts, and IV fluids. He was admitted for pulmonary consult. CT of his head showed no acute intracranial processes. A bedside swallow eval on 09/05/2019 showed some minimal weakness during his oral motor phase and recommend a regular diet with thin liquids and speech therapy to follow. Previously, he was independent with ADLs and mobility. He did use a cane or walker at times and was on home O2. Currently, he is on BiPAP at times. He is also on O2 2.5 liters via nasal cannula when not on BiPAP. He is getting DuoNeb, Brovana, and Pulmicort, tapering his IV steroids at this time. He is antitussives and mucolytic agents at this time. The patient is also on Rocephin. He has had prolonged immobility, progressive generalized weakness, especially in his lower extremities affecting his tolerance to PT. He is very fatigued and has limited flexion and extension of his lower extremities. Proximal muscle strength is decreased. He is mod to max assist for ADLs and mod to max assist for sit to stand and bed to chair, lives with his significant other and hopes to return back home hopefully at his prior level of functioning. COMORBIDITIES: Include jadue-pw-idrvapt hypercapnic and hypoxic respiratory failure, right lower lobe infiltrate, acute exacerbation of COPD. He has got acute tracheobronchitis. He has got impaired functional mobility. He has got problems with his balance, gait, and endurance. UTI. He has got systolic heart failure, anxiety, depression, coronary artery disease, dyslipidemia, iron deficient anemia and he is on chronic anticoagulation. PAST MEDICAL HISTORY: Significant for dementia, hyperlipidemia, hypertension, CHF, COPD, home O2 dependence, acid reflux, arthritis, depression, dementia, anxiety. PAST SURGICAL HISTORY: Includes heart catheterization. ALLERGIES: No known drug allergies. CURRENT MEDICATIONS: He is on a prednisone taper at this time. He is on Daliresp 250 mcg daily, Flomax 0.4 mg daily, Zoloft 50 mg daily, carvedilol 3.125 mg b.i.d. with meals, Protonix 40 mg daily, Singulair 10 mg at bedtime, Mucinex D 1 tab b.i.d. He is on Lotrimin to apply b.i.d., Tessalon Perles 100 mg t.i.d., Eliquis 5 mg b.i.d., budesonide 0.5 mg b.i.d., Brovana 15 mcg b.i.d., DuoNeb updrafts as needed. HABITS: No current alcohol or tobacco use. FAMILY HISTORY: Noncontributory. HISTORY AND PHYSICAL [id number] BENJAMIN KNOWLES SOCIAL HISTORY: The patient hopes to return back home with his significant other. REVIEW OF SYSTEMS: GENERAL: Does complain of weakness and fatigue. HEENT: Denies cold, cough, or congestion. CARDIOVASCULAR: He denies any chest pain. PHYSICAL EXAMINATION: VITAL SIGNS: Stable, afebrile. GENERAL: An elderly gentleman, in no acute distress, alert upon exam. HEENT: Normocephalic and atraumatic. Mucosa moist. NECK: Supple. No lymphadenopathy. LUNGS: Clear in upper doe with decreased breath sounds in the bases. He does have a few wheezes and rhonchi appreciated. HEART: Regular rate and rhythm. ABDOMEN: Soft, benign, and nondistended. Positive bowel sounds times 4. EXTREMITIES: No clubbing, cyanosis or edema. NEUROLOGIC: He does have noted weakness, especially in the proximal muscles of his upper extremities and legs. LABORATORY DATA: White count is 10.5, H&H of 11 and 35, and platelet count is 261. Sodium 140, potassium 4.1, BUN and creatinine of 28 and 1.1, and blood sugar is noted to be 81. ASSESSMENT: This is a 69-year-old gentleman admitted to the rehab with a working diagnosis of metabolic encephalopathy. The patient has potential to make improvement. We instituted the following multidisciplinary therapies including, but not limited to physical, occupational, respiratory, speech, nutritional services, prosthetics and orthotics. Given his complex medical condition and risk for more complications, rehabilitation services cannot be provided at a low level of care such a skilled nurse facility. PLAN: 1. Admit to [facility] rehab for an intensive inpatient therapy to include the following disciplines: A. Physical therapy to improve gait, all transfer skills and bed mobility to a modified independent level. B. Occupational therapy to a modified independent level. C. Case management to assist with discharge planning and placement options. D. Nutrition to assist with nutritional needs. E. Rehabilitation nursing to assist in monitoring the patient's underlying medical conditions and to assist with any type of bowel or bladder management. 2. The patient's current medication and medical care will be continued. 3. The patient will be placed on standard fall precautions. 4. The patient's estimated length of stay is approximately 7-10 days. 5. We will discuss the patient during care team staff meeting this week. TRANSINT:[id number] Voice Confirmation ID: [id number] DOCUMENT ID: [id number] AUNG notes whether there has been none or any medical/functional change since admission: - No change since preadmission screen. HISTORY AND PHYSICAL [id number] BENJAMIN KNOWLES attests patient continues to be appropriate for IRF: - Continues to be appropriate. JAYA SANTOS MD at 0830 CC: [id number] DICTATION DATE: 09/11/19 0831 SOLAR PROJECT COORDINATION SPECIALIST: 09/11/19 1019 ADM IN [facility] [address] [id number]
[2019-09-17 08:41] VITALS: BP 100/64
--- NOTE | 2019-09-17 12:53 | NUR ---
PARTICIPATED IN THERAPY. IN ROOM NOW WITH FAMILY IN ROOM. NO C/O PAIN AT THIS TIME.
--- NOTE | 2019-09-17 13:33 | NUR ---
Nutrition Follow-up: Diet: Cardiac + Boost with meals PO intake: 100% x 6; reports good appetite. He is drinking Ensure. Last BM: 09/16/19 x 3. WT: 200# (09/11/19), no new wt Meds noted: prednisone. Labs and nursing skin assessment reviewed. Continue current nutrition regimen. RD following.
--- NOTE | 2019-09-17 14:25 | NUR ---
OFFERED SHOWER. REFUSED. STATED HE TOOK A SHOWER YESTERDAY ON 09/16/19.
--- NOTE | 2019-09-17 15:54 | NUR ---
NO CHANGE IN ASSESSMENT. BACK TO ROOM FROM THERAPY. CL IN REACH.
[2019-09-17 19:05] VITALS: BP 128/72
--- NOTE | 2019-09-17 19:05 | NUR ---
BEDSIDE REPORT COMPLETE. PT SITTING UP IN BED WATCHING TV. ALERT AND ORIENTED X3. REORIENTED TO TIME. DENIES ANY NEEDS OR PAIN. NO SIGNS OF ACUTE DISTRESS NOTED. CONTINUES ON 2L VIA NC. CL IN REACH. BED ALARM ON. WILL CONTINUE TO MONITOR
--- NOTE | 2019-09-18 01:34 | NUR ---
QUIET HOURS. PT LYING IN BED ON LEFT SIDE EYES CLOSED RESTING. RR EVEN AND UNLABORED. CL IN REACH
--- NOTE | 2019-09-18 05:19 | NUR ---
PT LYING IN BED ON RIGHT SIDE EYES CLOSED RESTING. RR EVEN AND UNLABORED. CL IN REACH
--- NOTE | 2019-09-18 08:03 | NUR ---
SITTING IN WC EATING BREAKFAST. CL IN REACH.
--- NOTE | 2019-09-18 08:26 | NUR ---
PATIENT DISCHARGING HOME TODAY WITH FAMILY AND WILL ADMITT TO [facility]. NO HOME HEALTH NEEDED AT THIS TIME. PATIENT WILL FOLLOW WITH HOSPICE PHYSICIAN. PATIENT DAUGHTER MICHELLE HAS ARRANGED FOR HOSPICE. [facility] FORM SIGNED AND FILED IN CHART. COPY SENT HOME WITH PATIENT. FAMILY WILL TRANSPORT PATIENT HOME.
[2019-09-18 08:49] VITALS: BP 142/79
--- NOTE | 2019-09-18 09:50 | NUR ---
DC INSTRUCTIONS GIVEN TO PATIENT AND SON. VERBILIZES UNDERSTANDING. NO CHANGE IN ASSESSMENT. ASSISTED TO CAR IN WC PER STAFF FOR DC HOME WITH [facility] TO FOLLOW UP.
== END 2019-09-18 09:52 | disposition home health service (06) | DRG 70 ==
LOC: D.REHAB 15:06
PROVIDERS: ADMIT Emergency Medicine; ATTEND Emergency Medicine
DX: G93.41 Metabolic encephalopathy (principal); J96.22 Acute and chronic respiratory failure with hypercapnia; J96.21 Acute and chronic respiratory failure with hypoxia; I50.23 Acute on chronic systolic (congestive) heart failure; J44.1 Chronic obstructive pulmonary disease with (acute) exacerbation; N39.0 Urinary tract infection, site not specified; J44.0 Chronic obstructive pulmonary disease with (acute) lower respiratory infection; N17.9 Acute kidney failure, unspecified; E46 Unspecified protein-calorie malnutrition; R26.9 Unspecified abnormalities of gait and mobility; I11.0 Hypertensive heart disease with heart failure; F41.8 Other specified anxiety disorders; I25.10 Atherosclerotic heart disease of native coronary artery without angina pectoris; E78.5 Hyperlipidemia, unspecified; Z79.01 Long term (current) use of anticoagulants; D50.9 Iron deficiency anemia, unspecified; J20.9 Acute bronchitis, unspecified; K21.9 Gastro-esophageal reflux disease without esophagitis; R41.82 Altered mental status, unspecified; Z77.090 Contact with and (suspected) exposure to asbestos; I95.9 Hypotension, unspecified; D64.9 Anemia, unspecified